=== PATIENT | female | born 1940 | race Caucasian/White ===

== ENCOUNTER → 2017-05-10 | Outpatient (CLI) | payer OTHER, BC ==
[~2017-05-10] MED LIST: AMB5 PO; AMLO-110 PO; CALC-354 PO; LDXCR60 TOP; RANI150T2 PO; SERT50TA PO; SYN50 PO
--- NOTE | 2017-05-10 16:07 | MAMMOGRAPHY REPORT ---
BILATERAL DIGITAL SCREENING MAMMOGRAM WITH CAD: 05/10/2017 CLINICAL HISTORY: Routine screening. Patient has no complaints. TECHNIQUE: Bilateral CC and MLO views were obtained. Current study was also evaluated with a Compute r Aided Detection (CAD) system. COMPARISON: Comparison is made to exams dated: 05/06/2016 mammogram, 05/01/2015 mammogram, 04/30/2014 ma mmogram, 04/27/2013 mammogram, 04/25/2012 mammogram, and 04/22/2011 mammogram - [facility] nter. BREAST COMPOSITION: The tissue of both breasts is heterogeneously dense, which may obscure small mas ses. FINDINGS: The parenchymal pattern is similar to prior mammograms. There are scattered benign round and rim calcifications bilaterally. No developing mass, architectural distortion or cluster of suspi cious microcalcifications is seen in either breast. IMPRESSION: ACR BI-RADS CATEGORY 2: BENIGN There is no mammographic evidence of malignancy. A 1 year screening mammogram is recommended. The pa tient will receive written notification of the results. Approximately 10% of breast cancers are not detected with mammography. A negative mammographic report should not delay biopsy if a clinically suggestive mass is present. Omayra Guerrero M.D. ay/:05/10/2017 14:51:55 Painter Barrel: Emi DRAPER(Pat)(Mariya), [facility] letter sent: Normal 1/2 BI-RADS Code: ACR BI-RADS Category 2: Benign
== END | disposition home or self-care (01) ==
LOC: C.MAMM 14:22
PROVIDERS: ATTEND Obstetrics & Gynecology
DX: Z12.31 Encounter for screening mammogram for malignant neoplasm of breast (principal)

== ENCOUNTER → 2018-02-18 | Outpatient (CLI) | payer OTHER, BC ==
[2018-02-18 10:27] LABS: BASO % 1.5 %; BASO ABS # 0.07 K/uL (0-0.2); EOS % 4.6 %; EOS ABS # 0.22 K/uL (0-0.5); HEMATOCRIT 38.5 % (37-47); IG# 0.01 K/uL (0.00-0.02); LYMPH % 40.9 %; LYMPH ABS # 1.97 K/uL (1.2-3.4); MEAN CELL VOLUME 87.3 fL (80-100); MEAN CORPUSCULAR HEMOGLOBIN 29.5 pg (25-34); MEAN CORPUSCULAR HGB CONC 33.8 g/dl (32-36); MEAN PLATELET VOLUME 10.3 fL (7.4-10.4); MONO % 11.2 %; MONO ABS # 0.54 K/uL (0.11-0.59); NEUT % 41.6 %; NEUT ABS # 2.01 K/uL (1.4-6.5); PLATELET COUNT 163 K/uL (130-400); RED CELL DISTRIBUTION WIDTH CV 14.2 % (11.5-14.5); RED CELL DISTRIBUTION WIDTH SD 45.2 fL (36.4-46.3); WHITE BLOOD COUNT 4.82 K/uL (4.8-10.8)
[2018-02-18 10:50] LABS: T3 FREE 2.63 pg/ml (2.30-4.20)
[2018-02-18 10:52] LABS: HEMOGLOBIN A1C 5.5 % (4.5-5.6)
[2018-02-18 11:02] LABS: ALBUMIN 3.6 gm/dl (3.4-5.0); ALKALINE PHOSPHATASE 67 U/L (45-117); ALT/SGPT 21 U/L (12-78); AST/SGOT 23 U/L (15-37); BLOOD UREA NITROGEN 18 mg/dl (7-18); CALCIUM 8.9 mg/dl (8.5-10.1); CARBON DIOXIDE 29 mmol/L (21-32); CHOLESTEROL 192 mg/dl (0-200); CREATININE 0.88 mg/dl (0.60-1.20); GLUCOSE 85 mg/dl (70-99); LDL CHOLESTEROL CALCULATED 89 mg/dl; POTASSIUM 3.9 mmol/L (3.5-5.1); SODIUM 141 mmol/L (136-145); TOTAL PROTEIN 6.8 gm/dl (6.4-8.2)
== END | disposition home or self-care (01) ==
LOC: C.LAB1850 09:10
PROVIDERS: ATTEND Nurse Practitioner Family
DX: I11.0 Hypertensive heart disease with heart failure (principal); I50.32 Chronic diastolic (congestive) heart failure; K21.9 Gastro-esophageal reflux disease without esophagitis; E03.9 Hypothyroidism, unspecified; I25.10 Atherosclerotic heart disease of native coronary artery without angina pectoris; M85.80 Other specified disorders of bone density and structure, unspecified site; R13.10 Dysphagia, unspecified; R53.83 Other fatigue; R73.01 Impaired fasting glucose; F32.9 Major depressive disorder, single episode, unspecified

== ENCOUNTER → 2018-04-27 | Outpatient (CLI) | payer OTHER, BC ==
[~2018-04-27] MED LIST changes: -AMB5 PO; -AMLO-110 PO; -CALC-354 PO; +CHOL100027 PO; +CPAP INH; -LDXCR60 TOP; +NASONEX NAE; +NRV/5 PO; -RANI150T2 PO; -SERT50TA PO; +TRMO2580 TOP; +ZLF/50 PO; +ZOLP5TAB6 PO
== END | disposition home or self-care (01) ==
LOC: C.RDSM 13:14
PROVIDERS: ATTEND Orthopaedic Surgery Sports Medicine
DX: M25.561 Pain in right knee (principal)

== ENCOUNTER → 2018-05-11 | Outpatient (CLI) | payer OTHER, BC ==
--- NOTE | 2018-05-12 15:12 | MAMMOGRAPHY REPORT ---
BILATERAL DIGITAL SCREENING MAMMOGRAM TOMOSYNTHESIS WITH CAD: 05/11/2018 CLINICAL HISTORY: Routine screening. Patient has no complaints. TECHNIQUE: The study was acquired using full field digital technology and interpreted from soft copy. Breast tomosynthesis in addition to standard 2D mammography was performed. Current study was also ev aluated with a Computer Aided Detection (CAD) system. COMPARISON: Comparison is made to exams dated: 05/10/2017 mammogram, 05/06/2016 mammogram, 05/01/2015 dylan mogram, 04/30/2014 mammogram, 04/25/2012 mammogram, and 04/22/2011 mammogram - [facility] ter. BREAST COMPOSITION: The tissue of both breasts is heterogeneously dense, which may obscure small mass es. FINDINGS: There are numerous scattered bilateral benign rounded rim calcifications in the breasts. No suspicious mass, architectural distortion or cluster of microcalcifications is seen. IMPRESSION: ACR BI-RADS CATEGORY 1: NEGATIVE There is no mammographic evidence of malignancy. A 1 year screening mammogram is recommended.( 019) The patient will receive written notification of the results. Some breast cancers are not detected with mammography. A negative mammographic report should not lonnie y biopsy if a clinically suggestive mass is present. Omayra Guerrero M.D. ay/:05/11/2018 14:38:51 Temporary Data Entry Clerk: RT Lynnette(Pat)(M), [facility] letter sent: Normal 1/2 BI-RADS Code: ACR BI-RADS Category 1: Negative
== END | disposition home or self-care (01) ==
LOC: C.MAMM 13:59
PROVIDERS: ATTEND Nurse Practitioner Family
DX: Z12.31 Encounter for screening mammogram for malignant neoplasm of breast (principal)

== ENCOUNTER 2022-10-17 05:58 | Inpatient (IN) ==
[2022-10-17] MEDS ORDERED: ONDANSETRON INJ 2 MG/ML 2 ML VIAL IV STA ×2 (07:09→08:49)
[2022-10-17] MEDS ORDERED: ACETAMINOPHEN 1,000 MG/100 ML VIAL IV STA (07:11)
[2022-10-17] MEDS: SODIUM CHLORIDE 0.9% 1000ML 1,000 ML IV SCH ×2 (07:34→21:45)
[2022-10-17] MEDS ORDERED: OPTIRAY 350 100ml IV ONE (08:01)
--- NOTE | 2022-10-17 08:32 | CT Scan Report ---
CT cervical spine wo con CLINICAL HISTORY: Trauma TECHNIQUE: Multidetector row helical CT of the cervical spine was performed without administration of intravenous contrast. Coronal and sagittal reformations were obtained. Automated dose lowering techn iques and/or adjustment according to patient size were utilized for this exam. Comparison: Comparison is made to CT cervical spine 09/20/2018 FINDINGS: No acute fractures or subluxations are identified. Degenerative changes are seen in the visualized sp ine. The alignment is normal. Biapical scarring is seen in the lungs. Subcentimeter thyroid nodules a re seen which do not require follow-up by ACR criteria. IMPRESSION: Degenerative changes without evidence of acute bony injury. ACT 112: Negative or not required by law. Electronically signed by: Branden Valencia M.D. 10/17/2022 8:30 AM
--- NOTE | 2022-10-17 08:34 | CT Scan Report ---
CT head/brain wo con CLINICAL HISTORY: Fall Technique: Contiguous axial CT images of the head were acquired from the base of the skull to the isis ana maria without intravenous contrast administration. Images were viewed [facility] . Automated dose lowering techniques and/or adjustment according to patient size were utilized for this exam. Comparison: None available at the time of this dictation. Findings: Areas of decreased attenuation are present in the periventricular and subcortical white matter bilate rally consistent with small vessel ischemic disease. Generalized cerebral atrophy with commensurate e nlargement of the ventricles, sulci, and cisterns is also present. There is no acute intracranial hem orrhage or evidence of acute territorial infarction. No shift of the midline structures, mass effect, or extra-axial abnormalities are shown. Atherosclerotic calcifications are present in the intracran ial segments of the internal carotid arteries. Imaged portions of the paranasal sinuses and mastoid air cells are clear. The orbits appear normal. There are no acute fractures of the calvaria. Scalp swelling is seen in the right frontal soft tissu es. Impression: No acute intracranial hemorrhage or skull fractures. Scalp swelling is seen in the right frontal soft tissues. ACT 112: Negative or not required by law. Electronically signed by: Branden Valencia M.D. 10/17/2022 8:32 AM
--- NOTE | 2022-10-17 08:38 | CT Scan Report ---
CT facial bones wo con CLINICAL HISTORY: fall TECHNIQUE: Multidetector row helical CT of the maxillofacial bones was performed without administrati on of intravenous contrast, and processed with bone and soft tissue algorithms. Coronal and sagittal reformations were obtained. Automated dose lowering techniques and/or adjustment according to patient size were utilized for this exam. Comparison: None available at the time of this dictation. FINDINGS: There is an acute fracture of the bilateral nasal bones. The mandible is intact. Degenerative changes are seen in the left temporal manubrial joint. Pterygoid plates are intact. Zygomatic arches are int act. The globes are normal and symmetric, without proptosis, obvious disruption or lens dislocation. Ther e is no orbital radiopaque foreign body. The orbital thornton are intact. The retrobulbar fat is without evidence of disruption. Extraocular muscles are normal and symmetric. Optic nerve sheath complexes are normal in course and caliber. Mild ethmoid sinus thickening is seen. Soft tissue swelling is seen in the frontal region. IMPRESSION: Bilateral acute nasal fracture. No additional fractures are seen. ACT 112: Negative or not required by law. Electronically signed by: Branden Valencia M.D. 10/17/2022 8:36 AM
--- NOTE | 2022-10-17 08:52 | CT Scan Report ---
CT thoracic spine wo con CLINICAL HISTORY: Trauma TECHNIQUE: Multidetector row helical CT of the thoracic spine was performed without administration of intravenous contrast. Coronal and sagittal reformations were obtained. Automated dose lowering techn iques and/or adjustment according to patient size were utilized for this exam. Comparison: Comparison is made to CT thoracic spine 01/15/2015 FINDINGS: Interval development of multiple compression deformities, most notably T12 but also involving T9 and L1 and L2. Vertebral body heights and disk spaces are well maintained. Vertebral body alignment is wi thin normal limits. Surrounding soft tissues are unremarkable apart from aortic calcifications. IMPRESSION: Degenerative changes are seen and there are chronic appearing compression deformities as above, howev er correlation with point tenderness is recommended to exclude acute fracture. ACT 112: Negative or not required by law. Electronically signed by: Branden Valencia M.D. 10/17/2022 8:50 AM
--- NOTE | 2022-10-17 09:13 | CT Scan Report ---
CT abd pelvis IV con only, CT lumbar spine wo con CLINICAL HISTORY: Trauma TECHNIQUE: Helical axial images of the abdomen and pelvis were obtained and displayed. Automated dose lowering techniques and/or adjustment according to patient size were utilized for this exam. Dedicat ed images of the lumbar spine were obtained. This exam was performed with intravenous contrast. COMPARISON: Comparison is made to CT abdomen pelvis 09/02/2011 FINDINGS: Lower chest: No acute abnormality. Liver: Unremarkable. No focal lesions are seen. Gallbladder and biliary tree: No calcified gallstones. Normal caliber wall. No intra- or extrahepatic biliary ductal dilation. Pancreas: Unremarkable, no focal lesions. Spleen: Unremarkable. Adrenals: Unremarkable. Kidneys and ureters: Subcentimeter hypodensities are too small to characterize. Nonobstructive stone is seen on the left. Bladder: Unremarkable. Reproductive organs: Patient is status post hysterectomy. Bowel: A moderate hiatal hernia is seen. Large stool burden is seen with redundant colon. Lymph nodes Retroperitoneal: Unremarkable. Pelvic: Unremarkable. Mesenteric: Unremarkable. Peritoneum: Normal. Vessels: Atherosclerotic calcifications are seen. Abdominal wall: Unremarkable. Bones: Compression deformities of T12-L2 are increased from prior exam. IMPRESSION: 1. Multilevel compression deformities are seen, not seen on prior exam. These are age-indeterminate but favored to be chronic, however correlation with point tenderness is recommended. 2. No acute abnormalities, in particular no evidence of intraperitoneal hemorrhage or visceral traum a. 3. Hiatal hernia. ACT 112: Negative or not required by law. Electronically signed by: Branden Valencia M.D. 10/17/2022 9:11 AM
--- NOTE | 2022-10-17 09:58 | History & Physical Report ---
Date of Service October 17, 2022 Assessment & Plan (1) Fall: Plan: -Admit to med/tele -Patient is currently afebrile, hypertensive at 197/71 (prior to receiving amlodipine), and stable on RA -Patient sustained a fall sometime overnight, it was unwitnessed and she was apparently not using her walker per the staff at [facility] -Trauma workup so far shows non-displaced fractures of the BL nasal bones and subacute lumbar compression fractures -CT of the head was negative for acute findings -Obtaining ECG STAT -Patient is complaining of dizziness, staff at [facility] confirmed that this has been an ongoing issue for years -Obtaining STAT CBC, CMP, Trop, Lactate, TSH, and CK -Also obtianing STAT Chest xray -S/P 1L NSS bolus in the ED, will hold additional IV fluids at this time -UA negative for infection and no other signs of infection at this time -Fall precautions ordered, monitor on tele, am orthostatic vitals ordered -PT/OT consults placed, patient is currently in the [facility], may need increased care -AM CBC and BMP -BL SCDs for DVT ppx (2) Closed fracture nasal bone: Plan: -Stable, no acute deformity -Tylenol for pain (3) Hypertension: Plan: -Hypertensive today with systolics in the 190's -Was previously on amlodipine which had been stopped for possible hypotension -Will be getting 5 mg PO amlodipine now and will continue daily for now -Monitor BP and adjust as needed (4) Compression fx, lumbar spine: Plan: -Stable -Noted to have these fractures in the past -Tylenol for pain (5) Obstructive sleep apnea: Plan: -Unsure if she is on HS CPAP but would hold regardless at this time with her nasal bone fractures (6) Hypothyroidism: Plan: -Was previously on Synthroid but unsure why it was stopped -Will FU with TSH ordered on admission (7) Gastro-esophageal reflux: Plan: -Will order daily famotidine (8) Chronic diastolic (congestive) heart failure: Plan: -Currently Euvolemic -Monitor volume status (9) Arteriosclerotic coronary artery disease: Plan: -Not on aspirin at this time Plan The patient was discussed with Dr. Mae at the time of the admission History of Present Illness Chief Complaint: Fall Primary Care Provider: Ling Ramos MD Bedoya is an 82 year old female with a PMH significant for dementia, chronic L3- L5 compression fractures, HTN, FOSTER, hypothyroidism, depression, CAD, GERD, and diastolic CHF who presented to the [facility] ED via EMS on 10/17/22 due to being found down at [facility]. Per the intake report, the patient sustained an unwitnessed fall and was found by staff this morning. On arrival to the ED she complained of a headache and her chronic lower back pain. In the ED the patient was found to be afebrile, Hypertensive at 199/84, and stable on RA. Labs were remarkable for Covid Negative CT of the head was read as "No acute intracranial hemorrhage or skull fractures. Scalp swelling is seen in the right frontal soft tissues". CT fo the face was read as "Bilateral acute nasal fracture. No additional fractures are seen.". CT of the lumbar spine was read as "1. Multilevel compression deformities are seen, not seen on prior exam. These are age-indeterminate but favored to be chronic, however correlation with point tenderness is recommended. 2. No acute abnormalities, in particular no evidence of intraperitoneal hemorrhage or visceral trauma.3. Hiatal hernia.". CT of the thoracic spine was read as "Degenerative changes are seen and there are chronic appearing compression deformities as above, however correlation with point tenderness is recommended to exclude acute fracture.". CT of the abdomen/pelvis with IV contrast was read as "1. Multilevel compression deformities are seen, not seen on prior exam. These are age-indeterminate but favored to be chronic, however correlation with point tenderness is recommended. 2. No acute abnormalities, in particular no evidence of intraperitoneal hemorrhage or visceral trauma. 3. Hiatal hernia". CT of the cervical spine was read as "Degenerative changes without evidence of acute bony injury.". Prior to admission the patient was given a total of 8 mg IV zofran, 40 mg IV methylprednisolone, and 1gm IV acetaminophen. She was also started on 125 mL/hr of NSS prior to admission and ordered 5 mg PO amlodipine for hypertension. At the time of the exam the patient was lying comfortably in bed in no acute distress. The patient was noted to have swelling/bruising on the right upper forehead and dried blood at the BL nares. History was difficult to obtain due to the patient's dementia and baseline mental status. When asked, she states that she is feeling fine and has no complaints. When asked specifically if she is having head, neck, or back pain she confirmed that she was having some pain at the site of bruising on her forehead and low back pain. She states to me that she is feeling dizzy while lying in bed. She denies chest pain, SOB, abdominal pain, nausea, vomiting, dysuria, hematuria, and leg/arm pain. I called and spoke to the staff at [facility] to obtain more information. They state that Elke has had a long history of dizziness and falls. She is normally supposed to ambulate with the help of a walker; over the past week they have noted more issues with her balance and ambulation even with her walker. He states that they found her down on her back this am in her room. They believe that she must have fallen overnight while trying to walk to the bathroom without her walker. Her last known well was yesterday after dinner. I confirmed her med rec with their staff, they confirmed that she had been taken off amlodipine and Synthroid "awhile ago". When asked why her amlodipine was stopped the nurse stated it was due to low blood pressures and falls. They confirmed to me that she is a Full Code. Bertram refer to Dr. Mae's attestation for any changes to the treatment plan Allergies Allergy/AdvReac Type Severity Reaction Status Date / Time Cipro Allergy Intermediate HIVES Verified 01/15/15 13:34 ciprofloxacin Allergy Intermediate HIVES Unverified 10/09/20 13:18 oxycodone Allergy Intermediate GI SYMPTOMS Verified 10/09/20 13:18 acetaminophen Allergy Unknown GI SYMPTOMS Unverified 10/09/20 13:18 Iodinated Contrast Media Allergy Unknown NAUSEA/WARM Unverified 10/09/20 13:18 FEELING PER MEDROL QUESTIONAIRE latex Allergy Unknown Rash Verified 10/09/20 13:18 morphine Allergy Unknown Rash Unverified 10/09/20 13:18 Sulfa (Sulfonamide Allergy Unknown RASH Unverified 10/09/20 13:18 Antibiotics) codeine AdvReac Mild Nausea Unverified 10/09/20 13:18 propoxyphene AdvReac Unknown SENSITIVITY Unverified 10/09/20 13:18 Home Medications Medication Instructions Recorded Confirmed Type cetirizine 10 mg tablet 10 mg PO DAILY PRN Allergy Symptoms 05/08/19 10/17/22 History amlodipine 5 mg tablet 5 mg PO DAILY #30 tabs 02/19/20 10/17/22 Rx zolpidem 5 mg tablet 5 mg PO HS PRN insomnia #30 tabs 06/20/20 10/17/22 Rx Synthroid 50 mcg tablet 50 mcg PO DAILY #30 tabs 12/16/20 10/17/22 Rx (levothyroxine) alendronate 70 mg tablet 70 mg PO WK 10/17/22 10/17/22 History sertraline 50 mg tablet 25 mg PO HS 10/17/22 10/17/22 History Past Med/Surg History Medical History Compression fracture of L1 lumbar vertebra Concussion Kidney stones Laryngeal spasm Surgical History H/O: hysterectomy (~1978) History of arthroplasty (~2011) L thumb History of cataract surgery History of colonoscopy (~2009) Hx of appendectomy S/P UPPP (uvulopalatopharyngoplasty) Family History Father Myocardial infarction Other History of appendectomy History of hysterectomy Denies family history of Ovarian cancer Prostate cancer Breast cancer Colorectal cancer Social History Smoking Status: Unknown if ever smoked Second Hand Exposure: No; Hx Alcohol Use: No Hx Substance Use: No Preferred Language: Rwandan Communication Ability: Effective Visual Impairment: No Limitations Hearing Ability: Normal 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 Physical Exam Physical Exam: Physical Exam: General: In no acute distress, stated age, chronically ill-appearing, non- toxic appearing HEENT: Patient noted to have bruising/swelling of the right forehead, no other trauma or pain with tenderness to the face/head, bruising noted on the bridge of the nose, no deformity of the nose is noted, dried blood is noted at the BL nares, no scleral icterus, pupils around round, symmetrical, and reactive to light, moist mucus membranes, trachea midline, no thyromegaly Chest/Pulm: No respiratory distress, symmetrical chest expansion, clear breath sounds throughout Cardiac: RRR, no murmurs noted Abdomen: Negative for ascites and bruising, normoactive bowel sounds, soft, non-tender to palpation throughout Musculoskeletal: Facial injuries as noted above, no tenderness or crepitus to palpation of the skull, cervical, thoracic, and lumbar spine, patient is without deformity, tenderness, or ROM limitation of the BL upper and lower extremities, no deformities or tenderness to palpation of the BL hips the the pelvis Extremities: Radial, dorsalis pedis, and posterior tibial pulses are intact and symmetrical, no edema noted in the BL LE's Skin: As described above Neuro: Alert and oriented to person only, no focal defects, CN II-XII tested and no tremors noted, patient is currently dizzy at the time of the exam Psych: No acute distress, calm and cooperative during the exam Results & Data Results & Data ([facility]) Vital Signs (Past 12 Hours) Vital Signs Temp Pulse Pulse Resp BP BP Pulse Ox 10/17/22 09:42 72 20 199/84 H 96 10/17/22 08:07 86 20 195/76 H 97 10/17/22 06:55 78 20 162/87 H 97 10/17/22 06:22 36.7 C 66 18 199/84 H 99 O2 Del Method 10/17/22 09:42 Room Air 10/17/22 08:07 Room Air 10/17/22 06:55 Room Air 10/17/22 06:22 Room Air Laboratory Results Abnormal lab results 10/17/22 10/17/22 10/17/22 Range/Units 07:21 09:32 10:33 Neut # (Auto) 6.75 H (1.4-6.5) K/uL Lymph # (Auto) 0.75 L (1.2-3.4) K/uL POC Anion Gap 13.0 L (16-25) mmol/L Glucose (70-99(Fasting)) mg/dl POC Glucose (other) 103 H (70-99) mg/dl Urine Ketones 1+ H (Negative) 10/17/22 Range/Units 10:33 Neut # (Auto) (1.4-6.5) K/uL Lymph # (Auto) (1.2-3.4) K/uL POC Anion Gap (16-25) mmol/L Glucose 112 H (70-99(Fasting)) mg/dl POC Glucose (other) (70-99) mg/dl Urine Ketones (Negative) Diagnostic Findings Face CT 10/17/22 06:12 CT facial bones wo con CLINICAL HISTORY: fall TECHNIQUE: Multidetector row helical CT of the maxillofacial bones was performed without administration of intravenous contrast, and processed with bone and soft tissue algorithms. Coronal and sagittal reformations were obtained. Automated dose lowering techniques and/or adjustment according to patient size were utilized for this exam. Comparison: None available at the time of this dictation. FINDINGS: There is an acute fracture of the bilateral nasal bones. The mandible is intact. Degenerative changes are seen in the left temporal manubrial joint. Pterygoid plates are intact. Zygomatic arches are intact. The globes are normal and symmetric, without proptosis, obvious disruption or lens dislocation. There is no orbital radiopaque foreign body. The orbital thornton are intact. The retrobulbar fat is without evidence of disruption. Ex traocular muscles are normal and symmetric. Optic nerve sheath complexes are normal in course and caliber. Mild ethmoid sinus thickening is seen. Soft tissue swelling is seen in the frontal region. IMPRESSION: Bilateral acute nasal fracture. No additional fractures are seen. ACT 112: Negative or not required by law. Electronically signed by: Branden Valencia M.D. 10/17/2022 8:[address] 10/17/22 06:13 CT head/brain wo con CLINICAL HISTORY: Fall Technique: Contiguous axial CT images of the head were acquired from the base of the skull to the vertex without intravenous contrast administration. Images were viewed in brain, subdural and bone windows. Automated dose lowering techniques and/or adjustment according to patient size were utilized for this exam. Comparison: None available at the time of this dictation. Findings: Areas of decreased attenuation are present in the periventricular and subcortical white matter bilaterally consistent with small vessel ischemic disease. Generalized cerebral atrophy with commensurate enlargement of the ventricles, sulci, and cisterns is also present. There is no acute intracranial hemorrhage or evidence of acute territorial infarction. No shift of the midline structures, mass effect, or extra-axial abnormalities are shown. Atherosclerotic calcifications are present in the intracranial segments of the internal carotid arteries. Imaged portions of the paranasal sinuses and mastoid air cells are clear. The orbits appear normal. There are no acute fractures of the calvaria. Scalp s welling is seen in the right frontal soft tissues. Impression: No acute intracranial hemorrhage or skull fractures. Scalp swelling is seen in the right frontal soft tissues. ACT 112: Negative or not required by law. Electronically signed by: Branden Valencia M.D. 10/17/2022 8:[address] 10/17/22 07:08 CT abd pelvis IV con only, CT lumbar spine wo con CLINICAL HISTORY: Trauma TECHNIQUE: Helical axial images of the abdomen and pelvis were obtained and displayed. Automated dose lowering techniques and/or adjustment according to patient size were utilized for this exam. Dedicated images of the lumbar spine were obtained. This exam was performed with intravenous contrast. COMPARISON: Comparison is made to CT abdomen pelvis 09/02/2011 FINDINGS: Lower chest: No acute abnormality. Liver: Unremarkable. No focal lesions are seen. Gallbladder and biliary tree: No calcified gallstones. Normal caliber wall. No intra- or extrahepatic biliary ductal dilation. Pancreas: Unremarkable, no focal lesions. Spleen: Unremarkable. Adrenals: Unremarkable. Kidneys and ureters: Subcentimeter hypodensities are too small to characterize. Nonobstructive stone is seen on the left. Bladder: Unremarkable. Reproductive organs: Patient is status post hysterectomy. Bowel: A moderate hiatal hernia is seen. Large stool burden is seen with redundant colon. Lymph nodes Retroperitoneal: Unremarkable. Pelvic: Unremarkable. Mesenteric: Unremarkable. Peritoneum: Normal. Vessels: Atherosclerotic calcifications are seen. Abdominal wall: Unremarkable. Bones: Compression deformities of T12-L2 are increased from prior exam. IMPRESSION: 1. Multilevel compression deformities are seen, not seen on prior exam. These are age-indeterminate but favored to be chronic, however correlation with point tenderness is recommended. 2. No acute abnormalities, in particular no evidence of intraperitoneal hemorrhage or visceral trauma. 3. Hiatal hernia. ACT 112: Negative or not required by law. Electronically signed by: Branden Valencia M.D. 10/17/2022 9:[address] 10/17/22 07:08 CT thoracic spine wo con CLINICAL HISTORY: Trauma TECHNIQUE: Multidetector row helical CT of the thoracic spine was performed without administration of intravenous contrast. Coronal and sagittal refo rmations were obtained. Automated dose lowering techniques and/or adjustment according to patient size were utilized for this exam. Comparison: Comparison is made to CT thoracic spine 01/15/2015 FINDINGS: Interval development of multiple compression deformities, most notably T12 but also involving T9 and L1 and L2. Vertebral body heights and disk spaces are well maintained. Vertebral body alignment is within normal limits. Surrounding soft tissues are unremarkable apart from aortic calcifications. IMPRESSION: Degenerative changes are seen and there are chronic appearing compression def ormities as above, however correlation with point tenderness is recommended to exclude acute fracture. ACT 112: Negative or not required by law. Electronically signed by: Branden Valencia M.D. 10/17/2022 8:50 AM Abdomen/Pelvis CT 10/17/22 07:09 CT abd pelvis IV con only, CT lumbar spine wo con CLINICAL HISTORY: Trauma TECHNIQUE: Helical axial images of the abdomen and pelvis were obtained and displayed. Automated dose lowering techniques and/or adjustment according to patient size were utilized for this exam. Dedicated images of the lumbar spine were obtained. This exam was performed with intravenous contrast. COMPARISON: Comparison is made to CT abdomen pelvis 09/02/2011 FINDINGS: Lower chest: No acute abnormality. Liver: Unremarkable. No focal lesions are seen. Gallbladder and biliary tree: No calcified gallstones. Normal caliber wall. No intra- or extrahepatic biliary ductal dilation. Pancreas: Unremarkable, no focal lesions. Spleen: Unremarkable. Adrenals: Unremarkable. Kidneys and ureters: Subcentimeter hypodensities are too small to characterize. Nonobstructive stone is seen on the left. Bladder: Unremarkable. Reproductive organs: Patient is status post hysterectomy. Bowel: A moderate hiatal hernia is seen. Large stool burden is seen with redundant colon. Lymph nodes Retroperitoneal: Unremarkable. Pelvic: Unremarkable. Mesenteric: Unremarkable. Peritoneum: Normal. Vessels: Atherosclerotic calcifications are seen. Abdominal wall: Unremarkable. Bones: Compression deformities of T12-L2 are increased from prior exam. IMPRESSION: 1. Multilevel compression deformities are seen, not seen on prior exam. These are age-indeterminate but favored to be chronic, however correlation with point tenderness is recommended. 2. No acute abnormalities, in particular no evidence of intraperitoneal hemorrhage or visceral trauma. 3. Hiatal hernia. ACT 112: Negative or not required by law. Electronically signed by: Branden Valencia M.D. 10/17/2022 9:[address] 10/17/22 07:09 CT cervical spine wo con CLINICAL HISTORY: Trauma TECHNIQUE: Multidetector row helical CT of the cervical spine was performed without administration of intravenous contrast. Coronal and sagittal reformations were obtained. Automated dose lowering techniques and/or adjustment according to patient size were utilized for this exam. Comparison: Comparison is made to CT cervical spine 09/20/2018 FINDINGS: No acute fractures or subluxations are identified. Degenerative changes are seen in the visualized spine. The alignment is normal. Biapical scarring is seen in the lungs. Subcentimeter thyroid nodules are seen which do not require follow-up by ACR criteria. IMPRESSION: Degenerative changes without evidence of acute bony injury. ACT 112: Negative or not required by law. Electronically signed by: Branden Valencia M.D. 10/17/2022 8:30 AM ECG Additional Comments: No ECG available at the time of the admission, will obtain one STAT Code Status & VTE Plan Code Status FUll code VTE Prophylaxis Plan VTE Prophylaxis will be ordered: Yes Supervising Physician Co-Signing Physician Notes I personally saw and examined the patient. I verified all liao points and agree with Buzz Tai PA-C with the following exceptions and/or additions: 82-year-old female admission after being found on the floor [facility] in assisted living. Unwitnessed. Main complaint from the patient at this present time is ongoing dizziness. Per staff at [facility] dizziness is chronic. However on turning the patient on the retana she became very dizzy and vomited. Does not improve on closing her eyes. Much worse on moving her head while lying down. O/E Alert, orientated to self only, HS1+2, no murmurs, Chest CTAB, Abdo SNT, no extremity weakness, no pronator drift, no sensory deficit, CN2->12 intact other than vertigo sensation whenever she moves her head A/P Vertigo - unclear cause of this as unable to get a good history. One dose of meclizine given to see if this helps her temporarily get through CT. Brain MRI ordered to assess for CVA. No nystagmus on exam or other focal neurology to suggest this however. Fall - presumably from vertigo although unwitnessed. Will need PT/OT HTN - possible hypertensive encephalopathy causing dizziness and will continue amlodipine 5mg PO daily and make sure she is not orthostatic with this PG Care Time/CCT Total # of Minutes Spent Total Time Spent with Patient: Total time spent is greater than 50% in coordination of care (as documented) at patient's floor/unit and/or counseling patient: Coding [place] [address] INT INP/OBS CARE 3/75MIN Patient Type Established Medical Decision Making High Complexity Diagnoses Fall W19.XXXA Encounter type: initial encounter Closed fracture nasal bone S02.2XXA Encounter type: initial encounter Hypertension I10 Compression fx, lumbar spine S32.000A Encounter type: initial encounter Lumbar vertebra fracture level: unspecified lumbar vertebra Obstructive sleep apnea G47.33 Hypothyroidism E03.9 Gastro-esophageal reflux K21.9 Chronic diastolic (congestive) heart failure I50.32 Arteriosclerotic coronary artery disease I25.10 (1) Closed fracture nasal bone Encounter type: initial encounter Qualified Code(s): S02.2XXA - Fracture of nasal bones, initial encounter for closed fracture (2) Compression fx, lumbar spine Encounter type: initial encounter Lumbar vertebra fracture level: unspecified lumbar vertebra Qualified Code(s): S32.000A - Wedge compression fracture of unspecified lumbar vertebra, initial encounter for closed fracture (3) Fall Encounter type: initial encounter Qualified Code(s): W19.XXXA - Unspecified fall, initial encounter
[2022-10-17 10:05] LABS: Appearance Urine Clear (Clear); Bilirubin Urine Negative (Negative); Blood Urine Negative (Negative); Color Urine Yellow; Glucose Urine UA Negative (Negative); Ketones Urine 1+ (Negative); Leukocyte Esterase Urine Negative (Negative); Nitrite Urine Negative (Negative); Protein Urine Negative (Negative); Specific Gravity Urine 1.029 (1.000-1.030); Urobilinogen Urine Negative (Negative); pH Urine 7.5 (4.5-7.5)
[2022-10-17 10:08] LABS: iSTAT Creatinine 0.8 mg/dl (0.6-1.3); iSTAT Hemoglobin 12.6 g/dl (12.0-16.0); iSTAT Ionized Calcium 1.17 mmol/l (1.12-1.32); iSTAT Potassium 3.8 mmol/L (3.3-5.0)
--- NOTE | 2022-10-17 10:14 | Emergency Department Note ---
Impression & Plan Compression fx, lumbar spine, Fall, Closed fracture nasal bone, Hypertension ED Provider Note CHIEF COMPLAINT: Fall HISTORY OF PRESENT ILLNESS: This 82-year-old female patient presents to the emergency department with complaints of a fall this morning. The patient apparently lives at [facility] and had an unwitnessed ground-level fall. She presents with a head injury and a bloody nose. Patient states she does not recall the events and does complain of some abdominal pain. She does suffer history of dementia and is apparently at baseline. She is not anticoagulated. History is limited for this reason. Most of the history is obtained per nursing staff and EMS. REVIEW OF SYSTEMS: Unreliable review of systems secondary to patient's dementia. ALLERGIES: see below MEDICATIONS: see below PMH: see below SOCIAL HISTORY: [facility] DDx: Fracture, dislocation, contusion, intra-abdominal, pneumothorax, intrathoracic, intracranial, neurologic, compartment syndrome, rhabdomyolysis, as well as other pathologies. PHYSICAL EXAM: Vital signs reviewed. General: Well-appearing 82-year-old female, somewhat anxious but in no distress. Collar in place. HEENT: No scleral icterus, PERRLA, neck supple. Forehead hematoma and small abrasion appreciated. Cardiovascular: Regular rate and rhythm, no extra sounds. Pulmonary: Clear to auscultation bilaterally, normal work of breathing. Abdomen: Soft, mild tenderness palpation over the right lower abdomen, nondistended, positive bowel sounds. No traumatic findings appreciated. Musculoskeletal: Atraumatic, no peripheral edema. Nontender to palpation over the pelvis, mild tenderness palpation over the mid thoracic back without step- off or deformity mild tenderness to the lower lumbar spine without step-off or deformity. Neurologic: Patient awake alert and slightly confused, full strength in all 4 extremities. Able to follow commands. Cranial nerves 2 through 12 grossly intact. Skin: Warm, dry, no rash EMERGENCY DEPARTMENT COURSE/MDM: External medical records were reviewed this patient was evaluated and appeared to be in some discomfort. IV access was obtained by nursing staff and the patient was hydrated with normal saline solution. She was medicated with IV acetaminophen and IV Zofran x2. She was sent for CT imaging due to her diffuse discomfort. Patient was given 40 mg of IV Solu-Medrol due to a listed allergy to contrast media. She is noted to have multiple compression deformities of T12-L2 which are favored to be chronic. She also has bilateral nasal fractures and no evidence of acute intracranial abnormality. The c-collar was removed. An ambulatory trial was attempted however the patient became dizzy on each of 2 attempts. Case was discussed with the hospitalist service as the patient will not be able to return to the nursing facility at this time. She is a high risk for recurrent falls due to her pain and dizziness. She will also require evaluation of the compression fractures. MONITORING: An order for cardiac monitoring was placed and the patient is noted to be in a normal sinus rhythm at 72 beats per minute. RADIOLOGY: CT imaging of the head to my interpretation reveals no evidence of acute intracranial abnormality. Otherwise defer to radiology CT imaging of the face reveals bilateral nasal fractures per radiology. C-spine, T-spine and L-spine to radiology's interpretation revealmultilevel compression deformities seen, not seen on prior exam, age-indeterminate but favored to be chronic. CT scan of the abdomen pelvis per radiology reveals no evidence of acute intra abdominal trauma. There are compression deformities of T12-L2 appreciated. Formal reads are noted below EKG: Sinus bradycardia 59 bpm. Left atrial enlargement. QTC is 437. No PVC, no PAC. Normal ST segments. When compared to previous dated September 20, 2018, septal infarct criteria no longer present. DISPOSITION: Admission Past Med/Surg History Medical History Compression fracture of L1 lumbar vertebra Concussion Kidney stones Laryngeal spasm Surgical History H/O: hysterectomy (~1978) History of arthroplasty (~2011) L thumb History of cataract surgery History of colonoscopy (~2009) Hx of appendectomy S/P UPPP (uvulopalatopharyngoplasty) Family History Father Myocardial infarction Other History of appendectomy History of hysterectomy Denies family history of Ovarian cancer Prostate cancer Breast cancer Colorectal cancer Social History Smoking Status: Unknown if ever smoked Second Hand Exposure: No; Hx Alcohol Use: No Hx Substance Use: No Preferred Language: Hong Konger Communication Ability: Effective Visual Impairment: No Limitations Hearing Ability: Normal Group [employer]st Required: No Beliefs That Will Affect Care: None marital status: Current Living Situation: Senior Living current occupational status: retired Feels Safe at Home: Yes Dental Care, Regularly: No Physical Activity Frequency: 3-4 Times per Week Seatbelt Use: always Sunscreen Use: Yes Allergies Allergies Allergy/AdvReac Type Severity Reaction Status Date / Time Cipro Allergy Intermediate HIVES Verified 01/15/15 13:34 ciprofloxacin Allergy Intermediate HIVES Unverified 10/09/20 13:18 oxycodone Allergy Intermediate GI SYMPTOMS Verified 10/09/20 13:18 acetaminophen Allergy Unknown GI SYMPTOMS Unverified 10/09/20 13:18 Iodinated Contrast Media Allergy Unknown NAUSEA/WARM Unverified 10/09/20 13:18 FEELING PER MEDROL QUESTIONAIRE latex Allergy Unknown Rash Verified 10/09/20 13:18 morphine Allergy Unknown Rash Unverified 10/09/20 13:18 Sulfa (Sulfonamide Allergy Unknown RASH Unverified 10/09/20 13:18 Antibiotics) codeine AdvReac Mild Nausea Unverified 10/09/20 13:18 propoxyphene AdvReac Unknown SENSITIVITY Unverified 10/09/20 13:18 Home Meds Home Medications Medication Instructions Recorded Confirmed cetirizine 10 mg tablet 10 mg PO DAILY PRN Allergy Symptoms 05/08/19 10/17/22 alendronate 70 mg tablet 70 mg PO WK 10/17/22 10/17/22 sertraline 50 mg tablet 25 mg PO HS 10/17/22 10/17/22 Previous Rx's Medication Instructions Recorded amlodipine 5 mg tablet 5 mg PO DAILY #30 tabs 02/19/20 zolpidem 5 mg tablet 5 mg PO HS PRN insomnia #30 tabs 06/20/20 Synthroid 50 mcg tablet 50 mcg PO DAILY #30 tabs 12/16/20 (levothyroxine) Results & Data (ED) Vital Signs Vital Signs - 24 hr 10/17/22 06:22 10/17/22 06:55 10/17/22 08:07 Temperature 36.7 C Temperature Source Oral Pulse Rate 66 Pulse Rate [Right Finger] 78 86 Respiratory Rate 18 20 20 Respiratory Effort / Characteristics Non-Labored Non-Labored Respiratory Depth Normal Normal Blood Pressure 199/84 H Blood Pressure [Right Arm] 162/87 H 195/76 H Blood Pressure Mean 122 Blood Pressure Mean [Right Arm] 112 115 Pulse Oximetry 99 97 97 Oxygen Delivery Method Room Air Room Air Room Air Sepsis Recent Fever Within 48 Hours No Sepsis New/Unexplained Change in Mental Status No Sepsis Action Taken by Nursing No Action Required 10/17/22 09:42 Temperature Temperature Source Pulse Rate Pulse Rate [Right Finger] 72 Respiratory Rate 20 Respiratory Effort / Characteristics Non-Labored Respiratory Depth Normal Blood Pressure Blood Pressure [Right Arm] 199/84 H Blood Pressure Mean Blood Pressure Mean [Right Arm] 122 Pulse Oximetry 96 Oxygen Delivery Method Room Air Sepsis Recent Fever Within 48 Hours Sepsis New/Unexplained Change in Mental Status Sepsis Action Taken by Senior [facility] Medications Current Medication List: was personally reviewed by me Laboratory Data Attestation: I reviewed the patient's lab results. 10/17/22 10:33 10/17/22 10:33 Lab Results 10/17/22 10/17/22 10/17/22 Range/Units 07:21 08:56 09:32 POC Hgb 12.6 (12.0-16.0) g/dl POC Hct 37 (37-47) % POC Sodium 142 (135-144) mmol/L POC Potassium 3.8 (3.3-5.0) mmol/L POC Chloride 105 (101-112) mmol/L POC Total CO2 29 (24-31) mmol/L POC Anion Gap 13.0 L (16-25) mmol/L POC BUN 14 (7-18) mg/dl POC Creatinine 0.8 (0.6-1.3) mg/dl POC Glucose (other) 103 H (70-99) mg/dl POC Ioniz Calcium Frederic 1.17 (1.12-1.32) mmol/l Urine Color Yellow Urine Appearance Clear (Clear) Urine pH 7.5 (4.5-7.5) Ur Specific [place] 1.029 (1.000-1.030) Urine Protein Negative (Negative) Urine Glucose (UA) Negative (Negative) Urine Ketones 1+ H (Negative) Urine Blood Negative (Negative) Urine Nitrite Negative (Negative) Urine Bilirubin Negative (Negative) Urine Urobilinogen Negative (Negative) Ur Leukocyte Esterase Negative (Negative) SARS-CoV-2, RNA, NAAT NEGATIVE (NEGATIVE) Administered Medications Alendronate Sodium (Alendronate Sodium 70 Mg Tab) 70 mg PO Sa@0600 LUCIA Stop: 11/16/22 12:03 Last Admin: 10/17/22 13:01 Dose: Not Given Documented By: [id number] Famotidine (Famotidine 20 Mg Tab) 20 mg PO DAILY LUCIA Stop: 11/16/22 12:03 Last Admin: 10/17/22 13:01 Dose: 20 mg Documented By: [id number] Sodium Chloride (Nss 1000ml) 1,000 mls @ 125 mls/hr IV .Q8H LUCIA Stop: 11/16/22 07:14 Last Admin: 10/17/22 07:34 Dose: 125 mls/hr Documented By: LEONELA Discontinued Medications Amlodipine Besylate (Amlodipine Besylate 5 Mg Tab) 5 mg PO NOW ONE Stop: 10/17/22 10:30 Last Admin: 10/17/22 11:16 Dose: 5 mg Documented By: LEONELA Acetaminophen (Ofirmev) 1,000 mg in 100 mls @ 400 mls/hr IV NOW STA Stop: 10/17/22 07:25 Last Infusion: 10/17/22 07:44 Dose: 0 mls/hr Documented By: Admin: 10/17/22 07:29 Dose: 400 mls/hr Documented By: LEONELA Ioversol (Optiray 350 100ml) 94 ml IV ONCE ONE Stop: 10/17/22 08:02 Last Admin: 10/17/22 08:01 Dose: 94 ml Documented By: JAZMINE Meclizine HCl (Meclizine 12.5 Mg Tab) 12.5 mg PO ONE STA Stop: 10/17/22 14:27 Last Admin: 10/17/22 15:04 Dose: 12.5 mg Documented By: [id number] Methylprednisolone (Methylprednisolone 40 Mg/Ml Vial) 40 mg IV NOW STA Stop: 10/17/22 07:10 Last Admin: 10/17/22 07:29 Dose: 40 mg Documented By: LEONELA Ondansetron HCl (Ondansetron Inj 2 Mg/Ml 2 Ml Vial) 4 mg IV NOW STA Stop: 10/17/22 07:10 Last Admin: 10/17/22 07:29 Dose: 4 mg Documented By: LEONELA Ondansetron HCl (Ondansetron Inj 2 Mg/Ml 2 Ml Vial) 4 mg IV NOW STA Stop: 10/17/22 08:50 Last Admin: 10/17/22 09:01 Dose: 4 mg Documented By: NRB Imaging Data Radiologist's Impression: Face CT 10/17/22 06:12 CT facial bones wo con CLINICAL HISTORY: fall TECHNIQUE: Multidetector row helical CT of the maxillofacial bones was performed without administration of intravenous contrast, and processed with bone and soft tissue algorithms. Coronal and sagittal reformations were obtained. Automated dose lowering techniques and/or adjustment according to patient size were utilized for this exam. Comparison: None available at the time of this dictation. FINDINGS: There is an acute fracture of the bilateral nasal bones. The mandible is intact. Degenerative changes are seen in the left temporal manubrial joint. Pterygoid plates are intact. Zygomatic arches are intact. The globes are normal and symmetric, without proptosis, obvious disruption or lens dislocation. There is no orbital radiopaque foreign body. The orbital thornton are intact. The retrobulbar fat is without evidence of disruption. Extraocular muscles are normal and symmetric. Optic nerve sheath complexes are normal in course and caliber. Mild ethmoid sinus thickening is seen. Soft tissue swelling is seen in the frontal region. IMPRESSION: Bilateral acute nasal fracture. No additional fractures are seen. ACT 112: Negative or not required by law. Electronically signed by: Branden Valencia M.D. 10/17/2022 8:[address] 10/17/22 06:13 CT head/brain wo con CLINICAL HISTORY: Fall Technique: Contiguous axial CT images of the head were acquired from the base of the skull to the vertex without intravenous contrast administration. Images were viewed in brain, subdural and bone windows. Automated dose lowering techniques and/or adjustment according to patient size were utilized for this exam. Comparison: None available at the time of this dictation. Findings: Areas of decreased attenuation are present in the periventricular and subcortical white matter bilaterally consistent with small vessel ischemic disease. Generalized cerebral atrophy with commensurate enlargement of the ventricles, sulci, and cisterns is also present. There is no acute intracranial hemorrhage or evidence of acute territorial infarction. No shift of the midline structures, mass effect, or extra-axial abnormalities are shown. Atherosclerotic calcifications are present in the intracranial segments of the internal carotid arteries. Imaged portions of the paranasal sinuses and mastoid air cells are clear. The orbits appear normal. There are no acute fractures of the calvaria. Scalp swelling is seen in the right frontal soft tissues. Impression: No acute intracranial hemorrhage or skull fractures. Scalp swelling is seen in the right frontal soft tissues. ACT 112: Negative or not required by law. Electronically signed by: Branden Valencia M.D. 10/17/2022 8:[address] 10/17/22 07:08 CT abd pelvis IV con only, CT lumbar spine wo con CLINICAL HISTORY: Trauma TECHNIQUE: Helical axial images of the abdomen and pelvis were obtained and displayed. Automated dose lowering techniques and/or adjustment according to patient size were utilized for this exam. Dedicated images of the lumbar spine were obtained. This exam was performed with intravenous contrast. COMPARISON: Comparison is made to CT abdomen pelvis 09/02/2011 FINDINGS: Lower chest: No acute abnormality. Liver: Unremarkable. No focal lesions are seen. Gallbladder and biliary tree: No calcified gallstones. Normal caliber wall. No intra- or extrahepatic biliary ductal dilation. Pancreas: Unremarkable, no focal lesions. Spleen: Unremarkable. Adrenals: Unremarkable. Kidneys and ureters: Subcentimeter hypodensities are too small to characterize. Nonobstructive stone is seen on the left. Bladder: Unremarkable. Reproductive organs: Patient is status post hysterectomy. Bowel: A moderate hiatal hernia is seen. Large stool burden is seen with redundant colon. Lymph nodes Retroperitoneal: Unremarkable. Pelvic: Unremarkable. Mesenteric: Unremarkable. Peritoneum: Normal. Vessels: Atherosclerotic calcifications are seen. Abdominal wall: Unremarkable. Bones: Compression deformities of T12-L2 are increased from prior exam. IMPRESSION: 1. Multilevel compression deformities are seen, not seen on prior exam. These are age-indeterminate but favored to be chronic, however correlation with point tenderness is recommended. 2. No acute abnormalities, in particular no evidence of intraperitoneal hemorrhage or visceral trauma. 3. Hiatal hernia. ACT 112: Negative or not required by law. Electronically signed by: Branden Valencia M.D. 10/17/2022 9:[address] 10/17/22 07:08 CT thoracic spine wo con CLINICAL HISTORY: Trauma TECHNIQUE: Multidetector row helical CT of the thoracic spine was performed without administration of intravenous contrast. Coronal and sagittal reformations were obtained. Automated dose lowering techniques and/or adjustment according to patient size were utilized for this exam. Comparison: Comparison is made to CT thoracic spine 01/15/2015 FINDINGS: Interval development of multiple compression deformities, most notably T12 but also involving T9 and L1 and L2. Vertebral body heights and disk spaces are well maintained. Vertebral body alignment is within normal limits. Surrounding soft tissues are unremarkable apart from aortic calcifications. IMPRESSION: Degenerative changes are seen and there are chronic appearing compression deformities as above, however correlation with point tenderness is recommended to exclude acute fracture. ACT 112: Negative or not required by law. Electronically signed by: Branden Valencia M.D. 10/17/2022 8:50 AM Abdomen/Pelvis CT 10/17/22 07:09 CT abd pelvis IV con only, CT lumbar spine wo con CLINICAL HISTORY: Trauma TECHNIQUE: Helical axial images of the abdomen and pelvis were obtained and displayed. Automated dose lowering techniques and/or adjustment according to patient size were utilized for this exam. Dedicated images of the lumbar spine were obtained. This exam was performed with intravenous contrast. COMPARISON: Comparison is made to CT abdomen pelvis 09/02/2011 FINDINGS: Lower chest: No acute abnormality. Liver: Unremarkable. No focal lesions are seen. Gallbladder and biliary tree: No calcified gallstones. Normal caliber wall. No intra- or extrahepatic biliary ductal dilation. Pancreas: Unremarkable, no focal lesions. Spleen: Unremarkable. Adrenals: Unremarkable. Kidneys and ureters: Subcentimeter hypodensities are too small to characterize. Nonobstructive stone is seen on the left. Bladder: Unremarkable. Reproductive organs: Patient is status post hysterectomy. Bowel: A moderate hiatal hernia is seen. Large stool burden is seen with redundant colon. Lymph nodes Retroperitoneal: Unremarkable. Pelvic: Unremarkable. Mesenteric: Unremarkable. Peritoneum: Normal. Vessels: Atherosclerotic calcifications are seen. Abdominal wall: Unremarkable. Bones: Compression deformities of T12-L2 are increased from prior exam. IMPRESSION: 1. Multilevel compression deformities are seen, not seen on prior exam. These are age-indeterminate but favored to be chronic, however correlation with point tenderness is recommended. 2. No acute abnormalities, in particular no evidence of intraperitoneal hemorrhage or visceral trauma. 3. Hiatal hernia. ACT 112: Negative or not required by law. Electronically signed by: Branden Valencia M.D. 10/17/2022 9:[address] 10/17/22 07:09 CT cervical spine wo con CLINICAL HISTORY: Trauma TECHNIQUE: Multidetector row helical CT of the cervical spine was performed without administration of intravenous contrast. Coronal and sagittal reformations were obtained. Automated dose lowering techniques and/or adjustment according to patient size were utilized for this exam. Comparison: Comparison is made to CT cervical spine 09/20/2018 FINDINGS: No acute fractures or subluxations are identified. Degenerative changes are seen in the visualized spine. The alignment is normal. Biapical scarring is seen in the lungs. Subcentimeter thyroid nodules are seen which do not require follow-up by ACR criteria. IMPRESSION: Degenerative changes without evidence of acute bony injury. ACT 112: Negative or not required by law. Electronically signed by: Branden Valencia M.D. 10/17/2022 8:30 AM Blood Pressure Blood Pressure Findings: Elevated blood pressure Blood Pressure Disposition: further management by hospitalist Discharge Plan Visit Data Chief Complaint: Fall Stated Complaint: Bloody Nose, Laceration to head ED Provider: [place] [facility] Discharge Problem: Compression fx, lumbar spine, Fall, Closed fracture nasal bone, Hypertension Patient Disposition: Admitted As Inpatient Discharge Instructions Interventions: ED Discharge Assessment Last Done: 10/17/22 11:23 : Compression fx, lumbar spine Qualifiers: Encounter type: initial encounter Lumbar vertebra fracture level: unspecified lumbar vertebra Qualified Code(s): S32.000A - Wedge compression fracture of unspecified lumbar vertebra, initial encounter for closed fracture Fall Qualifiers: Encounter type: initial encounter Qualified Code(s): W19.XXXA - Unspecified fall, initial encounter Closed fracture nasal bone Qualifiers: Encounter type: initial encounter Qualified Code(s): S02.2XXA - Fracture of nasal bones, initial encounter for closed fracture
[2022-10-17] MEDS ORDERED: amLODIPine BESYLATE 5 MG TAB PO ONE (10:29)
[2022-10-17 10:44] LABS: Basophils # (auto) 0.06 K/uL (0-0.2); Basophils % (auto) 0.8 %; Hematocrit (blood only) 38.6 % (34.1-44.9); Hemoglobin 12.9 g/dl (12.0-16.0); Immature Granulocytes # (auto) 0.02 K/uL (0.00-0.02); Immature Granulocytes % (auto) 0.3 %; Lymphocytes # (auto) 0.75 K/uL (1.2-3.4); Lymphocytes % (auto) 9.5 %; Mean Corpuscular Hemoglobin 29.7 pg (25.0-34.0); Mean Corpuscular Hgb Conc 33.4 g/dL (32.0-36.0); Mean Corpuscular Volume 88.9 fL (80.0-100.0); Mean Platelet Volume 10.4 fL (9.4-12.3); Monocytes # (auto) 0.35 K/uL (0.24-0.82); Monocytes % (auto) 4.4 %; Neutrophils # (auto) 6.75 K/uL (1.4-6.5); Platelet Count 208 K/uL (130-400); RDW Coefficient of Variation 13.7 % (11.5-14.5); RDW Standard Deviation 44.9 fL (36.4-46.3); Red Blood Count 4.34 M/uL (3.93-5.22); White Blood Count 7.93 K/ul (4.8-10.8)
[2022-10-17 11:14] LABS: Albumin Globulin Ratio 1.4 (0.9-2); Albumin Level 3.8 gm/dl (3.4-5.0); BUN Creatinine Ratio 17.6 (10-20); Bilirubin,Total 0.7 mg/dl (0.2-1.0); Calcium 8.8 mg/dl (8.5-10.1); Creatinine Clr Calc Pharmacy 50.7 ml/min; Est GFR (African American) 93.1 ml/min; Est GFR (Non-African American) 80.3 ml/min; Globulin 2.7 gm/dl (2.5-4.0); Total Protein 6.5 gm/dl (6.0-8.3)
[2022-10-17 11:17] LABS: Troponin I High Sensitivity 14.6 pg/ml (0-14)
--- NOTE | 2022-10-17 11:57 | XRay Report ---
XR chest 1V portable CLINICAL HISTORY: Fall, trauma workup TECHNIQUE: Single frontal radiograph of the chest was obtained. Comparison: Comparison is made to chest radiograph 10/20/[address] thoracic spine 10/04/2022 FINDINGS: No lines and tubes are seen. The cardiomediastinal silhouette is stable. Right perihilar airspace opa city is seen. Cephalization of the vasculature is noted. No evidence of pleural effusion or pneumotho rax. IMPRESSION: Cardiomegaly and mild pulmonary edema. Right perihilar airspace opacity may be related to pulmonary v ascular congestion. ACT 112: Negative or not required by law. Electronically signed by: Branden Valencia M.D. 10/17/2022 11:54 AM
[2022-10-17] MEDS ORDERED: ALENDRONATE SODIUM 70 MG TAB PO SCH (12:04)
[2022-10-17] MEDS: FAMOTIDINE 20 MG TAB PO SCH (13:01)
[2022-10-17] MEDS ORDERED: MECLIZINE 12.5 MG TAB PO STA (14:26)
--- NOTE | 2022-10-17 16:05 | Magnetic Resonance Report ---
MR brain wo con CLINICAL HISTORY: vertigo TECHNIQUE: Multiplanar and multisequence MR images of the brain were obtained without intravenous con trast. Comparison: None available at the time of this dictation. FINDINGS: No abnormal restricted diffusion is identified. Foci of T2 and FLAIR hyperintensity are noted in the paraventricular areas consistent with chronic small vessel ischemic disease. Ex vacuo ventriculomegal y and sulcal enlargement is noted compatible with diffuse encephalomalacia. No mass is seen. There is no mass effect or midline shift. There is no evidence of acute intraparenchymal hemorrhage. No extra axial fluid collections are seen. The corpus callosum, pituitary gland, and cerebellar tonsils appea r grossly unremarkable. Flow voids of the major intracranial arterial vessels are identified. The imaged portions of the para nasal sinuses, mastoid air cells, and orbits are unremarkable. IMPRESSION: No acute abnormality and in particular no evidence of acute infarct. ACT 112: Negative or not required by law. Electronically signed by: Branden Valencia M.D. 10/17/2022 4:03 PM
[2022-10-17] MEDS ORDERED: OLANZAPINE 2.5 MG TAB PO PRN (18:56)
[2022-10-17] MEDS: SERTRALINE HCL 50 MG TABLET PO SCH (21:58)
[2022-10-17] MEDS: LACTATED RINGER'S 1,000 ML IV SCH (23:34)
[2022-10-18] MEDS: LACTATED RINGER'S 1,000 ML IV SCH ×2 (06:19→17:46)
[2022-10-18] MEDS ORDERED: LEVOTHYROXINE SODIUM 50 MCG TABLET PO SCH (06:30)
[2022-10-18 07:01] LABS: Hematocrit (blood only) 34.1 % (34.1-44.9); Hemoglobin 11.5 g/dl (12.0-16.0); Mean Corpuscular Hemoglobin 29.4 pg (25.0-34.0); Mean Corpuscular Hgb Conc 33.7 g/dL (32.0-36.0); Mean Corpuscular Volume 87.2 fL (80.0-100.0); Mean Platelet Volume 10.4 fL (9.4-12.3); Platelet Count 207 K/uL (130-400); RDW Coefficient of Variation 13.9 % (11.5-14.5); RDW Standard Deviation 44.3 fL (36.4-46.3); Red Blood Count 3.91 M/uL (3.93-5.22)
[2022-10-18 07:36] LABS: BUN Creatinine Ratio 16.7 (10-20); Calcium 8.2 mg/dl (8.5-10.1); Creatinine Clr Calc Pharmacy 47.7 ml/min; Est GFR (African American) 89.1 ml/min; Est GFR (Non-African American) 76.9 ml/min; Potassium 3.8 mmol/L (3.5-5.1)
[2022-10-18] MEDS: FAMOTIDINE 20 MG TAB PO SCH (08:00)
[2022-10-18] MEDS: amLODIPine BESYLATE 5 MG TAB PO SCH (08:00)
[2022-10-18] MEDS ORDERED: ONDANSETRON INJ 2 MG/ML 2 ML VIAL IV PRN (09:59)
[2022-10-18] MEDS: MECLIZINE HCL 25 MG TAB PO PRN ×2 (11:43→19:32)
--- NOTE | 2022-10-18 16:01 | Hospitalist Progress Note ---
Date of Service October 18, 2022 Assessment & Plan (1) Fall: Plan: -Patient sustained a fall sometime overnight, it was unwitnessed and she was apparently not using her walker per the staff at [facility] -Trauma workup so far shows non-displaced fractures of the BL nasal bones and subacute/likely chronic lumbar compression fractures -CT of the head was negative for acute findings -EKG here is normal sinus rhythm without ischemic changes, telemetry monitoring shows normal sinus rhythm and normal rates -No murmur on exam, do not suspect aortic stenosis -Patient is complaining of dizziness, staff at [facility] confirmed that this has been an ongoing issue for years -Blood pressures were hypertensive on arrival and now improved -UA negative for infection and no other signs of infection at this time, chest x-ray negative -No evidence of anemia or renal failure or dehydration. TSH normal, LFTs normal, lactate negative. Minimal elevation in troponin for myocardial demand ischemia -Brain MRI performed and negative for stroke -Suspect related to BPPV given dizziness with turning head-treating with meclizine -PT/OT consults placed-pending but will likely need SNF for short-term stay prior to discharge back to personal-care -Continue liquids diet but she is not really eating much-give maintenance IV fluids (2) Closed fracture nasal bone: Plan: -Stable, no acute deformity -Tylenol for pain -Can follow-up with ENT as an outpatient (3) Hypertension: Plan: -Hypertensive on arrival with systolics in the 190's -Was previously on amlodipine which had been stopped for possible hypotension -Restart amlodipine 5 mg daily-now improved blood pressures (4) Compression fx, lumbar spine: Plan: -Stable -Noted to have these fractures in the past -Tylenol for pain (5) Obstructive sleep apnea: Plan: -Unsure if she is on HS CPAP but would hold regardless at this time with her nasal bone fractures (6) Hypothyroidism: Plan: -Was previously on Synthroid but has since been stopped TSH here is normal No need for levothyroxine at this time Monitor as an outpatient (7) Chronic diastolic (congestive) heart failure: Plan: -Currently Euvolemic -Monitor volume status -Improving blood pressure control with adding amlodipine Okay to continue IV fluids now Will not taking much p.o. (8) Arteriosclerotic coronary artery disease: Plan: Previous cardiology notes state the patient has mild coronary artery disease but has had negative stress echocardiogram in 2016 She is not on antiplatelet or statin Unlikely benefit for this at this point (9) Dementia: Plan: Patient with known cognitive impairment and is about to be transferred to the memory unit of [facility] within the next week Her son reports that she seems at her baseline when he talked to her on the phone here at the hospital She is having some anxiety at times-add on hydroxyzine as needed Continue sertraline for depression Plan DVT prophylaxis-will add Lovenox Disposition-awaiting PT/OT evaluations, may need SNF prior to return to personal-care at [facility] Discussed her care with her son on the phone Admission and Anticipated Discharge Date Admission Date: October 17, 2022 Subjective Patient very anxious, worried about her condition. She felt relieved when I told her she did not have a stroke and she simply has vertigo. She rambles on and on about unrelated topics. Denies headache. No further vomiting today but does not want to eat. Cannot really describe the dizziness to me. Apparently overnight she vomited when the nurses were rolling her in bed. Telemetry with normal sinus rhythm with rates in the 70s. Review of Systems Review of Systems: All systems reviewed & are unremarkable except as noted in HPI & below Physical Exam Constitutional: WD/WN, vitals as above Eyes: PERRL, conjunctivae normal, anicteric sclerae ENMT: external ear and nose normal, oropharynx normal Neck: trachea midline, no thyromegaly Respiratory: normal respiratory effort, lungs clear to auscultation Cardiovascular: RRR, no murmur, no edema Chest (Breasts): Chest: normal inspection of chest Gastrointestinal (Abdomen): normal bowel sounds, soft, nontender, no hepatosplenomegaly Musculoskeletal: Extremities: extremities normal to inspection; no cyanosis and no clubbing Skin: no rashes, warm and dry Right side of face with right periorbital ecchymosis and abrasion on bridge of nose Neurologic: PERRL, EOMI, accommodation nl, no face palsy, no dysarthria CN's II-XI intact bilaterally, moves all extremities and awake; no focal motor deficits Speech / Cognition: normal speech Motor/Sensory: no tremor, no pronator drift and no sensory deficit Psychiatric: Orientation: alert, oriented to person, oriented to place and cooperative Affect: + anxious affect Mood: + anxious mood Lymphatic: no lymphedema Results & Data Results & Data ([facility]) Vital Signs (Past 12 Hours) Vital Signs Temp Pulse Pulse Resp BP Pulse Ox O2 Del Method 10/18/22 15:29 37.0 C 66 20 164/64 H 97 Room Air 10/18/22 11:11 37.0 C 76 20 146/62 H 96 Room Air 10/18/22 07:46 71 10/18/22 07:40 37.2 C 80 20 155/64 H 96 Room Air Laboratory Results 10/18/22 10/18/22 10/18/22 Range/Units 09:03 06:38 06:38 WBC 9.30 (4.8-10.8) K/ul RBC 3.91 L (3.93-5.22) M/uL Hgb 11.5 L (12.0-16.0) g/dl Hct 34.1 (34.1-44.9) % MCV 87.2 (80.0-100.0) fL MCH 29.4 (25.0-34.0) pg MCHC 33.7 (32.0-36.0) g/dL RDW Std Deviation 44.3 (36.4-46.3) fL RDW Coeff of Jan 13.9 (11.5-14.5) % Plt Count 207 (130-400) K/uL MPV 10.4 (9.4-12.3) fL Sodium 141 (136-145) mmol/L Potassium 3.8 (3.5-5.1) mmol/L Chloride 109 H (98-107) mmol/L Carbon Dioxide 27 (21-32) mmol/L Anion Gap 5 (3-11) BUN 12 (6-23) mg/dl Creatinine 0.72 (0.6-1.2) mg/dl Est Cr Clr Drug Dosing 47.7 ml/min Est GFR ( Amer) 89.1 ml/min Est GFR (Non-Af Amer) 76.9 ml/min BUN/Creatinine Ratio 16.7 (10-20) Glucose 85 (70-99(Fasting)) mg/dl Calcium 8.2 L (8.5-10.1) mg/dl Troponin I High Sens 34.6 H D (0-14) pg/ml PG Care Time/CCT Total # of Minutes Spent Total Time Spent with Patient: Total time spent is greater than 50% in coordination of care (as documented) at patient's floor/unit and/or counseling patient: Coding Level of Care Code 41092 SUB INP/OBS CARE Diagnoses Fall W19.XXXA Encounter type: initial encounter Closed fracture nasal bone S02.2XXA Encounter type: initial encounter Hypertension I10 Compression fx, lumbar spine S32.000A Encounter type: initial encounter Lumbar vertebra fracture level: unspecified lumbar vertebra Obstructive sleep apnea G47.33 Hypothyroidism E03.9 Chronic diastolic (congestive) heart failure I50.32 Arteriosclerotic coronary artery disease I25.10 Dementia F03.90 (1) Closed fracture nasal bone Encounter type: initial encounter Qualified Code(s): S02.2XXA - Fracture of nasal bones, initial encounter for closed fracture (2) Compression fx, lumbar spine Encounter type: initial encounter Lumbar vertebra fracture level: unspecified lumbar vertebra Qualified Code(s): S32.000A - Wedge compression fracture of unspecified lumbar vertebra, initial encounter for closed fracture (3) Fall Encounter type: initial encounter Qualified Code(s): W19.XXXA - Unspecified fall, initial encounter
[2022-10-18] MEDS ORDERED: Nursing to Pharmacy Communication SCH (17:45)
[2022-10-18] MEDS: hydrOXYzine HCl 25 MG TAB PO PRN (17:57)
[2022-10-18] MEDS: SERTRALINE HCL 50 MG TABLET PO SCH (19:24)
[2022-10-18] MEDS: ACETAMINOPHEN 325 MG TAB PO PRN (19:37)
--- NOTE | 2022-10-18 21:45 | Electrocardiogram Report ---
Test Reason : Blood Pressure : / mmHG Vent. Rate : 066 BPM Atrial Rate : 066 BPM P-R Int : 164 ms QRS Dur : 084 ms QT Int : 450 ms P-R-T Axes : 047 -12 004 degrees QTc Int : 471 ms Poor data quality, interpretation may be adversely affected Normal sinus rhythm Normal ECG When compared with ECG of 20-OCT-2018 15:51, No significant change was found Confirmed by Jarret Haley [id number]) on 10/18/2022 9:45:32 PM Referred By: REFERRED SELF Confirmed By:Jarret Haley
[2022-10-19] MEDS: hydrOXYzine HCl 25 MG TAB PO PRN (00:59)
[2022-10-19] MEDS: ACETAMINOPHEN 325 MG TAB PO PRN (06:09)
[2022-10-19] MEDS: LACTATED RINGER'S 1,000 ML IV SCH (06:09)
[2022-10-19] MEDS: MECLIZINE HCL 25 MG TAB PO PRN ×2 (06:10→14:04)
[2022-10-19 06:45] LABS: Basophils # (auto) 0.07 K/uL (0-0.2); Basophils % (auto) 0.9 %; Eosinophils # (auto) 0.11 K/uL (0-0.50); Eosinophils % (auto) 1.5 %; Hematocrit (blood only) 37.5 % (34.1-44.9); Hemoglobin 12.5 g/dl (12.0-16.0); Immature Granulocytes # (auto) 0.02 K/uL (0.00-0.02); Immature Granulocytes % (auto) 0.3 %; Lymphocytes # (auto) 1.74 K/uL (1.2-3.4); Lymphocytes % (auto) 23.5 %; Mean Corpuscular Hemoglobin 29.3 pg (25.0-34.0); Mean Corpuscular Hgb Conc 33.3 g/dL (32.0-36.0); Mean Platelet Volume 10.5 fL (9.4-12.3); Monocytes # (auto) 0.92 K/uL (0.24-0.82); Monocytes % (auto) 12.4 %; Neutrophils # (auto) 4.54 K/uL (1.4-6.5); Neutrophils % (auto) 61.4 %; Platelet Count 219 K/uL (130-400); RDW Coefficient of Variation 13.7 % (11.5-14.5); RDW Standard Deviation 44.3 fL (36.4-46.3); Red Blood Count 4.26 M/uL (3.93-5.22)
[2022-10-19 07:11] LABS: BUN Creatinine Ratio 13.8 (10-20); Calcium 8.7 mg/dl (8.5-10.1); Creatinine Clr Calc Pharmacy 52.9 ml/min; Est GFR (African American) 94.5 ml/min; Est GFR (Non-African American) 81.5 ml/min; Magnesium 1.9 mg/dl (1.7-2.4); Potassium 3.8 mmol/L (3.5-5.1)
[2022-10-19] MEDS: amLODIPine BESYLATE 5 MG TAB PO SCH (08:52)
--- NOTE | 2022-10-19 13:17 | Hospitalist Progress Note ---
Date of Service October 19, 2022 Assessment & Plan (1) Fall: Plan: -Patient sustained a fall sometime overnight, it was unwitnessed and she was apparently not using her walker per the staff at [facility] -Trauma workup so far shows non-displaced fractures of the BL nasal bones and subacute/likely chronic lumbar compression fractures -CT of the head was negative for acute findings -EKG here is normal sinus rhythm without ischemic changes, telemetry monitoring shows normal sinus rhythm and normal rates -No murmur on exam, do not suspect aortic stenosis -Patient is complaining of dizziness, staff at [facility] confirmed that this has been an ongoing issue for years-seems vertiginous in nature -Blood pressures were hypertensive on arrival and now improved -UA negative for infection and no other signs of infection at this time, chest x-ray negative -No evidence of anemia or renal failure or dehydration. TSH normal, LFTs normal, lactate negative. Minimal elevation in troponin for myocardial demand ischemia -Brain MRI performed and negative for stroke -Suspect related to BPPV given dizziness with turning head-treating with meclizine and has had improvement -PT/OT consults placed-pending -adv diet to regular and dc IVFs (2) Closed fracture nasal bone: Plan: -Stable, no acute deformity -Tylenol for pain -Can follow-up with ENT as an outpatient (3) Hypertension: Plan: -Hypertensive on arrival with systolics in the 190's -Was previously on amlodipine which had been stopped for possible hypotension -Restarted amlodipine 5 mg daily-now with improved blood pressures (4) Compression fx, lumbar spine: Plan: -Stable -Noted to have these fractures in the past -Tylenol for pain (5) Obstructive sleep apnea: Plan: -Unsure if she is on HS CPAP but would hold regardless at this time with her nasal bone fractures (6) Hypothyroidism: Plan: -Was previously on Synthroid but has since been stopped TSH here is normal No need for levothyroxine at this time Monitor as an outpatient (7) Chronic diastolic (congestive) heart failure: Plan: -Currently Euvolemic -Monitor volume status -Improving blood pressure control with adding amlodipine (8) Arteriosclerotic coronary artery disease: Plan: Previous cardiology notes state the patient has mild coronary artery disease but has had negative stress echocardiogram in 2016 She is not on antiplatelet or statin Unlikely benefit for this at this point (9) Dementia: Plan: Patient with known cognitive impairment and is about to be transferred to the memory unit of [facility] within the next week Her son reports that she seems at her baseline when he talked to her on the phone here at the hospital She is having some anxiety at times-added on hydroxyzine as needed -received po Zyprexa on AM of 10/19 and had significant improvement with less anxiety, more oriented--> will continue low dose Zyprexa 2.5mg po bid on discharge Continue sertraline for depression Plan DVT prophylaxis- Lovenox SQ Disposition-awaiting PT/OT evaluations, may need SNF prior to return to personal-care at [facility]. Can return to [facility] at [facility] if can walk 20-25 feet as per CM. Dc 1:1 sitter as is doing better. Discussed her care with her son on the phone Admission and Anticipated Discharge Date Admission Date: October 17, 2022 Subjective Pt remained anxious and tearful at times yesterday evening and this AM. Received the prn Zyprexa po this AM and I saw her around lunchtime. Her mentation was significantly improved from yesterday. She was smiling, not anxious, said her dizziness was better and she was eating "a lot of jello." She is agreeable to trying regular food. She denies pain.Seems much more oriented. 1:1 sitter at bedside but advised nurse this can be discontinued. Review of Systems Review of Systems: All systems reviewed & are unremarkable except as noted in HPI & below Physical Exam Constitutional: WD/WN, vitals as above Eyes: + anicteric sclerae ENMT: Nose: + external nose abnormality (abrasion) Neck: trachea midline, no thyromegaly Respiratory: normal respiratory effort, lungs clear to auscultation Cardiovascular: RRR, no murmur, no edema Chest (Breasts): Chest: normal inspection of chest Gastrointestinal (Abdomen): normal bowel sounds, soft, nontender, no hepatosplenomegaly Musculoskeletal: Extremities: extremities normal to inspection; no cyanosis and no clubbing Skin: no rashes, warm and dry with right facial ecchymosis Neurologic: PERRL, EOMI, accommodation nl, no face palsy, no dysarthria CN's II-XI intact bilaterally, moves all extremities and awake; no focal motor deficits Speech / Cognition: normal speech Motor/Sensory: no tremor, no pronator drift and no sensory deficit Psychiatric: Orientation: alert, oriented to person, oriented to place and cooperative Affect: euthymic affect Lymphatic: no lymphedema Results & Data Results & Data ([facility]) Vital Signs (Past 12 Hours) Vital Signs Temp Pulse Resp BP Pulse Ox O2 Del Method 10/19/22 07:16 36.7 C 76 20 152/71 H 97 Room Air Laboratory Results 10/19/22 10/19/22 10/18/22 Range/Units 06:21 06:21 18:07 WBC 7.40 (4.8-10.8) K/ul RBC 4.26 (3.93-5.22) M/uL Hgb 12.5 (12.0-16.0) g/dl Hct 37.5 (34.1-44.9) % MCV 88.0 (80.0-100.0) fL MCH 29.3 (25.0-34.0) pg MCHC 33.3 (32.0-36.0) g/dL RDW Std Deviation 44.3 (36.4-46.3) fL RDW Coeff of Jan 13.7 (11.5-14.5) % Plt Count 219 (130-400) K/uL MPV 10.5 (9.4-12.3) fL Immature Gran % (Auto) 0.3 % Neut % (Auto) 61.4 % Lymph % (Auto) 23.5 % [place] % (Auto) 12.4 % Eos % (Auto) 1.5 % Baso % (Auto) 0.9 % Neut # (Auto) 4.54 (1.4-6.5) K/uL Lymph # (Auto) 1.74 (1.2-3.4) K/uL [place] # (Auto) 0.92 H (0.24-0.82) K/uL Eos # (Auto) 0.11 (0-0.50) K/uL Baso # (Auto) 0.07 (0-0.2) K/uL Immature Gran # (Auto) 0.02 (0.00-0.02) K/uL Sodium 142 (136-145) mmol/L Potassium 3.8 (3.5-5.1) mmol/L Chloride 106 (98-107) mmol/L Carbon Dioxide 31 (21-32) mmol/L Anion Gap 5 (3-11) BUN 9 (6-23) mg/dl Creatinine 0.65 (0.6-1.2) mg/dl Est Cr Clr Drug Dosing 52.9 ml/min Est GFR ( Amer) 94.5 ml/min Est GFR (Non-Af Amer) 81.5 ml/min BUN/Creatinine Ratio 13.8 (10-20) Glucose 90 (70-99(Fasting)) mg/dl Calcium 8.7 (8.5-10.1) mg/dl Magnesium 1.9 (1.7-2.4) mg/dl Troponin I High Sens 24.1 H D (0-14) pg/ml PG Care Time/CCT Total # of Minutes Spent Total Time Spent with Patient: Total time spent is greater than 50% in coordination of care (as documented) at patient's floor/unit and/or counseling patient: Coding Level of Care Code 00939 SUB INP/OBS CARE 235MIN Diagnoses Fall W19.XXXA Encounter type: initial encounter Closed fracture nasal bone S02.2XXA Encounter type: initial encounter Hypertension I10 Compression fx, lumbar spine S32.000A Encounter type: initial encounter Lumbar vertebra fracture level: unspecified lumbar vertebra Obstructive sleep apnea G47.33 Hypothyroidism E03.9 Chronic diastolic (congestive) heart failure I50.32 Arteriosclerotic coronary artery disease I25.10 Dementia F03.90 (1) Fall Encounter type: initial encounter Qualified Code(s): W19.XXXA - Unspecified fall, initial encounter (2) Closed fracture nasal bone Encounter type: initial encounter Qualified Code(s): S02.2XXA - Fracture of nasal bones, initial encounter for closed fracture (3) Compression fx, lumbar spine Encounter type: initial encounter Lumbar vertebra fracture level: unspecified lumbar vertebra Qualified Code(s): S32.000A - Wedge compression fracture of unspecified lumbar vertebra, initial encounter for closed fracture
[2022-10-19] MEDS: ENOXAPARIN INJ 40 MG/0.4 ML SYR SQ SCH (14:04)
--- NOTE | 2022-10-19 14:41 | Communication Note ---
Date of Service: October 19, 2022 Patient has a [facility] PCP at [facility]. I gave sign out to KESHAV Senior from [facility] Hospitalist Service who accepted this patient for starting on 10/20/22 at 0700. PT recommending SNF and will need a 3 midnight stay.
[2022-10-19] MEDS: SERTRALINE HCL 50 MG TABLET PO SCH (22:09)
[2022-10-19] MEDS: OLANZAPINE 2.5 MG TAB PO SCH (22:10)
[2022-10-20] MEDS: amLODIPine BESYLATE 5 MG TAB PO SCH (08:20)
[2022-10-20] MEDS: OLANZAPINE 2.5 MG TAB PO SCH ×2 (08:20→21:56)
[2022-10-20] MEDS: hydrOXYzine HCl 25 MG TAB PO PRN (14:32)
[2022-10-20] MEDS: ENOXAPARIN INJ 40 MG/0.4 ML SYR SQ SCH (14:32)
[2022-10-20] MEDS: ACETAMINOPHEN 325 MG TAB PO PRN ×2 (14:32→22:01)
--- NOTE | 2022-10-20 18:31 | Hospitalist Progress Note ---
Date of Service October 20, 2022 Assessment & Plan (1) Fall: Plan: (1) Fall: -Patient sustained a fall sometime overnight, it was unwitnessed and she was apparently not using her walker per the staff at [facility] -Trauma workup so far shows non-displaced fractures of the BL nasal bones and subacute/likely chronic lumbar compression fractures -CT of the head was negative for acute findings -EKG here is normal sinus rhythm without ischemic changes, telemetry monitoring shows normal sinus rhythm and normal rates -No murmur on exam, do not suspect aortic stenosis -Patient is complaining of dizziness, staff at [facility] confirmed that this has been an ongoing issue for years-seems vertiginous in nature -Blood pressures were hypertensive on arrival and now improved -UA negative for infection and no other signs of infection at this time, chest x-ray negative -No evidence of anemia or renal failure or dehydration. TSH normal, LFTs normal, lactate negative. Minimal elevation in troponin for myocardial demand ischemia -Brain MRI performed and negative for stroke -Suspect related to BPPV given dizziness with turning head-treating with meclizine and has had improvement -PT/OT on board recommended SNF (2) Closed fracture nasal bone: -Stable, no acute deformity -Tylenol for pain -Can follow-up with ENT as an outpatient (3) Hypertension: -Hypertensive on arrival with systolics in the 190's -Was previously on amlodipine which had been stopped for possible hypotension -Restarted amlodipine 5 mg daily-now with improved blood pressures (4) Compression fx, lumbar spine: -Stable -Noted to have these fractures in the past -Tylenol for pain (5) Obstructive sleep apnea: -Unsure if she is on HS CPAP but would hold regardless at this time with her nasal bone fractures (6) Hypothyroidism: -Was previously on Synthroid but has since been stopped TSH here is normal No need for levothyroxine at this time Monitor as an outpatient (7) Chronic diastolic (congestive) heart failure: -Currently Euvolemic -Monitor volume status -Improving blood pressure control with adding amlodipine (8) Arteriosclerotic coronary artery disease: Previous cardiology notes state the patient has mild coronary artery disease but has had negative stress echocardiogram in 2016 She is not on antiplatelet or statin Unlikely benefit for this at this point (9) Dementia: Waiting for placement Patient with known cognitive impairment and is about to be transferred to the memory unit of [facility] within the next week Her son reports that she seems at her baseline when he talked to her on the phone here at the hospital She is having some anxiety at times-added on hydroxyzine as needed -received po Zyprexa on AM of 10/19 and had significant improvement with less anxiety, more oriented--> will continue low dose Zyprexa 2.5mg po bid on discharge Continue sertraline for depression Plan DVT prophylaxis- Lovenox SQ Disposition Waiting for placement [facility] Admission and Anticipated Discharge Date Admission Date: October 19, 2022 Subjective Patient was seen and evaluated for follow-up Lying in bed no acute distress watching TV She has been calm and off one-to-one sitter She is waiting for bed to discharge to [facility] Denies any chest pain, palpitation, dizziness, shortness of breath. Review of Systems Review of Systems: All systems reviewed & are unremarkable except as noted in Subjective Physical Exam Physical Exam: General- No acute distress Head- atraumatic, facial ecchymoses Eyes- PERRL, EOMI, ENT- oropharynx clear, + nose abrasion Neck- supple, no JVD Lungs- clear to auscultation Heart- regular rhythm; no murmur Abdomen- normal bowel sounds, soft, nontender Extremities- no calf tenderness Neuro- alert, oriented x 3; PERRL, EOMI; no facial palsy; no dysarthria Skin- warm & dry Results & Data Results & Data ([facility]) Vital Signs (Past 12 Hours) Vital Signs Temp Pulse Resp BP Pulse Ox O2 Del Method 10/20/22 14:49 36.6 C 101 H 16 176/71 H 93 Room Air 10/20/22 09:00 Room Air (1) Fall Encounter type: initial encounter Qualified Code(s): W19.XXXA - Unspecified fall, initial encounter
[2022-10-20] MEDS: SERTRALINE HCL 50 MG TABLET PO SCH (21:55)
--- NOTE | 2022-10-21 10:26 | Hospitalist Progress Note ---
Date of Service October 21, 2022 Assessment & Plan (1) Fall: Plan: (1) Fall: Sustained an unwitness fall sometime overnight prior to presentation She was apparently not using her walker per the staff at [facility] Chart review noted dizziness and staff at [facility] confirmed that this has been an ongoing issue for years (seems vertiginous in nature) Blood pressures were markedly elevated on admission Trauma workup so far shows non-displaced fractures of the BL nasal bones and subacute/likely chronic lumbar compression fractures CT of the head was negative for acute findings Brain MRI performed and negative for stroke EKG here is normal sinus rhythm without ischemic changes UA negative for infection and no other signs of infection at this time Chest x-ray negative Minimal elevation in troponin for myocardial demand ischemia Possibly due to dizziness, possible PPV Continue prn meclizine PT/OT eval noted Awaiting placement (2) Closed fracture nasal bone: Stable, no acute deformity Tylenol for pain Can follow-up with ENT as an outpatient (3) Hypertension: Hypertensive on arrival with systolics in the 190's Was previously on amlodipine which had been stopped for possible hypotension Continue amlodipine 5 mg daily on discharge as well (4) Compression fx, lumbar spine: Stable Noted to have these fractures in the past Tylenol for pain (5) Obstructive sleep apnea: Unclear if she is on HS CPAP but would hold regardless at this time with her nasal bone fractures (6) Hypothyroidism: Was previously on Synthroid but has since been stopped TSH here is normal No need for levothyroxine at this time Monitor as an outpatient (7) Chronic diastolic (congestive) heart failure: Currently Euvolemic Monitor volume status and BP control as above (8) Arteriosclerotic coronary artery disease: Previous cardiology notes state the patient has mild coronary artery disease but has had negative stress echocardiogram in 2016 She is not on antiplatelet or statin Unlikely benefit for this at this point (9) Dementia: Patient with known cognitive impairment and is about to be transferred to the memory unit of [facility] within the next week May continue low dose zyprexa she has been getting inpatient Continue sertraline for depression Plan DVT prophylaxis- Lovenox SQ Disposition Awaiting placement Admission and Anticipated Discharge Date Admission Date: October 19, 2022 Subjective Patient seen and examined Patient is alert and oriented to person only Per RN, no new concerns Review of Systems Review of Systems: Unobtainable due to cognitive status Physical Exam Constitutional: no acute distress (Elderly woman) Eyes: PERRL, conjunctivae normal, anicteric sclerae ENMT: external ear and nose normal, oropharynx normal Respiratory: normal respiratory effort, lungs clear to auscultation Cardiovascular: Rate/Rhythm: regular rate and regular rhythm S1 S2 Gastrointestinal (Abdomen): normal bowel sounds, soft, nontender, no hep atosplenomegaly Musculoskeletal: No pedal edema Neurologic: Alert and oriented to person only Follows simple commands Results & Data Results & Data ([facility]) Vital Signs (Past 12 Hours) Vital Signs Temp Pulse Resp BP BP Pulse Ox O2 Del Method 10/21/22 08:11 36.6 C 76 18 169/67 H 94 Room Air 10/20/22 23:12 36.6 C 101 H 18 185/89 H 93 Room Air (1) Fall Encounter type: initial encounter Qualified Code(s): W19.XXXA - Unspecified fall, initial encounter
[2022-10-21] MEDS: OLANZAPINE 2.5 MG TAB PO SCH ×2 (13:02→20:07)
[2022-10-21] MEDS: ENOXAPARIN INJ 40 MG/0.4 ML SYR SQ SCH (13:02)
[2022-10-21] MEDS: amLODIPine BESYLATE 5 MG TAB PO SCH (13:02)
[2022-10-21] MEDS: ACETAMINOPHEN 325 MG TAB PO PRN ×2 (13:48→20:06)
[2022-10-21] MEDS: SERTRALINE HCL 50 MG TABLET PO SCH (20:06)
[2022-10-22] MEDS: OLANZAPINE 2.5 MG TAB PO SCH (08:24)
[2022-10-22] MEDS: amLODIPine BESYLATE 5 MG TAB PO SCH (08:24)
--- NOTE | 2022-10-22 09:21 | Discharge Summary ---
Discharge Summary Date of Service October 22, 2022 Admission HPI Per Admitting Provider Elke is an 82 year old female with a PMH significant for dementia, chronic L3- L5 compression fractures, HTN, FOSTER, hypothyroidism, depression, CAD, GERD, and diastolic CHF who presented to the [facility] ED via EMS on 10/17/22 due to being found down at [facility]. Per the intake report, the patient sustained an unwitnessed fall and was found by staff this morning. On arrival to the ED she complained of a headache and her chronic lower back pain. In the ED the patient was found to be afebrile, Hypertensive at 199/84, and stable on RA. Labs were remarkable for Covid Negative CT of the head was read as "No acute intracranial hemorrhage or skull fractures. Scalp swelling is seen in the right frontal soft tissues". CT fo the face was read as "Bilateral acute nasal fracture. No additional fractures are seen.". CT of the lumbar spine was read as "1. Multilevel compression deformities are seen, not seen on prior exam. These are age-indeterminate but favored to be chronic, however correlation with point tenderness is recommended. 2. No acute abnormalities, in particular no evidence of intraperitoneal hemorrhage or visceral trauma.3. Hiatal hernia.". CT of the thoracic spine was read as "Degenerative changes are seen and there are chronic appearing compression deformities as above, however correlation with point tenderness is recommended to exclude acute fracture.". CT of the abdomen/pelvis with IV contrast was read as "1. Multilevel compression deformities are seen, not seen on prior exam. These are age-indeterminate but favored to be chronic, however correlation with point tenderness is recommended. 2. No acute abnormalities, in particular no evidence of intraperitoneal hemorrhage or visceral trauma. 3. Hiatal hernia". CT of the cervical spine was read as "Degenerative changes without evidence of acute bony injury.". Prior to admission the patient was given a total of 8 mg IV zofran, 40 mg IV methylprednisolone, and 1gm IV acetaminophen. She was also started on 125 mL/hr of NSS prior to admission and ordered 5 mg PO amlodipine for hypertension. At the time of the exam the patient was lying comfortably in bed in no acute distress. The patient was noted to have swelling/bruising on the right upper forehead and dried blood at the BL nares. History was difficult to obtain due to the patient's dementia and baseline mental status. When asked, she states that she is feeling fine and has no complaints. When asked specifically if she is having head, neck, or back pain she confirmed that she was having some pain at the site of bruising on her forehead and low back pain. She states to me that she is feeling dizzy while lying in bed. She denies chest pain, SOB, abdominal pain, nausea, vomiting, dysuria, hematuria, and leg/arm pain. I called and spoke to the staff at [facility] to obtain more information. They state that Elke has had a long history of dizziness and falls. She is normally supposed to ambulate with the help of a walker; over the past week they have noted more issues with her balance and ambulation even with her walker. He states that they found her down on her back this am in her room. They believe that she must have fallen overnight while trying to walk to the bathroom without her walker. Her last known well was yesterday after dinner. I confirmed her med rec with their staff, they confirmed that she had been taken off amlodipine and Synthroid "awhile ago". When asked why her amlodipine was stopped the nurse stated it was due to low blood pressures and falls. They confirmed to me that she is a Full Code. Bertram refer to Dr. Mae's attestation for any changes to the treatment plan Principal Dx & Hospital Course #1 = Principal Diagnosis Updated Medication List Medication Instructions Recorded Confirmed Type alendronate 70 mg tablet 70 mg PO WK #30 tabs 10/22/22 Rx amlodipine 5 mg tablet (Norvasc) 5 mg PO DAILY 30 days #30 tabs 10/22/22 Rx sertraline 50 mg tablet 25 mg PO HS #30 tabs 10/22/22 Rx Hospital Stay Data Consultations 10/17/22 10:10 ED Decision to Admit Stat Diagnostic Imagining Performed 10/17/22 06:12 CT facial bones wo con Stat 10/17/22 06:13 CT head/brain wo con Stat 10/17/22 07:08 CT lumbar spine wo con Stat CT thoracic spine wo con Stat 10/17/22 07:09 CT abd pelvis IV con only Stat CT cervical spine wo con Stat 10/17/22 14:26 MRI Brain [MR brain wo con] Urgent Pending Results Patient Have Any Pending Studies at Discharge: No Discharge Instructions Given to Patient (Per Discharging Provider) Mrs Connell You were brought to the hospital after a fall. Evaluation showed nasal fracture. You also had poorly controlled hypertension and was started on blood pressure medication. You are being discharged to [facility] for rehab. Please ensure follow up with your Primary Doctor. It was a pleasure taking care of you.
[2022-10-22] MEDS ORDERED: SENNA 8.6 MG TAB PO SCH (10:45)
[2022-10-22] MEDS ORDERED: bisacodyL 10 MG SUPP PR STA (11:26)
[2022-10-22] MEDS: POLYETHYLENE (MIRALAX) 17 GM PACK PO SCH (11:49)
[2022-10-22] MEDS: ENOXAPARIN INJ 40 MG/0.4 ML SYR SQ SCH (13:02)
--- NOTE | 2022-10-22 13:37 | Hospitalist Progress Note ---
Date of Service October 22, 2022 Assessment & Plan (1) Fall: Plan: Sustained an unwitness fall sometime overnight prior to presentation She was apparently not using her walker per the staff at [facility] Chart review noted dizziness and staff at [facility] confirmed that this has been an ongoing issue for years (seems vertiginous in nature) Blood pressures were markedly elevated on admission Trauma workup showed non-displaced fractures of the BL nasal bones and subacute/likely chronic lumbar compression fractures CT of the head was negative for acute findings Brain MRI performed and negative for stroke EKG here is normal sinus rhythm without ischemic changes UA negative for infection and no other signs of infection at this time Chest x-ray negative Minimal elevation in troponin for myocardial demand ischemia Possibly due to dizziness, possible PPV Continue prn meclizine PT/OT eval noted Constipation Started bowel regimen (2) Closed fracture nasal bone: Stable, no acute deformity Tylenol for pain Can follow-up with ENT as an outpatient (3) Hypertension: Hypertensive on arrival with systolics in the 190's Was previously on amlodipine which had been stopped for possible hypotension Continue amlodipine 5 mg daily on discharge as well (4) Compression fx, lumbar spine: Stable Noted to have these fractures in the past Tylenol for pain (5) Obstructive sleep apnea: Unclear if she is on HS CPAP but would hold regardless at this time with her nasal bone fractures (6) Hypothyroidism: Was previously on Synthroid but has since been stopped TSH here is normal No need for levothyroxine at this time Monitor as an outpatient (7) Chronic diastolic (congestive) heart failure: Currently Euvolemic Monitor volume status and BP control as above (8) Arteriosclerotic coronary artery disease: Previous cardiology notes state the patient has mild coronary artery disease but has had negative stress echocardiogram in 2016 She is not on antiplatelet or statin Unlikely benefit for this at this point (9) Dementia: Patient with known cognitive impairment and is about to be transferred to the memory unit of [facility] within the next week May continue low dose zyprexa she has been getting inpatient Continue sertraline for depression Plan DVT prophylaxis- Lovenox SQ [facility] Admission and Anticipated Discharge Date Admission Date: October 19, 2022 Subjective Patient seen and examined Patient is alert and oriented to person only Per RN, had one straight cath yesterday but has been urinating overnight RN reported patient had not had BM for a few days Review of Systems Review of Systems: Unobtainable due to cognitive status Physical Exam Constitutional: + well hydrated; no acute distress Eyes: PERRL, conjunctivae normal, anicteric sclerae ENMT: external ear and nose normal, oropharynx normal Respiratory: normal respiratory effort, lungs clear to auscultation Cardiovascular: Rate/Rhythm: regular rate and regular rhythm S1 S2 Gastrointestinal (Abdomen): normal bowel sounds, soft, nontender, no hepatosplenomegaly Musculoskeletal: No pedal edema Neurologic: Alert and oriented to person only Follows simple commands Results & Data Results & Data ([facility]) Vital Signs (Past 12 Hours) Vital Signs Temp Pulse Resp BP BP Pulse Ox O2 Del Method 10/22/22 10:37 36.7 C 90 18 136/69 185/89 H 94 10/22/22 07:50 Room Air 10/22/22 07:42 36.7 C 90 18 136/69 94 Room Air 10/22/22 02:50 36.8 C 92 H 16 173/77 H 95 Room Air (1) Fall Encounter type: initial encounter Qualified Code(s): W19.XXXA - Unspecified fall, initial encounter
[2022-10-22] MEDS: ACETAMINOPHEN 325 MG TAB PO PRN (20:26)
[2022-10-22] MEDS: hydrOXYzine HCl 25 MG TAB PO PRN (20:26)
[2022-10-22] MEDS: SERTRALINE HCL 50 MG TABLET PO SCH (20:27)
[2022-10-22] MEDS: SENNA 8.6 MG TAB PO SCH (20:27)
--- NOTE | 2022-10-22 20:41 | XRay Report ---
XR KUB/Abdomen 1 view CLINICAL HISTORY: Constipation. Assess bowel TECHNIQUE: 1 view of the abdomen was obtained. Comparison: Comparison is made to CT abdomen pelvis 10/17/2022 FINDINGS: Lung bases are unremarkable. Degenerative changes are seen in the visualized skeleton. The bowel gas pattern is nonobstructive. A moderate amount of stool is noted within the large bowel. IMPRESSION: Nonobstructive bowel gas pattern. Moderate stool burden without evidence of impaction. ACT 112: Negative or not required by law. Electronically signed by: Branden Valencia M.D. 10/22/2022 8:40 PM
[2022-10-23] MEDS: amLODIPine BESYLATE 5 MG TAB PO SCH (09:56)
[2022-10-23] MEDS: SENNA 8.6 MG TAB PO SCH ×2 (09:56→20:04)
[2022-10-23] MEDS: POLYETHYLENE (MIRALAX) 17 GM PACK PO SCH (09:56)
[2022-10-23] MEDS: ACETAMINOPHEN 325 MG TAB PO PRN ×2 (10:08→18:16)
--- NOTE | 2022-10-23 12:22 | XRay Report ---
XR hand RT 2V CLINICAL HISTORY: Right wrist pain. Recent fall TECHNIQUE: 2 views of the right hand were obtained. Comparison: Comparison is made to right finger radiograph 11/03/2012 FINDINGS: There is no evidence of an acute fracture. Degenerative changes are seen in the joints most prominent in the DIP joints. There is fusion of the first digit DIP joint. Osteopenia is seen. No soft tissue abnormality is seen. IMPRESSION: No evidence of acute bony injury. Degenerative changes in the distal interphalangeal joints compatibl e with osteoarthritis. ACT 112: Negative or not required by law. Electronically signed by: Branden Valencia M.D. 10/23/2022 12:20 PM
--- NOTE | 2022-10-23 14:15 | Hospitalist Progress Note ---
Date of Service October 23, 2022 Assessment & Plan (1) Fall: Plan: Sustained an unwitness fall sometime overnight prior to presentation She was apparently not using her walker per the staff at [facility] Chart review noted dizziness and staff at [facility] confirmed that this has been an ongoing issue for years (seems vertiginous in nature) Blood pressures were markedly elevated on admission Trauma workup showed non-displaced fractures of the BL nasal bones and subacute/likely chronic lumbar compression fractures CT of the head was negative for acute findings Brain MRI performed and negative for stroke EKG here is normal sinus rhythm without ischemic changes UA negative for infection and no other signs of infection at this time Chest x-ray negative Minimal elevation in troponin for myocardial demand ischemia Possibly due to dizziness, possible PPV Continue prn meclizine PT/OT eval noted Right wrist pain XR Rt hand did not show acute fracture but degenerative changes/osteoarthritis Tylenol prn Continue bowel regimen (2) Closed fracture nasal bone: Stable, no acute deformity Tylenol for pain Can follow-up with ENT as an outpatient (3) Hypertension: Hypertensive on arrival with systolics in the 190's Was previously on amlodipine which had been stopped for possible hypotension Continue amlodipine 5 mg daily on discharge as well (4) Compression fx, lumbar spine: Stable Noted to have these fractures in the past Tylenol for pain (5) Obstructive sleep apnea: Unclear if she is on HS CPAP but would hold regardless at this time with her nasal bone fractures (6) Hypothyroidism: Was previously on Synthroid but has since been stopped TSH here is normal No need for levothyroxine at this time Monitor as an outpatient (7) Chronic diastolic (congestive) heart failure: Currently Euvolemic Monitor volume status and BP control as above (8) Arteriosclerotic coronary artery disease: Previous cardiology notes state the patient has mild coronary artery disease but has had negative stress echocardiogram in 2016 She is not on antiplatelet or statin Unlikely benefit for this at this point (9) Dementia: Patient with known cognitive impairment and is about to be transferred to the memory unit of [facility] within the next week Zyprexa held for drowsiness Continue sertraline for depression Plan DVT prophylaxis- Lovenox SQ Patient is ready for discharge back to [facility] working on dispo. Admission and Anticipated Discharge Date Admission Date: October 19, 2022 Subjective Patient seen and examined Patient is alert and oriented to person only Per RN, had a small BM yesterday evening Has urinary incontinence but has been passing urine today without straight cath Complaints of right wrist pain today Denied other complaints Physical Exam Constitutional: + well hydrated; no acute distress Elderly woman Eyes: PERRL, conjunctivae normal, anicteric sclerae ENMT: external ear and nose normal, oropharynx normal Respiratory: normal respiratory effort, lungs clear to auscultation Cardiovascular: Rate/Rhythm: regular rate and regular rhythm S1 S2 Gastrointestinal (Abdomen): normal bowel sounds, soft, nontender, no hepatosplenomegaly Musculoskeletal: Tenderness over right wrist No pedal edema Neurologic: PERRL, EOMI, accommodation nl, no face palsy, no dysarthria Psychiatric: Orientation: alert, oriented to person and cooperative; + not oriented to place and + not oriented to time Results & Data Results & Data ([facility]) Vital Signs (Past 12 Hours) Vital Signs Temp Pulse Resp BP BP Pulse Ox O2 Del Method 10/23/22 11:42 36.9 C 94 H 18 124/72 97 Room Air 10/23/22 07:55 Room Air 10/23/22 07:46 37.0 C 88 18 138/67 94 Room Air Diagnostic Findings XR hand RT 2V CLINICAL HISTORY: Right wrist pain. Recent fall TECHNIQUE: 2 views of the right hand were obtained. Comparison: Comparison is made to right finger radiograph 11/03/2012 FINDINGS: There is no evidence of an acute fracture. Degenerative changes are seen in the joints most prominent in the DIP joints. There is fusion of the first digit DIP joint. Osteopenia is seen. No soft tissue abnormality is seen. IMPRESSION: No evidence of acute bony injury. Degenerative changes in the distal interphalangeal joints compatible with osteoarthritis. (1) Fall Encounter type: initial encounter Qualified Code(s): W19.XXXA - Unspecified fall, initial encounter
[2022-10-23] MEDS: ENOXAPARIN INJ 40 MG/0.4 ML SYR SQ SCH (14:56)
[2022-10-23] MEDS: SERTRALINE HCL 50 MG TABLET PO SCH (20:04)
[2022-10-23] MEDS: hydrOXYzine HCl 25 MG TAB PO PRN (20:04)
[2022-10-24] MEDS: ACETAMINOPHEN 325 MG TAB PO PRN ×3 (00:13→12:32)
[2022-10-24] MEDS: SENNA 8.6 MG TAB PO SCH ×2 (09:01→20:59)
[2022-10-24] MEDS: amLODIPine BESYLATE 5 MG TAB PO SCH (09:01)
[2022-10-24] MEDS: POLYETHYLENE (MIRALAX) 17 GM PACK PO SCH (09:01)
[2022-10-24] MEDS: ENOXAPARIN INJ 40 MG/0.4 ML SYR SQ SCH (13:55)
--- NOTE | 2022-10-24 14:59 | Hospitalist Progress Note ---
Date of Service October 24, 2022 Assessment & Plan (1) Fall: Plan: Sustained an unwitness fall sometime overnight prior to presentation She was apparently not using her walker per the staff at [facility] Chart review noted dizziness and staff at [facility] confirmed that this has been an ongoing issue for years (seems vertiginous in nature) Blood pressures were markedly elevated on admission Trauma workup showed non-displaced fractures of the BL nasal bones and subacute/likely chronic lumbar compression fractures CT of the head was negative for acute findings Brain MRI performed and negative for stroke EKG here is normal sinus rhythm without ischemic changes UA negative for infection and no other signs of infection at this time Chest x-ray negative Minimal elevation in troponin for myocardial demand ischemia Possibly due to dizziness, possible PPV Continue prn meclizine PT/OT eval noted Right wrist pain XR Rt hand did not show acute fracture but degenerative changes/osteoarthritis Tylenol prn Continue bowel regimen (2) Closed fracture nasal bone: Stable, no acute deformity Tylenol for pain Can follow-up with ENT as an outpatient (3) Hypertension: Hypertensive on arrival with systolics in the 190's Was previously on amlodipine which had been stopped for possible hypotension Continue amlodipine 5 mg daily on discharge as well (4) Compression fx, lumbar spine: Stable Noted to have these fractures in the past Tylenol for pain (5) Obstructive sleep apnea: Unclear if she is on HS CPAP but would hold regardless at this time with her nasal bone fractures (6) Hypothyroidism: Was previously on Synthroid but has since been stopped TSH here is normal No need for levothyroxine at this time Monitor as an outpatient (7) Chronic diastolic (congestive) heart failure: Currently Euvolemic Monitor volume status and BP control as above (8) Arteriosclerotic coronary artery disease: Previous cardiology notes state the patient has mild coronary artery disease but has had negative stress echocardiogram in 2016 She is not on antiplatelet or statin Unlikely benefit for this at this point (9) Dementia: Patient with known cognitive impairment and is about to be transferred to the memory unit of [facility] within the next week Zyprexa held for drowsiness Continue sertraline for depression Plan DVT prophylaxis- Lovenox SQ Patient is ready for discharge back to [facility] Notified by CM that [facility] cannot take patient today as they had low staff Admission and Anticipated Discharge Date Admission Date: October 19, 2022 Subjective Patient seen and examined Patient is alert and oriented to person only Reports right wrist pain is improved today Physical Exam Constitutional: + well hydrated; no acute distress Thin elderly woman Eyes: PERRL, conjunctivae normal, anicteric sclerae ENMT: external ear and nose normal, oropharynx normal Respiratory: normal respiratory effort, lungs clear to auscultation Cardiovascular: Rate/Rhythm: regular rate and regular rhythm S1 S2 Gastrointestinal (Abdomen): normal bowel sounds, soft, nontender, no hepatosplenomegaly Musculoskeletal: No pedal edema Neurologic: PERRL, EOMI, accommodation nl, no face palsy, no dysarthria Psychiatric: Orientation: alert, oriented to person and cooperative; + not oriented to place and + not oriented to time Results & Data Results & Data ([facility]) Vital Signs (Past 12 Hours) Vital Signs Temp Pulse Pulse Resp BP Pulse Ox O2 Del Method 10/24/22 14:35 36.7 C 84 16 139/66 94 Room Air 10/24/22 11:46 36.7 C 90 12 130/71 96 Room Air 10/24/22 08:00 Room Air 10/24/22 07:34 37.0 C 92 H 14 145/69 H 96 Room Air (1) Fall Encounter type: initial encounter Qualified Code(s): W19.XXXA - Unspecified fall, initial encounter
[2022-10-24] MEDS: SERTRALINE HCL 50 MG TABLET PO SCH (20:58)
[2022-10-25] MEDS: ACETAMINOPHEN 325 MG TAB PO PRN (09:11)
[2022-10-25] MEDS: SENNA 8.6 MG TAB PO SCH (09:12)
[2022-10-25] MEDS: amLODIPine BESYLATE 5 MG TAB PO SCH (09:12)
[2022-10-25] MEDS: POLYETHYLENE (MIRALAX) 17 GM PACK PO SCH (09:15)
--- NOTE | 2022-10-25 14:43 | Discharge Summary ---
Discharge Summary Date of Service October 25, 2022 Notes For Next Care Provider Continue management of chronic medical problems Medication Changes From Visit Amlodipine for hypertension Admission HPI Per Admitting Provider 82 year old female with a PMH significant for dementia, chronic L3-L5 compression fractures, HTN, FOSTER, hypothyroidism, depression, CAD, GERD, and diastolic CHF who presented to the [facility] ED via EMS on 10/17/22 due to being found down at [facility]. Per the intake report, the patient sustained an unwitnessed fall and was found by staff this morning. On arrival to the ED she complained of a headache and her chronic lower back pain. In the ED the patient was found to be afebrile, Hypertensive at 199/84, and stable on RA. Labs were remarkable for Covid Negative CT of the head was read as "No acute intracranial hemorrhage or skull fractures. Scalp swelling is seen in the right frontal soft tissues". CT fo the face was read as "Bilateral acute nasal fracture. No additional fractures are seen.". CT of the lumbar spine was read as "1. Multilevel compression deformit ies are seen, not seen on prior exam. These are age-indeterminate but favored to be chronic, however correlation with point tenderness is recommended. 2. No acute abnormalities, in particular no evidence of intraperitoneal hemorrhage or visceral trauma.3. Hiatal hernia.". CT of the thoracic spine was read as "Degenerative changes are seen and there are chronic appearing compression deformities as above, however correlation with point tenderness is recommended to exclude acute fracture.". CT of the abdomen/pelvis with IV contrast was read as "1. Multilevel compression deformities are seen, not seen on prior exam. These are age-indeterminate but favored to be chronic, however correlation with point tenderness is recommended. 2. No acute abnormalities, in particular no evidence of intraperitoneal hemorrhage or visceral trauma. 3. Hiatal hernia". CT of the cervical spine was read as "Degenerative changes without evidence of acute bony injury.". Prior to admission the patient was given a total of 8 mg IV zofran, 40 mg IV methylprednisolone, and 1gm IV acetaminophen. She was also started on 125 mL/hr of NSS prior to admission and ordered 5 mg PO amlodipine for hypertension. At the time of the exam the patient was lying comfortably in bed in no acute distress. The patient was noted to have swelling/bruising on the right upper forehead and dried blood at the BL nares. History was difficult to obtain due to the patient's dementia and baseline mental status. When asked, she states that she is feeling fine and has no complaints. When asked specifically if she is having head, neck, or back pain she confirmed that she was having some pain at the site of bruising on her forehead and low back pain. She states to me that she is feeling dizzy while lying in bed. She denies chest pain, SOB, abdominal pain, nausea, vomiting, dysuria, hematuria, and leg/arm pain. I called and spoke to the staff at [place] to obtain more information. They state that Elke has had a long history of dizziness and falls. She is normally supposed to ambulate with the help of a walker; over the past week they have noted more issues with her balance and ambulation even with her walker. He states that they found her down on her back this am in her room. They believe that she must have fallen overnight while trying to walk to the bathroom without her walker. Her last kn own well was yesterday after dinner. I confirmed her med rec with their staff, they confirmed that she had been taken off amlodipine and Synthroid "awhile ago". When asked why her amlodipine was stopped the nurse stated it was due to low blood pressures and falls. They confirmed to me that she is a Full Code Admission Exam Per Admitting Provider General:In no acute distress, stated age, chronically ill-appearing, non-toxic appearing HEENT:Patient noted to have bruising/swelling of the right forehead, no other trauma or pain with tenderness to the face/head, bruising noted on the bridge of the nose, no deformity of the nose is noted, dried blood is noted at the BL nares, no scleral icterus, pupils around round, symmetrical, and reactive to light, moist mucus membranes, trachea midline, no thyromegaly Chest/Pulm:No respiratory distress, symmetrical chest expansion, clear breath sounds throughout Cardiac:RRR, no murmurs noted Abdomen:Negative for ascites and bruising, normoactive bowel sounds, soft, non-tender to palpation throughout Musculoskeletal:Facial injuries as noted above, no tenderness or crepitus to palpation of the skull, cervical, thoracic, and lumbar spine, patient is without deformity, tenderness, or ROM limitation of the upper and lower extremities, no deformities or tenderness to palpation of the BL hips the the pelvis Extremities:Radial, dorsalis pedis, and posterior tibial pulses are intact and symmetrical, no edema noted in the BL LE's Skin:As described above Neuro:Alert and oriented to person only, no focal defects, CN II-XII tested and no tremors noted, patient is currently dizzy at the time of the exam Psych:No acute distress, calm and cooperative during the exam Principal Dx & Hospital Course #1 = Principal Diagnosis (1) Fall: Sustained an unwitness fall sometime overnight prior to presentation She was apparently not using her walker per the staff at [facility] Chart review noted dizziness and staff at [facility] confirmed that this has been an ongoing issue for years (seems vertiginous in nature) Blood pressures were markedly elevated on admission Trauma workup showed non-displaced fractures of the BL nasal bones and subacute/likely chronic lumbar compression fractures CT of the head was negative for acute findings except for right frontal scalp swelling Brain MRI performed and negative for stroke EKG here is normal sinus rhythm without ischemic changes UA negative for infection and no other signs of infection at this time Chest x-ray negative Minimal elevation in troponin for myocardial demand ischemia Right wrist pain XR Rt hand did not show acute fracture but degenerative changes/osteoarthritis Tylenol prn Continue bowel regimen for constipation (2) Closed fracture nasal bone: Stable, no acute deformity Tylenol for pain Can follow-up with ENT as an outpatient (3) Hypertension: Hypertensive on arrival with systolics in the 190's Was previously on amlodipine which had been stopped for possible hypotension Was resumed during this admission Continue amlodipine 5 mg daily on discharge as well Blood pressure is better controlled (4) Compression fx, lumbar spine: Stable Noted to have these fractures in the past Tylenol for pain (5) Obstructive sleep apnea: Unclear if she is on HS CPAP but would hold regardless at this time with her nasal bone fractures (6) Hypothyroidism: Was previously on Synthroid but has since been stopped TSH here is normal No need for levothyroxine at this time Monitor as an outpatient (7) Chronic diastolic (congestive) heart failure: Currently Euvolemic Monitor volume status and BP control as above (8) Arteriosclerotic coronary artery disease: Previous cardiology notes state the patient has mild coronary artery disease but has had negative stress echocardiogram in 2016 She is not on antiplatelet or statin Unlikely benefit for this at this point (9) Dementia: Patient with known cognitive impairment and is about to be transferred to the memory unit of [facility] within the next week Continue sertraline for depression Discharge Exam Constitutional + well hydrated; no acute distress Eyes PERRL, conjunctivae normal, anicteric sclerae ENMT external ear and nose normal, oropharynx normal Respiratory normal respiratory effort, lungs clear to auscultation Cardiovascular Rate/Rhythm: regular rate and regular rhythm S1 S2 Gastrointestinal (Abdomen) normal bowel sounds, soft, nontender, no hepatosplenomegaly Musculoskeletal No pedal edema Neurologic PERRL, EOMI, accommodation nl, no face palsy, no dysarthria Psychiatric Orientation: alert, oriented to person and cooperative; + not oriented to place and + not oriented to time Updated Medication List Medication Instructions Recorded Confirmed Type alendronate 70 mg tablet 70 mg PO WK #30 tabs 10/22/22 Rx amlodipine 5 mg tablet (Norvasc) 5 mg PO DAILY 30 days #30 tabs 10/22/22 Rx sertraline 50 mg tablet 25 mg PO HS #30 tabs 10/22/22 Rx polyethylene glycol 3350 17 gram 17 g PO DAILY PRN constipation #14 10/23/22 Rx oral powder packet (Miralax) ea sennosides 8.6 mg tablet (Senokot) 17.2 mg PO BID #60 tabs 10/23/22 Rx Hospital Stay Data Consultations 10/17/22 10:10 ED Decision to Admit Stat Diagnostic Imagining Performed 10/17/22 06:12 CT facial bones wo con Stat 10/17/22 06:13 CT head/brain wo con Stat 10/17/22 07:08 CT lumbar spine wo con Stat CT thoracic spine wo con Stat 10/17/22 07:09 CT abd pelvis IV con only Stat CT cervical spine wo con Stat 10/17/22 14:26 MRI Brain [MR brain wo con] Urgent Pending Results Patient Have Any Pending Studies at Discharge: No Discharge Instructions Given to Patient (Per Discharging Provider) Mrs Connell You were brought to the hospital after a fall. Evaluation showed nasal fracture. You also had poorly controlled hypertension and was started on blood pressure medication. You are being discharged to [facility] for rehab. Please ensure follow up with your Primary Doctor. It was a pleasure taking care of you. Total Time Total Time Spent Total Time Spent (In Minutes): 45 Total Time Includes: Examination of the Patient, Discharge Planning and Medication Reconciliation
== END 2022-10-25 12:23 | DRG 155 ==
LOC: 2N 05:58 → ED 05:58 → SUATTDRO 10:19 → 2N 11:23 → SUATTDRO 10-19 14:12 → 3W 10-22 23:11

== ENCOUNTER 2023-02-03 17:05 | Inpatient (IN) ==
[2023-02-03 17:55] LABS: Basophils # (auto) 0.09 K/uL (0-0.2); Basophils % (auto) 0.5 %; Eosinophils # (auto) 0.07 K/uL (0-0.50); Eosinophils % (auto) 0.4 %; Hematocrit (blood only) 30.4 % (37.0-47.0); Hemoglobin 9.6 g/dl (12.0-16.0); Immature Granulocytes # (auto) 0.22 K/uL (0.01-0.20); Immature Granulocytes % (auto) 1.3 %; Lymphocytes # (auto) 2.15 K/uL (1.2-3.4); Lymphocytes % (auto) 12.5 %; Mean Corpuscular Hemoglobin 27.7 pg (25.0-34.0); Mean Corpuscular Hgb Conc 31.6 g/dL (32.0-36.0); Mean Corpuscular Volume 87.9 fL (80.0-100.0); Mean Platelet Volume 10.1 fL (9.4-12.4); Monocytes # (auto) 1.98 K/uL (0.11-0.59); Monocytes % (auto) 11.5 %; Neutrophils # (auto) 12.73 K/uL (1.40-6.50); Neutrophils % (auto) 73.8 %; Platelet Count 367 K/uL (130-400); RDW Coefficient of Variation 15.6 % (11.5-14.5); RDW Standard Deviation 50.2 fL (36.4-46.3); Red Blood Count 3.46 M/uL (4.20-5.40); White Blood Count 17.24 K/ul (4.8-10.8)
--- NOTE | 2023-02-03 18:11 | XRay Report ---
XR chest 1V portable CLINICAL HISTORY: Sepsis COMPARISON STUDY: Chest radiograph 11/15/2022. FINDINGS: Lung volumes are mildly diminished. There are mild bibasilar opacities. No definite consoli dation to suggest pneumonia. Cardiomediastinal silhouette is stable. There is no evidence for pulmona ry edema. IMPRESSION: Mild bibasilar opacities. Atelectasis is favored although an infectious process could ap pear similar. ACT 112: Negative or not required by law. Electronically signed by: Isai Gu M.D. 02/03/2023 6:09 PM
[2023-02-03 18:13] LABS: Albumin Level 3.1 gm/dl (3.4-5.0); BUN Creatinine Ratio 27.4 (10-20); Bilirubin Direct 0.2 mg/dl (0-0.2); Bilirubin,Total 0.7 mg/dl (0.2-1.0); Calcium 9.6 mg/dl (8.6-10.3); Creatinine Clr Calc Pharmacy 35.7 ml/min; Est GFR (Non-African American) 63.8 ml/min; Magnesium 2.2 mg/dl (1.7-2.4); Phosphorus 2.4 mg/dl (2.5-4.9); Potassium 3.9 mmol/L (3.5-5.1); Total Protein 6.7 gm/dl (6.0-8.3)
[2023-02-03] MEDS ORDERED: SODIUM CHLORIDE 0.9% 1000ML 1,000 ML IV ONE (18:14)
[2023-02-03] MEDS ORDERED: FAMOTIDINE 20MG IV PUSH 20 MG/5 ML SYR IV STA (18:14)
[2023-02-03] MEDS ORDERED: SODIUM CHLORIDE 0.9% 500 ML IV ONE (18:14)
[2023-02-03] MEDS ORDERED: VANCOMYCIN HCL 1,250 MG in SODIUM CHLORIDE 0.9% 500 ML IV ONE (18:14)
[2023-02-03] MEDS ORDERED: VANCOMYCIN CONSULT ACTIVE PRN (18:14)
[2023-02-03] MEDS ORDERED: CEFEPIME 2,000 MG/20 ML VIAL IV STA (18:14)
[2023-02-03 18:18] LABS: Troponin I High Sensitivity 10.2 pg/ml (0-14)
--- NOTE | 2023-02-03 19:03 | CT Scan Report ---
CT OF THE ABDOMEN AND PELVIS WITHOUT CONTRAST CLINICAL HISTORY: Urinary tract infection. Sepsis. COMPARISON STUDY: CT of the abdomen and pelvis October 17, 2022. TECHNIQUE: Axial images of the abdomen and pelvis were obtained without IV contrast. Images were revi ewed in the axial, sagittal, and coronal planes. Automated exposure control was utilized for the ike dy. A dose lowering technique was utilized adhering to the principles of ALARA. FINDINGS: A small right pleural effusion is noted. There is segmental right lower lobe airspace opaci ty. Evaluation of the abdomen and pelvis is suboptimal on this unenhanced exam. No pneumatosis, free air or portal venous gas is present. Liver, spleen, adrenal glands, kidneys and pancreas are unremark able. There is no hydronephrosis. There is no biliary or pancreatic ductal dilatation dictation. A la rge amount stool within the rectum is present. There is minimal adjacent stranding. There is no defin ite bowel wall thickening. No fluid collection is present. There is no lymphadenopathy. Multiple old lumbar spine compression deformities are unchanged. No acute lumbar spine fractures are present. IMPRESSION: 1. No urinary calculi or hydronephrosis. 2. Small right pleural effusion. Adjacent airspace opacity likely reflects atelectasis. Pneumonia cou ld appear similar. A pulmonary infarct is also within the differential. A PE protocol chest CT could be obtained for further evaluation. 3. Large amount of stool within the rectum. Moderate amount of stool within the colon. Minimal strand ing adjacent to the rectum is nonspecific and a mild stercoral colitis would be difficult to exclude. No extraluminal gas. ACT 112: Negative or not required by law. Electronically signed by: Isai Gu M.D. 02/03/2023 7:02 PM
[2023-02-03 19:25] LABS: Adenovirus PCR Not Detected (NotDetected); Bordetella parapertussis PCR Not Detected (NotDetected); Bordetella pertussis PCR Not Detected (NotDetected); Chlamydia pneumoniae PCR Not Detected (NotDetected); Coronavirus 229E PCR Not Detected (NotDetected); Coronavirus CoV-2 (COVID19)PCR Not Detected (NotDetected); Coronavirus HKU1 PCR Not Detected (NotDetected); Coronavirus NL63 PCR Not Detected (NotDetected); Coronavirus OC43PCR Not Detected (NotDetected); Human Metapneumovirus PCR Not Detected (NotDetected); Influenza A PCR Not Detected (NotDetected); Influenza B PCR Not Detected (NotDetected); Mycoplasma pneumoniae PCR Not Detected (NotDetected); Parainfluenza Virus 1 PCR Not Detected (NotDetected); Parainfluenza Virus 2 PCR Not Detected (NotDetected); Parainfluenza Virus 3 PCR Not Detected (NotDetected); Parainfluenza Virus 4 PCR Not Detected (NotDetected); Respiratory Syncytial VirusPCR Not Detected (NotDetected)
--- NOTE | 2023-02-03 19:57 | History & Physical Report ---
Date of Service February 03, 2023 Assessment & Plan (1) Pneumonia: Plan: Possible aspiration pneumonia Patient is 82-year-old female with PMH HTN, MGUS, dementia, anxiety, thoracic and lumbar compression fracture, chronic cholecystitis presented to ER from [facility] for increased weakness, UTI, pneumonia. Started on amoxicillin 01/26/2023 for Fever, pneumonia, suspected UTI. Had reported negative respiratory panel outpatient. On 01/29/2023 amoxicillin was stopped and was changed to cefdinir. Today was referred to ER for reported increased weakness and lethargy and fever 100.2F. In ER afebrile, R: 25, BP 144/61, 91% on room air. WBC 17, lactate WNL, procalcitonin: 0.47 CXR:Mild bibasilar opacities. Atelectasis is favored although an infectious process could appear similar. CT Abd/Pelvis:Small right pleural effusion. Adjacent airspace opacity likely reflects atelectasis. Pneumonia could appear similar. A pulmonary infarct is also within the differential. A PE protocol chest CT could be obtained for further evaluation. Blood cultures pending In ER given cefepime, vancomycin Respiratory panel +entero/rhinovirus Reported episode of choking this morning Aspiration precautions Speech evaluation Zosyn NSS MRSA swab Supplemental oxygen as needed D-dimer pending. If elevated obtain CTA chest CBC, BMP in a.m. (2) UTI (urinary tract infection): Plan: Outpatient chart review: 01/27/2023 urine culture: E. coli, Aerococcus urinae. Treated with amoxicillin on 01/26/2023. Amoxicillin was stopped and cefdinir was started on 01/29/2023 Today UA unremarkable Blood cultures pending CT Abd/Pelvis: No urinary calculi or hydronephrosis. Large amount of stool within the rectum. Moderate amount of stool within the colon. Minimal stranding adjacent to the rectum is nonspecific and a mild stercoral colitis would be difficult to exclude. No extraluminal gas. In ER given cefepime Zosyn as above (3) Dementia: Plan: History of dementia, anxiety Monitor for delirium Continue buspirone, Risperdal, sertraline (4) Hypertension: Plan: Continue amlodipine (5) MGUS (monoclonal gammopathy of unknown significance): Plan: Hgb: 9.6. Baseline Hgb in the 9's Monitor H&H (6) Chronic cholecystitis: Plan: History of chronic cholecystitis seen on outpatient imaging Has upcoming appointment with general surgery 03/02/2023, Dr. Andrade DVT Prophylaxis Heparin SQ Full Code as per nursing facility chart Follows with Dr Castro at [facility] for routine care Pt was seen and care coordinated with Dr Kaufman. See addendum I spent a total of 85 minutes reviewing notes, outpatient records, labs, medication, coordinating, documenting and providing care for this patient excluding time spent in the performance of separately billed services. History of Present Illness Chief Complaint: UTI Primary Care Provider: [facility] Patient is 82-year-old female with PMH HTN, MGUS, dementia, anxiety, thoracic and lumbar compression fracture, chronic cholecystitis presented to ER from [facility] for increased weakness, UTI, pneumonia. Patient unable to give history. Reports pain all over. Upon chart review from [facility] this is a chronic complaint. History obtained from staff and chart review. Started on amoxicillin 01/26/2023 for Fever, pneumonia, suspected UTI. Outpatient chart review: 01/27/2023 urine culture: E. coli, Aerococcus urinae. It is reported chest x-ray showed right lower lobe bronchopneumonia and that respiratory panel was negative. On 01/29/2023 amoxicillin was stopped and was changed to cefdinir. Today was referred to ER for reported increased weakness and lethargy. It is reported that patient had choking episode on bites of eggs this morning. Temp of 100.2F reported today. No reported diarrhea, hypoxia. Allergies Allergy/AdvReac Type Severity Reaction Status Date / Time ciprofloxacin Allergy Intermediate HIVES Verified 02/03/23 19:41 latex Allergy Intermediate Rash Verified 02/03/23 19:41 morphine Allergy Intermediate Rash Verified 02/03/23 19:41 Sulfa (Sulfonamide Allergy Intermediate RASH Verified 02/03/23 19:41 Antibiotics) acetaminophen AdvReac Intermediate GI SYMPTOMS Verified 02/03/23 19:41 Iodinated Contrast Media AdvReac Intermediate NAUSEA/WARM Verified 02/03/23 19 :41 FEELING PER MEDROL QUESTIONAIRE oxycodone AdvReac Intermediate GI SYMPTOMS Verified 02/03/23 19:41 codeine AdvReac Mild Nausea Verified 02/03/23 19:41 propoxyphene AdvReac Unknown SENSITIVITY Verified 02/03/23 19:41 Home Medications Medication Instructions Recorded Confirmed Type alendronate 70 mg tablet 70 mg PO WK #30 tabs 10/22/22 02/03/23 Rx polyethylene glycol 3350 17 gram 17 g PO DAILY PRN constipation #14 10/23/22 02/03/23 Rx oral powder packet (Miralax) ea acetaminophen 325 mg tablet 650 mg PO Q4H PRN PAIN/FEVER 11/15/22 02/03/23 History (Tylenol) famotidine 20 mg tablet 20 mg PO HS 11/15/22 02/03/23 History ondansetron HCl 4 mg tablet 4 mg PO Q6H PRN NAUSEA/VOMITING 11/15/22 02/03/23 History sennosides 8.6 mg tablet (Senokot) 17.2 mg PO BID 11/15/22 02/03/23 History sertraline 25 mg tablet 75 mg PO HS 11/15/22 02/03/23 History acetaminophen 650 mg rectal 650 mg IA Q4H PRN Fever Or Pain 02/03/23 02/03/23 History suppository amlodipine 5 mg tablet 5 mg PO QAM 02/03/23 02/03/23 History buspirone 5 mg tablet 5 mg PO BID 02/03/23 02/03/23 History cefdinir 300 mg capsule 300 mg PO BID 02/03/23 02/03/23 History omeprazole 20 mg capsule,delayed 20 mg PO QAM 02/03/23 02/03/23 History release risperidone 0.25 mg tablet 0.5 mg PO HS 02/03/23 02/03/23 History Past Med/Surg History Medical History Chronic cholecystitis Compression fracture of L1 lumbar vertebra Concussion Dementia Hypertension Kidney stones Laryngeal spasm MGUS (monoclonal gammopathy of unknown significance) Surgical History H/O: hysterectomy (~1978) History of arthroplasty (~2011) L thumb History of cataract surgery History of colonoscopy (~2009) Hx of appendectomy S/P UPPP (uvulopalatopharyngoplasty) Family History Father Myocardial infarction Other History of appendectomy History of hysterectomy Denies family history of Ovarian cancer Prostate cancer Breast cancer Colorectal cancer Social History Smoking Status: Unknown if ever smoked Second Hand Exposure: No; Do You Dip or Chew Tobacco: No; Hx Alcohol Use: No Hx Substance Use: No Preferred Language: Tunisian Communication Ability: Effective Visual Impairment: No Limitations Hearing Ability: Normal Personnel Quality Assurance Auditor Required: No Beliefs That Will Affect Care: None marital status: Current Living Situation: Snf current occupational status: retired Feels Safe at Home: Yes Dental Care, Regularly: No Physical Activity Frequency: 3-4 Times per Week Seatbelt Use: always Sunscreen Use: Yes Assistive Devices: Walker Review of Systems Review of Systems: Unobtainable due to cognitive status Physical Exam Physical Exam: General: +mildly anxious, otherwise in no apparent distress, thin elderly female Head: normocephalic, atraumatic Eyes: conjunctiva non-injected, anicteric ENT: normal inspection external ears, nose, mucous membranes mildly dry Neck: supple, trachea midline Lungs: poor inspiratory effort but appear clear, no respiratory distress CV: RRR, no murmur, no pretibial edema Abd: normal BS, soft, non-tender Ext: no cyanosis, no calf tenderness Neuro: Alert, oriented to person only -able to say name is "Elke", answers some yes or no to questions, lethargic, anxious affect Skin: warm, dry Results & Data Results & Data Vital Signs (Past 12 Hours) Vital Signs Temp Pulse Resp BP Pulse Ox O2 Del Method 02/03/23 19:15 82 17 131/58 L 89 L 02/03/23 19:00 88 21 127/56 L 92 02/03/23 18:45 77 17 134/59 L 94 02/03/23 18:30 78 17 121/57 L 94 02/03/23 18:15 78 23 125/60 93 02/03/23 18:12 80 21 130/60 94 02/03/23 18:00 83 19 91 Room Air 02/03/23 17:45 82 25 H 02/03/23 17:45 128/58 L 02/03/23 17:30 83 19 02/03/23 17:30 129/76 02/03/23 17:20 82 24 92 02/03/23 17:40 92 Room Air 02/03/23 17:33 82 02/03/23 17:04 37.4 C 82 30 H 144/61 H 91 Room Air Laboratory Results Short CBC 02/03/23 Range/Units 17:23 WBC 17.24 H (4.8-10.8) K/ul Hgb 9.6 L (12.0-16.0) g/dl Hct 30.4 L (37.0-47.0) % Plt Count 367 (130-400) K/uL BMP 02/03/23 17:23 Sodium 144 Potassium 3.9 Chloride 105 Carbon Dioxide 32 BUN 23 Creatinine 0.84 Glucose 149 H Calcium 9.6 Liver Function 02/03/23 Range/Units 17:23 Total Bilirubin 0.7 (0.2-1.0) mg/dl Direct Bilirubin 0.2 (0-0.2) mg/dl AST 49 H (13-39) U/L ALT 48 (7-52) U/L Alkaline Phosphatase 227 H (34-104) U/L Albumin 3.1 L (3.4-5.0) gm/dl Urine 02/03/23 Range/Units 19:33 Urine Color Dark Yellow Urine Appearance Clear (Clear) Urine pH 6.0 (4.5-7.5) Ur Specific [place] 1.020 (1.000-1.030) Urine Protein 1+ H (Negative) Urine Glucose (UA) Negative (Negative) Diagnostic Findings Chest X-Ray 02/03/23 17:36 XR chest 1V portable CLINICAL HISTORY: Sepsis COMPARISON STUDY: Chest radiograph 11/15/2022. FINDINGS: Lung volumes are mildly diminished. There are mild bibasilar opacities. No definite consolidation to suggest pneumonia. Cardiomediastinal silhouette is stable. There is no evidence for pulmonary edema. IMPRESSION: Mild bibasilar opacities. Atelectasis is favored although an infectious process could appear similar. ACT 112: Negative or not required by law. Electronically signed by: Isai Gu M.D. 02/03/2023 6:09 PM Abdomen/Pelvis CT 02/03/23 18:03 CT OF THE ABDOMEN AND PELVIS WITHOUT CONTRAST CLINICAL HISTORY: Urinary tract infection. Sepsis. COMPARISON STUDY: CT of the abdomen and pelvis October 17, 2022. TECHNIQUE: Axial images of the abdomen and pelvis were obtained without IV contrast. Images were reviewed in the axial, sagittal, and coronal planes. Automated exposure control was utilized for the study. A dose lowering technique was utilized adhering to the principles of ALARA. FINDINGS: A small right pleural effusion is noted. There is segmental right lower lobe airspace opacity. Evaluation of the abdomen and pelvis is suboptimal on this unenhanced exam. No pneumatosis, free air or portal venous gas is present. Liver, spleen, adrenal glands, kidneys and pancreas are unremarkable. There is no hydronephrosis. There is no biliary or pancreatic ductal dilatation dictation. A large amount stool within the rectum is present. There is minimal adjacent stranding. There is no definite bowel wall thickening. No fluid collection is present. There is no lymphadenopathy. Multiple old lumbar spine compression deformities are unchanged. No acute lumbar spine fractures are present. IMPRESSION: 1. No urinary calculi or hydronephrosis. 2. Small right pleural effusion. Adjacent airspace opacity likely reflects atelectasis. Pneumonia could appear similar. A pulmonary infarct is also within the differential. A PE protocol chest CT could be obtained for further evaluation. 3. Large amount of stool within the rectum. Moderate amount of stool within the colon. Minimal stranding adjacent to the rectum is nonspecific and a mild stercoral colitis would be difficult to exclude. No extraluminal gas. ACT 112: Negative or not required by law. Electronically signed by: Isai Gu M.D. 02/03/2023 7:02 PM Supervising Physician Co-Signing Physician Notes Attending addendum: The patient was seen and examined in the emergency room. She was brought in from [facility] with increased weakness She was very anxious in the emergency room and complains of pain without any identification of the site She was not in any acute distress and was noted to have UA positive for infection with a white count of 17,000 and chest x-ray evidence of pneumonia and/or infarction She was started with intravenous ceftriaxone and Doxy likely and was admitted to medical floor for continuation of care On examination Minimal distress at rest with moderate to severe anxiety Pleasantly confused Hemodynamically stable mildly at 1 the patient noted to have a saturation of 89% Chestdecreased breath sounds bibasilarly with crackles HeartS1-S2, regular with 2/6 ESM over precordium Abdomenbenign Extremitiestrace to 1+ edema bilaterally CNSalert and awake, pleasantly confused, generally weak Her admission labs, imaging studies reviewed Has pneumonia/pulmonary infarct will evaluate for possibility of pulmonary embolism UTI with recent treatment with ampicillin as an outpatient Dementia likely has acute delirium Agree with assessment and plan as outlined above by PAT Sweeney DR
[2023-02-03 20:02] LABS: Appearance Urine Clear (Clear); Bacteria Urine Automated Negative (Negative); Bilirubin Urine Negative (Negative); Blood Urine Negative (Negative); Color Urine Dark Yellow; Glucose Urine UA Negative (Negative); Ketones Urine Negative (Negative); Leukocyte Esterase Urine Negative (Negative); Nitrite Urine Negative (Negative); Protein Urine 1+ (Negative); RBC Urine Automated 0-4 /hpf (0-4); Urobilinogen Urine Negative (Negative)
--- NOTE | 2023-02-03 20:52 | Emergency Department Note ---
Impression & Plan Pneumonia, Dementia, Acute UTI, SIRS (systemic inflammatory response syndrome) ED Provider Note NAME: LYNN SALTER AGE: 82 SEX: F ARRIVES VIA: Ambulance INFORMANT: Patient ED PROVIDER(S): Austin White MD CHIEF COMPLAINT: PNA, UTI, malaise, referred. PLAN: Disposition: Admit MEDICAL DECISION MAKING: The patient is a pleasant 82-year-old woman with a past medical history of dementia who presents to the emergency department from her usp facility at [facility] for worsening malaise and fevers in the setting of being treated with cefdinir for the past 5 days for UTI and pneumonia. Patient is a poor historian. Per EMS report the patient is normally nonambulatory. On arrival to emergency department the patient is no acute distress, afebrile with respiratory rate in the 30s and vital signs otherwise stable. She appears clinically dry. O2 saturation is 90% and greater on room air. He has diminished breath sounds at the bases and lungs are otherwise clear. She has mild lower abdominal fullness without tenderness or rebound. EKG without overt acute ischemia. CXR with bibasilar opacities suspicious for pneumonia. WBC 17.2K with neutrophil predominance and mild left shift. H/H 9.6/30.4 decreased from recent though approximate and nonspecific. Platelets within normal limits. Chemistry without metabolic acidosis. Lactic acid 1.2, within normal limits. Electrolytes without significant abnormality. LFTs without significant abnormality. High-sensitivity troponin 10.2, within normal limits. Procalcitonin 0.47 high normal. UA without evidence of infection though in the setting of having been treated with cefdinir. Respiratory viral panel/[employer] is pending. CT of the abdomen pelvis was performed and demonstrates small right pleural effusion with adjacent airspace opacity which is suspicious for pneumonia given the patient's clinical presentation. Note is made that a pulmonary infarct may appear similar. Additional note is made of a large stool ball within the rectum. Patient was treated with 30 cc/kg normal saline and empiric antibiotics with cefepime and vancomycin. Case was discussed with Dr. Robin, [facility] hospitalist who will evaluate the patient for admission. Further management per admitting team. Triage Nursing notes reviewed and agree them. Prior/outside medical records reviewed Vital Signs: reviewed Differential diagnosis: Viral syndrome, otitis, pharyngitis, pneumonia, influenza, meningitis, urinary tract infection, sepsis, bacteremia, as well as other pathologies. ER treatment provided: See below. Diagnostics interpreted by me: ECG: Normal sinus rhythm with sinus arrhythmia, 87 bpm, no ectopy, anterior T wave inversion, no overt ST elevation or depression, QTc 471, QRS 82 Cardiac Monitoring: An order for continuous cardiac monitoring was placed and demonstrated normal sinus rhythm, 87 bpm, no ectopy. Laboratory studies: See below Imaging studies: See below Consultation(s): [facility]. HPI: The patient is a pleasant 82-year-old woman with a past medical history of dementia who presents to the emergency department from her usp facility at [facility] for worsening malaise and fevers in the setting of being treated with cefdinir for the past 5 days for UTI and pneumonia. Patient is a poor historian. Per EMS report the patient is normally nonambulatory. ROS: See above HPI for pertinent positives & negatives. A total of 10 systems reviewed and were otherwise negative. VITALS:See Below PHYSICAL EXAMINATION: GENERAL: Awake, alert, fatigued-appearing, in no distress HENT: Normocephalic, atraumatic. Oropharynx with dry mucous membranes and otherwise unremarkable. EYES: Normal conjunctiva. Sclera non-icteric. NECK: Supple. No nuchal rigidity. FROM. No JVD. RESPIRATORY: Diminished breath sounds at the bases and otherwise clear. CARDIAC: Regular rate, normal rhythm. Extremities warm and well perfused. Pulses equal. ABDOMEN: Soft, non-distended. Mild lower abdominal fullness without tenderness or rebound. No rebound or guarding. RECTAL: Deferred. MUSCULOSKELETAL: Chest examination reveals no tenderness. The back is symmetrical on inspection without obvious abnormality. There is no CVA tenderness to palpation. No joint edema. LOWER EXTREMITIES: Calves are equal size bilaterally and non-tender. No edema. No discoloration. NEURO: Pleasant confused. Generalized weakness at baseline. SKIN: No rash or jaundice noted. Austin White MD Past Med/Surg History Medical History Chronic cholecystitis Compression fracture of L1 lumbar vertebra Concussion Dementia Hypertension Kidney stones Laryngeal spasm MGUS (monoclonal gammopathy of unknown significance) Surgical History H/O: hysterectomy (~1978) History of arthroplasty (~2011) L thumb History of cataract surgery History of colonoscopy (~2009) Hx of appendectomy S/P UPPP (uvulopalatopharyngoplasty) Family History Father Myocardial infarction Other History of appendectomy History of hysterectomy Denies family history of Ovarian cancer Prostate cancer Breast cancer Colorectal cancer Social History Smoking Status: Unknown if ever smoked Second Hand Exposure: No; Do You Dip or Chew Tobacco: No; Hx Alcohol Use: No Hx Substance Use: No Preferred Language: [place] Communication Ability: Effective Visual Impairment: No Limitations Hearing Ability: Normal Weight Tester Required: No Beliefs That Will Affect Care: None marital status: Current Living Situation: Shelter current occupational status: retired Feels Safe at Home: Yes Dental Care, Regularly: No Physical Activity Frequency: 3-4 Times per Week Seatbelt Use: always Sunscreen Use: Yes Assistive Devices: Walker Allergies Allergies Allergy/AdvReac Type Severity Reaction Status Date / Time ciprofloxacin Allergy Intermediate HIVES Verified 02/03/23 19:41 latex Allergy Intermediate Rash Verified 02/03/23 19:41 morphine Allergy Intermediate Rash Verified 02/03/23 19:41 Sulfa (Sulfonamide Allergy Intermediate RASH Verified 02/03/23 19:41 Antibiotics) acetaminophen AdvReac Intermediate GI SYMPTOMS Verified 02/03/23 19:41 Iodinated Contrast Media AdvReac Intermediate NAUSEA/WARM Verified 02/03/23 19:41 FEELING PER MEDROL QUESTIONAIRE oxycodone AdvReac Intermediate GI SYMPTOMS Verified 02/03/23 19:41 codeine AdvReac Mild Nausea Verified 02/03/23 19:41 propoxyphene AdvReac Unknown SENSITIVITY Verified 02/03/23 19:41 Home Meds Home Medications Medication Instructions Recorded Confirmed acetaminophen 325 mg tablet 650 mg PO Q4H PRN PAIN/FEVER 11/15/22 02/03/23 (Tylenol) famotidine 20 mg tablet 20 mg PO HS 11/15/22 02/03/23 ondansetron HCl 4 mg tablet 4 mg PO Q6H PRN NAUSEA/VOMITING 11/15/22 02/03/23 sennosides 8.6 mg tablet (Senokot) 17.2 mg PO BID 11/15/22 02/03/23 sertraline 25 mg tablet 75 mg PO HS 11/15/22 02/03/23 acetaminophen 650 mg rectal 650 mg NE Q4H PRN Fever Or Pain 02/03/23 02/03/23 suppository amlodipine 5 mg tablet 5 mg PO QAM 02/03/23 02/03/23 buspirone 5 mg tablet 5 mg PO BID 02/03/23 02/03/23 cefdinir 300 mg capsule 300 mg PO BID 02/03/23 02/03/23 omeprazole 20 mg capsule,delayed 20 mg PO QAM 02/03/23 02/03/23 release risperidone 0.25 mg tablet 0.5 mg PO HS 02/03/23 02/03/23 Previous Rx's Medication Instructions Recorded alendronate 70 mg tablet 70 mg PO WK #30 tabs 10/22/22 polyethylene glycol 3350 17 gram 17 g PO DAILY PRN constipation #14 10/23/22 oral powder packet (Miralax) ea Results & Data (ED) Vital Signs Vital Signs - 24 hr 02/03/23 17:04 02/03/23 17:33 02/03/23 17:40 Temperature 37.4 C Temperature Source Oral Pulse Rate 82 82 Pulse Rate from SpO2 Sensor Respiratory Rate 30 H Respiratory Effort / Characteristics Non-Labored Spontaneous Respiratory Depth Normal Respiratory Pattern Regular Blood Pressure 144/61 H Blood Pressure Mean 88 Pulse Oximetry 91 92 Oxygen Delivery Method Room Air Room Air Sepsis Recent Fever Within 48 Hours No Sepsis New/Unexplained Change in Mental Status No Sepsis Action Taken by Nursing No Action Required 02/03/23 17:20 02/03/23 17:30 02/03/23 17:30 Temperature Temperature Source Pulse Rate 82 83 Pulse Rate from SpO2 Sensor 83 87 Respiratory Rate 24 19 Respiratory Effort / Characteristics Respiratory Depth Respiratory Pattern Blood Pressure 129/76 Blood Pressure Mean 93 Pulse Oximetry 92 Oxygen Delivery Method Sepsis Recent Fever Within 48 Hours Sepsis New/Unexplained Change in Mental Status Sepsis Action Taken by Nursing 02/03/23 17:45 02/03/23 17:45 02/03/23 18:00 Temperature Temperature Source Pulse Rate 82 83 Pulse Rate from SpO2 Sensor 84 Respiratory Rate 25 H 19 Respiratory Effort / Characteristics Respiratory Depth Respiratory Pattern Blood Pressure 128/58 L Blood Pressure Mean 81 Pulse Oximetry 91 Oxygen Delivery Method Room Air Sepsis Recent Fever Within 48 Hours Sepsis New/Unexplained Change in Mental Status Sepsis Action Taken by Nursing 02/03/23 18:12 02/03/23 18:15 02/03/23 18:30 Temperature Temperature Source Pulse Rate 80 78 78 Pulse Rate from SpO2 Sensor 80 78 78 Respiratory Rate 21 23 17 Respiratory Effort / Characteristics Respiratory Depth Respiratory Pattern Blood Pressure 130/60 125/60 121/57 L Blood Pressure Mean 83 81 78 Pulse Oximetry 94 93 94 Oxygen Delivery Method Sepsis Recent Fever Within 48 Hours Sepsis New/Unexplained Change in Mental Status Sepsis Action Taken by Nursing 02/03/23 18:45 02/03/23 19:00 02/03/23 19:15 Temperature Temperature Source Pulse Rate 77 88 82 Pulse Rate from SpO2 Sensor 76 77 78 Respiratory Rate 17 21 17 Respiratory Effort / Characteristics Respiratory Depth Respiratory Pattern Blood Pressure 134/59 L 127/56 L 131/58 L Blood Pressure Mean 84 79 82 Pulse Oximetry 94 92 89 L Oxygen Delivery Method Sepsis Recent Fever Within 48 Hours Sepsis New/Unexplained Change in Mental Status Sepsis Action Taken by Nursing Laboratory Data Attestation: I reviewed the patient's lab results. 02/03/23 17:23 02/03/23 17:23 Lab Results 02/03/23 02/03/23 02/03/23 Range/Units 17:23 17:23 17:23 WBC 17.24 H (4.8-10.8) K/ul RBC 3.46 L (4.20-5.40) M/uL Hgb 9.6 L (12.0-16.0) g/dl Hct 30.4 L (37.0-47.0) % MCV 87.9 (80.0-100.0) fL MCH 27.7 (25.0-34.0) pg MCHC 31.6 L (32.0-36.0) g/dL RDW Std Deviation 50.2 H (36.4-46.3) fL RDW Coeff of Jan 15.6 H (11.5-14.5) % Plt Count 367 (130-400) K/uL MPV 10.1 (9.4-12.4) fL Immature Gran % (Auto) 1.3 % Neut % (Auto) 73.8 % Lymph % (Auto) 12.5 % [place] % (Auto) 11.5 % Eos % (Auto) 0.4 % Baso % (Auto) 0.5 % Neut # (Auto) 12.73 H (1.40-6.50) K/uL Lymph # (Auto) 2.15 (1.2-3.4) K/uL [place] # (Auto) 1.98 H (0.11-0.59) K/uL Eos # (Auto) 0.07 (0-0.50) K/uL Baso # (Auto) 0.09 (0-0.2) K/uL Immature Gran # (Auto) 0.22 H (0.01-0.20) K/uL Sodium 144 (136-145) mmol/L Potassium 3.9 (3.5-5.1) mmol/L Chloride 105 (98-107) mmol/L Carbon Dioxide 32 (21-32) mmol/L Anion Gap 7 (3-11) BUN 23 (6-23) mg/dl Creatinine 0.84 (0.6-1.2) mg/dl Est Cr Clr Drug Dosing 35.7 ml/min Est GFR ( Amer) 74.0 ml/min Est GFR (Non-Af Amer) 63.8 ml/min BUN/Creatinine Ratio 27.4 H (10-20) Glucose 149 H (70-99(Fasting)) mg/dl Lactate 1.2 (0.4-2.0) mmol/L Calcium 9.6 (8.6-10.3) mg/dl Phosphorus 2.4 L (2.5-4.9) mg/dl Magnesium 2.2 (1.7-2.4) mg/dl Total Bilirubin 0.7 (0.2-1.0) mg/dl Direct Bilirubin 0.2 (0-0.2) mg/dl AST 49 H (13-39) U/L ALT 48 (7-52) U/L Alkaline Phosphatase 227 H (34-104) U/L Troponin I High Sens 10.2 (0-14) pg/ml Total Protein 6.7 (6.0-8.3) gm/dl Albumin 3.1 L (3.4-5.0) gm/dl Procalcitonin (0-0.5) ng/ml Urine Color Urine Appearance (Clear) Urine pH (4.5-7.5) Ur Specific [place] (1.000-1.030) Urine Protein (Negative) Urine Glucose (UA) (Negative) Urine Ketones (Negative) Urine Blood (Negative) Urine Nitrite (Negative) Urine Bilirubin (Negative) Urine Urobilinogen (Negative) Ur Leukocyte Esterase (Negative) Urine WBC (Auto) (0-5) /hpf Urine RBC (Auto) (0-4) /hpf U Hyaline Cast (Auto) (0-5) /lpf U Epithel Cells (Auto) (0-5) /lpf Urine Bacteria (Auto) (Negative) 02/03/23 02/03/23 02/03/23 Range/Units 17:23 17:36 19:33 WBC (4.8-10.8) K/ul RBC (4.20-5.40) M/uL Hgb (12.0-16.0) g/dl Hct (37.0-47.0) % MCV (80.0-100.0) fL MCH (25.0-34.0) pg MCHC (32.0-36.0) g/dL RDW Std Deviation (36.4-46.3) fL RDW Coeff of Jan (11.5-14.5) % Plt Count (130-400) K/uL MPV (9.4-12.4) fL Immature Gran % (Auto) % Neut % (Auto) % Lymph % (Auto) % [place] % (Auto) % Eos % (Auto) % Baso % (Auto) % Neut # (Auto) (1.40-6.50) K/uL Lymph # (Auto) (1.2-3.4) K/uL [place] # (Auto) (0.11-0.59) K/uL Eos # (Auto) (0-0.50) K/uL Baso # (Auto) (0-0.2) K/uL Immature Gran # (Auto) (0.01-0.20) K/uL Sodium (136-145) mmol/L Potassium (3.5-5.1) mmol/L Chloride (98-107) mmol/L Carbon Dioxide (21-32) mmol/L Anion Gap (3-11) BUN (6-23) mg/dl Creatinine (0.6-1.2) mg/dl Est Cr Clr Drug Dosing ml/min Est GFR ( Amer) ml/min Est GFR (Non-Af Amer) ml/min BUN/Creatinine Ratio (10-20) Glucose (70-99(Fasting)) mg/dl Lactate (0.4-2.0) mmol/L Calcium (8.6-10.3) mg/dl Phosphorus Cancelled (2.5-4.9) mg/dl Magnesium (1.7-2.4) mg/dl Total Bilirubin (0.2-1.0) mg/dl Direct Bilirubin (0-0.2) mg/dl AST (13-39) U/L ALT (7-52) U/L Alkaline Phosphatase (34-104) U/L Troponin I High Sens (0-14) pg/ml Total Protein (6.0-8.3) gm/dl Albumin (3.4-5.0) gm/dl Procalcitonin 0.47 (0-0.5) ng/ml Urine Color Dark Yellow Urine Appearance Clear (Clear) Urine pH 6.0 (4.5-7.5) Ur Specific [place] 1.020 (1.000-1.030) Urine Protein 1+ H (Negative) Urine Glucose (UA) Negative (Negative) Urine Ketones Negative (Negative) Urine Blood Negative (Negative) Urine Nitrite Negative (Negative) Urine Bilirubin Negative (Negative) Urine Urobilinogen Negative (Negative) Ur Leukocyte Esterase Negative (Negative) Urine WBC (Auto) 1-5 (0-5) /hpf Urine RBC (Auto) 0-4 (0-4) /hpf U Hyaline Cast (Auto) 1-5 (0-5) /lpf U Epithel Cells (Auto) 10-20 H (0-5) /lpf Urine Bacteria (Auto) Negative (Negative) Administered Medications Discontinued Medications Cefepime HCl (Maxipime) 2,000 mg in 20 mls @ 5 mls/min IV NOW STA Stop: 02/03/23 18:17 Last Admin: 02/03/23 19:04 Dose: 5 mls/min Documented By: ADINA Vancomycin HCl 1,250 mg/ (Sodium Chloride) 525 mls @ 200 mls/hr IV NOW ONE Stop: 02/03/23 20:51 Last Admin: 02/03/23 19:05 Dose: 200 mls/hr Documented By: ADINA Sodium Chloride (Nss) 500 mls @ 999 mls/hr IV .Q31M ONE Stop: 02/03/23 18:44 Last Admin: 02/03/23 20:36 Dose: 999 mls/hr Documented By: ADINA Sodium Chloride (Nss 1000ml) 1,000 mls @ 999 mls/hr IV .Q1H1M ONE Stop: 02/03/23 19:14 Last Admin: 02/03/23 19:05 Dose: 999 mls/hr Documented By: ADINA Imaging Data Radiologist's Impression: Chest X-Ray 02/03/23 17:36 XR chest 1V portable CLINICAL HISTORY: Sepsis COMPARISON STUDY: Chest radiograph 11/15/2022. FINDINGS: Lung volumes are mildly diminished. There are mild bibasilar opacities. No definite consolidation to suggest pneumonia. Cardiomediastinal silhouette is stable. There is no evidence for pulmonary edema. IMPRESSION: Mild bibasilar opacities. Atelectasis is favored although an infectious process could appear similar. ACT 112: Negative or not required by law. Electronically signed by: Isai Gu M.D. 02/03/2023 6:09 PM Abdomen/Pelvis CT 02/03/23 18:03 CT OF THE ABDOMEN AND PELVIS WITHOUT CONTRAST CLINICAL HISTORY: Urinary tract infection. Sepsis. COMPARISON STUDY: CT of the abdomen and pelvis October 17, 2022. TECHNIQUE: Axial images of the abdomen and pelvis were obtained without IV contrast. Images were reviewed in the axial, sagittal, and coronal planes. Automated exposure control was utilized for the study. A dose lowering technique was utilized adhering to the principles of ALARA. FINDINGS: A small right pleural effusion is noted. There is segmental right lower lobe airspace opacity. Evaluation of the abdomen and pelvis is suboptimal on this unenhanced exam. No pneumatosis, free air or portal venous gas is present. Liver, spleen, adrenal glands, kidneys and pancreas are unremarkable. There is no hydronephrosis. There is no biliary or pancreatic ductal dilatation dictation. A large amount stool within the rectum is present. There is minimal adjacent stranding. There is no definite bowel wall thickening. No fluid collection is present. There is no lymphadenopathy. Multiple old lumbar spine compression deformities are unchanged. No acute lumbar spine fractures are present. IMPRESSION: 1. No urinary calculi or hydronephrosis. 2. Small right pleural effusion. Adjacent airspace opacity likely reflects atelectasis. Pneumonia could appear similar. A pulmonary infarct is also within the differential. A PE protocol chest CT could be obtained for further evaluation. 3. Large amount of stool within the rectum. Moderate amount of stool within the colon. Minimal stranding adjacent to the rectum is nonspecific and a mild stercoral colitis would be difficult to exclude. No extraluminal gas. ACT 112: Negative or not required by law. Electronically signed by: Isai Gu M.D. 02/03/2023 7:02 PM Discharge Plan Visit Data Chief Complaint: Illness ED Provider: Austin White Discharge Problem: Pneumonia, Dementia, Acute UTI, SIRS (systemic inflammatory response syndrome) Forms Stand Alone Forms: My [employer] Prescriptions Prescriptions: No Action alendronate 70 mg Tablet 70 mg PO WK Qty: 30 0RF Rx Instructions: TAKE THIS MED EVERY WEDNESDAY MORNING polyethylene glycol 3350 [Miralax] 17 gram Powder In Packet 17 g PO DAILY PRN (Reason: constipation) Qty: 14 0RF acetaminophen [Tylenol] 325 mg Tablet 650 mg PO Q4H PRN (Reason: PAIN/FEVER) ondansetron HCl [Zofran] 4 mg Tablet 4 mg PO Q6H PRN (Reason: NAUSEA/VOMITING) famotidine 20 mg Tablet 20 mg PO HS sertraline 25 mg Tablet 75 mg PO HS Rx Instructions: THREE TABLET DOSE sennosides [Senokot] 8.6 mg tablet 17.2 mg PO BID acetaminophen 650 mg Suppository 650 mg NE Q4H PRN (Reason: Fever Or Pain) Rx Instructions: IF UNABLE TO TAKE ORAL MEDICATION amlodipine 5 mg tablet 5 mg PO QAM buspirone 5 mg tablet 5 mg PO BID cefdinir 300 mg capsule 300 mg PO BID Rx Instructions: BEGIN 01/29/23 X 7 DAYS omeprazole 20 mg capsule,delayed release(DR/EC) 20 mg PO QAM risperidone [Risperdal] 0.25 mg Tablet 0.5 mg PO HS Referrals Referrals: Ani [facility] [place] [Primary Care Provider] -
[2023-02-03 20:56] LABS: D Dimer 3480 ug/L FEU (0-500)
[2023-02-03] MEDS ORDERED: diphenhydrAMINE 50 MG/ML VIAL IV ONE (21:00)
[2023-02-03] MEDS ORDERED: OPTIRAY 320 500ml IV ONE (21:47)
[2023-02-03 21:53] LABS: Rhinovirus/Enterovirus PCR DETECTED (NotDetected)
[2023-02-03] MEDS ORDERED: FAMOTIDINE 20MG/5ML IV PUSH IV ONE (21:59)
--- NOTE | 2023-02-03 22:43 | CT Scan Report ---
Exam(s): CTA CHEST IV Amt: 114ml optiray 320 EXAM: CT Angiography Chest With Intravenous Contrast CLINICAL HISTORY: Reason for exam: PE. TECHNIQUE: Axial computed tomographic angiography images of the chest with intravenous contrast. CTDI is 27.47 mGy and DLP is 229.67 mGy-cm. Automated exposure control was utilized for the study. A dose lowering technique was utilized adhering to the principles of ALARA. MIP reconstructed images were created and reviewed. COMPARISON: No relevant prior studies available. FINDINGS: Pulmonary arteries: Acute pulmonary embolism seen in the descending branch of the right pulmonary artery as well as in the lobar-segmental branches to the right lower and right middle lobe. Segmental and subsegmental pulmonary embolism seen in the left lower lobe. Aorta: No acute findings. No thoracic aortic aneurysm. Lungs: Subsegmental atelectasis seen in the right lung base. No mass. Pleural space: Small right pleural effusion. No pneumothorax. Heart: Unremarkable. No significant pericardial effusion. No evidence of right heart strain. Bones/joints: No acute fracture. No dislocation. Soft tissues: Heterogeneity in the right lobe of the thyroid gland suggestive of multinodular goiter.. Lymph nodes: Unremarkable. No enlarged lymph nodes. IMPRESSION: 1. Bilateral acute pulmonary embolism 2. Small right pleural effusion Communications: Call Doctor Pulmonary Embolism Electronically signed by: Jabari Martinez MD 02/03/23 22:42 PM
--- NOTE | 2023-02-03 22:58 | Communication Note ---
Date of Service: February 03, 20[address] Made aware of abnormal CT chest results. 1. Bilateral acute pulmonary embolism 2. Small right pleural effusion AP Acute PE Rule out LE DVT as source. IV heparin LE venous Dopplers.
[2023-02-03] MEDS ORDERED: Heparin IV Adult Wt-Based Standard *NO* Bolus Protocol IV STA (22:59)
[2023-02-03] MEDS ORDERED: OLANZAPINE 2.5 MG TAB PO STA (23:06)
[2023-02-03] MEDS ORDERED: OLANZapine 10 MG/2.1 ML SDV IM PRN (23:06)
[2023-02-03 23:38] LABS: Partial Thromboplastin Ratio 0.9; Partial Thromboplastin Time 25.7 Seconds (21.0-31.0)
[2023-02-04] MEDS: HEPARIN SODIUM/DEXTROSE 25,000 UNITS/500 ML BAG IV SCH (00:01)
--- NOTE | 2023-02-04 00:33 | Ultrasound Report ---
Exam(s): US VENOUS BILATERAL LOWER EXTREMITIES EXAM: US Duplex Bilateral Lower Extremities Veins CLINICAL HISTORY: Reason for exam: pe workup. TECHNIQUE: Real-time duplex ultrasound scan of the bilateral lower extremity veins integrating B-mode two-dimensional vascular structure, Doppler spectral analysis, color flow Doppler imaging and compression. COMPARISON: No relevant prior studies available. FINDINGS: Right deep veins: There is acute appearing occlusive DVT in the right posterior tibial vein in the calf. Right superficial veins: Unremarkable. No thrombus in the visualized right great saphenous vein. Left deep veins: Unremarkable. No DVT in the left common femoral, femoral, proximal deep femoral or popliteal veins. The veins demonstrate normal color flow, are normally compressible, with normal phasic flow and/or augmentation response. Left superficial veins: Unremarkable. No thrombus in the visualized left great saphenous vein. Soft tissues: No acute findings. No popliteal cyst. IMPRESSION: There is acute appearing occlusive DVT in the right posterior tibial vein in the calf. The remaining bilateral lower extremity veins are patent and compressible. Communications: Call Doctor DVT acute, progressing Electronically signed by: Fran Fragoso MD 02/04/23 00:32 AM
[2023-02-04] MEDS ORDERED: ONDANSETRON INJ 2 MG/ML 2 ML VIAL IV PRN (01:06)
[2023-02-04] MEDS ORDERED: SODIUM CHLORIDE 0.9% 1000ML 1,000 ML IV SCH (01:06)
[2023-02-04] MEDS ORDERED: bisacodyL 10 MG SUPP PR STA (01:06)
[2023-02-04] MEDS ORDERED: PIPERACILLIN/TAZOBACTAM 4.5 GM in DEXTROSE 5% 100 ML IV ONE (01:30)
[2023-02-04] MEDS: SENNA 8.6 MG TAB PO SCH ×3 (01:37→21:58)
[2023-02-04] MEDS: SERTRALINE HCL 50 MG TABLET PO SCH ×2 (01:37→21:58)
[2023-02-04] MEDS: busPIRone 5 MG TAB PO SCH ×3 (01:38→21:57)
[2023-02-04] MEDS: risperiDONE 0.5 MG TABLET PO SCH ×2 (01:38→21:58)
[2023-02-04] MEDS: PIPERACILLIN/TAZOBACTAM 4.5 GM in DEXTROSE 5% 100 ML IV SCH ×3 (05:42→21:57)
[2023-02-04 06:10] LABS: Basophils # (auto) 0.06 K/uL (0-0.2); Basophils % (auto) 0.5 %; Eosinophils % (auto) 0.8 %; Hematocrit (blood only) 26.4 % (37.0-47.0); Hemoglobin 8.3 g/dl (12.0-16.0); Immature Granulocytes # (auto) 0.17 K/uL (0.01-0.20); Immature Granulocytes % (auto) 1.3 %; Lymphocytes # (auto) 1.82 K/uL (1.2-3.4); Lymphocytes % (auto) 14.1 %; Mean Corpuscular Hemoglobin 27.7 pg (25.0-34.0); Mean Corpuscular Hgb Conc 31.4 g/dL (32.0-36.0); Monocytes % (auto) 10.9 %; Neutrophils # (auto) 9.34 K/uL (1.40-6.50); Neutrophils % (auto) 72.4 %; Platelet Count 312 K/uL (130-400); RDW Coefficient of Variation 15.7 % (11.5-14.5); RDW Standard Deviation 50.2 fL (36.4-46.3); White Blood Count 12.89 K/ul (4.8-10.8)
[2023-02-04 06:21] LABS: Albumin Level 2.7 gm/dl (3.4-5.0); BUN Creatinine Ratio 22.6 (10-20); Bilirubin,Total 0.6 mg/dl (0.2-1.0); Calcium 8.2 mg/dl (8.6-10.3); Creatinine Clr Calc Pharmacy 46.2 ml/min; Est GFR (Non-African American) 82.8 ml/min; Globulin 2.8 gm/dl (2.5-4.0); Potassium 3.6 mmol/L (3.5-5.1); Total Protein 5.5 gm/dl (6.0-8.3)
[2023-02-04 06:30] LABS: Partial Thromboplastin Ratio 1.3; Partial Thromboplastin Time 37.7 Seconds (21.0-31.0)
[2023-02-04] MEDS: amLODIPine BESYLATE 5 MG TAB PO SCH (07:54)
[2023-02-04] MEDS: DOCUSATE SODIUM 100 MG CAP PO SCH ×2 (07:54→21:57)
[2023-02-04] MEDS: PANTOprazole 40 MG TAB PO SCH (07:55)
[2023-02-04] MEDS: POLYETHYLENE (MIRALAX) 17 GM PACK PO SCH (07:56)
[2023-02-04 13:37] LABS: Partial Thromboplastin Ratio 1.5
[2023-02-04] MEDS: ACETAMINOPHEN 325 MG TAB PO PRN ×2 (15:45→21:53)
--- NOTE | 2023-02-04 16:01 | Fluoroscopy Report ---
MODIFIED BARIUM SWALLOW CLINICAL HISTORY: r/o aspiration COMPARISON STUDY: Modified barium swallow May 22, 2013. FLUOROSCOPY TIME: 2.1 minutes. Ka, r: 35.58 mGy. TECHNIQUE: A modified barium swallow was performed in conjunction with Speech Pathology. The patient ingested varying consistencies of barium containing material. Video fluoroscopy was performed. FINDINGS: Trace tracheal aspiration was initially noted with thin liquids. No aspiration was identifi ed with swallows of mildly thick liquids, pudding or crackers with paste. Mild residuals were noted w ithin the vallecula and piriform sinuses. IMPRESSION: 1. Trace tracheal aspiration initially noted within liquids. No aspiration with remainder of the cons istencies. 2. Mild residuals within the vallecula and piriform sinuses. 3. Full recommendations by Speech pathology to follow. ACT 112: Negative or not required by law. Electronically signed by: Isai Gu M.D. 02/04/2023 3:59 PM
--- NOTE | 2023-02-04 16:20 | Hospitalist Progress Note ---
Date of Service February 04, 2023 Assessment & Plan (1) Pneumonia: Plan: Patient is an 82 yr female with H/O HTN, MGUS, dementia, anxiety, thoracic and lumbar compression fracture, chronic cholecystitis presented to ER from [facility] for increased weakness, UTI, pneumonia. Started on amoxicillin 01/26/2023 for Fever, pneumonia, suspected UTI. Had reported negative respiratory panel outpatient. On 01/29/2023 amoxicillin was stopped and was changed to cefdinir. Today was referred to ER for reported increased weakness and lethargy and fever 100.2F. Acute bilateral pulmonary embolism Acute right lower extremity DVT --CTA:Bilateral acute pulmonary embolism. Small right pleural effusion --Venous Doppler:There is acute appearing occlusive DVT in the right posterior tibial vein in the calf. The remaining bilateral lower extremity veins are patent and compressible. --Continue IV Heparin --Plan to transition to PO anticoagulation as able Possible aspiration pneumonia Dysphagia -Procalcitonin: 0.47 -CXR:Mild bibasilar opacities. Atelectasis is favored although an infectious process could appear similar. --CT as above --Video Swallow:Trace tracheal aspiration initially noted within liquids. No aspiration with remainder of the consistencies. Mild residuals within the vallecula and piriform sinuses. --Aspiration precautions --Blood cultures pending On Zosyn Speech therapy evaluation Continue pured diet with thin liquids as recommended by speech therapy Entero/Rhino virus infection BioFire positive for entero/rhino virus Conservative management Supplemental oxygen as needed (2) UTI (urinary tract infection): Plan: Outpatient chart review: 01/27/2023 urine culture: E. coli, Aerococcus urinae. Treated with amoxicillin on 01/26/2023. Amoxicillin was stopped and cefdinir was started on 01/29/2023 UA unremarkable on admission --CT Abd/Pelvis: No urinary calculi or hydronephrosis. Large amount of stool within the rectum. Moderate amount of stool within the colon. Minimal stranding adjacent to the rectum is nonspecific and a mild stercoral colitis would be difficult to exclude. No extraluminal gas. --Continue Zosyn as above Transaminitis LFT elevation likely due to infection Monitor LFTs (3) Dementia: Plan: H/O Dementia, Anxiety Monitor for delirium Continue buspirone, Risperdal, sertraline (4) Hypertension: Plan: Continue amlodipine (5) MGUS (monoclonal gammopathy of unknown significance): Plan: Baseline Hgb in the 9's Monitor H&H (6) Chronic cholecystitis: Plan: H/O Chronic cholecystitis seen on outpatient imaging Has upcoming appointment with general surgery 03/02/2023, Dr. Andrade DVT Px IV heparin Code Status Full Code Admission and Anticipated Discharge Date Admission Date: February 03, 2023 Subjective Patient is seen and examined at bedside Drowsy during my encounter Poor historian secondary to dementia No distress on exam Saturating well on room air On IV heparin Review of Systems Review of Systems: Other Physical Exam Physical Exam: Physical Exam: Vitals signs as noted above General Appearance: Thin, frail, elderly, chronically appearing, no apparent distress Head: normocephalic, Atraumatic Eyes: normal inspection, EOMI Neck: supple, Trachea midline Respiratory/Chest: Normal breath sounds, CTA, No accessory muscle use Cardiovascular: S1, S2, No murmur Abdomen/GI:Soft, Non tender, Bowel sounds present Extremities/Musculoskeletal:normal inspection, no edema Neurologic/Psych: Oriented to person, grossly no focal neurological deficits, drowsy Skin: normal color, warm Results & Data Results & Data Vital Signs (Past 12 Hours) Vital Signs Temp Pulse Pulse Resp BP BP Pulse Ox 02/04/23 14:26 71 02/04/23 14:46 36.2 C L 77 18 133/62 94 02/04/23 10:46 36.7 C 68 20 129/49 L 93 02/04/23 10:15 O2 Del Method 02/04/23 14:26 02/04/23 14:46 Room Air 02/04/23 10:46 Room Air 02/04/23 10:15 Room Air Laboratory Results Short CBC 02/03/23 02/04/23 Range/Units 17:23 05:41 WBC 17.24 H 12.89 H (4.8-10.8) K/ul Hgb 9.6 L 8.3 L (12.0-16.0) g/dl Hct 30.4 L 26.4 L (37.0-47.0) % Plt Count 367 312 (130-400) K/uL BMP 02/03/23 02/04/23 17:23 05:41 Sodium 144 142 Potassium 3.9 3.6 Chloride 105 109 H Carbon Dioxide 32 27 BUN 23 14 Creatinine 0.84 0.62 Glucose 149 H 118 H Calcium 9.6 8.2 L Liver Function 02/03/23 02/04/23 Range/Units 17:23 05:41 Total Bilirubin 0.7 0.6 (0.2-1.0) mg/dl Direct Bilirubin 0.2 (0-0.2) mg/dl AST 49 H 70 H (13-39) U/L ALT 48 72 H (7-52) U/L Alkaline Phosphatase 227 H 219 H (34-104) U/L Albumin 3.1 L 2.7 L (3.4-5.0) gm/dl Urine 02/03/23 Range/Units 19:33 Urine Color Dark Yellow Urine Appearance Clear (Clear) Urine pH 6.0 (4.5-7.5) Ur Specific [place] 1.020 (1.000-1.030) Urine Protein 1+ H (Negative) Urine Glucose (UA) Negative (Negative)
[2023-02-04] MEDS: FAMOTIDINE 20 MG TAB PO SCH (21:57)
[2023-02-05] MEDS: HEPARIN SODIUM/DEXTROSE 25,000 UNITS/500 ML BAG IV SCH ×2 (01:35→21:35)
[2023-02-05] MEDS: PIPERACILLIN/TAZOBACTAM 4.5 GM in DEXTROSE 5% 100 ML IV SCH ×3 (05:04→21:13)
[2023-02-05 08:05] LABS: Basophils # (auto) 0.07 K/uL (0-0.2); Basophils % (auto) 0.8 %; Eosinophils % (auto) 1.1 %; Hematocrit (blood only) 25.7 % (37.0-47.0); Hemoglobin 8.3 g/dl (12.0-16.0); Immature Granulocytes # (auto) 0.13 K/uL (0.01-0.20); Immature Granulocytes % (auto) 1.4 %; Lymphocytes # (auto) 1.37 K/uL (1.2-3.4); Lymphocytes % (auto) 14.7 %; Mean Corpuscular Hemoglobin 27.8 pg (25.0-34.0); Mean Corpuscular Hgb Conc 32.3 g/dL (32.0-36.0); Monocytes # (auto) 0.71 K/uL (0.11-0.59); Monocytes % (auto) 7.6 %; Neutrophils # (auto) 6.94 K/uL (1.40-6.50); Neutrophils % (auto) 74.4 %; Platelet Count 327 K/uL (130-400); RDW Coefficient of Variation 15.4 % (11.5-14.5); RDW Standard Deviation 48.5 fL (36.4-46.3); Red Blood Count 2.99 M/uL (4.20-5.40); White Blood Count 9.32 K/ul (4.8-10.8)
[2023-02-05 08:32] LABS: Albumin Level 2.8 gm/dl (3.4-5.0); BUN Creatinine Ratio 14.9 (10-20); Bilirubin,Total 0.6 mg/dl (0.2-1.0); Calcium 8.5 mg/dl (8.6-10.3); Creatinine Clr Calc Pharmacy 42.7 ml/min; Est GFR (African American) 93.6 ml/min; Est GFR (Non-African American) 80.7 ml/min; Globulin 2.8 gm/dl (2.5-4.0); Magnesium 1.9 mg/dl (1.7-2.4); Phosphorus 2.3 mg/dl (2.5-4.9); Potassium 3.1 mmol/L (3.5-5.1); Total Protein 5.6 gm/dl (6.0-8.3)
[2023-02-05] MEDS: amLODIPine BESYLATE 5 MG TAB PO SCH (08:44)
[2023-02-05] MEDS: DOCUSATE SODIUM 100 MG CAP PO SCH ×2 (08:45→20:02)
[2023-02-05] MEDS: SENNA 8.6 MG TAB PO SCH ×2 (08:45→20:01)
[2023-02-05] MEDS: PANTOprazole 40 MG TAB PO SCH (08:45)
[2023-02-05] MEDS: busPIRone 5 MG TAB PO SCH ×2 (08:45→20:01)
[2023-02-05 08:46] LABS: Partial Thromboplastin Ratio 1.5
[2023-02-05] MEDS: POLYETHYLENE (MIRALAX) 17 GM PACK PO SCH (08:46)
[2023-02-05 09:04] LABS: Partial Thromboplastin Time 43.3 Seconds (21.0-31.0)
[2023-02-05] MEDS ORDERED: POTASSIUM CHLORIDE 20 MEQ/15 ML UDC PO ONE (09:29)
[2023-02-05] MEDS ORDERED: POTASSIUM PHOS 3 MMOL/1 ML INFUSION IV ONE (09:29)
[2023-02-05] MEDS ORDERED: POTASSIUM PHOSPHATE 21 MMOL in SODIUM CHLORIDE 0.9% 500 ML IV ONE (10:00)
[2023-02-05] MEDS: ACETAMINOPHEN 325 MG TAB PO PRN (20:01)
[2023-02-05] MEDS: FAMOTIDINE 20 MG TAB PO SCH (20:01)
[2023-02-05] MEDS: SERTRALINE HCL 50 MG TABLET PO SCH (20:01)
[2023-02-05] MEDS: risperiDONE 0.5 MG TABLET PO SCH (20:01)
--- NOTE | 2023-02-05 20:08 | Hospitalist Progress Note ---
Date of Service February 05, 2023 Assessment & Plan (1) Pneumonia: Plan: Patient is an 82 yr female with H/O HTN, MGUS, dementia, anxiety, thoracic and lumbar compression fracture, chronic cholecystitis presented to ER from [facility] for increased weakness, UTI, pneumonia. Started on amoxicillin 01/26/2023 for Fever, pneumonia, suspected UTI. Had reported negative respiratory panel outpatient. On 01/29/2023 amoxicillin was stopped and was changed to cefdinir. Today was referred to ER for reported increased weakness and lethargy and fever 100.2F. Acute bilateral pulmonary embolism Acute right lower extremity DVT --CTA:Bilateral acute pulmonary embolism. Small right pleural effusion --Venous Doppler:There is acute appearing occlusive DVT in the right posterior tibial vein in the calf. The remaining bilateral lower extremity veins are patent and compressible. --Continue IV Heparin --Plan to transition to PO anticoagulation tomorrow if no bleeding issues Possible aspiration pneumonia Dysphagia -Procalcitonin: 0.47 -CXR:Mild bibasilar opacities. Atelectasis is favored although an infectious process could appear similar. --CT as above --Video Swallow:Trace tracheal aspiration initially noted within liquids. No aspiration with remainder of the consistencies. Mild residuals within the vallecula and piriform sinuses. --Aspiration precautions --Blood cultures pending On Zosyn Speech therapy evaluation Continue pured diet with thin liquids as recommended by speech therapy Continue current management Entero/Rhino virus infection BioFire positive for entero/rhino virus Conservative management Supplemental oxygen as needed (2) UTI (urinary tract infection): Plan: Outpatient chart review: 01/27/2023 urine culture: E. coli, Aerococcus urinae. Treated with amoxicillin on 01/26/2023. Amoxicillin was stopped and cefdinir was started on 01/29/2023 UA unremarkable on admission --CT Abd/Pelvis: No urinary calculi or hydronephrosis. Large amount of stool within the rectum. Moderate amount of stool within the colon. Minimal stranding adjacent to the rectum is nonspecific and a mild stercoral colitis would be difficult to exclude. No extraluminal gas. --Continue Zosyn as above Transaminitis LFT elevation likely due to infection Monitor LFTs Hypophosphatemia Hypokalemia Replace electrolytes as needed (3) Dementia: Plan: H/O Dementia, Anxiety Monitor for delirium Continue buspirone, Risperdal, sertraline (4) Hypertension: Plan: Continue amlodipine (5) MGUS (monoclonal gammopathy of unknown significance): Plan: Baseline Hgb in the 9's Monitor H&H (6) Chronic cholecystitis: Plan: H/O Chronic cholecystitis seen on outpatient imaging Has upcoming appointment with general surgery 03/02/2023, Dr. Andrade DVT Px IV heparin Code Status Full Code Admission and Anticipated Discharge Date Admission Date: February 03, 2023 Subjective Patient is seen and examined at bedside Alert, awake, pleasantly confused this morning States having minimal headache Poor oral intake Also reports minimal cough No other complaints Poor historian secondary to dementia Review of Systems Review of Systems: Unobtainable due to cognitive status Physical Exam Physical Exam: Physical Exam: Vitals signs as noted above General Appearance: Thin, frail, elderly, chronically appearing, no apparent distress Head: normocephalic, Atraumatic Eyes: normal inspection, EOMI Neck: supple, Trachea midline Respiratory/Chest: Normal breath sounds, CTA, No accessory muscle use Cardiovascular: S1, S2, No murmur Abdomen/GI:Soft, Non tender, Bowel sounds present Extremities/Musculoskeletal:normal inspection, no edema Neurologic/Psych: Oriented to person, grossly no focal neurological deficits, drowsy Skin: normal color, warm Results & Data Results & Data Vital Signs (Past 12 Hours) Vital Signs Temp Pulse Pulse Resp BP Pulse Ox O2 Del Method 02/05/23 16:16 36.7 C 71 16 136/52 L 95 Room Air 02/05/23 16:00 85 02/05/23 11:33 36.8 C 72 16 144/68 H 95 Room Air 02/05/23 11:01 Room Air Laboratory Results Short CBC 02/05/23 Range/Units 07:37 WBC 9.32 (4.8-10.8) K/ul Hgb 8.3 L (12.0-16.0) g/dl Hct 25.7 L (37.0-47.0) % Plt Count 327 (130-400) K/uL BMP 02/05/23 07:37 Sodium 140 Potassium 3.1 L Chloride 106 Carbon Dioxide 27 BUN 10 Creatinine 0.67 Glucose 94 Calcium 8.5 L Liver Function 02/05/23 Range/Units 07:37 Total Bilirubin 0.6 (0.2-1.0) mg/dl AST 40 H (13-39) U/L ALT 61 H (7-52) U/L Alkaline Phosphatase 208 H (34-104) U/L Albumin 2.8 L (3.4-5.0) gm/dl
[2023-02-06] MEDS: PIPERACILLIN/TAZOBACTAM 4.5 GM in DEXTROSE 5% 100 ML IV SCH (05:54)
[2023-02-06] MEDS: HEPARIN SODIUM/DEXTROSE 25,000 UNITS/500 ML BAG IV SCH (06:49)
[2023-02-06 07:24] LABS: Basophils # (auto) 0.07 K/uL (0-0.2); Basophils % (auto) 0.9 %; Eosinophils # (auto) 0.18 K/uL (0-0.50); Eosinophils % (auto) 2.3 %; Hematocrit (blood only) 25.9 % (37.0-47.0); Hemoglobin 8.2 g/dl (12.0-16.0); Immature Granulocytes # (auto) 0.13 K/uL (0.01-0.20); Immature Granulocytes % (auto) 1.7 %; Lymphocytes # (auto) 1.72 K/uL (1.2-3.4); Mean Corpuscular Hemoglobin 27.9 pg (25.0-34.0); Mean Corpuscular Hgb Conc 31.7 g/dL (32.0-36.0); Mean Corpuscular Volume 88.1 fL (80.0-100.0); Mean Platelet Volume 9.7 fL (9.4-12.4); Monocytes # (auto) 0.74 K/uL (0.11-0.59); Monocytes % (auto) 9.5 %; Neutrophils # (auto) 4.97 K/uL (1.40-6.50); Neutrophils % (auto) 63.6 %; Platelet Count 337 K/uL (130-400); RDW Coefficient of Variation 15.5 % (11.5-14.5); RDW Standard Deviation 50.3 fL (36.4-46.3); Red Blood Count 2.94 M/uL (4.20-5.40); White Blood Count 7.81 K/ul (4.8-10.8)
[2023-02-06 07:41] LABS: Albumin Level 2.6 gm/dl (3.4-5.0); BUN Creatinine Ratio 13.6 (10-20); Bilirubin,Total 0.4 mg/dl (0.2-1.0); Calcium 8.5 mg/dl (8.6-10.3); Creatinine Clr Calc Pharmacy 44.2 ml/min; Est GFR (Non-African American) 81.1 ml/min; Globulin 2.6 gm/dl (2.5-4.0); Phosphorus 2.9 mg/dl (2.5-4.9); Potassium 3.6 mmol/L (3.5-5.1); Total Protein 5.2 gm/dl (6.0-8.3)
[2023-02-06 08:11] LABS: Partial Thromboplastin Ratio 1.8
[2023-02-06 08:12] LABS: Partial Thromboplastin Time 51.5 Seconds (21.0-31.0)
[2023-02-06] MEDS: DOCUSATE SODIUM 100 MG CAP PO SCH ×2 (08:24→21:25)
[2023-02-06] MEDS: SENNA 8.6 MG TAB PO SCH ×2 (08:25→21:23)
[2023-02-06] MEDS: amLODIPine BESYLATE 5 MG TAB PO SCH (08:25)
[2023-02-06] MEDS: busPIRone 5 MG TAB PO SCH ×2 (08:25→21:24)
[2023-02-06] MEDS: PANTOprazole 40 MG TAB PO SCH (08:27)
[2023-02-06] MEDS: POLYETHYLENE (MIRALAX) 17 GM PACK PO SCH (08:28)
[2023-02-06] MEDS: APIXABAN 5 MG TABLET PO SCH ×2 (09:27→21:25)
[2023-02-06] MEDS: ACETAMINOPHEN 325 MG TAB PO PRN ×2 (09:27→21:21)
--- NOTE | 2023-02-06 16:52 | Hospitalist Progress Note ---
Date of Service February 06, 2023 Assessment & Plan (1) Pneumonia: Plan: Patient is an 82 yr female with H/O HTN, MGUS, dementia, anxiety, thoracic and lumbar compression fracture, chronic cholecystitis presented to ER from [facility] for increased weakness, UTI, pneumonia. Started on amoxicillin 01/26/2023 for Fever, pneumonia, suspected UTI. Had reported negative respiratory panel outpatient. On 01/29/2023 amoxicillin was stopped and was changed to cefdinir. Today was referred to ER for reported increased weakness and lethargy and fever 100.2F. Acute bilateral pulmonary embolism Acute right lower extremity DVT --CTA:Bilateral acute pulmonary embolism. Small right pleural effusion --Venous Doppler:There is acute appearing occlusive DVT in the right posterior tibial vein in the calf. The remaining bilateral lower extremity veins are patent and compressible. --Continue IV Heparin>> transition to Eliquis Possible aspiration pneumonia Dysphagia -Procalcitonin: 0.47 -CXR:Mild bibasilar opacities. Atelectasis is favored although an infectious process could appear similar. --CT as above --Video Swallow:Trace tracheal aspiration initially noted within liquids. No aspiration with remainder of the consistencies. Mild residuals within the vallecula and piriform sinuses. --Aspiration precautions --Blood cultures: No growth to date On Zosyn>> transition to Augmentin Speech therapy evaluation Continue pured diet with thin liquids as recommended by speech therapy Entero/Rhino virus infection BioFire positive for entero/rhino virus Conservative management Supplemental oxygen as needed (2) UTI (urinary tract infection): Plan: Outpatient chart review: 01/27/2023 urine culture: E. coli, Aerococcus urinae. Treated with amoxicillin on 01/26/2023. Amoxicillin was stopped and cefdinir was started on 01/29/2023 UA unremarkable on admission --CT Abd/Pelvis: No urinary calculi or hydronephrosis. Large amount of stool within the rectum. Moderate amount of stool within the colon. Minimal stranding adjacent to the rectum is nonspecific and a mild stercoral colitis would be difficult to exclude. No extraluminal gas. --Received Abx as above Transaminitis LFT elevation likely due to infection Monitor LFTs Hypophosphatemia Hypokalemia Replace electrolytes as needed (3) Dementia: Plan: H/O Dementia, Anxiety Monitor for delirium Continue buspirone, Risperdal, sertraline (4) Hypertension: Plan: Continue amlodipine (5) MGUS (monoclonal gammopathy of unknown significance): Plan: Baseline Hgb in the 9's Monitor H&H (6) Chronic cholecystitis: Plan: H/O Chronic cholecystitis seen on outpatient imaging Has upcoming appointment with general surgery 03/02/2023, Dr. Andrade DVT Px Eliquis Code Status Full Code Admission and Anticipated Discharge Date Admission Date: February 03, 2023 Subjective Patient is seen and examined at bedside Seems to be doing well Offers no complaints today Discussed with patient's son over the phone Less cough today Denies any chest pain, dyspnea, dizziness, nausea, abdominal pain Poor appetite at baseline No obvious bleeding issues Review of Systems Review of Systems: Other Physical Exam Physical Exam: Physical Exam: Vitals signs as noted above General Appearance: Thin, frail, elderly, chronically appearing, no apparent distress Head: normocephalic, Atraumatic Eyes: normal inspection, EOMI Neck: supple, Trachea midline Respiratory/Chest: Normal breath sounds, CTA, No accessory muscle use Cardiovascular: S1, S2, No murmur Abdomen/GI:Soft, Non tender, Bowel sounds present Extremities/Musculoskeletal:normal inspection, no edema Neurologic/Psych: Oriented to person, grossly no focal neurological deficits, drowsy Skin: normal color, warm Results & Data Results & Data Vital Signs (Past 12 Hours) Vital Signs Temp Pulse Pulse Resp BP Pulse Ox O2 Del Method 02/06/23 14:50 36.7 C 81 20 148/66 H 95 Room Air 02/06/23 11:12 36.8 C 70 20 125/64 96 Room Air 02/06/23 07:49 68 02/06/23 07:49 36.5 C 69 20 135/65 97 Room Air 02/06/23 07:33 Room Air 02/06/23 05:48 36.9 C 66 16 145/69 H 97 Room Air Laboratory Results Short CBC 02/06/23 Range/Units 07:02 WBC 7.81 (4.8-10.8) K/ul Hgb 8.2 L (12.0-16.0) g/dl Hct 25.9 L (37.0-47.0) % Plt Count 337 (130-400) K/uL BMP 02/06/23 07:02 Sodium 142 Potassium 3.6 Chloride 108 H Carbon Dioxide 29 BUN 9 Creatinine 0.66 Glucose 85 Calcium 8.5 L Liver Function 02/06/23 Range/Units 07:02 Total Bilirubin 0.4 (0.2-1.0) mg/dl AST 23 (13-39) U/L ALT 44 (7-52) U/L Alkaline Phosphatase 183 H (34-104) U/L Albumin 2.6 L (3.4-5.0) gm/dl
[2023-02-06] MEDS: AMOXICILLIN/CLAVULANATE 500 MG TAB PO SCH (17:45)
[2023-02-06] MEDS: SERTRALINE HCL 50 MG TABLET PO SCH (21:23)
[2023-02-06] MEDS: FAMOTIDINE 20 MG TAB PO SCH (21:24)
[2023-02-06] MEDS: risperiDONE 0.5 MG TABLET PO SCH (21:25)
[2023-02-07 07:36] LABS: Hematocrit (blood only) 29.4 % (37.0-47.0); Hemoglobin 9.4 g/dl (12.0-16.0)
[2023-02-07 07:54] LABS: BUN Creatinine Ratio 14.8 (10-20); Calcium 8.8 mg/dl (8.6-10.3); Creatinine Clr Calc Pharmacy 45.2 ml/min; Est GFR (African American) 96.5 ml/min; Est GFR (Non-African American) 83.2 ml/min; Phosphorus 3.2 mg/dl (2.5-4.9); Potassium 3.7 mmol/L (3.5-5.1)
[2023-02-07] MEDS: amLODIPine BESYLATE 5 MG TAB PO SCH (08:29)
[2023-02-07] MEDS: APIXABAN 5 MG TABLET PO SCH (08:29)
[2023-02-07] MEDS: AMOXICILLIN/CLAVULANATE 500 MG TAB PO SCH (08:29)
[2023-02-07] MEDS: busPIRone 5 MG TAB PO SCH (08:29)
[2023-02-07] MEDS: POLYETHYLENE (MIRALAX) 17 GM PACK PO SCH (08:30)
[2023-02-07] MEDS: SENNA 8.6 MG TAB PO SCH (08:30)
[2023-02-07] MEDS: PANTOprazole 40 MG TAB PO SCH (08:30)
[2023-02-07] MEDS: DOCUSATE SODIUM 100 MG CAP PO SCH (08:30)
--- NOTE | 2023-02-07 11:41 | Hospitalist Progress Note ---
Date of Service February 07, 2023 Assessment & Plan (1) Pneumonia: Plan: Patient is an 82 yr female with H/O HTN, MGUS, dementia, anxiety, thoracic and lumbar compression fracture, chronic cholecystitis presented to ER from [facility] for increased weakness, UTI, pneumonia. Started on amoxicillin 01/26/2023 for Fever, pneumonia, suspected UTI. Had reported negative respiratory panel outpatient. On 01/29/2023 amoxicillin was stopped and was changed to cefdinir. Today was referred to ER for reported increased weakness and lethargy and fever 100.2F. Acute bilateral pulmonary embolism Acute right lower extremity DVT --CTA:Bilateral acute pulmonary embolism. Small right pleural effusion --Venous Doppler:There is acute appearing occlusive DVT in the right posterior tibial vein in the calf. The remaining bilateral lower extremity veins are patent and compressible. --Continue IV Heparin>> transition to Eliquis Use to continue Eliquis 10 mg twice a day for 1 week and then transition to 5 mg twice a day Possible aspiration pneumonia Dysphagia -Procalcitonin: 0.47 -CXR:Mild bibasilar opacities. Atelectasis is favored although an infectious process could appear similar. --CT as above --Video Swallow:Trace tracheal aspiration initially noted within liquids. No aspiration with remainder of the consistencies. Mild residuals within the vallecula and piriform sinuses. --Aspiration precautions --Blood cultures: No growth to date On Zosyn>> transition to Augmentin Speech therapy evaluation Continue pured diet with thin liquids as recommended by speech therapy Entero/Rhino virus infection BioFire positive for entero/rhino virus Conservative management Supplemental oxygen as needed (2) UTI (urinary tract infection): Plan: Outpatient chart review: 01/27/2023 urine culture: E. coli, Aerococcus urinae. Treated with amoxicillin on 01/26/2023. Amoxicillin was stopped and cefdinir was started on 01/29/2023 UA unremarkable on admission --CT Abd/Pelvis: No urinary calculi or hydronephrosis. Large amount of stool within the rectum. Moderate amount of stool within the colon. Minimal stranding adjacent to the rectum is nonspecific and a mild stercoral colitis would be difficult to exclude. No extraluminal gas. --Received Abx as above Transaminitis LFT elevation likely due to infection Monitor LFTs Hypophosphatemia Hypokalemia Replace electrolytes as needed (3) Dementia: Plan: H/O Dementia, Anxiety Monitor for delirium Continue buspirone, Risperdal, sertraline (4) Hypertension: Plan: Continue amlodipine (5) MGUS (monoclonal gammopathy of unknown significance): Plan: Baseline Hgb in the 9's Monitor H&H (6) Chronic cholecystitis: Plan: H/O Chronic cholecystitis seen on outpatient imaging Has upcoming appointment with general surgery 03/02/2023, Dr. Andrade DVT Px Eliquis Code Status Full Code Disposition SNF today Admission and Anticipated Discharge Date Admission Date: February 03, 2023 Subjective Patient is seen and examined at bedside Doing well this morning Fed herself per RN Reports minimal discomfort on on her buttock Cough much improved Denies any chest pain, dyspnea, dizziness, nausea, abdominal pain Plan to discharge to SNF today Review of Systems Review of Systems: All systems reviewed & are unremarkable except as noted in Subjective and Other Physical Exam Physical Exam: Physical Exam: Vitals signs as noted above General Appearance: Thin, frail, elderly, chronically appearing, no apparent distress Head: normocephalic, Atraumatic Eyes: normal inspection, EOMI Neck: supple, Trachea midline Respiratory/Chest: Normal breath sounds, CTA, No accessory muscle use Cardiovascular: S1, S2, No murmur Abdomen/GI:Soft, Non tender, Bowel sounds present Extremities/Musculoskeletal:normal inspection, no edema Neurologic/Psych: Oriented to person, grossly no focal neurological deficits, drowsy Skin: normal color, warm Results & Data Results & Data Vital Signs (Past 12 Hours) Vital Signs Temp Pulse Pulse Resp BP BP Pulse Ox 02/07/23 11:31 36.6 C 66 20 120/60 96 02/07/23 07:15 58 L 02/07/23 08:05 36.3 C L 60 20 137/64 97 02/07/23 07:57 02/07/23 04:23 36.3 C L 60 18 155/77 H 97 O2 Del Method 02/07/23 11:31 Room Air 02/07/23 07:15 02/07/23 08:05 Room Air 02/07/23 07:57 Room Air 02/07/23 04:23 Room Air Laboratory Results Short CBC 02/07/23 Range/Units 06:46 Hgb 9.4 L (12.0-16.0) g/dl Hct 29.4 L (37.0-47.0) % BMP 02/07/23 06:46 Sodium 143 Potassium 3.7 Chloride 107 Carbon Dioxide 30 BUN 9 Creatinine 0.61 Glucose 78 Calcium 8.8
--- NOTE | 2023-02-07 12:02 | Discharge Summary ---
Date of Service February 07, 2023 Admission HPI Per Admitting Provider Patient is 82-year-old female with PMH HTN, MGUS, dementia, anxiety, thoracic and lumbar compression fracture, chronic cholecystitis presented to ER from [facility] for increased weakness, UTI, pneumonia. Patient unable to give history. Reports pain all over. Upon chart review from [facility] this is a chronic complaint. History obtained from staff and chart review. Started on amoxicillin 01/26/2023 for Fever, pneumonia, suspected UTI. Outpatient chart review: 01/27/2023 urine culture: E. coli, Aerococcus urinae. It is reported chest x-ray showed right lower lobe bronchopneumonia and that re spiratory panel was negative. On 01/29/2023 amoxicillin was stopped and was changed to cefdinir. Today was referred to ER for reported increased weakness and lethargy. It is reported that patient had choking episode on bites of eggs this morning. Temp of 100.2F reported today. No reported diarrhea, hypoxia. Admission Exam Per Admitting Provider General: +mildly anxious, otherwise in no apparent distress, thin elderly female Head: normocephalic, atraumatic Eyes: conjunctiva non-injected, anicteric ENT: normal inspection external ears, nose, mucous membranes mildly dry Neck: supple, trachea midline Lungs: poor inspiratory effort but appear clear, no respiratory distress CV: RRR, no murmur, no pretibial edema Abd: normal BS, soft, non-tender Ext: no cyanosis, no calf tenderness Neuro: Alert, oriented to person only -able to say name is "Elke", answers some yes or no to questions, lethargic, anxious affect Skin: warm, dry Principal Diagnosis Acute bilateral pulmonary embolism Acute right lower extremity DVT Possible aspiration pneumonia Dysphagia Entero/Rhino virus infection Hypophosphatemia Hypokalemia Discharge Data Allergies Allergy/AdvReac Type Severity Reaction Status Date / Time ciprofloxacin Allergy Intermediate HIVES Verified 02/03/23 19:41 latex Allergy Intermediate Rash Verified 02/03/23 19:41 morphine Allergy Intermediate Rash Verified 02/03/23 19:41 Sulfa (Sulfonamide Allergy Intermediate RASH Verified 02/03/23 19:41 Antibiotics) acetaminophen AdvReac Intermediate GI SYMPTOMS Verified 02/03/23 19:41 Iodinated Contrast Media AdvReac Intermediate NAUSEA/WARM Verified 02/03/23 19:41 FEELING PER MEDROL QUESTIONAIRE oxycodone AdvReac Intermediate GI SYMPTOMS Verified 02/03/23 19:41 codeine AdvReac Mild Nausea Verified 02/03/23 19:41 propoxyphene AdvReac Unknown SENSITIVITY Verified 02/03/23 19:41 Consultations 02/03/23 19:26 ED Decision to Admit Stat Procedures Performed Laboratory Results WBC 7.81 K/ul (4.8-10.8) 02/06/23 07:02 RBC 2.94 M/uL (4.20-5.40) L 02/06/23 07:02 Hgb 9.4 g/dl (12.0-16.0) L 02/07/23 06:46 Hct 29.4 % (37.0-47.0) L 02/07/23 06:46 MCV 88.1 fL (80.0-100.0) 02/06/23 07:02 MCH 27.9 pg (25.0-34.0) 02/06/23 07:02 MCHC 31.7 g/dL (32.0-36.0) L 02/06/23 07:02 RDW Std Deviation 50.3 fL (36.4-46.3) H 02/06/23 07:02 RDW Coeff of Jan 15.5 % (11.5-14.5) H 02/06/23 07:02 Plt Count 337 K/uL (130-400) 02/06/23 07:02 MPV 9.7 fL (9.4-12.4) 02/06/23 07:02 Immature Gran % (Auto) 1.7 % 02/06/23 07:02 Neut % (Auto) 63.6 % 02/06/23 07:02 Lymph % (Auto) 22.0 % 02/06/23 07:02 [place] % (Auto) 9.5 % 02/06/23 07:02 Eos % (Auto) 2.3 % 02/06/23 07:02 Baso % (Auto) 0.9 % 02/06/23 07:02 Neut # (Auto) 4.97 K/uL (1.40-6.50) 02/06/23 07:02 Lymph # (Auto) 1.72 K/uL (1.2-3.4) 02/06/23 07:02 [place] # (Auto) 0.74 K/uL (0.11-0.59) H 02/06/23 07:02 Eos # (Auto) 0.18 K/uL (0-0.50) 02/06/23 07:02 Baso # (Auto) 0.07 K/uL (0-0.2) 02/06/23 07:02 Immature Gran # (Auto) 0.13 K/uL (0.01-0.20) 02/06/23 07:02 APTT 51.5 Seconds (21.0-31.0) H* 02/06/23 07:02 PTT Ratio 1.8 02/06/23 07:02 D-Dimer 3480 ug/L FEU (0-500) H* 02/03/23 17:23 Sodium 143 mmol/L (136-145) 02/07/23 06:46 Potassium 3.7 mmol/L (3.5-5.1) 02/07/23 06:46 Chloride 107 mmol/L (98-107) 02/07/23 06:46 Carbon Dioxide 30 mmol/L (21-32) 02/07/23 06:46 Anion Gap 6 (3-11) 02/07/23 06:46 BUN 9 mg/dl (6-23) 02/07/23 06:46 Creatinine 0.61 mg/dl (0.6-1.2) 02/07/23 06:46 Est Cr Clr Drug Dosing 45.2 ml/min 02/07/23 06:46 Est GFR ( Amer) 96.5 ml/min 02/07/23 06:46 Est GFR (Non-Af Amer) 83.2 ml/min 02/07/23 06:46 BUN/Creatinine Ratio 14.8 (10-20) 02/07/23 06:46 Glucose 78 mg/dl (70-99(Fasting)) 02/07/23 06:46 Lactate 1.2 mmol/L (0.4-2.0) 02/03/23 17:23 Calcium 8.8 mg/dl (8.6-10.3) 02/07/23 06:46 Phosphorus 3.2 mg/dl (2.5-4.9) 02/07/23 06:46 Magnesium 1.9 mg/dl (1.7-2.4) 02/05/23 07:37 Total Bilirubin 0.4 mg/dl (0.2-1.0) 02/06/23 07:02 Direct Bilirubin 0.2 mg/dl (0-0.2) 02/03/23 17:23 AST 23 U/L (13-39) 02/06/23 07:02 ALT 44 U/L (7-52) 02/06/23 07:02 Alkaline Phosphatase 183 U/L (34-104) H 02/06/23 07:02 Troponin I High Sens 10.2 pg/ml (0-14) 02/03/23 17:23 Total Protein 5.2 gm/dl (6.0-8.3) L 02/06/23 07:02 Albumin 2.6 gm/dl (3.4-5.0) L 02/06/23 07:02 Globulin 2.6 gm/dl (2.5-4.0) 02/06/23 07:02 Albumin/Globulin Ratio 1.0 (0.9-2) 02/06/23 07:02 Procalcitonin 0.47 ng/ml (0-0.5) 02/03/23 17:23 Urine Color Dark Yellow 02/03/23 19:33 Urine Appearance Clear (Clear) 02/03/23 19:33 Urine pH 6.0 (4.5-7.5) 02/03/23 19:33 Ur Specific [place] 1.020 (1.000-1.030) 02/03/23 19:33 Urine Protein 1+ (Negative) H 02/03/23 19:33 Urine Glucose (UA) Negative (Negative) 02/03/23 19:33 Urine Ketones Negative (Negative) 02/03/23 19:33 Urine Blood Negative (Negative) 02/03/23 19:33 Urine Nitrite Negative (Negative) 02/03/23 19:33 Urine Bilirubin Negative (Negative) 02/03/23 19:33 Urine Urobilinogen Negative (Negative) 02/03/23 19:33 Ur Leukocyte Esterase Negative (Negative) 02/03/23 19:33 Urine WBC (Auto) 1-5 /hpf (0-5) 02/03/23 19:33 Urine RBC (Auto) 0-4 /hpf (0-4) 02/03/23 19:33 U Hyaline Cast (Auto) 1-5 /lpf (0-5) 02/03/23 19:33 U Epithel Cells (Auto) 10-20 /lpf (0-5) H 02/03/23 19:33 Urine Bacteria (Auto) Negative (Negative) 02/03/23 19:33 Nasal Screen MRSA (PCR) Negative (Negative) 02/04/23 01:12 Adenovirus (PCR) Not Detected (NotDetected) 02/03/23 17:24 B. pertussis DNA (PCR) Not Detected (NotDetected) 02/03/23 17:24 B.parapertussis DNA PCR Not Detected (NotDetected) 02/03/23 17:24 C. pneumoniae DNA (PCR) Not Detected (NotDetected) 02/03/23 17:24 Coronavirus OC43 (PCR) Not Detected (NotDetected) 02/03/23 17:24 Coronavirus HKU1 (PCR) Not Detected (NotDetected) 02/03/23 17:24 Coronavirus 229E (PCR) Not Detected (NotDetected) 02/03/23 17:24 SARS-CoV-2 (PCR) Not Detected (NotDetected) 02/03/23 17:24 Coronavirus NL63 (PCR) Not Detected (NotDetected) 02/03/23 17:24 Human Metapneumovir PCR Not Detected (NotDetected) 02/03/23 17:24 Influenza Type A (PCR) Not Detected (NotDetected) 02/03/23 17:24 Influenza Type B (PCR) Not Detected (NotDetected) 02/03/23 17:24 M. pneumoniae (PCR) Not Detected (NotDetected) 02/03/23 17:24 Parainfluenza 1 (PCR) Not Detected (NotDetected) 02/03/23 17:24 Parainfluenza 2 (PCR) Not Detected (NotDetected) 02/03/23 17:24 Parainfluenza 3 (PCR) Not Detected (NotDetected) 02/03/23 17:24 Parainfluenza 4 (PCR) Not Detected (NotDetected) 02/03/23 17:24 RSV (PCR) Not Detected (NotDetected) 02/03/23 17:24 Entero/Rhino (PCR) DETECTED (NotDetected) A* 02/03/23 17:24 Impressions Chest X-Ray 02/03/23 17:36 XR chest 1V portable CLINICAL HISTORY: Sepsis COMPARISON STUDY: Chest radiograph 11/15/2022. FINDINGS: Lung volumes are mildly diminished. There are mild bibasilar opacities. No definite consolidation to suggest pneumonia. Cardiomediastinal silhouette is stable. There is no evidence for pulmonary edema. IMPRESSION: Mild bibasilar opacities. Atelectasis is favored although an infectious process could appear similar. ACT 112: Negative or not required by law. Electronically signed by: Isai Gu M.D. 02/03/2023 6:09 PM Abdomen/Pelvis CT 02/03/23 18:03 CT OF THE ABDOMEN AND PELVIS WITHOUT CONTRAST CLINICAL HISTORY: Urinary tract infection. Sepsis. COMPARISON STUDY: CT of the abdomen and pelvis October 17, 2022. TECHNIQUE: Axial images of the abdomen and pelvis were obtained without IV contrast. Images were reviewed in the axial, sagittal, and coronal planes. Automated exposure control was utilized for the study. A dose lowering techniq ue was utilized adhering to the principles of ALARA. FINDINGS: A small right pleural effusion is noted. There is segmental right lower lobe airspace opacity. Evaluation of the abdomen and pelvis is suboptimal on this unenhanced exam. No pneumatosis, free air or portal venous gas is present. Liver, spleen, adrenal glands, kidneys and pancreas are unremarkable. There is no hydronephrosis. There is no biliary or pancreatic ductal dilatation dictation. A large amount stool within the rectum is present. There is minimal adjacent stranding. There is no definite bowel wall thickening. No fluid co llection is present. There is no lymphadenopathy. Multiple old lumbar spine compression deformities are unchanged. No acute lumbar spine fractures are present. IMPRESSION: 1. No urinary calculi or hydronephrosis. 2. Small right pleural effusion. Adjacent airspace opacity likely reflects atelectasis. Pneumonia could appear similar. A pulmonary infarct is also within the differential. A PE protocol chest CT could be obtained for further evaluation. 3. Large amount of stool within the rectum. Moderate amount of stool within the colon. Minimal stranding adjacent to the rectum is nonspecific and a mild stercoral colitis would be difficult to exclude. No extraluminal gas. ACT 112: Negative or not required by law. Electronically signed by: Isai Gu M.D. 02/03/2023 7:02 PM Chest CTA 02/03/23 20:56 CR Exam(s): CTA CHEST IV Amt: 114ml optiray 320 EXAM: CT Angiography Chest With Intravenous Contrast CLINICAL HISTORY: Reason for exam: PE. TECHNIQUE: Axial computed tomographic angiography images of the chest with intravenous contrast. CTDI is 27.47 mGy and DLP is 229.67 mGy-cm. Automated exposure control was utilized for the study. A dose lowering technique was utilized adhering to the principles of ALARA. MIP reconstructed images were created and reviewed. COMPARISON: No relevant prior studies available. FINDINGS: Pulmonary arteries: Acute pulmonary embolism seen in the descending branch of the right pulmonary artery as well as in the lobar-segmental branches to the right lower and right middle lobe. Segmental and subsegmental pulmonary embolism seen in the left lower lobe. Aorta: No acute findings. No thoracic aortic aneurysm. Lungs: Subsegmental atelectasis seen in the right lung base. No mass. Pleural space: Small right pleural effusion. No pneumothorax. Heart: Unremarkable. No significant pericardial effusion. No evidence of right heart strain. Bones/joints: No acute fracture. No dislocation. Soft tissues: Heterogeneity in the right lobe of the thyroid gland suggestive of multinodular goiter.. Lymph nodes: Unremarkable. No enlarged lymph nodes. IMPRESSION: 1. Bilateral acute pulmonary embolism 2. Small right pleural effusion Communications: Call Doctor Pulmonary Embolism Electronically signed by: Jabari Martinez MD 02/03/23 22:42 PM Venous Doppler Study 02/03/23 22:56 CR Exam(s): US VENOUS BILATERAL LOWER EXTREMITIES EXAM: US Duplex Bilateral Lower Extremities Veins CLINICAL HISTORY: Reason for exam: pe workup. TECHNIQUE: Real-time duplex ultrasound scan of the bilateral lower extremity veins integrating B-mode two-dimensional vascular structure, Doppler spectral analysis, color flow Doppler imaging and compression. COMPARISON: No relevant prior studies available. FINDINGS: Right deep veins: There is acute appearing occlusive DVT in the right posterior tibial vein in the calf. Right superficial veins: Unremarkable. No thrombus in the visualized right great saphenous vein. Left deep veins: Unremarkable. No DVT in the left common femoral, femoral, proximal deep femoral or popliteal veins. The veins demonstrate normal color flow, are normally compressible, with normal phasic flow and/or augmentation response. Left superficial veins: Unremarkable. No thrombus in the visualized left great saphenous vein. Soft tissues: No acute findings. No popliteal cyst. IMPRESSION: There is acute appearing occlusive DVT in the right posterior tibial vein in the calf. The remaining bilateral lower extremity veins are patent and compressible. Communications: Call Doctor DVT acute, progressing Electronically signed by: Fran Fragoso MD 02/04/23 00:32 AM Videofluoroscopic Swallow 02/04/23 13:00 MODIFIED BARIUM SWALLOW CLINICAL HISTORY: r/o aspiration COMPARISON STUDY: Modified barium swallow May 22, 2013. FLUOROSCOPY TIME: 2.1 minutes. Ka, r: 35.58 mGy. TECHNIQUE: A modified barium swallow was performed in conjunction with Speech Pathology. The patient ingested varying consistencies of barium containing material. Video fluoroscopy was performed. FINDINGS: Trace tracheal aspiration was initially noted with thin liquids. No aspiration was identified with swallows of mildly thick liquids, pudding or crackers with paste. Mild residuals were noted within the vallecula and piriform sinuses. IMPRESSION: 1. Trace tracheal aspiration initially noted within liquids. No aspiration with remainder of the consistencies. 2. Mild residuals within the vallecula and piriform sinuses. 3. Full recommendations by Speech pathology to follow. ACT 112: Negative or not required by law. Electronically signed by: Isai Gu M.D. 02/04/2023 3:59 PM Ordered Studies 02/03/23 18:03 CT abd pelvis wo con Stat 02/03/23 20:56 CT for pulmonary embolism PE [CT angio chest PE protocol] Stat 02/03/23 22:56 US venous doppler LE BI Routine 02/04/23 13:00 FL video swallow Routine Hospital Course (1) Pneumonia: Patient is an 82 yr female with H/O HTN, MGUS, dementia, anxiety, thoracic and lumbar compression fracture, chronic cholecystitis presented to ER from [facility] for increased weakness, UTI, pneumonia. Started on amoxicillin 01/26/2023 for Fever, pneumonia, suspected UTI. Had reported negative respiratory panel outpatient. On 01/29/2023 amoxicillin was stopped and was changed to cefdinir. Today was referred to ER for reported increased weakness and lethargy and fever 100.2F. Acute bilateral pulmonary embolism Acute right lower extremity DVT --CTA:Bilateral acute pulmonary embolism. Small right pleural effusion --Venous Doppler:There is acute appearing occlusive DVT in the right posterior t ibial vein in the calf. The remaining bilateral lower extremity veins are patent and compressible. --Continue IV Heparin>> transition to Eliquis Use to continue Eliquis 10 mg twice a day for 1 week and then transition to 5 mg twice a day Possible aspiration pneumonia Dysphagia -Procalcitonin: 0.47 -CXR:Mild bibasilar opacities. Atelectasis is favored although an infectious process could appear similar. --CT as above --Video Swallow:Trace tracheal aspiration initially noted within liquids. No aspiration with remainder of the consistencies. Mild residuals within the vallecula and piriform sinuses. --Aspiration precautions --Blood cultures: No growth to date On Zosyn>> transition to Augmentin Speech therapy evaluation Continue pured diet with thin liquids as recommended by speech therapy Entero/Rhino virus infection BioFire positive for entero/rhino virus Conservative management Supplemental oxygen as needed (2) UTI (urinary tract infection): Outpatient chart review: 01/27/2023 urine culture: E. coli, Aerococcus urinae. Treated with amoxicillin on 01/26/2023. Amoxicillin was stopped and cefdinir was started on 01/29/2023 UA unremarkable on admission --CT Abd/Pelvis: No urinary calculi or hydronephrosis. Large amount of stool within the rectum. Moderate amount of stool within the colon. Minimal stranding adjacent to the rectum is nonspecific and a mild stercoral colitis would be difficult to exclude. No extraluminal gas. --Received Abx as above Transaminitis LFT elevation likely due to infection Monitor LFTs Hypophosphatemia Hypokalemia Replace electrolytes as needed (3) Dementia: H/O Dementia, Anxiety Monitor for delirium Continue buspirone, Risperdal, sertraline (4) Hypertension: Continue amlodipine (5) MGUS (monoclonal gammopathy of unknown significance): Baseline Hgb in the 9's Monitor H&H (6) Chronic cholecystitis: H/O Chronic cholecystitis seen on outpatient imaging Has upcoming appointment with general surgery 03/02/2023, Dr. Andrade DVT Px Eliquis Code Status Full Code Disposition SNF today Total Time Total Time Spent Total Time Spent (In Minutes): 54 minutes Discharge Plan Discharge Items Patient Disposition: Transfer Assisted Fac Reason For Visit: PNA Discharge Diagnosis: Acute bilateral pulmonary embolism Acute right lower extremity DVT Possible aspiration pneumonia Dysphagia Entero/Rhino virus infection Hypophosphatemia Hypokalemia Activity: Per Instructions section Exercise/Sports: Gradually increase as tolerated Non-emergency contact: Primary Care Provider Call non-emergency contact if: you have any medication questions, your symptoms worsen, your pain is concerning for you and you have a fever Follow-up/Referrals: Ani Swift at [place] [Primary Care Provider] - Diet: Heart Healthy Diet Texture: Pureed (blended smooth) Diet Comment: Aspiration precautions at all times Addtl Attending Provider Instructions: Follow-up with your primary care physician in 1 week upon discharge -- Take Eliquis 10 mg twice a day until 02/12/2023. Then start taking Eliquis 5 mg twice a day from 02/13/23. Duration of anticoagulation to be determined by your primary care physician -- Complete the antibiotic course Augmentin for 3 more days as prescribed Speech therapy recommendations Pured diet IDDSI 4 with thin liquids Make sure patient is alert and awake at all intake Mouth care as recommended by speech therapy Aspiration and reflux precautions as advised Alternate solids and liquids Crushed medications Supervised meals Fully alert and upright Give meds and neck area Oral hygiene Single bites/small sips/slow rate Head of bed 30 degrees at all times Upright with meals + 30 minutes --- Continue wound care for skin tear on your buttock Seek immediate medical attention if your symptoms reoccur or worsen Please take all medications as instructed on discharge list below. Please call if you have any questions or problems. You can reach a [facility] hospitalist on duty at [facility] 24 hours a day by calling [phone] Pending Studies at Discharge: Yes Studies:: Blood Cultures Stand-Alone Forms: My [facility] Skilled Items Patient informed of condition?: Yes DNR: No Discharge Level of Care: Skilled Communicable Disease: Yes Discharge Prognosis: Stable Lines: None Urinary Catheter: No Medications and DC Order Prescriptions: New amoxicillin-pot clavulanate 500-125 mg Tablet 1 tab PO BIDM Qty: 7 0RF apixaban 5 mg (74 tabs) tablets,dose pack 5 mg PO UD Qty: 74 1RF Rx Instructions: Take Apixaban 10 mg twice a day until 02/12/2023. Then take 5 mg twice a day starting 02/13/2023 Continued alendronate 70 mg Tablet 70 mg PO WK Qty: 30 0RF Rx Instructions: TAKE THIS MED EVERY WEDNESDAY MORNING polyethylene glycol 3350 [Miralax] 17 gram Powder In Packet 17 g PO DAILY PRN (Reason: constipation) Qty: 14 0RF acetaminophen [Tylenol] 325 mg Tablet 650 mg PO Q4H PRN (Reason: PAIN/FEVER) ondansetron HCl [Zofran] 4 mg Tablet 4 mg PO Q6H PRN (Reason: NAUSEA/VOMITING) famotidine 20 mg Tablet 20 mg PO HS sertraline 25 mg Tablet 75 mg PO HS Rx Instructions: THREE TABLET DOSE sennosides [Senokot] 8.6 mg tablet 17.2 mg PO BID acetaminophen 650 mg Suppository 650 mg IA Q4H PRN (Reason: Fever Or Pain) Rx Instructions: IF UNABLE TO TAKE ORAL MEDICATION amlodipine 5 mg tablet 5 mg PO QAM buspirone 5 mg tablet 5 mg PO BID omeprazole 20 mg capsule,delayed release(DR/EC) 20 mg PO QAM risperidone [Risperdal] 0.25 mg Tablet 0.5 mg PO HS Discontinued cefdinir 300 mg capsule 300 mg PO BID Rx Instructions: BEGIN 01/29/23 X 7 DAYS Discharge Orders: Discharge Order (Routine); Ordered 02/07/23 Ordered By: Jose Orozco Admission Data Admit Date/Time: 02/03/23 20:09 Attending Provider: Jose Orozco Admit Provider: Abimael Kaufman Primary Care Provider: Ani Swift [facility] Other Providers: Freeman Robin
== END 2023-02-07 13:02 | DRG 177 ==
LOC: ED 17:05 → 2W 20:09 → SUATTDRO 20:09 → 2W 02-04 01:15

== ENCOUNTER 2023-02-27 19:31 | Inpatient (IN) ==
[2023-02-27 20:13] LABS: Appearance Urine Turbid (Clear); Bacteria Urine Automated 4+ (Negative); Bilirubin Urine Negative (Negative); Blood Urine 2+ (Negative); Color Urine Dark Yellow; Epithelial Cell Urine Auto >30 /lpf (0-5); Glucose Urine UA Negative (Negative); Ketones Urine Trace (Negative); Leukocyte Esterase Urine 3+ (Negative); Nitrite Urine Positive (Negative); Protein Urine 2+ (Negative); RBC Urine Automated 0-4 /hpf (0-4); Specific Gravity Urine 1.021 (1.000-1.030); Urobilinogen Urine Negative (Negative); WBC Urine Automated >30 /hpf (0-5); pH Urine 6.5 (4.5-7.5)
[2023-02-27 20:35] LABS: Cast Urine Automated 0 /lpf (0-5)
[2023-02-27 21:26] LABS: Hematocrit (blood only) 30.2 % (37.0-47.0); Hemoglobin 9.8 g/dl (12.0-16.0); Mean Corpuscular Hemoglobin 28.2 pg (25.0-34.0); Mean Corpuscular Hgb Conc 32.5 g/dL (32.0-36.0); Mean Corpuscular Volume 86.8 fL (80.0-100.0); Mean Platelet Volume 10.5 fL (9.4-12.4); Platelet Count 315 K/uL (130-400); RDW Coefficient of Variation 15.9 % (11.5-14.5); RDW Standard Deviation 50.4 fL (36.4-46.3); Red Blood Count 3.48 M/uL (4.20-5.40); White Blood Count 25.32 K/ul (4.8-10.8)
[2023-02-27 21:56] LABS: Basophils # (auto) 0.08 K/uL (0-0.2); Basophils % (auto) 0.3 %; Eosinophils # (auto) 0.01 K/uL (0-0.50); Hypochromasia Present; Immature Granulocytes # (auto) 0.21 K/uL (0.01-0.20); Immature Granulocytes % (auto) 0.8 %; Lymphocytes # (auto) 1.75 K/uL (1.2-3.4); Lymphocytes % (auto) 6.9 %; Monocytes # (auto) 2.08 K/uL (0.11-0.59); Monocytes % (auto) 8.2 %; Neutrophils # (auto) 21.19 K/uL (1.40-6.50); Neutrophils % (auto) 83.8 %
[2023-02-27 22:32] LABS: Albumin Level 3.1 gm/dl (3.4-5.0); Anion Gap 8 (3-11); Bilirubin,Total 0.4 mg/dl (0.2-1.0); Calcium 8.8 mg/dl (8.6-10.3); Carbon Dioxide 28 mmol/L (21-32); Chloride 102 mmol/L (98-107); Sodium 138 mmol/L (136-145)
[2023-02-27 22:38] LABS: Alanine Aminotransferase 29 U/L (7-52); Alkaline Phosphatase 166 U/L (34-104); Aspartate Aminotransferase 28 U/L (13-39); BUN Creatinine Ratio 20.7 (10-20); Blood Urea Nitrogen 17 mg/dl (6-23); Est GFR (African American) 76.2 ml/min; Est GFR (Non-African American) 65.7 ml/min; Globulin 3.1 gm/dl (2.5-4.0); Glucose 125 mg/dl (70-99(Fasting)); Total Protein 6.2 gm/dl (6.0-8.3)
[2023-02-27] MEDS ORDERED: cefTRIAXone SODIUM 1,000 MG in DEXTROSE 5% AD-VAN 50 ML IV STA (22:43)
--- NOTE | 2023-02-27 22:59 | Emergency Department Note ---
History of Present Illness General Chief complaint: Urinary Symptoms Stated complaint: Abd pain, possible unresponsive period Time Seen by Provider: 02/27/23 20:15 Source: RN notes reviewed History of Present Illness Provider complaint: Altered mental status abdominal pain 82-year-old female from [facility] presents emergency department for altered mental status and abdominal pain. Per EMS the patient was reportedly having more confusion and having abdominal pain at [facility]. Home Medications Medication Instructions Recorded Confirmed Type alendronate 70 mg tablet 70 mg PO WK #30 tabs 10/22/22 02/27/23 Rx polyethylene glycol 3350 17 gram 17 g PO DAILY PRN constipation #14 10/23/22 02/27/23 Rx oral powder packet (Miralax) ea acetaminophen 325 mg tablet 650 mg PO Q4H PRN PAIN/FEVER 11/15/22 02/27/23 History (Tylenol) famotidine 20 mg tablet 20 mg PO HS 11/15/22 02/27/23 History ondansetron HCl 4 mg tablet 4 mg PO Q6H PRN NAUSEA/VOMITING 11/15/22 02/27/23 History sennosides 8.6 mg tablet (Senokot) 17.2 mg PO BID 11/15/22 02/27/23 History sertraline 25 mg tablet 75 mg PO HS 11/15/22 02/27/23 History amlodipine 5 mg tablet 5 mg PO QAM 02/03/23 02/27/23 History omeprazole 20 mg capsule,delayed 20 mg PO QAM 02/03/23 02/27/23 History release apixaban 5 mg (74 tabs) tablets in 5 mg PO BID 02/27/23 02/27/23 History a dose pack risperidone 0.5 mg tablet 0.5 mg PO BID 02/27/23 02/27/23 History Allergies Allergy/AdvReac Type Severity Reaction Status Date / Time ciprofloxacin Allergy Intermediate HIVES Verified 02/27/23 22:08 latex Allergy Intermediate Rash Verified 02/27/23 22:08 morphine Allergy Intermediate Rash Verified 02/27/23 22:08 Sulfa (Sulfonamide Allergy Intermediate RASH Verified 02/27/23 22:08 Antibiotics) acetaminophen AdvReac Intermediate GI SYMPTOMS Verified 02/27/23 22:08 Iodinated Contrast Media AdvReac Intermediate NAUSEA/WARM Verified 02/27/23 22:08 FEELING PER MEDROL QUESTIONAIRE oxycodone AdvReac Intermediate GI SYMPTOMS Verified 02/27/23 22:08 codeine AdvReac Mild Nausea Verified 02/27/23 22:08 propoxyphene AdvReac Unknown SENSITIVITY Verified 02/27/23 22:08 Past Med/Surg History Medical History Chronic cholecystitis Compression fracture of L1 lumbar vertebra Concussion Dementia Hypertension Kidney stones Laryngeal spasm MGUS (monoclonal gammopathy of unknown significance) Surgical History H/O: hysterectomy (~1978) History of arthroplasty (~2011) L thumb History of cataract surgery History of colonoscopy (~2009) Hx of appendectomy S/P UPPP (uvulopalatopharyngoplasty) Family History Father Myocardial infarction Other History of appendectomy History of hysterectomy Denies family history of Ovarian cancer Prostate cancer Breast cancer Colorectal cancer Social History Smoking Status: Unknown if ever smoked Second Hand Exposure: No; Do You Dip or Chew Tobacco: No; Hx Alcohol Use: No Hx Substance Use: No Preferred Language: Kittitian Communication Ability: Effective Visual Impairment: No Limitations Hearing Ability: Normal Restorative Care Technician Required: No Beliefs That Will Affect Care: None marital status: Current Living Situation: Assisted current occupational status: retired Feels Safe at Home: Yes Dental Care, Regularly: No Physical Activity Frequency: 3-4 Times per Week Seatbelt Use: always Sunscreen Use: Yes Assistive Devices: Walker and Wheelchair Physical Exam Vital Signs Vital Signs - 24 hr 02/27/23 19:57 02/27/23 19:57 02/27/23 20:04 Temperature 37.5 C 37.5 C Temperature Source Axillary Axillary Pulse Rate 95 H 93 H Pulse Rate [Finger] 89 Respiratory Rate 20 20 Respiratory Effort / Characteristics Non-Labored Spontaneous Non-Labored Spontaneous Respiratory Depth Normal Normal Blood Pressure 134/110 H Blood Pressure [Right Arm] 103/48 L Blood Pressure Mean 118 Blood Pressure Mean [Right Arm] 66 Pulse Oximetry 93 93 Oxygen Delivery Method Room Air Room Air Sepsis Recent Fever Within 48 Hours No Sepsis New/Unexplained Change in Mental Status N/A Sepsis Action Taken by Nursing No Action Required 02/27/23 22:35 Temperature Temperature Source Pulse Rate Pulse Rate [Finger] 81 Respiratory Rate 20 Respiratory Effort / Characteristics Non-Labored Spontaneous Respiratory Depth Normal Blood Pressure Blood Pressure [Right Arm] 113/54 L Blood Pressure Mean Blood Pressure Mean [Right Arm] 73 Pulse Oximetry 93 Oxygen Delivery Method Room Air Sepsis Recent Fever Within 48 Hours Sepsis New/Unexplained Change in Mental Status Sepsis Action Taken by Nursing Physical Exam HENT: Exam performed. - Head: Normocephalic and atraumatic. EYES: Conjunctivae and EOM are normal. Right eye exhibits no discharge. Left eye exhibits no discharge. No scleral icterus. NECK: Normal range of motion. Neck supple. No JVD present. CV: Normal rate, regular rhythm, normal heart sounds and intact distal pulses. There is no peripheral edema. Palpable radial pulses bue. PULM/CHEST: Effort normal and breath sounds normal. No respiratory distress. No stridor. no wheezes. no rales. ABD: The abdomen is soft. There is tenderness to palpation of the abdomen. NEURO: Motor and sensation grossly intact. Course Course 2015: The patient was evaluated in room C6. A complete history and physical exam was performed 2343: Vital signs stable. Labs show leukocytosis of 25.3 lactic acid within normal limits. Urinalysis does appear to be infected. Patient will be treated with Rocephin. Imaging shows moderate ventriculomegaly which can be seen in normal pressure hydrocephalus. CT abdomen pelvis shows kidney stone. Patient will be admitted to [facility] team Dr. Gerardo notified. Administered Medications Discontinued Medications Ceftriaxone Sodium 1,000 mg/ (Dextrose) 50 mls @ 100 mls/hr IV NOW STA Stop: 02/27/23 23:12 Last Admin: 02/27/23 23:04 Dose: 100 mls/hr Documented By: FRANSICO Medical Decision Making Laboratory Data Attestation: I reviewed the patient's lab results. 02/27/23 19:41 02/27/23 19:41 Lab Results 02/27/23 02/27/23 02/27/23 Range/Units 19:41 19:41 19:41 WBC 25.32 H (4.8-10.8) K/ul RBC 3.48 L (4.20-5.40) M/uL Hgb 9.8 L (12.0-16.0) g/dl Hct 30.2 L (37.0-47.0) % MCV 86.8 (80.0-100.0) fL MCH 28.2 (25.0-34.0) pg MCHC 32.5 (32.0-36.0) g/dL RDW Std Deviation 50.4 H (36.4-46.3) fL RDW Coeff of Jan 15.9 H (11.5-14.5) % Plt Count 315 (130-400) K/uL MPV 10.5 (9.4-12.4) fL Immature Gran % (Auto) 0.8 % Neut % (Auto) 83.8 % Lymph % (Auto) 6.9 % [place] % (Auto) 8.2 % Eos % (Auto) 0.0 % Baso % (Auto) 0.3 % Neut # (Auto) 21.19 H (1.40-6.50) K/uL Lymph # (Auto) 1.75 (1.2-3.4) K/uL [place] # (Auto) 2.08 H (0.11-0.59) K/uL Eos # (Auto) 0.01 (0-0.50) K/uL Baso # (Auto) 0.08 (0-0.2) K/uL Immature Gran # (Auto) 0.21 H (0.01-0.20) K/uL Hypochromasia Present Sodium 138 (136-145) mmol/L Potassium 4.0 (3.5-5.1) mmol/L Chloride 102 (98-107) mmol/L Carbon Dioxide 28 (21-32) mmol/L Anion Gap 8 (3-11) BUN 17 (6-23) mg/dl Creatinine 0.82 (0.6-1.2) mg/dl Est Cr Clr Drug Dosing Not Reportable Est GFR ( Amer) 76.2 ml/min Est GFR (Non-Af Amer) 65.7 ml/min BUN/Creatinine Ratio 20.7 H (10-20) Glucose 125 H (70-99(Fasting)) mg/dl Lactate (0.4-2.0) mmol/L Calcium 8.8 (8.6-10.3) mg/dl Total Bilirubin 0.4 (0.2-1.0) mg/dl AST 28 (13-39) U/L ALT 29 (7-52) U/L Alkaline Phosphatase 166 H (34-104) U/L Lactate Dehydrogenase 125 (86-244) U/L Total Protein 6.2 (6.0-8.3) gm/dl Albumin 3.1 L (3.4-5.0) gm/dl Globulin 3.1 (2.5-4.0) gm/dl Albumin/Globulin Ratio 1.0 (0.9-2) Urine Color Urine Appearance (Clear) Urine pH (4.5-7.5) Ur Specific [place] (1.000-1.030) Urine Protein (Negative) Urine Glucose (UA) (Negative) Urine Ketones (Negative) Urine Blood (Negative) Urine Nitrite (Negative) Urine Bilirubin (Negative) Urine Urobilinogen (Negative) Ur Leukocyte Esterase (Negative) Urine WBC (Auto) (0-5) /hpf Urine RBC (Auto) (0-4) /hpf U Hyaline Cast (Auto) (0-5) /lpf U Epithel Cells (Auto) (0-5) /lpf Urine Bacteria (Auto) (Negative) Ur Renal Epithelial Cell Urine Yeast 02/27/23 02/27/23 Range/Units 21:05 Unknown WBC (4.8-10.8) K/ul RBC (4.20-5.40) M/uL Hgb (12.0-16.0) g/dl Hct (37.0-47.0) % MCV (80.0-100.0) fL MCH (25.0-34.0) pg MCHC (32.0-36.0) g/dL RDW Std Deviation (36.4-46.3) fL RDW Coeff of Jan (11.5-14.5) % Plt Count (130-400) K/uL MPV (9.4-12.4) fL Immature Gran % (Auto) % Neut % (Auto) % Lymph % (Auto) % [place] % (Auto) % Eos % (Auto) % Baso % (Auto) % Neut # (Auto) (1.40-6.50) K/uL Lymph # (Auto) (1.2-3.4) K/uL [place] # (Auto) (0.11-0.59) K/uL Eos # (Auto) (0-0.50) K/uL Baso # (Auto) (0-0.2) K/uL Immature Gran # (Auto) (0.01-0.20) K/uL Hypochromasia Sodium (136-145) mmol/L Potassium (3.5-5.1) mmol/L Chloride (98-107) mmol/L Carbon Dioxide (21-32) mmol/L Anion Gap (3-11) BUN (6-23) mg/dl Creatinine (0.6-1.2) mg/dl Est Cr Clr Drug Dosing Est GFR ( Amer) ml/min Est GFR (Non-Af Amer) ml/min BUN/Creatinine Ratio (10-20) Glucose (70-99(Fasting)) mg/dl Lactate 0.9 (0.4-2.0) mmol/L Calcium (8.6-10.3) mg/dl Total Bilirubin (0.2-1.0) mg/dl AST (13-39) U/L ALT (7-52) U/L Alkaline Phosphatase (34-104) U/L Lactate Dehydrogenase (86-244) U/L Total Protein (6.0-8.3) gm/dl Albumin (3.4-5.0) gm/dl Globulin (2.5-4.0) gm/dl Albumin/Globulin Ratio (0.9-2) Urine Color Dark Yellow Urine Appearance Turbid A (Clear) Urine pH 6.5 (4.5-7.5) Ur Specific [place] 1.021 (1.000-1.030) Urine Protein 2+ H (Negative) Urine Glucose (UA) Negative (Negative) Urine Ketones Trace H (Negative) Urine Blood 2+ H (Negative) Urine Nitrite Positive A (Negative) Urine Bilirubin Negative (Negative) Urine Urobilinogen Negative (Negative) Ur Leukocyte Esterase 3+ H (Negative) Urine WBC (Auto) >30 H (0-5) /hpf Urine RBC (Auto) 0-4 (0-4) /hpf U Hyaline Cast (Auto) 0 (0-5) /lpf U Epithel Cells (Auto) >30 H (0-5) /lpf Urine Bacteria (Auto) 4+ H (Negative) Ur Renal Epithelial Cell Not Reportable Urine Yeast Not Reportable Imaging Data Radiologist's Impression: Abdomen/Pelvis CT 02/27/23 20:53 Exam(s): CT ABDOMEN + PELVIS Without Contrast EXAM: CT Abdomen and Pelvis Without Intravenous Contrast CLINICAL HISTORY: Reason for exam: abd pain. TECHNIQUE: Axial computed tomography images of the abdomen and pelvis without intravenous contrast. Automated exposure control was utilized for the study. A dose lowering technique was utilized adhering to the principles of ALARA. COMPARISON: 02/05/2023 FINDINGS: Lung bases: Right base atelectasis. ABDOMEN: Liver: Unremarkable. Gallbladder and bile ducts: Unremarkable. No calcified stones. No ductal dilation. Pancreas: Unremarkable. No ductal dilation. Spleen: Unremarkable. No splenomegaly. Adrenals: Unremarkable. No mass. Kidneys and ureters: 0.2 cm nonobstructing mid left renal calculus. Stomach and bowel: Large stool volume consistent with constipation. No mucosal thickening. PELVIS: Appendix: No findings to suggest acute appendicitis. Bladder: Unremarkable. No stones. Reproductive: Status post hysterectomy. ABDOMEN and PELVIS: Intraperitoneal space: Unremarkable. No free air. No significant fluid collection. Bones/joints: No acute fracture. No dislocation. Soft tissues: Unremarkable. Vasculature: Unremarkable. No abdominal aortic aneurysm. Lymph nodes: Unremarkable. No enlarged lymph nodes. IMPRESSION: Large stool volume consistent with constipation. 0.2 cm nonobstructing mid left renal calculus. Electronically signed by: Alfonso Olsen M.D. 02/27/23 23:[address] 02/27/23 20:53 Exam(s): CT HEAD Without Contrast EXAM: CT Head Without Intravenous Contrast CLINICAL HISTORY: Reason for exam: ams. TECHNIQUE: Axial computed tomography images of the head/brain without intravenous contrast. Automated exposure control was utilized for the study. A dose lowering technique was utilized adhering to the principles of ALARA. COMPARISON: 10/17/2022 FINDINGS: Brain: Severe periventricular white matter changes, likely related to microangiopathy. No hemorrhage. Ventricles: Moderate ventriculomegaly out of proportion to the sulcal atrophy which can be seen with normal pressure hydrocephalus. Bones/joints: Unremarkable. No acute fracture. Soft tissues: Unremarkable. Sinuses: Unremarkable as visualized. No acute sinusitis. Mastoid air cells: Unremarkable as visualized. No mastoid effusion. IMPRESSION: Moderate ventriculomegaly out of proportion to the sulcal atrophy which can be seen with normal pressure hydrocephalus. Electronically signed by: Alfonso Olsen M.D. 02/27/23 23:07 PM MDM Narrative 2015: The patient was evaluated in room C6. A complete history and physical exam was performed 2343: Vital signs stable. Labs show leukocytosis of 25.3 lactic acid within normal limits. Urinalysis does appear to be infected. Patient will be treated with Rocephin. Imaging shows moderate ventriculomegaly which can be seen in normal pressure hydrocephalus. CT abdomen pelvis shows kidney stone. Patient will be admitted to the [facility] team Dr. Gerardo notified. Impression & Plan Acute UTI, Dementia Discharge Plan Visit Data Chief Complaint: Urinary Symptoms Stated Complaint: Abd pain, possible unresponsive period ED Provider: Dereje Arroyo Discharge Problem: Acute UTI, Dementia Patient Disposition: Admitted As Inpatient Forms Stand Alone Forms: [facility] Prescriptions Prescriptions: No Action alendronate 70 mg Tablet 70 mg PO WK Qty: 30 0RF Rx Instructions: TAKE THIS MED EVERY WEDNESDAY MORNING polyethylene glycol 3350 [Miralax] 17 gram Powder In Packet 17 g PO DAILY PRN (Reason: constipation) Qty: 14 0RF acetaminophen [Tylenol] 325 mg Tablet 650 mg PO Q4H PRN (Reason: PAIN/FEVER) ondansetron HCl 4 mg Tablet 4 mg PO Q6H PRN (Reason: NAUSEA/VOMITING) famotidine 20 mg Tablet 20 mg PO HS sertraline 25 mg Tablet 75 mg PO HS Rx Instructions: THREE TABLET DOSE sennosides [Senokot] 8.6 mg tablet 17.2 mg PO BID amlodipine 5 mg tablet 5 mg PO QAM omeprazole 20 mg capsule,delayed release(DR/EC) 20 mg PO QAM risperidone 0.5 mg tablet 0.5 mg PO BID apixaban 5 mg (74 tabs) tablets,dose pack 5 mg PO BID Referrals Referrals: Ani [facility] [place] [Primary Care Provider] -
--- NOTE | 2023-02-27 23:08 | CT Scan Report ---
Exam(s): CT HEAD Without Contrast EXAM: CT Head Without Intravenous Contrast CLINICAL HISTORY: Reason for exam: ams. TECHNIQUE: Axial computed tomography images of the head/brain without intravenous contrast. Automated exposure control was utilized for the study. A dose lowering technique was utilized adhering to the principles of ALARA. COMPARISON: 10/17/2022 FINDINGS: Brain: Severe periventricular white matter changes, likely related to microangiopathy. No hemorrhage. Ventricles: Moderate ventriculomegaly out of proportion to the sulcal atrophy which can be seen with normal pressure hydrocephalus. Bones/joints: Unremarkable. No acute fracture. Soft tissues: Unremarkable. Sinuses: Unremarkable as visualized. No acute sinusitis. Mastoid air cells: Unremarkable as visualized. No mastoid effusion. IMPRESSION: Moderate ventriculomegaly out of proportion to the sulcal atrophy which can be seen with normal pressure hydrocephalus. Electronically signed by: Alfonso Olsen M.D. 02/27/23 23:07 PM
--- NOTE | 2023-02-27 23:17 | CT Scan Report ---
Exam(s): CT ABDOMEN + PELVIS Without Contrast EXAM: CT Abdomen and Pelvis Without Intravenous Contrast CLINICAL HISTORY: Reason for exam: abd pain. TECHNIQUE: Axial computed tomography images of the abdomen and pelvis without intravenous contrast. Automated exposure control was utilized for the study. A dose lowering technique was utilized adhering to the principles of ALARA. COMPARISON: 02/05/2023 FINDINGS: Lung bases: Right base atelectasis. ABDOMEN: Liver: Unremarkable. Gallbladder and bile ducts: Unremarkable. No calcified stones. No ductal dilation. Pancreas: Unremarkable. No ductal dilation. Spleen: Unremarkable. No splenomegaly. Adrenals: Unremarkable. No mass. Kidneys and ureters: 0.2 cm nonobstructing mid left renal calculus. Stomach and bowel: Large stool volume consistent with constipation. No mucosal thickening. PELVIS: Appendix: No findings to suggest acute appendicitis. Bladder: Unremarkable. No stones. Reproductive: Status post hysterectomy. ABDOMEN and PELVIS: Intraperitoneal space: Unremarkable. No free air. No significant fluid collection. Bones/joints: No acute fracture. No dislocation. Soft tissues: Unremarkable. Vasculature: Unremarkable. No abdominal aortic aneurysm. Lymph nodes: Unremarkable. No enlarged lymph nodes. IMPRESSION: Large stool volume consistent with constipation. 0.2 cm nonobstructing mid left renal calculus. Electronically signed by: Alfonso Olsen M.D. 02/27/23 23:16 PM
[2023-02-27] MEDS ORDERED: SODIUM CHLORIDE 0.9% 1000ML 1,000 ML IV ONE (23:27)
[2023-02-27] MEDS ORDERED: CEFEPIME 2,000 MG/20 ML VIAL IV STA (23:27)
--- NOTE | 2023-02-27 23:46 | History & Physical Report ---
Date of Service February 27, 2023 Assessment & Plan (1) Encephalopathy: Plan: History dementia Secondary to complicated UTI Possible sepsis chronic diastolic heart failure, patient on the dry side hx valvular heart disease (mild TR/PA/MR/AR 2015) as per records Hx CAD hypertension, slightly elevated recent PE DVT on Eliquis hypothyroidism, recent outpatient TSH from 2 weeks ago was slightly elevated at 8 chronic anemia/hx MGUS, hemoglobin at baseline Hyperglycemia possible prediabetes, hemoglobin A1c of 5.7 from 2019 Medical telemetry CS, Cefepime Update hemoglobin A1c DVT prophylaxis. Eliquis Full code as per son/POA, Mr. Chris Bonilla. He requests updates from providers through his mobile number [phone]. Text document was generated using [employer] voice recognition software. It may contain grammatical or spelling errors. Kindly contact undersigned for clarification of any documentation item in question. ADDENDUM : Patient unable to swallow oral meds due to lethargy upon arrival at the floor. IV heparin (over weight-based Lovenox) recommended by Pharmacy while patient unable to take oral Eliquis for recent PE DVT given patient weight of less than 50 kg. History of Present Illness Chief Complaint: Lethargy and abdominal pain as per records Primary Care Provider: Jeniffer Law [facility] History obtained from patient, family, and records. Limited history from patient secondary to dementia. Medical history significant for chronic diastolic heart failure, valvular heart disease (mild TR/PA/MR/AR 2015) as per records, Hx CAD, hypertension, recent PE DVT on Eliquis, hypothyroidism, chronic anemia (baseline hemoglobin of 9), MGUS as per records, anxiety/mood disorder, dementia. Recent confinement 2 weeks ago for acute PE DVT, enterorhinovirus infection, and possible aspiration pneumonia. Patient discharged on Eliquis course. Video swallow showed trace tracheal aspiration initially noted with liquids. [employer] recommended pured diet with thin liquids on discharge. Patient noted to be increasingly lethargic and confused at halfway today. Patient also complaining of abdominal pain. Patient brought to the ER for evaluation. Ceftriaxone administered at the ER for UTI. Medical History as above Surgical History : section, hand/finger surgery, appendectomy, DALE, cataract surgery, uvulopalatopharyngoplasty Family History : Heart disease Personal/Social history : Non-smoker, no EtOH intake, halfway resident Allergies Allergy/AdvReac Type Severity Reaction Status Date / Time ciprofloxacin Allergy Intermediate HIVES Verified 02/27/23 22:08 latex Allergy Intermediate Rash Verified 02/27/23 22:08 morphine Allergy Intermediate Rash Verified 02/27/23 22:08 Sulfa (Sulfonamide Allergy Intermediate RASH Verified 02/27/23 22:08 Antibiotics) acetaminophen AdvReac Intermediate GI SYMPTOMS Verified 02/27/23 22:08 Iodinated Contrast Media AdvReac Intermediate NAUSEA/WARM Verified 02/27/23 22:08 FEELING PER MEDROL QUESTIONAIRE oxycodone AdvReac Intermediate GI SYMPTOMS Verified 02/27/23 22:08 codeine AdvReac Mild Nausea Verified 02/27/23 22:08 propoxyphene AdvReac Unknown SENSITIVITY Verified 02/27/23 22:08 Home Medications Medication Instructions Recorded Confirmed Type alendronate 70 mg tablet 70 mg PO WK #30 tabs 10/22/22 02/27/23 Rx polyethylene glycol 3350 17 gram 17 g PO DAILY PRN constipation #14 10/23/22 02/27/23 Rx oral powder packet (Miralax) ea acetaminophen 325 mg tablet 650 mg PO Q4H PRN PAIN/FEVER 11/15/22 02/27/23 History (Tylenol) famotidine 20 mg tablet 20 mg PO HS 11/15/22 02/27/23 History ondansetron HCl 4 mg tablet 4 mg PO Q6H PRN NAUSEA/VOMITING 11/15/22 02/27/23 History sennosides 8.6 mg tablet (Senokot) 17.2 mg PO BID 11/15/22 02/27/23 History sertraline 25 mg tablet 75 mg PO HS 11/15/22 02/27/23 History amlodipine 5 mg tablet 5 mg PO QAM 02/03/23 02/27/23 History omeprazole 20 mg capsule,delayed 20 mg PO QAM 02/03/23 02/27/23 History release apixaban 5 mg (74 tabs) tablets in 5 mg PO BID 02/27/23 02/27/23 History a dose pack risperidone 0.5 mg tablet 0.5 mg PO BID 02/27/23 02/27/23 History Past Med/Surg History Medical History Chronic cholecystitis Compression fracture of L1 lumbar vertebra Concussion Dementia Hypertension Kidney stones Laryngeal spasm MGUS (monoclonal gammopathy of unknown significance) Surgical History H/O: hysterectomy (~1978) History of arthroplasty (~2011) L thumb History of cataract surgery History of colonoscopy (~2009) Hx of appendectomy S/P UPPP (uvulopalatopharyngoplasty) Family History Father Myocardial infarction Other History of appendectomy History of hysterectomy Denies family history of Ovarian cancer Prostate cancer Breast cancer Colorectal cancer Social History Smoking Status: Unknown if ever smoked Second Hand Exposure: No; Do You Dip or Chew Tobacco: No; Preferred Language: Bengali Communication Ability: Effective Visual Impairment: No Limitations Hearing Ability: Normal Passenger Representative Required: No Beliefs That Will Affect Care: None marital status: Current Living Situation: Long-Term current occupational status: retired Other Information That Helps Us Care for You: No Feels Safe at Home: Yes Dental Care, Regularly: No Physical Activity Frequency: 3-4 Times per Week Seatbelt Use: always Sunscreen Use: Yes Assistive Devices: None Review of Systems Review of Systems: Could not be reliably obtained secondary to dementia Physical Exam Physical Exam: GENERAL: Comfortable, demented, underweight, no respiratory distress SKIN: Pallor, warm HEENT: Pale palpebral conjunctivae, no ptosis, dry buccal mucosa NECK : Supple, no tenderness CHEST : CTA, no tenderness HEART : RRR, no obvious murmurs ABDOMEN: Some distention, minimal hypogastric tenderness EXTREMITIES : No LE swelling/tenderness, no other conspicuous deformities noted NEUROLOGIC : Demented, no facial asymmetry, no other gross focality Results & Data Results & Data Vital Signs (Past 12 Hours) Vital Signs Temp Pulse Pulse Resp BP BP Pulse Ox 02/27/23 22:35 81 20 113/54 L 93 02/27/23 20:04 93 H 02/27/23 19:57 37.5 C 89 20 103/48 L 93 02/27/23 19:57 37.5 C 95 H 20 134/110 H 93 O2 Del Method 02/27/23 22:35 Room Air 02/27/23 20:04 02/27/23 19:57 Room Air 02/27/23 19:57 Room Air Laboratory Results Laboratory Results WBC 25.32 K/ul (4.8-10.8) H 02/27/23 19:41 RBC 3.48 M/uL (4.20-5.40) L 02/27/23 19:41 Hgb 9.8 g/dl (12.0-16.0) L 02/27/23 19:41 Hct 30.2 % (37.0-47.0) L 02/27/23 19:41 MCV 86.8 fL (80.0-100.0) 02/27/23 19:41 MCH 28.2 pg (25.0-34.0) 02/27/23 19:41 MCHC 32.5 g/dL (32.0-36.0) 02/27/23 19:41 RDW Std Deviation 50.4 fL (36.4-46.3) H 02/27/23 19:41 RDW Coeff of Jan 15.9 % (11.5-14.5) H 02/27/23 19:41 Plt Count 315 K/uL (130-400) 02/27/23 19:41 MPV 10.5 fL (9.4-12.4) 02/27/23 19:41 Immature Gran % (Auto) 0.8 % 02/27/23 19:41 Neut % (Auto) 83.8 % 02/27/23 19:41 Lymph % (Auto) 6.9 % 02/27/23 19:41 Brewster % (Auto) 8.2 % 02/27/23 19:41 Eos % (Auto) 0.0 % 02/27/23 19:41 Baso % (Auto) 0.3 % 02/27/23 19:41 Neut # (Auto) 21.19 K/uL (1.40-6.50) H 02/27/23 19:41 Lymph # (Auto) 1.75 K/uL (1.2-3.4) 02/27/23 19:41 Brewster # (Auto) 2.08 K/uL (0.11-0.59) H 02/27/23 19:41 Eos # (Auto) 0.01 K/uL (0-0.50) 02/27/23 19:41 Baso # (Auto) 0.08 K/uL (0-0.2) 02/27/23 19:41 Immature Gran # (Auto) 0.21 K/uL (0.01-0.20) H 02/27/23 19:41 Hypochromasia Present 02/27/23 19:41 Sodium 138 mmol/L (136-145) 02/27/23 19:41 Potassium 4.0 mmol/L (3.5-5.1) 02/27/23 19:41 Chloride 102 mmol/L (98-107) 02/27/23 19:41 Carbon Dioxide 28 mmol/L (21-32) 02/27/23 19:41 Anion Gap 8 (3-11) 02/27/23 19:41 BUN 17 mg/dl (6-23) 02/27/23 19:41 Creatinine 0.82 mg/dl (0.6-1.2) 02/27/23 19:41 Est Cr Clr Drug Dosing Not Reportable 02/27/23 19:41 Est GFR ( Amer) 76.2 ml/min 02/27/23 19:41 Est GFR (Non-Af Amer) 65.7 ml/min 02/27/23 19:41 BUN/Creatinine Ratio 20.7 (10-20) H 02/27/23 19:41 Glucose 125 mg/dl (70-99(Fasting)) H 02/27/23 19:41 Lactate 0.9 mmol/L (0.4-2.0) 02/27/23 21:05 Calcium 8.8 mg/dl (8.6-10.3) 02/27/23 19:41 Total Bilirubin 0.4 mg/dl (0.2-1.0) 02/27/23 19:41 AST 28 U/L (13-39) 02/27/23 19:41 ALT 29 U/L (7-52) 02/27/23 19:41 Alkaline Phosphatase 166 U/L (34-104) H 02/27/23 19:41 Lactate Dehydrogenase 125 U/L (86-244) 02/27/23 19:41 Total Protein 6.2 gm/dl (6.0-8.3) 02/27/23 19:41 Albumin 3.1 gm/dl (3.4-5.0) L 02/27/23 19:41 Globulin 3.1 gm/dl (2.5-4.0) 02/27/23 19:41 Albumin/Globulin Ratio 1.0 (0.9-2) 02/27/23 19:41 Urine Color Dark Yellow 02/27/23 Unknown Urine Appearance Turbid (Clear) A 02/27/23 Unknown Urine pH 6.5 (4.5-7.5) 02/27/23 Unknown Ur Specific Dexter 1.021 (1.000-1.030) 02/27/23 Unknown Urine Protein 2+ (Negative) H 02/27/23 Unknown Urine Glucose (UA) Negative (Negative) 02/27/23 Unknown Urine Ketones Trace (Negative) H 02/27/23 Unknown Urine Blood 2+ (Negative) H 02/27/23 Unknown Urine Nitrite Positive (Negative) A 02/27/23 Unknown Urine Bilirubin Negative (Negative) 02/27/23 Unknown Urine Urobilinogen Negative (Negative) 02/27/23 Unknown Ur Leukocyte Esterase 3+ (Negative) H 02/27/23 Unknown Urine WBC (Auto) >30 /hpf (0-5) H 02/27/23 Unknown Urine RBC (Auto) 0-4 /hpf (0-4) 02/27/23 Unknown U Hyaline Cast (Auto) 0 /lpf (0-5) 02/27/23 Unknown U Epithel Cells (Auto) >30 /lpf (0-5) H 02/27/23 Unknown Urine Bacteria (Auto) 4+ (Negative) H 02/27/23 Unknown Ur Renal Epithelial Cell Not Reportable 02/27/23 Unknown Urine Yeast Not Reportable 02/27/23 Unknown Impressions Abdomen/Pelvis CT 02/27/23 20:53 Exam(s): CT ABDOMEN + PELVIS Without Contrast EXAM: CT Abdomen and Pelvis Without Intravenous Contrast CLINICAL HISTORY: Reason for exam: abd pain. TECHNIQUE: Axial computed tomography images of the abdomen and pelvis without intravenous contrast. Automated exposure control was utilized for the study. A dose lowering technique was utilized adhering to the principles of ALARA. COMPARISON: 02/05/2023 FINDINGS: Lung bases: Right base atelectasis. ABDOMEN: Liver: Unremarkable. Gallbladder and bile ducts: Unremarkable. No calcified stones. No ductal dilation. Pancreas: Unremarkable. No ductal dilation. Spleen: Unremarkable. No splenomegaly. Adrenals: Unremarkable. No mass. Kidneys and ureters: 0.2 cm nonobstructing mid left renal calculus. Stomach and bowel: Large stool volume consistent with constipation. No mucosal thickening. PELVIS: Appendix: No findings to suggest acute appendicitis. Bladder: Unremarkable. No stones. Reproductive: Status post hysterectomy. ABDOMEN and PELVIS: Intraperitoneal space: Unremarkable. No free air. No significant fluid collection. Bones/joints: No acute fracture. No dislocation. Soft tissues: Unremarkable. Vasculature: Unremarkable. No abdominal aortic aneurysm. Lymph nodes: Unremarkable. No enlarged lymph nodes. IMPRESSION: Large stool volume consistent with constipation. 0.2 cm nonobstructing mid left renal calculus. Electronically signed by: Alfonso Olsen M.D. 02/27/23 23:[address] 02/27/23 20:53 Exam(s): CT HEAD Without Contrast EXAM: CT Head Without Intravenous Contrast CLINICAL HISTORY: Reason for exam: ams. TECHNIQUE: Axial computed tomography images of the head/brain without intravenous contrast. Automated exposure control was utilized for the study. A dose lowering technique was utilized adhering to the principles of ALARA. COMPARISON: 10/17/2022 FINDINGS: Brain: Severe periventricular white matter changes, likely related to microangiopathy. No hemorrhage. Ventricles: Moderate ventriculomegaly out of proportion to the sulcal atrophy which can be seen with normal pressure hydrocephalus. Bones/joints: Unremarkable. No acute fracture. Soft tissues: Unremarkable. Sinuses: Unremarkable as visualized. No acute sinusitis. Mastoid air cells: Unremarkable as visualized. No mastoid effusion. IMPRESSION: Moderate ventriculomegaly out of proportion to the sulcal atrophy which can be seen with normal pressure hydrocephalus. Electronically signed by: Alfonso Olsen M.D. 02/27/23 23:07 PM Diagnostic Findings EKG as per my interpretation :Rate 95, NSR, normal axis, incomplete RBBB, T wave abnormalities inferior leads
[2023-02-27] MEDS ORDERED: bisacodyL 10 MG SUPP PR STA (23:47)
[2023-02-28] MEDS ORDERED: OLANZapine 10 MG/2.1 ML SDV IM PRN (01:55)
[2023-02-28] MEDS ORDERED: OLANZapine 10 MG/2.1 ML SDV IM STA (01:55)
[2023-02-28] MEDS ORDERED: ACETAMINOPHEN 325 MG TAB PO PRN (03:03)
[2023-02-28] MEDS ORDERED: POLYETHYLENE (MIRALAX) 17 GM PACK PO PRN (03:03)
[2023-02-28] MEDS ORDERED: PROMETHAZINE HCL 6.25 MG in SODIUM CHLORIDE 0.9% 50 ML IV PRN (03:03)
[2023-02-28] MEDS ORDERED: hydrALAZINE HCL 20 MG/ML VIAL IV ONE (03:29)
[2023-02-28] MEDS ORDERED: Heparin IV Adult Wt-Based Standard *NO* Bolus Protocol IV SCH (03:33)
[2023-02-28] MEDS ORDERED: HEPARIN SODIUM/DEXTROSE 25,000 UNITS/500 ML BAG IV SCH (04:00)
[2023-02-28 04:27] LABS: Hematocrit (blood only) 29.6 % (37.0-47.0); Hemoglobin 9.5 g/dl (12.0-16.0); Mean Corpuscular Hgb Conc 32.1 g/dL (32.0-36.0); Mean Corpuscular Volume 87.3 fL (80.0-100.0); Mean Platelet Volume 9.9 fL (9.4-12.4); Platelet Count 283 K/uL (130-400); RDW Coefficient of Variation 15.9 % (11.5-14.5); Red Blood Count 3.39 M/uL (4.20-5.40)
[2023-02-28 04:42] LABS: Calcium 8.5 mg/dl (8.6-10.3); Creatinine Clr Calc Pharmacy 43.6 ml/min; Est GFR (African American) 93.1 ml/min; Est GFR (Non-African American) 80.3 ml/min; Potassium 3.8 mmol/L (3.5-5.1)
[2023-02-28 05:02] LABS: Partial Thromboplastin Ratio 1.1; Partial Thromboplastin Time 31.4 Seconds (21.0-31.0)
[2023-02-28 05:57] LABS: Basophils # (auto) 0.08 K/uL (0-0.2); Basophils % (auto) 0.3 %; Eosinophils # (auto) 0.05 K/uL (0-0.50); Eosinophils % (auto) 0.2 %; Immature Granulocytes # (auto) 0.18 K/uL (0.01-0.20); Immature Granulocytes % (auto) 0.7 %; Lymphocytes # (auto) 1.69 K/uL (1.2-3.4); Lymphocytes % (auto) 6.9 %; Monocytes # (auto) 1.95 K/uL (0.11-0.59); Monocytes % (auto) 7.9 %; Neutrophils # (auto) 20.65 K/uL (1.40-6.50)
--- NOTE | 2023-02-28 09:34 | Hospitalist Progress Note ---
Date of Service February 28, 2023 Assessment & Plan (1) Acute metabolic encephalopathy: Plan: -In setting of sepsis superimposed on underlying dementia -At risk for aspiration, delirium. Protocols ordered -CT head shows enlarged ventricles described as out of proportion to atrophy which can be seen with normal pressure hydrocephalus. Will ask for Neurology evaluation (2) Acute UTI: Plan: -Urine culture is positive for gram negative rasta. No prior urine culture noted here -agree with cefepime (3) Sepsis: Plan: -present on admission with leukocytosis, tachycardia -lactate 0.9. -No evidence of shock -start NSS at 100 cc/hr -likely source of infection is urine. Viral respiratory panel is negative. Blood cultures are pending. CXR negative. Patient described to have buttock tear present on admission. Will ask for WOCN evaluation Plan Chronic conditions: Recent PE -Eliquis on hold, currently on heparin drip due to mental status and concern for difficulty taking medications. She is tolerating clears and oral medications, will d/c heparin drip and resume home Eliquis. Dementia -monitor for delirium -continue Risperidone 0.5mg BID, Sertraline 75mg QHS. MGUS -OP follow up Hypothryoidism -listed in chart, not on levothyroxine -check TFTs with AM labs Vitamin D deficiency Osteopenia -weekly alendronate--held FOSTER -unclear if she uses CPAP, with her dementia, likely will be unable to tolerate. Monitor for now GERD -on famotidine 20mg QHS and omeprazole 20mg daily Chronic diastolic CHF CAD -not on aspirin, or statin unclear why--will need further investigation HTN -amlodipine 5mg daily DVT ppx -Eliquis Admission and Anticipated Discharge Date Admission Date: February 27, 2023 Subjective Confused at times More awake today, tolerating her clear liquid diet During exam, began crying because of pain on her bottom. Per nursing, she has a small wound on her buttock which was present on admission Review of Systems Review of Systems: as above Physical Exam Physical Exam: Appears stated age, no acute distress, tearful because of buttock pain Respiratory: breathing comfortably on room air, no wheezing/rhonchi/rales Cardiovascular: regular rate and rhythm, no murmurs/rubs Gastrointestinal (Abdomen): Hyperactive BS, soft, non tender Musculoskeletal: No edema Skin: Known buttock tear, present on admission reportedly Neurologic: awake, demented, moving extremities Psychiatric: tearful Results & Data Results & Data Vital Signs (Past 12 Hours) Vital Signs Temp Pulse Pulse Pulse Resp BP Pulse Ox 02/28/23 07:50 37.1 C 82 18 106/40 L 93 02/28/23 07:03 81 02/28/23 03:29 82 02/28/23 03:44 36.6 C 92 H 20 163/62 H 95 02/28/23 03:18 36.6 C 92 H 20 163/62 H 95 02/28/23 02:00 108 H 22 161/70 H 94 02/28/23 00:00 71 15 119/61 96 02/28/23 00:00 76 02/27/23 22:35 81 20 113/54 L 93 O2 Del Method 02/28/23 07:50 Room Air 02/28/23 07:03 02/28/23 03:29 02/28/23 03:44 Room Air 02/28/23 03:18 Room Air 02/28/23 02:00 Room Air 02/28/23 00:00 Room Air 02/28/23 00:00 02/27/23 22:35 Room Air
[2023-02-28] MEDS: risperiDONE 0.5 MG TABLET PO SCH ×2 (10:04→20:57)
[2023-02-28] MEDS: amLODIPine BESYLATE 5 MG TAB PO SCH (10:04)
[2023-02-28] MEDS: PANTOprazole 40 MG TAB PO SCH (10:04)
[2023-02-28] MEDS: DOCUSATE SODIUM/SENNA 50/8.6MG TAB PO SCH ×2 (10:04→20:57)
[2023-02-28] MEDS: SODIUM CHLORIDE 0.9% 1000ML 1,000 ML IV SCH ×2 (10:09→20:25)
--- NOTE | 2023-02-28 11:13 | Electrocardiogram Report ---
Test Reason : Blood Pressure : / mmHG Vent. Rate : 093 BPM Atrial Rate : 093 BPM P-R Int : 140 ms QRS Dur : 092 ms QT Int : 366 ms P-R-T Axes : 048 001 030 degrees QTc Int : 455 ms Poor data quality, interpretation may be adversely affected Normal sinus rhythm Possible Left atrial enlargement RSR' or QR pattern in V1 suggests right ventricular conduction delay When compared with ECG of 15-NOV-2022 17:29, No significant change was found Confirmed by Matias Hensley ([id number]) on 02/28/2023 11:12:53 AM Referred By: Ani pride [facility] Confirmed By:Matias Hensley
[2023-02-28] MEDS: CEFEPIME 2,000 MG in SYRINGE 0 ML IV SCH (12:05)
--- NOTE | 2023-02-28 12:09 | XRay Report ---
XR chest 1V portable CLINICAL HISTORY: evaluate for pneumonia TECHNIQUE: Single frontal radiograph of the chest was obtained. Comparison: Comparison is made to chest radiograph 02/03/2023 FINDINGS: No lines and tubes are seen. Calcified aortic knob is seen. The lungs are clear. No evidence of pleur al effusion or pneumothorax. IMPRESSION: No acute chest disease. ACT 112: Negative or not required by law. Electronically signed by: Branden Valencia M.D. 02/28/2023 12:08 PM
[2023-02-28 12:19] LABS: Partial Thromboplastin Ratio 1.5
[2023-02-28 12:22] LABS: Partial Thromboplastin Time 42.2 Seconds (21.0-31.0)
[2023-02-28] MEDS: ACETAMINOPHEN 325 MG TAB PO PRN (17:40)
--- NOTE | 2023-02-28 18:11 | Neurology Consultation ---
Date of Consultation February 28, 2023 Assessment & Plan (1) Encephalopathy: Patient presents with encephalopathy superimposed on dementia. I disagree with radiology regarding the size of her ventricles in proportion to atrophy. This appears to be more consistent with hydrocephalus ex vacuo. Regardless, NPH evaluations are only appropriate as an outpatient when the patient is at her baseline. While I don't recommend referral to cognitive neurology, if requested by family would start with a referral. Please contact us with any further questions. Telehealth Consultation Telehealth Information Telehealth Information: I performed this visit using a real-time telehealth connection between my location and the patients location ([facility]). After connecting through interactive tele-video, patient was identified by name and date of and/or wristband check.Patient (or authorized healthcare jewelry sales representative) was informed that this was a telemedicine visit and it was being conducted confidentially over secure lines. My office door was closed and no one else was present in the room with me.Patient (or authorized healthcare jewelry sales representative) provided consent to proceed with the visit, expressed an understanding of privacy and security of the telemedicine visit, and gave permission to have a hospital jewelry sales representative in the room in order to assist with the visit and to conduct portions of the visit, as needed. I informed the patient (or authorized healthcare jewelry sales representative) that I reviewed their record and presented the opportunity for them to ask any questions regarding the visit today. The patient agreed to participate. History of Present Illness Reason for Consultation: Possible NPH Requesting Physician: Dr. Myers Attending Physician: Faviola Myers MD History of Present Illness Elke Connell is an 82 yo F presenting with confusion in the setting of a UTI. CT head performed on admission revealed ventricles concerning for NPH. At baseline she lives at a custodial and uses a walker for ambulation. Per nursing her ambulation is not back to her baseline. No headache or vision changes. Allergies Allergy/AdvReac Type Severity Reaction Status Date / Time ciprofloxacin Allergy Intermediate HIVES Verified 02/27/23 22:08 latex Allergy Intermediate Rash Verified 02/27/23 22:08 morphine Allergy Intermediate Rash Verified 02/27/23 22:08 Sulfa (Sulfonamide Allergy Intermediate RASH Verified 02/27/23 22:08 Antibiotics) acetaminophen AdvReac Intermediate GI SYMPTOMS Verified 02/27/23 22:08 Iodinated Contrast Media AdvReac Intermediate NAUSEA/WARM Verified 02/27/23 22:08 FEELING PER MEDROL QUESTIONAIRE oxycodone AdvReac Intermediate GI SYMPTOMS Verified 02/27/23 22:08 codeine AdvReac Mild Nausea Verified 02/27/23 22:08 propoxyphene AdvReac Unknown SENSITIVITY Verified 02/27/23 22:08 Home Medications Medication Instructions Recorded Confirmed Type alendronate 70 mg tablet 70 mg PO WK #30 tabs 10/22/22 02/27/23 Rx polyethylene glycol 3350 17 gram 17 g PO DAILY PRN constipation #14 10/23/22 02/27/23 Rx oral powder packet (Miralax) ea acetaminophen 325 mg tablet 650 mg PO Q4H PRN PAIN/FEVER 11/15/22 02/27/23 History (Tylenol) famotidine 20 mg tablet 20 mg PO HS 11/15/22 02/27/23 History ondansetron HCl 4 mg tablet 4 mg PO Q6H PRN NAUSEA/VOMITING 11/15/22 02/27/23 History sennosides 8.6 mg tablet (Senokot) 17.2 mg PO BID 11/15/22 02/27/23 History sertraline 25 mg tablet 75 mg PO HS 11/15/22 02/27/23 History amlodipine 5 mg tablet 5 mg PO QAM 02/03/23 02/27/23 History omeprazole 20 mg capsule,delayed 20 mg PO QAM 02/03/23 02/27/23 History release apixaban 5 mg (74 tabs) tablets in 5 mg PO BID 02/27/23 02/27/23 History a dose pack risperidone 0.5 mg tablet 0.5 mg PO BID 02/27/23 02/27/23 History Patient History Medical History Chronic cholecystitis Compression fracture of L1 lumbar vertebra Concussion Dementia Hypertension Kidney stones Laryngeal spasm MGUS (monoclonal gammopathy of unknown significance) Surgical History H/O: hysterectomy (~1978) History of arthroplasty (~2011) L thumb History of cataract surgery History of colonoscopy (~2009) Hx of appendectomy S/P UPPP (uvulopalatopharyngoplasty) Family History Father Myocardial infarction Other History of appendectomy History of hysterectomy Denies family history of Ovarian cancer Prostate cancer Breast cancer Colorectal cancer Social History Smoking Status: Unknown if ever smoked Second Hand Exposure: No; Do You Dip or Chew Tobacco: No; Preferred Language: Albanian Communication Ability: Impaired Visual Impairment: No Limitations Hearing Ability: Normal Crating And Moving Estimator Required: No Beliefs That Will Affect Care: None marital status: Current Living Situation: Detention current occupational status: retired Other Information That Helps Us Care for You: No Feels Safe at Home: Yes Dental Care, Regularly: No Physical Activity Frequency: 3-4 Times per Week Seatbelt Use: always Sunscreen Use: Yes Assistive Devices: Walker and Wheelchair Review of Systems Unable to obtain Physical Exam Neurological Examination: Mental Status: Awake and alert. Oriented to person and place. Fluent. Comprehension intact, able to follow simple commands. Cranial Nerves: II: Reads NIHSS cards, III/IV/: Versions intact without nystagmus, no gaze preference. VII: Facial expression symmetric VIII: Hearing intact to voice Motor: Strength was symmetric and antigravity throughout. Pronator drift was absent. There were no abnormal movements. Reflexes: Unable to assess over telemedicine Results & Data Vital Signs (Past 12 Hours) Vital Signs Temp Pulse Pulse Resp BP BP Pulse Ox 02/28/23 16:34 82 02/28/23 16:29 02/28/23 15:10 37.0 C 74 20 110/59 L 94 02/28/23 11:08 36.3 C L 74 17 110/46 L 96 02/28/23 07:50 37.1 C 82 18 106/40 L 93 02/28/23 07:03 81 O2 Del Method 02/28/23 16:34 02/28/23 16:29 Room Air 02/28/23 15:10 Room Air 02/28/23 11:08 Room Air 02/28/23 07:50 Room Air 02/28/23 07:03 Laboratory Results Abnormal lab results 02/27/23 02/27/23 02/27/23 Range/Units 19:41 19:41 Unknown WBC 25.32 H (4.8-10.8) K/ul RBC 3.48 L (4.20-5.40) M/uL Hgb 9.8 L (12.0-16.0) g/dl Hct 30.2 L (37.0-47.0) % RDW Std Deviation 50.4 H (36.4-46.3) fL RDW Coeff of Jan 15.9 H (11.5-14.5) % Neut # (Auto) 21.19 H (1.40-6.50) K/uL [place] # (Auto) 2.08 H (0.11-0.59) K/uL Immature Gran # (Auto) 0.21 H (0.01-0.20) K/uL APTT (21.0-31.0) Seconds BUN/Creatinine Ratio 20.7 H (10-20) Glucose 125 H (70-99(Fasting)) mg/dl Calcium (8.6-10.3) mg/dl Alkaline Phosphatase 166 H (34-104) U/L Albumin 3.1 L (3.4-5.0) gm/dl Urine Appearance Turbid A (Clear) Urine Protein 2+ H (Negative) Urine Ketones Trace H (Negative) Urine Blood 2+ H (Negative) Urine Nitrite Positive A (Negative) Ur Leukocyte Esterase 3+ H (Negative) Urine WBC (Auto) >30 H (0-5) /hpf U Epithel Cells (Auto) >30 H (0-5) /lpf Urine Bacteria (Auto) 4+ H (Negative) 02/28/23 02/28/23 02/28/23 Range/Units 04:08 04:08 04:08 WBC 24.60 H (4.8-10.8) K/ul RBC 3.39 L (4.20-5.40) M/uL Hgb 9.5 L (12.0-16.0) g/dl Hct 29.6 L (37.0-47.0) % RDW Std Deviation 51.0 H (36.4-46.3) fL RDW Coeff of Jan 15.9 H (11.5-14.5) % Neut # (Auto) 20.65 H (1.40-6.50) K/uL [place] # (Auto) 1.95 H (0.11-0.59) K/uL Immature Gran # (Auto) (0.01-0.20) K/uL APTT 31.4 H (21.0-31.0) Seconds BUN/Creatinine Ratio 25.0 H (10-20) Glucose 115 H (70-99(Fasting)) mg/dl Calcium 8.5 L (8.6-10.3) mg/dl Alkaline Phosphatase (34-104) U/L Albumin (3.4-5.0) gm/dl Urine Appearance (Clear) Urine Protein (Negative) Urine Ketones (Negative) Urine Blood (Negative) Urine Nitrite (Negative) Ur Leukocyte Esterase (Negative) Urine WBC (Auto) (0-5) /hpf U Epithel Cells (Auto) (0-5) /lpf Urine Bacteria (Auto) (Negative) 02/28/23 Range/Units 11:15 WBC (4.8-10.8) K/ul RBC (4.20-5.40) M/uL Hgb (12.0-16.0) g/dl Hct (37.0-47.0) % RDW Std Deviation (36.4-46.3) fL RDW Coeff of Jan (11.5-14.5) % Neut # (Auto) (1.40-6.50) K/uL [place] # (Auto) (0.11-0.59) K/uL Immature Gran # (Auto) (0.01-0.20) K/uL APTT 42.2 H* (21.0-31.0) Seconds BUN/Creatinine Ratio (10-20) Glucose (70-99(Fasting)) mg/dl Calcium (8.6-10.3) mg/dl Alkaline Phosphatase (34-104) U/L Albumin (3.4-5.0) gm/dl Urine Appearance (Clear) Urine Protein (Negative) Urine Ketones (Negative) Urine Blood (Negative) Urine Nitrite (Negative) Ur Leukocyte Esterase (Negative) Urine WBC (Auto) (0-5) /hpf U Epithel Cells (Auto) (0-5) /lpf Urine Bacteria (Auto) (Negative) Diagnostic Findings CT head - Read as NPH, ventricles out of proportion to atrophy
[2023-02-28] MEDS: SERTRALINE HCL 50 MG TABLET PO SCH (20:57)
[2023-02-28] MEDS: FAMOTIDINE 20 MG TAB PO SCH (20:57)
[2023-02-28] MEDS: APIXABAN 5 MG TABLET PO SCH (20:57)
[2023-03-01] MEDS: CEFEPIME 2,000 MG in SYRINGE 0 ML IV SCH ×2 (00:06→13:18)
[2023-03-01] MEDS: ACETAMINOPHEN 325 MG TAB PO PRN ×3 (03:22→17:22)
[2023-03-01] MEDS: SODIUM CHLORIDE 0.9% 1000ML 1,000 ML IV SCH (06:14)
[2023-03-01 06:52] LABS: Basophils # (auto) 0.07 K/uL (0-0.2); Basophils % (auto) 0.6 %; Eosinophils # (auto) 0.16 K/uL (0-0.50); Eosinophils % (auto) 1.3 %; Hematocrit (blood only) 27.6 % (37.0-47.0); Immature Granulocytes # (auto) 0.08 K/uL (0.01-0.20); Immature Granulocytes % (auto) 0.7 %; Lymphocytes # (auto) 1.55 K/uL (1.2-3.4); Lymphocytes % (auto) 12.9 %; Mean Corpuscular Hemoglobin 28.4 pg (25.0-34.0); Mean Corpuscular Hgb Conc 32.6 g/dL (32.0-36.0); Mean Corpuscular Volume 87.1 fL (80.0-100.0); Monocytes # (auto) 0.81 K/uL (0.11-0.59); Monocytes % (auto) 6.8 %; Neutrophils % (auto) 77.7 %; Platelet Count 256 K/uL (130-400); RDW Coefficient of Variation 15.9 % (11.5-14.5); RDW Standard Deviation 50.6 fL (36.4-46.3); Red Blood Count 3.17 M/uL (4.20-5.40); White Blood Count 11.97 K/ul (4.8-10.8)
[2023-03-01 07:05] LABS: BUN Creatinine Ratio 21.1 (10-20); Calcium 8.4 mg/dl (8.6-10.3); Creatinine Clr Calc Pharmacy 49.8 ml/min; Est GFR (African American) 98.7 ml/min; Est GFR (Non-African American) 85.1 ml/min; Potassium 3.3 mmol/L (3.5-5.1)
[2023-03-01 07:16] LABS: Partial Thromboplastin Ratio 1.1; Partial Thromboplastin Time 31.3 Seconds (21.0-31.0)
[2023-03-01 07:57] LABS: Estimated Average Glucose 105 mg/dl; Hemoglobin A1C 5.3 % (4.5-5.6)
[2023-03-01] MEDS ORDERED: POTASSIUM CHLORIDE 20 MEQ/15 ML UDC PO ONE (08:04)
[2023-03-01] MEDS: amLODIPine BESYLATE 5 MG TAB PO SCH (08:48)
[2023-03-01] MEDS: DOCUSATE SODIUM/SENNA 50/8.6MG TAB PO SCH ×2 (08:48→20:15)
[2023-03-01] MEDS: PANTOprazole 40 MG TAB PO SCH (08:48)
[2023-03-01] MEDS: risperiDONE 0.5 MG TABLET PO SCH ×2 (08:48→20:16)
[2023-03-01] MEDS: POLYETHYLENE (MIRALAX) 17 GM PACK PO SCH (08:49)
[2023-03-01] MEDS: APIXABAN 5 MG TABLET PO SCH ×2 (09:35→20:15)
--- NOTE | 2023-03-01 17:49 | Hospitalist Progress Note ---
Date of Service March 01, 2023 Assessment & Plan (1) Acute metabolic encephalopathy: Plan: -In setting of sepsis superimposed on underlying dementia UTI could be contributing -CT head shows enlarged ventricles described as out of proportion to atrophy -- Delirium precautions Appreciate neurology input Hydrocephalus ex vacuo per Neurology If Patient/family prefers, can do NPH work-up as outpatient (2) Acute UTI: Plan: -Urine culture growing E. coli Continue cefepime Transition to p.o. antibiotics as able (3) Sepsis: Plan: -present on admission with leukocytosis, tachycardia -lactate 0.9. -No evidence of shock Received IV fluids Blood cultures negative to date Viral respiratory panel is negative. CXR negative Buttock Skin tear No signs of infection at the site Wound care consulted Plan Chronic conditions: Recent PE Continue Eliquis Dementia monitor for delirium continue Risperidone 0.5mg BID, Sertraline 75mg QHS. MGUS -OP follow up Hypothyroidism -listed in chart, not on levothyroxine Normal TSH Vitamin D deficiency Osteopenia -Continue weekly alendronate FOSTER -unclear if she uses CPAP Monitor GERD Continue PPI Chronic diastolic CHF CAD HTN Continue amlodipine 5mg daily DVT Px -Eliquis CODE STATUS Full code Admission and Anticipated Discharge Date Admission Date: February 27, 2023 Subjective Patient is seen and examined at bedside States having better pain this morning Sitting in chair during my encounter Denies any chest pain, dyspnea, dizziness, nausea, abdominal pain No other complaints Review of Systems Review of Systems: All systems reviewed & are unremarkable except as noted in Subjective Physical Exam Physical Exam: Physical Exam: Vitals signs as noted above General Appearance: Thin, frail, elderly, no apparent distress Head: normocephalic, Atraumatic Eyes: normal inspection, EOMI Neck: supple, Trachea midline Respiratory/Chest: Decreased breath sounds, scattered crackles, No accessory muscle use Cardiovascular: S1, S2, No murmur Abdomen/GI:Soft, Non tender, Bowel sounds present Extremities/Musculoskeletal:normal inspection, no edema Neurologic/Psych:AA, grossly no focal neurological deficits, +Dementia Skin: normal color, warm, Sacral Small wound/Tear Results & Data Results & Data Vital Signs (Past 12 Hours) Vital Signs Temp Pulse Pulse Resp BP BP Pulse Ox 03/01/23 16:47 59 L 03/01/23 15:21 36.5 C 60 16 116/58 L 97 03/01/23 11:37 36.5 C 69 16 116/66 98 03/01/23 07:30 03/01/23 08:31 36.6 C 78 16 133/71 94 03/01/23 07:00 67 O2 Del Method 03/01/23 16:47 03/01/23 15:21 Room Air 03/01/23 11:37 Room Air 03/01/23 07:30 Room Air 03/01/23 08:31 Room Air 03/01/23 07:00 Laboratory Results Short CBC 03/01/23 Range/Units 06:13 WBC 11.97 H (4.8-10.8) K/ul Hgb 9.0 L (12.0-16.0) g/dl Hct 27.6 L (37.0-47.0) % Plt Count 256 (130-400) K/uL BMP 03/01/23 06:13 Sodium 143 Potassium 3.3 L Chloride 111 H Carbon Dioxide 25 BUN 12 Creatinine 0.57 L Glucose 82 Calcium 8.4 L
[2023-03-01] MEDS: FAMOTIDINE 20 MG TAB PO SCH (20:15)
[2023-03-01] MEDS: SERTRALINE HCL 50 MG TABLET PO SCH (20:16)
[2023-03-01] MEDS ORDERED: MELATONIN 3 MG TAB PO PRN (20:37)
[2023-03-02] MEDS: CEFEPIME 2,000 MG in SYRINGE 0 ML IV SCH (00:07)
[2023-03-02] MEDS: ACETAMINOPHEN 325 MG TAB PO PRN (08:23)
[2023-03-02] MEDS: APIXABAN 5 MG TABLET PO SCH (08:23)
[2023-03-02] MEDS: risperiDONE 0.5 MG TABLET PO SCH (08:24)
[2023-03-02] MEDS: POLYETHYLENE (MIRALAX) 17 GM PACK PO SCH (08:24)
[2023-03-02] MEDS: DOCUSATE SODIUM/SENNA 50/8.6MG TAB PO SCH (08:24)
[2023-03-02] MEDS: PANTOprazole 40 MG TAB PO SCH (08:24)
[2023-03-02] MEDS: amLODIPine BESYLATE 5 MG TAB PO SCH (08:24)
--- NOTE | 2023-03-02 10:09 | Hospitalist Progress Note ---
Date of Service March 02, 2023 Assessment & Plan (1) Acute metabolic encephalopathy: Plan: -In setting of sepsis superimposed on underlying dementia UTI could be contributing -CT head shows enlarged ventricles described as out of proportion to atrophy -- Delirium precautions Appreciate neurology input Hydrocephalus ex vacuo per Neurology If Patient/family prefers, can do NPH work-up as outpatient Mental status seemed to be back to baseline Plan to discharge to SNF today (2) Acute UTI: Plan: -Urine culture growing E. coli Continue cefepime Transition to p.o. antibiotics as able (3) Sepsis: Plan: -present on admission with leukocytosis, tachycardia -lactate 0.9. -No evidence of shock Received IV fluids Blood cultures negative to date Viral respiratory panel is negative. CXR negative Buttock Skin tear No signs of infection at the site Wound care consulted Continue local wound care Plan Chronic conditions: Recent PE Continue Eliquis Dementia monitor for delirium continue Risperidone 0.5mg BID, Sertraline 75mg QHS. MGUS -OP follow up Hypothyroidism -listed in chart, not on levothyroxine Normal TSH Vitamin D deficiency Osteopenia -Continue weekly alendronate FOSTER -unclear if she uses CPAP Monitor GERD Continue PPI Chronic diastolic CHF CAD HTN Continue amlodipine 5mg daily DVT Px -Eliquis CODE STATUS Full code Disposition SNF Admission and Anticipated Discharge Date Admission Date: February 27, 2023 Subjective Patient is seen and examined at bedside Sitting in chair during my encounter Mild discomfort from Buttock wound Updated patient's son over the phone Denies any chest pain, dyspnea, dizziness, nausea, abdominal pain Afebrile Plan to discharge back to SNF today Review of Systems Review of Systems: All systems reviewed & are unremarkable except as noted in Subjective Physical Exam Physical Exam: Physical Exam: Vitals signs as noted above General Appearance: Thin, frail, elderly, no apparent distress Head: normocephalic, Atraumatic Eyes: normal inspection, EOMI Neck: supple, Trachea midline Respiratory/Chest: Decreased breath sounds, scattered crackles, No accessory muscle use Cardiovascular: S1, S2, No murmur Abdomen/GI:Soft, Non tender, Bowel sounds present Extremities/Musculoskeletal:normal inspection, no edema Neurologic/Psych:AA, grossly no focal neurological deficits, +Dementia Skin: normal color, warm, Sacral Small wound/Tear Results & Data Results & Data Vital Signs (Past 12 Hours) Vital Signs Temp Pulse Pulse Resp BP Pulse Ox O2 Del Method 03/02/23 08:00 Room Air 03/02/23 07:47 36.4 C L 77 18 138/64 97 Room Air 03/02/23 07:00 78 03/02/23 03:00 36.3 C L 62 18 161/65 H 98 Room Air 03/01/23 22:56 67
--- NOTE | 2023-03-02 10:23 | Discharge Summary ---
Date of Service March 02, 2023 Admission HPI Per Admitting Provider History obtained from patient, family, and records. Limited history from patient secondary to dementia. Medical history significant for chronic diastolic heart failure, valvular heart disease (mild TR/MI/MR/AR 2015) as per records, Hx CAD, hypertension, recent PE DVT on Eliquis, hypothyroidism, chronic anemia (baseline hemoglobin of 9), MGUS as per records, anxiety/mood disorder, dementia. Recent confinement 2 weeks ago for acute PE DVT, enterorhinovirus infection, and possible aspiration pneumonia. Patient discharged on Eliquis course. Video swallow showed trace tracheal aspiration initially noted with liquids. [employer] recommended pured diet with thin liquids on discharge. Patient noted to be increasingly lethargic and confused at snf today. Patient also complaining of abdominal pain. Patient brought to the ER for evaluation. Ceftriaxone administered at the ER for UTI. Medical History as above Surgical History : section, hand/finger surgery, appendectomy, DALE, cataract surgery, uvulopalatopharyngoplasty Family History : Heart disease Personal/Social history : Non-smoker, no EtOH intake, snf resident Admission Exam Per Admitting Provider GENERAL: Comfortable, demented, underweight, no respiratory distress SKIN: Pallor, warm HEENT: Pale palpebral conjunctivae, no ptosis, dry buccal mucosa NECK : Supple, no tenderness CHEST : CTA, no tenderness HEART : RRR, no obvious murmurs ABDOMEN: Some distention, minimal hypogastric tenderness EXTREMITIES : No LE swelling/tenderness, no other conspicuous deformities noted NEUROLOGIC : Demented, no facial asymmetry, no other gross focality Principal Diagnosis Acute metabolic encephalopathy Urinary tract infection Sacral wound Discharge Data Allergies Allergy/AdvReac Type Severity Reaction Status Date / Time ciprofloxacin Allergy Intermediate HIVES Verified 02/27/23 22:08 latex Allergy Intermediate Rash Verified 02/27/23 22:08 morphine Allergy Intermediate Rash Verified 02/27/23 22:08 Sulfa (Sulfonamide Allergy Intermediate RASH Verified 02/27/23 22:08 Antibiotics) acetaminophen AdvReac Intermediate GI SYMPTOMS Verified 02/27/23 22:08 Iodinated Contrast Media AdvReac Intermediate NAUSEA/WARM Verified 02/27/23 22:08 FEELING PER MEDROL QUESTIONAIRE oxycodone AdvReac Intermediate GI SYMPTOMS Verified 02/27/23 22:08 codeine AdvReac Mild Nausea Verified 02/27/23 22:08 propoxyphene AdvReac Unknown SENSITIVITY Verified 02/27/23 22:08 Consultations 02/27/23 23:33 ED Decision to Admit Stat 02/28/23 17:33 Consult Neurology Routine Procedures Performed Laboratory Results WBC 11.97 K/ul (4.8-10.8) H 03/01/23 06:13 RBC 3.17 M/uL (4.20-5.40) L 03/01/23 06:13 Hgb 9.0 g/dl (12.0-16.0) L 03/01/23 06:13 Hct 27.6 % (37.0-47.0) L 03/01/23 06:13 MCV 87.1 fL (80.0-100.0) 03/01/23 06:13 MCH 28.4 pg (25.0-34.0) 03/01/23 06:13 MCHC 32.6 g/dL (32.0-36.0) 03/01/23 06:13 RDW Std Deviation 50.6 fL (36.4-46.3) H 03/01/23 06:13 RDW Coeff of Jan 15.9 % (11.5-14.5) H 03/01/23 06:13 Plt Count 256 K/uL (130-400) 03/01/23 06:13 MPV 10.0 fL (9.4-12.4) 03/01/23 06:13 Immature Gran % (Auto) 0.7 % 03/01/23 06:13 Neut % (Auto) 77.7 % 03/01/23 06:13 Lymph % (Auto) 12.9 % 03/01/23 06:13 [place] % (Auto) 6.8 % 03/01/23 06:13 Eos % (Auto) 1.3 % 03/01/23 06:13 Baso % (Auto) 0.6 % 03/01/23 06:13 Neut # (Auto) 9.30 K/uL (1.40-6.50) H 03/01/23 06:13 Lymph # (Auto) 1.55 K/uL (1.2-3.4) 03/01/23 06:13 [place] # (Auto) 0.81 K/uL (0.11-0.59) H 03/01/23 06:13 Eos # (Auto) 0.16 K/uL (0-0.50) 03/01/23 06:13 Baso # (Auto) 0.07 K/uL (0-0.2) 03/01/23 06:13 Immature Gran # (Auto) 0.08 K/uL (0.01-0.20) 03/01/23 06:13 Hypochromasia Present 02/27/23 19:41 APTT 31.3 Seconds (21.0-31.0) H 03/01/23 06:13 PTT Ratio 1.1 03/01/23 06:13 Sodium 143 mmol/L (136-145) 03/01/23 06:13 Potassium 3.3 mmol/L (3.5-5.1) L 03/01/23 06:13 Chloride 111 mmol/L (98-107) H 03/01/23 06:13 Carbon Dioxide 25 mmol/L (21-32) 03/01/23 06:13 Anion Gap 7 (3-11) 03/01/23 06:13 BUN 12 mg/dl (6-23) 03/01/23 06:13 Creatinine 0.57 mg/dl (0.6-1.2) L 03/01/23 06:13 Est Cr Clr Drug Dosing 49.8 ml/min 03/01/23 06:13 Est GFR ( Amer) 98.7 ml/min 03/01/23 06:13 Est GFR (Non-Af Amer) 85.1 ml/min 03/01/23 06:13 BUN/Creatinine Ratio 21.1 (10-20) H 03/01/23 06:13 Glucose 82 mg/dl (70-99(Fasting)) 03/01/23 06:13 Estimat Average Glucose 105 mg/dl 02/27/23 19:41 Hemoglobin A1c 5.3 % (4.5-5.6) 02/27/23 19:41 Lactate 0.9 mmol/L (0.4-2.0) 02/27/23 21:05 Calcium 8.4 mg/dl (8.6-10.3) L 03/01/23 06:13 Magnesium 2.0 mg/dl (1.7-2.4) 02/27/23 19:41 Total Bilirubin 0.4 mg/dl (0.2-1.0) 02/27/23 19:41 AST 28 U/L (13-39) 02/27/23 19:41 ALT 29 U/L (7-52) 02/27/23 19:41 Alkaline Phosphatase 166 U/L (34-104) H 02/27/23 19:41 Lactate Dehydrogenase 125 U/L (86-244) 02/27/23 19:41 Total Protein 6.2 gm/dl (6.0-8.3) 02/27/23 19:41 Albumin 3.1 gm/dl (3.4-5.0) L 02/27/23 19:41 Globulin 3.1 gm/dl (2.5-4.0) 02/27/23 19:41 Albumin/Globulin Ratio 1.0 (0.9-2) 02/27/23 19:41 Vitamin B12 403 pg/ml (180-914) 02/28/23 11:15 Folate 16.26 ng/ml (>5.38) 02/28/23 11:15 TSH 3.274 uIu/ml (0.300-4.500) 02/28/23 11:15 Urine Color Dark Yellow 02/27/23 Unknown Urine Appearance Turbid (Clear) A 02/27/23 Unknown Urine pH 6.5 (4.5-7.5) 02/27/23 Unknown Ur Specific [place] 1.021 (1.000-1.030) 02/27/23 Unknown Urine Protein 2+ (Negative) H 02/27/23 Unknown Urine Glucose (UA) Negative (Negative) 02/27/23 Unknown Urine Ketones Trace (Negative) H 02/27/23 Unknown Urine Blood 2+ (Negative) H 02/27/23 Unknown Urine Nitrite Positive (Negative) A 02/27/23 Unknown Urine Bilirubin Negative (Negative) 02/27/23 Unknown Urine Urobilinogen Negative (Negative) 02/27/23 Unknown Ur Leukocyte Esterase 3+ (Negative) H 02/27/23 Unknown Urine WBC (Auto) >30 /hpf (0-5) H 02/27/23 Unknown Urine RBC (Auto) 0-4 /hpf (0-4) 02/27/23 Unknown U Hyaline Cast (Auto) 0 /lpf (0-5) 02/27/23 Unknown U Epithel Cells (Auto) >30 /lpf (0-5) H 02/27/23 Unknown Urine Bacteria (Auto) 4+ (Negative) H 02/27/23 Unknown Ur Renal Epithelial Cell Not Reportable 02/27/23 Unknown Urine Yeast Not Reportable 02/27/23 Unknown Nasal Screen MRSA (PCR) Negative (Negative) 02/28/23 04:00 SARS-CoV-2, RNA, NAAT NEGATIVE (NEGATIVE) 02/28/23 00:17 Impressions Abdomen/Pelvis CT 02/27/23 20:53 Exam(s): CT ABDOMEN + PELVIS Without Contrast EXAM: CT Abdomen and Pelvis Without Intravenous Contrast CLINICAL HISTORY: Reason for exam: abd pain. TECHNIQUE: Axial computed tomography images of the abdomen and pelvis without intravenous contrast. Automated exposure control was utilized for the study. A dose lowering technique was utilized adhering to the principles of ALARA. COMPARISON: 02/05/2023 FINDINGS: Lung bases: Right base atelectasis. ABDOMEN: Liver: Unremarkable. Gallbladder and bile ducts: Unremarkable. No calcified stones. No ductal dilation. Pancreas: Unremarkable. No ductal dilation. Spleen: Unremarkable. No splenomegaly. Adrenals: Unremarkable. No mass. Kidneys and ureters: 0.2 cm nonobstructing mid left renal calculus. Stomach and bowel: Large stool volume consistent with constipation. No mucosal thickening. PELVIS: Appendix: No findings to suggest acute appendicitis. Bladder: Unremarkable. No stones. Reproductive: Status post hysterectomy. ABDOMEN and PELVIS: Intraperitoneal space: Unremarkable. No free air. No significant fluid collection. Bones/joints: No acute fracture. No dislocation. Soft tissues: Unremarkable. Vasculature: Unremarkable. No abdominal aortic aneurysm. Lymph nodes: Unremarkable. No enlarged lymph nodes. IMPRESSION: Large stool volume consistent with constipation. 0.2 cm nonobstructing mid left renal calculus. Electronically signed by: Alfonso Olsen M.D. 02/27/23 23:[address] 02/27/23 20:53 Exam(s): CT HEAD Without Contrast EXAM: CT Head Without Intravenous Contrast CLINICAL HISTORY: Reason for exam: ams. TECHNIQUE: Axial computed tomography images of the head/brain without intravenous contrast. Automated exposure control was utilized for the study. A dose lowering technique was utilized adhering to the principles of ALARA. COMPARISON: 10/17/2022 FINDINGS: Brain: Severe periventricular white matter changes, likely related to microangiopathy. No hemorrhage. Ventricles: Moderate ventriculomegaly out of proportion to the sulcal atrophy which can be seen with normal pressure hydrocephalus. Bones/joints: Unremarkable. No acute fracture. Soft tissues: Unremarkable. Sinuses: Unremarkable as visualized. No acute sinusitis. Mastoid air cells: Unremarkable as visualized. No mastoid effusion. IMPRESSION: Moderate ventriculomegaly out of proportion to the sulcal atrophy which can be seen with normal pressure hydrocephalus. Electronically signed by: Alfonso Olsen M.D. 02/27/23 23:07 PM Chest X-Ray 02/28/23 09:31 XR chest 1V portable CLINICAL HISTORY: evaluate for pneumonia TECHNIQUE: Single frontal radiograph of the chest was obtained. Comparison: Comparison is made to chest radiograph 02/03/2023 FINDINGS: No lines and tubes are seen. Calcified aortic knob is seen. The lungs are clear. No evidence of pleural effusion or pneumothorax. IMPRESSION: No acute chest disease. ACT 112: Negative or not required by law. Electronically signed by: Branden Valencia M.D. 02/28/2023 12:08 PM Ordered Studies 02/27/23 20:53 CT abd pelvis wo con Stat CT head/brain wo con Stat Hospital Course (1) Acute metabolic encephalopathy: -In setting of sepsis superimposed on underlying dementia UTI could be contributing -CT head shows enlarged ventricles described as out of proportion to atrophy -- Delirium precautions Appreciate neurology input Hydrocephalus ex vacuo per Neurology If Patient/family prefers, can do NPH work-up as outpatient Mental status seemed to be back to baseline Plan to discharge to SNF today (2) Acute UTI: -Urine culture growing E. coli Continue cefepime Transition to p.o. antibiotics as able (3) Sepsis: -present on admission with leukocytosis, tachycardia -lactate 0.9. -No evidence of shock Received IV fluids Blood cultures negative to date Viral respiratory panel is negative. CXR negative Buttock Skin tear No signs of infection at the site Wound care consulted Continue local wound care Plan Chronic conditions: Recent PE Continue Eliquis Dementia monitor for delirium continue Risperidone 0.5mg BID, Sertraline 75mg QHS. MGUS -OP follow up Hypothyroidism -listed in chart, not on levothyroxine Normal TSH Vitamin D deficiency Osteopenia -Continue weekly alendronate FOSTER -unclear if she uses CPAP Monitor GERD Continue PPI Chronic diastolic CHF CAD HTN Continue amlodipine 5mg daily DVT Px -Eliquis CODE STATUS Full code Disposition SNF Total Time Total Time Spent Total Time Spent (In Minutes): 55 minutes Discharge Plan Discharge Items Patient Disposition: Transfer Half-Way Fac Reason For Visit: DELIRIUM, COMP UTI Discharge Diagnosis: Acute metabolic encephalopathy Urinary tract infection Sacral wound Activity: Per Instructions section Exercise/Sports: Gradually increase as tolerated Non-emergency contact: Primary Care Provider Call non-emergency contact if: you have any medication questions, your symptoms worsen, your pain is concerning for you, you have a fever, your wound has increased redness, your wound has increased drainage and your wound pain has increased Follow-up/Referrals: Ani Swift [place] [Primary Care Provider] - Diet: Regular Diet Texture: Pureed (blended smooth) Addtl Attending Provider Instructions: Follow-up with your primary care physician in 1 week Consider following with wound clinic if your sacral wound is not improving in 1 week --- Complete antibiotic course cefdinir as prescribed for urinary tract infection --- Your blood cultures are pending at the time of discharge. Follow-up with your physician for results. --- Continue sacral [facility] at [facility] Seek immediate medical attention if your symptoms reoccur or worsen Please take all medications as instructed on discharge list below. Please call if you have any questions or problems. You can reach a [facility] hospitalist on duty at [facility] 24 hours a day by calling [phone] Pending Studies at Discharge: Yes Studies:: Blood Culture Stand-Alone Forms: My [facility] Skilled Items Patient informed of condition?: Yes DNR: No Discharge Level of Care: Skilled Communicable Disease: No Discharge Prognosis: Stable Lines: None Urinary Catheter: No Medications and DC Order Prescriptions: New cefdinir 300 mg capsule 300 mg PO BID 5 Days Qty: 10 0RF Continued alendronate 70 mg Tablet 70 mg PO WK Qty: 30 0RF Rx Instructions: TAKE THIS MED EVERY WEDNESDAY MORNING polyethylene glycol 3350 [Miralax] 17 gram Powder In Packet 17 g PO DAILY PRN (Reason: constipation) Qty: 14 0RF acetaminophen [Tylenol] 325 mg Tablet 650 mg PO Q4H PRN (Reason: PAIN/FEVER) ondansetron HCl 4 mg Tablet 4 mg PO Q6H PRN (Reason: NAUSEA/VOMITING) famotidine 20 mg Tablet 20 mg PO HS sertraline 25 mg Tablet 75 mg PO HS Rx Instructions: THREE TABLET DOSE sennosides [Senokot] 8.6 mg tablet 17.2 mg PO BID amlodipine 5 mg tablet 5 mg PO QAM omeprazole 20 mg capsule,delayed release(DR/EC) 20 mg PO QAM risperidone 0.5 mg tablet 0.5 mg PO BID apixaban 5 mg (74 tabs) tablets,dose pack 5 mg PO BID Discharge Orders: Discharge Order (Routine); Ordered 03/02/23 Ordered By: Jose Orozco Admission Data Admit Date/Time: 02/27/23 23:50 Attending Provider: Jose Orozco Admit Provider: Freeman Robin Primary Care Provider: Ani Swift [place] Other Providers: Freeman Robin
== END 2023-03-02 11:33 | DRG 871 ==
LOC: ED 19:31 → SUATTDRO 23:50 → 2N 23:50

== ENCOUNTER 2023-03-12 22:20 | Inpatient (IN) ==
[2023-03-12] MEDS ORDERED: PIPERACILLIN/TAZOBACTAM 4.5 GM/120 ML BAG IV ONE (23:01)
[2023-03-12] MEDS ORDERED: SODIUM CHLORIDE 0.9% 1000ML 2,000 ML IV ONE (23:01)
[2023-03-12] MEDS ORDERED: ACETAMINOPHEN 1,000 MG/100 ML VIAL IV STA (23:03)
[2023-03-12 23:04] LABS: Basophils # (auto) 0.08 K/uL (0-0.2); Basophils % (auto) 0.5 %; Eosinophils # (auto) 0.03 K/uL (0-0.50); Eosinophils % (auto) 0.2 %; Hematocrit (blood only) 30.5 % (37.0-47.0); Hemoglobin 9.9 g/dl (12.0-16.0); Immature Granulocytes # (auto) 0.07 K/uL (0.01-0.20); Immature Granulocytes % (auto) 0.4 %; Lymphocytes # (auto) 2.76 K/uL (1.2-3.4); Lymphocytes % (auto) 16.5 %; Mean Corpuscular Hemoglobin 27.7 pg (25.0-34.0); Mean Corpuscular Hgb Conc 32.5 g/dL (32.0-36.0); Mean Corpuscular Volume 85.4 fL (80.0-100.0); Mean Platelet Volume 10.6 fL (9.4-12.4); Monocytes # (auto) 1.72 K/uL (0.11-0.59); Monocytes % (auto) 10.3 %; Neutrophils # (auto) 12.09 K/uL (1.40-6.50); Neutrophils % (auto) 72.1 %; Platelet Count 273 K/uL (130-400); RDW Coefficient of Variation 16.5 % (11.5-14.5); RDW Standard Deviation 51.5 fL (36.4-46.3); Red Blood Count 3.57 M/uL (4.20-5.40); White Blood Count 16.75 K/ul (4.8-10.8)
--- NOTE | 2023-03-12 23:09 | Emergency Department Note ---
History of Present Illness General Chief complaint: Respiratory Distress Stated complaint: RESP DISTRESS Time Seen by Provider: 03/12/23 22:46 History of Present Illness 82-year-old female presents from the [facility] with a history of dementia and reportedly was evaluated yesterday outpatient with the [facility] physician business services assistant and was found to be septic. Patient was started on cefdinir and antifungal medication. Patient presents reportedly from the facility in what was reported respiratory distress. Low pulse oximetry. Patient is a poor historian she has a history of dementia she does not provide any history. Per the records the patient had a full septic work-up yesterday white blood cell co unt of 11.7 and was continued on cefdinir. The notes also stated that she is a DO NOT RESUSCITATE Home Medications Medication Instructions Recorded Confirmed Type alendronate 70 mg tablet 70 mg PO WK #30 tabs 10/22/22 02/27/23 Rx polyethylene glycol 3350 17 gram 17 g PO DAILY PRN constipation #14 10/23/22 02/27/23 Rx oral powder packet (Miralax) ea acetaminophen 325 mg tablet 650 mg PO Q4H PRN PAIN/FEVER 11/15/22 02/27/23 History (Tylenol) famotidine 20 mg tablet 20 mg PO HS 11/15/22 02/27/23 History ondansetron HCl 4 mg tablet 4 mg PO Q6H PRN NAUSEA/VOMITING 11/15/22 02/27/23 History sennosides 8.6 mg tablet (Senokot) 17.2 mg PO BID 11/15/22 02/27/23 History sertraline 25 mg tablet 75 mg PO HS 11/15/22 02/27/23 History amlodipine 5 mg tablet 5 mg PO QAM 02/03/23 02/27/23 History omeprazole 20 mg capsule,delayed 20 mg PO QAM 02/03/23 02/27/23 History release apixaban 5 mg (74 tabs) tablets in 5 mg PO BID 02/27/23 02/27/23 History a dose pack risperidone 0.5 mg tablet 0.5 mg PO BID 02/27/23 02/27/23 History potassium chloride 20 mEq 20 meq PO DAILY #3 tabs 03/02/23 Rx tablet,extended release Allergies Allergy/AdvReac Type Severity Reaction Status Date / Time ciprofloxacin Allergy Intermediate HIVES Verified 02/27/23 22:08 latex Allergy Intermediate Rash Verified 02/27/23 22:08 morphine Allergy Intermediate Rash Verified 02/27/23 22:08 Sulfa (Sulfonamide Allergy Intermediate RASH Verified 02/27/23 22:08 Antibiotics) acetaminophen AdvReac Intermediate GI SYMPTOMS Verified 02/27/23 22:08 Iodinated Contrast Media AdvReac Intermediate NAUSEA/WARM Verified 02/27/23 22:08 FEELING PER MEDROL QUESTIONAIRE oxycodone AdvReac Intermediate GI SYMPTOMS Verified 02/27/23 22:08 codeine AdvReac Mild Nausea Verified 02/27/23 22:08 propoxyphene AdvReac Unknown SENSITIVITY Verified 02/27/23 22:08 Past Med/Surg History Medical History Chronic cholecystitis Compression fracture of L1 lumbar vertebra Concussion Dementia Hypertension Kidney stones Laryngeal spasm MGUS (monoclonal gammopathy of unknown significance) Surgical History H/O: hysterectomy (~1978) History of arthroplasty (~2011) L thumb History of cataract surgery History of colonoscopy (~2009) Hx of appendectomy S/P UPPP (uvulopalatopharyngoplasty) Family History Father Myocardial infarction Other History of appendectomy History of hysterectomy Denies family history of Ovarian cancer Prostate cancer Breast cancer Colorectal cancer Social History Smoking Status: Unknown if ever smoked Second Hand Exposure: No; Do You Dip or Chew Tobacco: No; Preferred Language: Mozambican Communication Ability: Impaired Visual Impairment: No Limitations Hearing Ability: Normal Urology Physician Assistant Required: No Beliefs That Will Affect Care: None marital status: Current Living Situation: Prison current occupational status: retired Feels Safe at Home: Yes Dental Care, Regularly: No Physical Activity Frequency: 3-4 Times per Week Seatbelt Use: always Sunscreen Use: Yes Assistive Devices: Walker and Wheelchair Review of Systems Unobtainable due to cognitive status Physical Exam Vital Signs Vital Signs - 24 hr 03/12/23 22:31 03/12/23 22:31 03/12/23 22:32 Temperature 38.2 C H Temperature Source Axillary Pulse Rate 128 H 129 H Pulse Rate [Right Finger] Respiratory Rate 25 H Respiratory Effort / Characteristics Non-Labored Spontaneous Non-Labored Spontaneous Respiratory Depth Normal Normal Respiratory Pattern Regular Regular Blood Pressure 104/85 Blood Pressure [Right Arm] Blood Pressure Mean 91 Blood Pressure Mean [Right Arm] Pulse Oximetry 92 Oxygen Delivery Method Room Air Oxygen Flow Rate Sepsis Recent Fever Within 48 Hours Yes Sepsis New/Unexplained Change in Mental Status N/A Sepsis Action Taken by Nursing No Action Required 03/12/23 23:21 03/12/23 23:21 03/12/23 23:30 Temperature Temperature Source Pulse Rate Pulse Rate [Right Finger] 115 H 102 H Respiratory Rate 23 22 Respiratory Effort / Characteristics Non-Labored Spontaneous Respiratory Depth Normal Respiratory Pattern Blood Pressure Blood Pressure [Right Arm] 124/73 131/63 Blood Pressure Mean Blood Pressure Mean [Right Arm] 90 85 Pulse Oximetry 97 97 95 Oxygen Delivery Method Nasal Cannula Nasal Cannula Nasal Cannula Oxygen Flow Rate 2 2 2 Sepsis Recent Fever Within 48 Hours Sepsis New/Unexplained Change in Mental Status Sepsis Action Taken by Nursing 03/13/23 00:11 Temperature Temperature Source Pulse Rate Pulse Rate [Right Finger] 106 H Respiratory Rate 16 Respiratory Effort / Characteristics Respiratory Depth Respiratory Pattern Blood Pressure Blood Pressure [Right Arm] 127/67 Blood Pressure Mean Blood Pressure Mean [Right Arm] 87 Pulse Oximetry 96 Oxygen Delivery Method Nasal Cannula Oxygen Flow Rate 2 Sepsis Recent Fever Within 48 Hours Sepsis New/Unexplained Change in Mental Status Sepsis Action Taken by Nursing GENERAL: Patient is awake alert; cachectic, sick appearing EYES: The conjunctivae are clear. The pupils are round and reactive. EARS, NOSE, MOUTH AND THROAT: The nose is without any evidence of any deformity. Mucous membranes are moist. Tongue is midline. NECK: The neck is nontender and supple. RESPIRATORY: Normal respiratory effort is noted there is no evidence of wheezing rhonchi or rales CARDIOVASCULAR: Tachycardic rate and rhythm noted there no murmurs rubs or gallops normal S1 normal S2. GASTROINTESTINAL: The abdomen is soft. Abdomen is nontender. BACK: Full range of motion MUSCULOSKELETAL/EXTREMITIES: There is no evidence of gross deformity full range of motion is noted in the hips and shoulders. SKIN: There is no obvious evidence of any rash. There are no petechiae, pallor or cyanosis noted. Bilateral lower extremity edema NEUROLOGIC: Patient is awake alert and confused Course Reevaluation(s) Reevaluation #1: Patient was started on septic protocol, was given empiric Tylenol, Zosyn, IV fluids greater than 1500 mL Time: 23:05 Consultations Consultation #1: The case was discussed with the [facility] for admission. Dr. Teague accepts the patient for admission Time: 23:54 Administered Medications Sodium Chloride (Nss 1000ml) 2,000 mls @ 999 mls/hr IV .Q2H1M ONE Stop: 03/13/23 01:01 Last Admin: 03/12/23 23:11 Dose: 999 mls/hr Documented By: ASJanina Discontinued Medications Piperacillin Sod/Tazobactam Sod (Zosyn) 4.5 gm in 120 mls @ 240 mls/hr IV NOW ONE Stop: 03/12/23 23:30 Last Infusion: 03/12/23 23:42 Dose: 0 mls/hr Documented By: Admin: 03/12/23 23:12 Dose: 240 mls/hr Documented By: TRUDY Acetaminophen (Ofirmev) 1,000 mg in 100 mls @ 400 mls/hr IV NOW STA Stop: 03/12/23 23:17 Last Infusion: 03/12/23 23:27 Dose: 0 mls/hr Documented By: Admin: 03/12/23 23:11 Dose: 400 mls/hr Documented By: TRUDY Critical Care Time Critical Care Time: Yes Total Critical Care Time: 35 I have personally spent greater than 35 minutes of critical care time in the direct management of this patient. This includes bedside care, interpretation of diagnostic studies, and testing, discussion with consultants, patient, and family members, and other required patient management activities. These minutes are in excess of all separately billable procedures. Medical Decision Making Medical Records Attestation: I reviewed the patient's medical records. Home Medications Current Medication List: was personally reviewed by Laboratory Data Attestation: I reviewed the patient's lab results. Patient has a leukocytosis as interpreted by me 03/12/23 22:27 03/12/23 22:27 Lab Results 03/12/23 03/12/23 03/12/23 Range/Units 22:27 22:27 22:27 WBC 16.75 H (4.8-10.8) K/ul RBC 3.57 L (4.20-5.40) M/uL Hgb 9.9 L (12.0-16.0) g/dl Hct 30.5 L (37.0-47.0) % MCV 85.4 (80.0-100.0) fL MCH 27.7 (25.0-34.0) pg MCHC 32.5 (32.0-36.0) g/dL RDW Std Deviation 51.5 H (36.4-46.3) fL RDW Coeff of Jan 16.5 H (11.5-14.5) % Plt Count 273 (130-400) K/uL MPV 10.6 (9.4-12.4) fL Immature Gran % (Auto) 0.4 % Neut % (Auto) 72.1 % Lymph % (Auto) 16.5 % [place] % (Auto) 10.3 % Eos % (Auto) 0.2 % Baso % (Auto) 0.5 % Neut # (Auto) 12.09 H (1.40-6.50) K/uL Lymph # (Auto) 2.76 (1.2-3.4) K/uL [place] # (Auto) 1.72 H (0.11-0.59) K/uL Eos # (Auto) 0.03 (0-0.50) K/uL Baso # (Auto) 0.08 (0-0.2) K/uL Immature Gran # (Auto) 0.07 (0.01-0.20) K/uL Sodium 137 (136-145) mmol/L Potassium 4.3 (3.5-5.1) mmol/L Chloride 103 (98-107) mmol/L Carbon Dioxide 26 (21-32) mmol/L Anion Gap 8 (3-11) BUN 14 (6-23) mg/dl Creatinine 0.58 L (0.6-1.2) mg/dl Est Cr Clr Drug Dosing 51.9 ml/min Est GFR ( Amer) 98.1 ml/min Est GFR (Non-Af Amer) 84.6 ml/min BUN/Creatinine Ratio 24.1 H (10-20) Glucose 143 H (70-99(Fasting)) mg/dl Lactate (0.4-2.0) mmol/L Calcium 8.8 (8.6-10.3) mg/dl Magnesium 1.8 (1.7-2.4) mg/dl Total Bilirubin 0.5 (0.2-1.0) mg/dl Direct Bilirubin 0.1 (0-0.2) mg/dl AST 17 (13-39) U/L ALT 15 (7-52) U/L Alkaline Phosphatase 93 (34-104) U/L Troponin I High Sens 7.2 (0-14) pg/ml Total Protein 6.3 (6.0-8.3) gm/dl Albumin 3.3 L (3.4-5.0) gm/dl Procalcitonin 0.81 H (0-0.5) ng/ml SARS-CoV-2, RNA, NAAT (NEGATIVE) 03/12/23 03/12/23 Range/Units 22:57 22:57 WBC (4.8-10.8) K/ul RBC (4.20-5.40) M/uL Hgb (12.0-16.0) g/dl Hct (37.0-47.0) % MCV (80.0-100.0) fL MCH (25.0-34.0) pg MCHC (32.0-36.0) g/dL RDW Std Deviation (36.4-46.3) fL RDW Coeff of Jan (11.5-14.5) % Plt Count (130-400) K/uL MPV (9.4-12.4) fL Immature Gran % (Auto) % Neut % (Auto) % Lymph % (Auto) % [place] % (Auto) % Eos % (Auto) % Baso % (Auto) % Neut # (Auto) (1.40-6.50) K/uL Lymph # (Auto) (1.2-3.4) K/uL [place] # (Auto) (0.11-0.59) K/uL Eos # (Auto) (0-0.50) K/uL Baso # (Auto) (0-0.2) K/uL Immature Gran # (Auto) (0.01-0.20) K/uL Sodium (136-145) mmol/L Potassium (3.5-5.1) mmol/L Chloride (98-107) mmol/L Carbon Dioxide (21-32) mmol/L Anion Gap (3-11) BUN (6-23) mg/dl Creatinine (0.6-1.2) mg/dl Est Cr Clr Drug Dosing ml/min Est GFR ( Amer) ml/min Est GFR (Non-Af Amer) ml/min BUN/Creatinine Ratio (10-20) Glucose (70-99(Fasting)) mg/dl Lactate 0.9 (0.4-2.0) mmol/L Calcium (8.6-10.3) mg/dl Magnesium (1.7-2.4) mg/dl Total Bilirubin (0.2-1.0) mg/dl Direct Bilirubin (0-0.2) mg/dl AST (13-39) U/L ALT (7-52) U/L Alkaline Phosphatase (34-104) U/L Troponin I High Sens (0-14) pg/ml Total Protein (6.0-8.3) gm/dl Albumin (3.4-5.0) gm/dl Procalcitonin (0-0.5) ng/ml SARS-CoV-2, RNA, NAAT NEGATIVE (NEGATIVE) Imaging Data Attestation: I personally reviewed and interpreted this imaging study as follows: My Impression: Chest x-ray interpreted by me right lower lobe infiltrate ECG Data Attestation: I personally reviewed and interpreted this ECG as follows: Additional Comments: EKG interpreted by me, sinus tachycardia rate of [address] segment elevation or depression; poor baseline, left axis deviation is present Telemetry was ordered by me interpreted as sinus tachycardia rate of 132 MDM Narrative Medical decision making differential diagnosis includes sepsis, Sirs, urinary tract infection, pneumonia, COVID, electrolyte abnormality, metabolic derangement Plan is to initiate sepsis protocols, started on IV fluids, IV Tylenol IV Zosyn External medical records were reviewed by me from [facility] and the [facility] physician business services assistant work-up yesterday dated 03/11/2023 Patient will be admitted for sepsis Patient received greater than 30 mL/kg of IV fluids, IV antibiotic IV antipyretic Impression & Plan Sepsis Discharge Plan Visit Data Chief Complaint: Respiratory Distress Stated Complaint: RESP DISTRESS ED Provider: Romulo Guerrero Discharge Problem: Sepsis Patient Disposition: Admitted As Inpatient Forms Stand Alone Forms: My [facility] Prescriptions Prescriptions: No Action alendronate 70 mg Tablet 70 mg PO WK Qty: 30 0RF Rx Instructions: TAKE THIS MED EVERY WEDNESDAY MORNING polyethylene glycol 3350 [Miralax] 17 gram Powder In Packet 17 g PO DAILY PRN (Reason: constipation) Qty: 14 0RF acetaminophen [Tylenol] 325 mg Tablet 650 mg PO Q4H PRN (Reason: PAIN/FEVER) ondansetron HCl 4 mg Tablet 4 mg PO Q6H PRN (Reason: NAUSEA/VOMITING) famotidine 20 mg Tablet 20 mg PO HS sertraline 25 mg Tablet 75 mg PO HS Rx Instructions: THREE TABLET DOSE sennosides [Senokot] 8.6 mg tablet 17.2 mg PO BID amlodipine 5 mg tablet 5 mg PO QAM omeprazole 20 mg capsule,delayed release(DR/EC) 20 mg PO QAM risperidone 0.5 mg tablet 0.5 mg PO BID apixaban 5 mg (74 tabs) tablets,dose pack 5 mg PO BID potassium chloride 20 mEq tablet extended release 20 meq PO DAILY Qty: 3 0RF Referrals Referrals: Ani Swift [place] [Primary Care Provider] -
[2023-03-12 23:22] LABS: Albumin Level 3.3 gm/dl (3.4-5.0); BUN Creatinine Ratio 24.1 (10-20); Bilirubin Direct 0.1 mg/dl (0-0.2); Bilirubin,Total 0.5 mg/dl (0.2-1.0); Calcium 8.8 mg/dl (8.6-10.3); Creatinine Clr Calc Pharmacy 51.9 ml/min; Est GFR (African American) 98.1 ml/min; Est GFR (Non-African American) 84.6 ml/min; Magnesium 1.8 mg/dl (1.7-2.4); Potassium 4.3 mmol/L (3.5-5.1); Total Protein 6.3 gm/dl (6.0-8.3)
[2023-03-12 23:28] LABS: Troponin I High Sensitivity 7.2 pg/ml (0-14)
[2023-03-13 00:26] LABS: Appearance Urine Clear (Clear); Bacteria Urine Automated 1+ (Negative); Bilirubin Urine Negative (Negative); Blood Urine 2+ (Negative); Cast Urine Automated 0 /lpf (0-5); Color Urine Yellow; Epithelial Cell Urine Auto 20-30 /lpf (0-5); Glucose Urine UA Negative (Negative); Ketones Urine Negative (Negative); Leukocyte Esterase Urine Trace (Negative); Nitrite Urine Negative (Negative); Protein Urine Trace (Negative); Specific Gravity Urine 1.012 (1.000-1.030); Urobilinogen Urine Negative (Negative)
--- NOTE | 2023-03-13 02:35 | History and Physical Report ---
DATE OF ADMISSION: 03/13/2023. CHIEF COMPLAINT: Respiratory distress, possible early sepsis. HISTORY OF PRESENT ILLNESS: An 82-year-old female with past medical history significant for hypertension, slow transit constipation, history of chronic cholecystitis, nephrolithiasis, compression fracture of L1 vertebra, osteoporosis, senile dementia, monoclonal gammopathy of unknown significance, history of chronic diastolic CHF, valvular heart disease, mild TR, [place], [place], [place] echo 2015, history of CAD, recent PE/DVT in February of 2023, on Eliquis, hypothyroidism, chronic anemia, baseline hemoglobin of 9, anxiety, mood disorder, presents with shortness of breath, fever, tachycardia. The patient lives at [facility]. It looks like she also was recently seen by home visit on 03/10/2023, looks like treated with Rocephin and transitioned to cefdinir as she was having fevers, tachycardia, significant leukocytosis, and procalcitonin elevation, but lactate was normal. Tonight,as per [facility] staff s like after giving her pills, the patient suddenly became short of breath and spiked temperature, tachycardic, and oxygen saturations were going down, requiring oxygen, that is the reason she was sent in here, for possible aspiration pneumonitis. The patient when she came in was tachycardic and improved with the fluids. She had a temperature spike of 38.2. As per nursing staff in [facility], the patient is oriented to person only, nonambulatory. She can transition to wheelchair with 1 person or sometimes 2 persons. Last few months she is declining. She is not able to swallow. She is currently on pureed diet and when they suctioned today they found some thick whitish phlegm with some blood streaks and also some food material. The patient currently is mumbling, not able to answer any questions. Could not get any history from the patient. As per nursing,no recent nausea, vomiting or diarrhea. As per the [facility], she is a DNR. ALLERGIES: CIPROFLOXACIN, LATEX, MORPHINE, SULFA ANTIBIOTICS, ACETAMINOPHEN, IODINATED CONTRAST MEDIA, OXYCODONE, CODEINE, PROPOXYPHENE. PAST MEDICAL HISTORY: As mentioned above. PAST SURGICAL HISTORY: , hand surgery, appendectomy, total abdominal hysterectomy, cataract surgery, uvulopalatopharyngoplasty. FAMILY HISTORY: Significant for heart disease. SOCIAL HISTORY: Nonsmoker. No alcohol use. Currently living in a penitentiary. REVIEW OF SYSTEMS: Unobtainable at this time as the patient has severe dementia. PHYSICAL EXAMINATION: GENERAL: The patient is currently mumbling, not able to answer questions. Does not seem to be in acute distress. VITAL SIGNS: Temperature T-max 38.2, pulse 106, respiratory rate 16, blood pressure 127/67, oxygen 96% on 2 liters. HEENT: Pupils equal, round, and reactive to light. No facial droop seen. NECK: No neck masses, no JVD seen. CARDIOVASCULAR: S1 and S2 heard. Tachycardia. No murmurs. RESPIRATORY SYSTEM: Normal AP diameter. No accessory muscle use. No wheezing, no crackles. ABDOMEN: Soft, bowel sounds present, nontender, no distention. CENTRAL NERVOUS SYSTEM: The patient is somewhat lethargic. Moves extremities on touch stimuli. EXTREMITIES: No edema, no erythema seen. LABORATORY DATA: WBC 16.7, hemoglobin 9.9, hematocrit 30.5, platelets 273. Sodium 137, potassium 4.3, chloride 103, bicarb 26, BUN 14, creatinine 0.5, serum glucose 143. Lactate 0.9, calcium 8.8, magnesium 1.8, total bilirubin 0.5, direct bilirubin 0.1, AST 17, ALT 15, alkaline phosphatase 93. Troponin I high sensitivity 7.2. Procalcitonin 0.8. Urinalysis: Trace leukocyte esterase, +1 bacteria. SARS-CoV-2 rapid test negative. IMAGING DATA: Chest x-ray, questionable right lower lobe infiltrate. EKG with undetermined rhythm at a rate of 152. ASSESSMENT AND PLAN: This is an 82-year-old female who presents with possible aspiration and aspiration pneumonitis and possible early sepsis. 1. Respiratory distress with aspiration: The patient, as per nursing staff, she is declining last few months and she is currently on pureed diet. It looks like she aspirated medication and food today. Will empirically treat with Zosyn and doxycycline, IV fluids. Keep her n.p.o. Speech evaluation in the a.m. Monitor in the [address]. 2. Possible urinary tract infection: On Zosyn. Will follow the cultures. 3. Possible early sepsis, tachycardia, temperature spike, elevated white count: Getting fluids and antibiotics as above, will monitor. 4. Severe dementia: Oriented to person only and nonambulatory status. Requires one or two persons to assist for transfers. Will keep her on bed rest. Will monitor for delirium. The patient is Risperdal which is on hold as patient will be npo. Will place on IV Zyprexa p.r.n. 5. History of recent pulmonary embolism and deep venous thrombosis: On Eliquis. Holding p.o. medications. Placed on low-dose IV heparin. 6. Hypertension: Currently, on sepsis. Will hold amlodipine. Monitor the blood pressure. 7. Gastroesophageal reflux disease: Will place on IV Pepcid. 8. Monoclonal gammopathy of unknown significance: Outpatient followup. 9. Hypothyroidism. Currently not on levothyroxine, last admission had normal TSH. 10. Vitamin D deficiency: On weekly alendronate. 11. History of obstructive sleep apnea. Will monitor. Oxygen supplementation. 12. Hx Chronic diastolic congestive heart failure, coronary artery disease, Will monitor. 13. Deep venous thrombosis prophylaxis: Placed on low-dose IV heparin. DISPOSITION: Closely monitor in the [facility]. Expect to discharge back to [facility] when stable. CODE STATUS: DNR/DNI as per discussion with [facility] staff. Job ID: [id number] [facility]SIDE HOSPITALEvette
[2023-03-13] MEDS ORDERED: NITROGLYCERIN SL 0.4 MG/TAB TAB SL PRN (03:31)
[2023-03-13] MEDS ORDERED: ONDANSETRON INJ 2 MG/ML 2 ML VIAL IV PRN (03:31)
[2023-03-13] MEDS ORDERED: OLANZapine 10 MG/2.1 ML SDV IM PRN (03:31)
[2023-03-13] MEDS: SODIUM CHLORIDE 0.9% 1000ML 1,000 ML IV SCH ×2 (03:42→14:09)
[2023-03-13] MEDS ORDERED: Heparin IV Adult Wt-Based Low-Dose *NO* Bolus Protocol IV SCH (03:45)
[2023-03-13 04:07] LABS: INR 1.1 (0.9-1.1); Partial Thromboplastin Ratio 1.2; Partial Thromboplastin Time 32.9 Seconds (21.0-31.0); Prothrombin Time 11.7 Seconds (9.0-12.0)
[2023-03-13] MEDS: DOXYCYCLINE HYCLATE 100 MG in DEXTROSE 5% 100 ML IV SCH ×2 (04:13→17:08)
[2023-03-13] MEDS: HEPARIN SODIUM/DEXTROSE 25,000 UNITS/500 ML BAG IV SCH (04:23)
--- NOTE | 2023-03-13 06:23 | CT Scan Report ---
Exam(s): CT CHEST Without Contrast EXAM: CT Chest Without Intravenous Contrast CLINICAL HISTORY: Reason for exam: aspiration pneumonia?. TECHNIQUE: Axial computed tomography images of the chest without intravenous contrast. Automated exposure control was utilized for the study. A dose lowering technique was utilized adhering to the principles of ALARA. COMPARISON: No relevant prior studies available. FINDINGS: Lungs: Bilateral basilar lower lobe patchy densities are seen. Pleural space: Small right pleural effusion. No pneumothorax. Heart: Mild cardiomegaly. Moderate coronary vascular calcifications are seen. No significant pericardial effusion. Bones/joints: There is T12 vertebral body chronic compression fracture deformity seen with 60% loss of vertebral body height Lymph nodes: Unremarkable. No enlarged lymph nodes. IMPRESSION: 1. Bilateral lower lobe patchy densities which could be from aspiration changes 2. Small right pleural effusion Electronically signed by: Jabari Martinez MD 03/13/23 06:22 AM
[2023-03-13] MEDS: PIPERACILLIN/TAZOBACTAM 4.5 GM in DEXTROSE 5% 100 ML IV SCH ×3 (06:24→20:48)
--- NOTE | 2023-03-13 07:37 | XRay Report ---
XR chest 1V portable CLINICAL HISTORY: Sepsis. COMPARISON STUDY: Chest CT February 03, 2023. Chest radiograph February 28, 2023. FINDINGS: Lung volumes are diminished. There is no pneumothorax or pleural effusion. There are mild b ibasilar opacities. No evidence for pulmonary edema. Cardiomediastinal silhouette is stable. IMPRESSION: Low lung volumes. Mild bibasilar opacities which favor atelectasis. ACT 112: Negative or not required by law. Electronically signed by: Isai Gu M.D. 03/13/2023 7:35 AM
[2023-03-13] MEDS: FAMOTIDINE 20 MG in SYRINGE 3 ML IV SCH ×2 (09:35→20:48)
[2023-03-13 11:00] LABS: Partial Thromboplastin Ratio 1.3; Partial Thromboplastin Time 35.4 Seconds (21.0-31.0)
[2023-03-13] MEDS ORDERED: HEPARIN SOD (PORCINE) 1000 UNIT/ML IV ONE (11:30)
--- NOTE | 2023-03-13 15:56 | Hospitalist Progress Note ---
Date of Service March 13, 2023 Assessment & Plan (1) Pneumonia: Plan: Presented with respiratory distress and likely has bilateral aspiration pneumonia as per CT scan Speech evaluation shows significant risk of aspiration Has been on intravenous Zosyn and doxycycline-to cover atypicals Blood cultures have been taken Clinically better and is stable Risk of aspiration Discussed with the son-no decision of permissive aspiration He was traveling so was advised to give him a call in a day or 2 and decide further on that issue For now the patient is kept n.p.o. with chips and sips (2) Sepsis: Plan: Presented with possible early sepsis Lactate level was not elevated but procalcitonin was mildly elevated at 0.81 (3) UTI (urinary tract infection): Plan: UA was suggestive of infection Has been on Zosyn Awaiting culture and sensitivity (4) Dementia: Plan: Has severe dementia (5) Hypertension: Plan: Blood pressure remains stable and will continue current medications (6) MGUS (monoclonal gammopathy of unknown significance): (7) Hypothyroidism: Plan: Continue supplement History of recent pulmonary embolism and deep venous thrombosis Has been on Eliquis History of FOSTER Not on any CPAP Continue oxygen Chronic diastolic congestive heart failure with history of CAD Seems to be stable DVT prophylaxis On Eliquis CODE STATUS DNR/DNI Admission and Anticipated Discharge Date Admission Date: March 13, 2023 Subjective 03/13/2023 The patient was seen and examined in telemetry unit 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 Denies any distress She failed speech therapy-and has significant aspiration risk Review of Systems Review of Systems: Unobtainable due to cognitive status Physical Exam Physical Exam: Lying in bed comfortably Constitutional: + ill appearing and average body habitus Eyes: PERRL, conjunctivae normal, anicteric sclerae ENMT: external ear and nose normal, oropharynx normal Neck: trachea midline, no thyromegaly Respiratory: no respiratory distress Auscultation: + diminished lung sounds and + crackles (Bibasilar crackles) Cardiovascular: Rate/Rhythm: regular rate and regular rhythm; not tachycardic Heart Sounds: normal S1, normal S2 and + murmur Extremities: no edema Gastrointestinal (Abdomen): Inspection/Auscultation: normal bowel sounds; abdomen not distended Percussion/Palpation: + abdomen tender and abdomen soft Musculoskeletal: No acute arthritis involving any of the joint Neurologic: Alert and awake. Pleasantly confused. Moves all extremities Results & Data Results & Data Vital Signs (Past 12 Hours) Vital Signs Temp Pulse Resp BP Pulse Ox O2 Del Method O2 Flow Rate 03/13/23 12:20 73 19 122/61 98 Nasal Cannula 2 03/13/23 07:56 36.4 C L 75 19 142/69 H 100 Room Air 03/13/23 03:45 Nasal Cannula 2 Laboratory Results Short CBC 03/12/23 Range/Units 22:27 WBC 16.75 H (4.8-10.8) K/ul Hgb 9.9 L (12.0-16.0) g/dl Hct 30.5 L (37.0-47.0) % Plt Count 273 (130-400) K/uL BMP 03/12/23 22:27 Sodium 137 Potassium 4.3 Chloride 103 Carbon Dioxide 26 BUN 14 Creatinine 0.58 L Glucose 143 H Calcium 8.8 Liver Function 03/12/23 Range/Units 22:27 Total Bilirubin 0.5 (0.2-1.0) mg/dl Direct Bilirubin 0.1 (0-0.2) mg/dl AST 17 (13-39) U/L ALT 15 (7-52) U/L Alkaline Phosphatase 93 (34-104) U/L Albumin 3.3 L (3.4-5.0) gm/dl Urine 03/13/23 Range/Units 00:09 Urine Color Yellow Urine Appearance Clear (Clear) Urine pH 7.0 (4.5-7.5) Ur Specific [place] 1.012 (1.000-1.030) Urine Protein Trace H (Negative) Urine Glucose (UA) Negative (Negative) Medications Administered Current Inpatient Medications Sodium Chloride (Nss 1000ml) 1,000 mls @ 80 mls/hr IV .[id number] LUCIA Stop: 04/12/23 03:44 Last Admin: 03/13/23 14:09 Dose: 80 mls/hr Piperacillin Sod/Tazobactam (Sod 4.5 gm/ Dextrose) 120 mls @ 30 mls/hr IV Q8H [facility]; Protocol Stop: 03/20/23 05:59 Last Admin: 03/13/23 12:58 Dose: 30 mls/hr Doxycycline Hyclate 100 mg/ (Dextrose) 110 mls @ 50 mls/hr IV Q12H LUCIA Stop: 03/20/23 03:59 Last Infusion: 03/13/23 06:25 Dose: Infused Famotidine 20 mg/ Syringe 5 mls @ 2.5 mls/min IV BID LUCIA Stop: 04/12/23 08:59 Last Admin: 03/13/23 09:35 Dose: 2.5 mls/min Heparin Sodium/Dextrose (Heparin Sodium/Dextrose) 25,000 units in 500 mls @ 13 mls/hr IV .Q24H LUCIA; Protocol Stop: 04/12/23 03:59 Last Titration: 03/13/23 12:55 Dose: 650 units/hr, 13 mls/hr Nitroglycerin (Nitroglycerin Sl 0.4 Mg/Tab Tab) 0.4 mg SL Q5M PRN PRN Reason: Chest Pain Stop: 04/12/23 03:30 Olanzapine (Olanzapine 10 Mg/2.1 Ml Sdv) 2.5 mg IM Q4H PRN PRN Reason: Agitation Stop: 04/12/23 03:30 Ondansetron HCl (Ondansetron Inj 2 Mg/Ml 2 Ml Vial) 4 mg IV Q6H PRN PRN Reason: Nausea Stop: 04/12/23 03:30 (4) Dementia Dementia behavioral or psychological symptom: unspecified whether behavioral, psychotic, or mood disturbance or anxiety Dementia severity: unspecified severity Dementia type: unspecified type Qualified Code(s): F03.90 - Unspecified dementia, unspecified severity, without behavioral disturbance, psychotic disturbance, mood disturbance, and anxiety
[2023-03-13 20:20] LABS: Partial Thromboplastin Ratio 1.7
[2023-03-13 21:07] LABS: Partial Thromboplastin Time 46.6 Seconds (21.0-31.0)
[2023-03-14] MEDS: SODIUM CHLORIDE 0.9% 1000ML 1,000 ML IV SCH ×2 (03:58→16:15)
[2023-03-14] MEDS: DOXYCYCLINE HYCLATE 100 MG in DEXTROSE 5% 100 ML IV SCH ×2 (04:00→16:09)
[2023-03-14] MEDS ORDERED: HYDROmorphone INJ 0.5 MG/0.5 ML SYR IV STA (04:37)
[2023-03-14 05:18] LABS: Basophils # (auto) 0.11 K/uL (0-0.2); Eosinophils # (auto) 0.03 K/uL (0-0.50); Eosinophils % (auto) 0.3 %; Hematocrit (blood only) 27.9 % (37.0-47.0); Hemoglobin 9.2 g/dl (12.0-16.0); Immature Granulocytes # (auto) 0.05 K/uL (0.01-0.20); Immature Granulocytes % (auto) 0.5 %; Lymphocytes # (auto) 1.69 K/uL (1.2-3.4); Lymphocytes % (auto) 15.6 %; Mean Corpuscular Hemoglobin 27.7 pg (25.0-34.0); Mean Platelet Volume 10.8 fL (9.4-12.4); Monocytes # (auto) 1.17 K/uL (0.11-0.59); Monocytes % (auto) 10.8 %; Neutrophils # (auto) 7.81 K/uL (1.40-6.50); Neutrophils % (auto) 71.8 %; Platelet Count 254 K/uL (130-400); RDW Coefficient of Variation 16.2 % (11.5-14.5); RDW Standard Deviation 50.1 fL (36.4-46.3); Red Blood Count 3.32 M/uL (4.20-5.40); White Blood Count 10.86 K/ul (4.8-10.8)
[2023-03-14 05:42] LABS: Calcium 8.8 mg/dl (8.6-10.3); Creatinine Clr Calc Pharmacy 55.7 ml/min; Est GFR (African American) 100.4 ml/min; Est GFR (Non-African American) 86.7 ml/min; Magnesium 1.6 mg/dl (1.7-2.4); Potassium 3.4 mmol/L (3.5-5.1)
[2023-03-14] MEDS: PIPERACILLIN/TAZOBACTAM 4.5 GM in DEXTROSE 5% 100 ML IV SCH ×3 (06:11→21:32)
[2023-03-14 06:14] LABS: Partial Thromboplastin Ratio 1.5
[2023-03-14 06:18] LABS: Partial Thromboplastin Time 41.4 Seconds (21.0-31.0)
--- NOTE | 2023-03-14 07:33 | Electrocardiogram Report ---
Test Reason : Blood Pressure : / mmHG Vent. Rate : 152 BPM Atrial Rate : 144 BPM P-R Int : 162 ms QRS Dur : 042 ms QT Int : 222 ms P-R-T Axes : 033 -17 027 degrees QTc Int : 352 ms Poor data quality, interpretation may be adversely affected Likely sinnus tachycardia with PACs, although atrial flutter should be considered Low voltage QRS Possible Lateral infarct , age undetermined Inferior infarct , age undetermined Abnormal ECG Confirmed by Rinku Andrade ([id number]) on 03/14/2023 7:32:39 AM Referred By: REFERRED SELF Confirmed By:Logan Andrade
[2023-03-14] MEDS ORDERED: MAGNESIUM SULFATE / D5W 1 GM/100 ML BAG IV ONE (08:25)
[2023-03-14] MEDS ORDERED: bisacodyL 10 MG SUPP PR PRN (08:29)
[2023-03-14] MEDS: FAMOTIDINE 20 MG in SYRINGE 3 ML IV SCH ×2 (08:46→20:27)
[2023-03-14] MEDS: POTASSIUM CHLORIDE / WTR 10 MEQ/100 ML PLCT IV SCH ×2 (09:58→10:53)
--- NOTE | 2023-03-14 15:09 | XRay Report ---
XR KUB/Abdomen 1 view CLINICAL HISTORY: doctors good TECHNIQUE: 1 view of the abdomen was obtained. Comparison: Comparison is made to abdomen radiograph 10/22/2022 FINDINGS: Lung bases are unremarkable. Degenerative changes are seen in the visualized skeleton. The bowel gas pattern is nonobstructive. A moderate amount of stool is noted within the large bowel. IMPRESSION: Nonobstructive bowel gas pattern. ACT 112: Negative or not required by law. Electronically signed by: Branden Valencia M.D. 03/14/2023 3:08 PM
--- NOTE | 2023-03-14 15:36 | Hospitalist Progress Note ---
Date of Service March 14, 2023 Assessment & Plan (1) Pneumonia: Plan: Presented with respiratory distress and likely has bilateral aspiration pneumonia as per CT scan Aspiration pneumonia Dysphagia --CT Chest:Bilateral lower lobe patchy densities which could be from aspiration changes.Small right pleural effusion -- Blood culture pending today Continue Zosyn, doxycycline Failed swallow eval Speech therapy consulted Likely poor candidate for PEG tube given advanced dementia N.p.o. for now Palliative care consulted to address goals of care May need to allow permissive aspiration if patient's family agrees Continue gentle IV fluids (2) Sepsis: Plan: Presented with possible early sepsis Lactate level was not elevated but procalcitonin was mildly elevated at 0.81 Secondary to aspiration pneumonia, UTI (3) UTI (urinary tract infection): Plan: Urine culture pending: Preliminary growing probable Enterococcus, probable Pseudomonas Continue Zosyn for now (4) Dementia: Plan: severe dementia (5) Hypertension: Plan: Stable Monitor Resume amlodipine if able (6) MGUS (monoclonal gammopathy of unknown significance): (7) Hypothyroidism: Plan: Currently not on any levothyroxine H/O PE and DVT Hold Eliquis while NPO Continue IV Heparin for now History of FOSTER Not on any CPAP Continue supplemental oxygen as needed Chronic diastolic congestive heart failure with history of CAD Seems to be stable DVT Px: IV Heparin CODE STATUS DNR/DNI Admission and Anticipated Discharge Date Admission Date: March 13, 2023 Subjective Patient is seen and examined at bedside Lethargic during my encounter, unable to provide much history Updated patient's son over the phone No distress on exam Afebrile today Leukocytosis improving Urine culture growing probable Enterococcus Review of Systems Review of Systems: Unobtainable due to cognitive status Physical Exam Physical Exam: Physical Exam: Vitals signs as noted above General Appearance:Chronic ill appearing, Thin, frail, elderly, no distress Head: normocephalic, Atraumatic Eyes: normal inspection, EOMI Neck: supple, Trachea midline Respiratory/Chest: Normal breath sounds, CTA, No accessory muscle use Cardiovascular: S1, S2, No murmur, +Tachycardia Abdomen/GI:Soft, Non tender, Bowel sounds present Extremities/Musculoskeletal:normal inspection, no edema Neurologic/Psych: grossly no focal neurological deficits, +Dementia Skin: normal color, warm Results & Data Results & Data Vital Signs (Past 12 Hours) Vital Signs Temp Pulse Pulse Resp BP Pulse Ox O2 Del Method 03/14/23 15:25 76 03/14/23 11:49 37.5 C 102 H 19 149/67 H 90 Room Air 03/14/23 08:09 94 H 19 131/67 91 Room Air 03/14/23 07:27 100 H 03/14/23 03:57 37.2 C 93 H 153/73 H 95 Room Air Laboratory Results Short CBC 03/14/23 Range/Units 04:33 WBC 10.86 H (4.8-10.8) K/ul Hgb 9.2 L (12.0-16.0) g/dl Hct 27.9 L (37.0-47.0) % Plt Count 254 (130-400) K/uL BMP 03/14/23 04:33 Sodium 140 Potassium 3.4 L D Chloride 106 Carbon Dioxide 25 BUN 7 Creatinine 0.54 L Glucose 89 Calcium 8.8 (4) Dementia Dementia behavioral or psychological symptom: unspecified whether behavioral, psychotic, or mood disturbance or anxiety Dementia severity: unspecified severity Dementia type: unspecified type Qualified Code(s): F03.90 - Unspecified dementia, unspecified severity, without behavioral disturbance, psychotic disturbance, mood disturbance, and anxiety
[2023-03-14] MEDS ORDERED: ACETAMINOPHEN 1000 MG/100 ML IV IV ONE (18:00)
[2023-03-14] MEDS: ACETAMINOPHEN 1,000 MG/100 ML VIAL IV PRN (18:02)
[2023-03-14] MEDS: HEPARIN SODIUM/DEXTROSE 25,000 UNITS/500 ML BAG IV SCH (20:27)
[2023-03-15] MEDS: DOXYCYCLINE HYCLATE 100 MG in DEXTROSE 5% 100 ML IV SCH ×2 (04:47→17:10)
[2023-03-15] MEDS: SODIUM CHLORIDE 0.9% 1000ML 1,000 ML IV SCH ×2 (05:35→18:17)
[2023-03-15] MEDS: PIPERACILLIN/TAZOBACTAM 4.5 GM in DEXTROSE 5% 100 ML IV SCH ×2 (05:57→15:19)
[2023-03-15 06:10] LABS: Hematocrit (blood only) 25.9 % (37.0-47.0); Hemoglobin 8.4 g/dl (12.0-16.0); Mean Corpuscular Hemoglobin 27.4 pg (25.0-34.0); Mean Corpuscular Hgb Conc 32.4 g/dL (32.0-36.0); Mean Corpuscular Volume 84.4 fL (80.0-100.0); Mean Platelet Volume 10.2 fL (9.4-12.4); Platelet Count 255 K/uL (130-400); RDW Coefficient of Variation 16.6 % (11.5-14.5); RDW Standard Deviation 51.7 fL (36.4-46.3); Red Blood Count 3.07 M/uL (4.20-5.40); White Blood Count 6.51 K/ul (4.8-10.8)
[2023-03-15 06:30] LABS: BUN Creatinine Ratio 10.3 (10-20); Calcium 8.4 mg/dl (8.6-10.3); Creatinine Clr Calc Pharmacy 51.9 ml/min; Est GFR (African American) 98.1 ml/min; Est GFR (Non-African American) 84.6 ml/min; Magnesium 1.8 mg/dl (1.7-2.4); Potassium 3.2 mmol/L (3.5-5.1)
[2023-03-15 06:50] LABS: Partial Thromboplastin Ratio 1.7
[2023-03-15] MEDS: HEPARIN SODIUM/DEXTROSE 25,000 UNITS/500 ML BAG IV SCH (08:02)
[2023-03-15] MEDS: FAMOTIDINE 20 MG in SYRINGE 3 ML IV SCH ×2 (08:20→19:42)
--- NOTE | 2023-03-15 08:59 | Palliative Care Consultation ---
Date of Consultation March 15, 2023 Assessment & Plan (1) Palliative care by specialist: Met with pt, provided a brief overview of Palliative Medicine, a subspecialty that provides specialized medical care for people living with a serious illness by offering a focus on quality of life. Palliative Medicine is often conflated with hospice: I advised patient/family that Palliative and hospice can be partners but we are not the same. It is important to understand the difference so that we may be informed, and not afraid. Palliative Medicine works to improve QOL through reduction of symptom burden/more control over their illness, for both the patient and family. Palliative medicine clinicians are board certified, specially-trained and another member of the patient's medical care team. We often provide an extra layer of support because our care is based on the needs of the patient, not the prognosis; as such, it's appropriate at any age/advancing stage of a serious illness and can be provided along with curative treatment. Palliative Medicine clinicians are also trained in advanced communication methodologies, to facilitate complex discussions about advanced illness planning, which are needed to help assure that the treatment choices match the patient's goals, aka delivering Goal Concordant care. Finally, we discussed that hospice is a visiting nurse service that focuses on care delivered at the very end of life for patients with terminal illness, with life expectancy less than 6 month. (2) Discussion about advance care planning held with family member: Elke and Shauna tried to have an ACP discussion. She understands she has "some sort of medical problems" but cannot identify the, we spoke about her dementia and how it is a chronic/progressive disease has a declining trajectory over time where facets of patient self-identity and independence are lost. Every acute event leads to a further decline, resulting- many times, in a new baseline. Advised that the greatest priority is to determine what matters most to pt, then family and to develop a plan of care that is aligned with those priorities. Elke and Shauna reviewed advance illness planning conversations are conducted to review goals and expectations, support shared decision-making, and engage in disease specific advance care planning. This type of advance care planning is sometimes referred to as 'preparedness planning. It is used to review the risks and benefits of offered therapy, elicit and deepen understanding of the underlying illness and therapeutic options, ensure adequate psychosocial support, address existential concerns and coping, and engage in end-of-life planning. She tells me she does not want to suffer, or linger. She wants her son Mart updated. She would like to have him visit but tells me she doesn't know where he lives. She is [facility] return [facility] but was worried they would not take her back. Reassured they are awaiting her return. Elke is not decisionally intact. D/w Mart/son and NOK is needed. (3) Dyspnea and respiratory abnormalities: (4) Weakness generalized: (5) Sepsis: (6) Acute metabolic encephalopathy: (7) Dementia: Dementia behavioral or psychological symptom: unspecified whether behavioral, psychotic, or mood disturbance or anxiety Dementia severity: unspecified severity Dementia type: unspecified type Qualified Code(s): F03.90 - Unspecified dementia, unspecified severity, without behavioral disturbance, psychotic disturbance, mood disturbance, and anxiety (8) MGUS (monoclonal gammopathy of unknown significance): Plan * Pt not decisionally intact * Son is NOK, will attempt to call him later today, after rounds Thank you for allowing us to participate in the ongoing care of this patient. Please don't hesitate to call or page with any additional concerns. Dr. Xochilt Troncoso DNP Director, Palliative Care History of Present Illness Reason for Consultation: "Goals of Care" Attending Physician: Jose Orozco MD History of Present Illness 82yo female from SNF with resp distress/?sepsis. Known adv dementia, she cannot provide any HPI She was seen 03/11/23 in a ?outpatient visit by MARIAM camargo who started her on "cefdinir and antifungal medication" Per admitting note: "An 82-year-old female with past medical history significant for hypertension, slow transit constipation, history of chronic cholecystitis, nephrolithiasis, compression fracture of L1 vertebra, osteoporosis, senile dementia, monoclonal gammopathy of unknown significance, history of chronic diastolic CHF, valvular heart disease, mild TR, [place], [place], [place] echo 2015, history of CAD, recent PE/DVT in February of 2023, on Eliquis, hypothyroidism, chronic anemia, baseline hemoglobin of 9, anxiety, mood disorder, presents with shortness of breath, fever, tachycardia. The patient lives at [facility]. It looks like she also was recently seen by home visit on 03/10/2023, looks like treated with Rocephin and transitioned to cefdinir as she was having fevers, tachycardia, significant leukocytosis, and procalcitonin elevation, but lactate was normal. Tonight,as per [facility] staff s like after giving her pills, the patient suddenly became short of breath and spiked temperature, tachycardic, and oxygen saturations were going down, requ iring oxygen, that is the reason she was sent in here, for possible aspiration pneumonitis. The patient when she came in was tachycardic and improved with the fluids. She had a temperature spike of 38.2. As per nursing staff in [facility], the patient is oriented to person only, nonambulatory. She can transition to wheelchair with 1 person or sometimes 2 persons. Last few months she is declining. She is not able to swallow. She is currently on pureed diet and when they suctioned today they found some thick whitish phlegm with some blood streaks and also some food material. The patient currently is mumbling, not able to answer any questions. Could not get any history from the patient. As per nursing,no recent nausea, vomiting or diarrhea. As per the [facility], she is a DNR." Pt seen bedside, no family present. Elke is confused at baseline She knows her name but not where she is, what happened or what is going on She asks if anyone can tell her what's going on She tells me she has a son named Mart but doesn't know his number She tells me she knows she has gaps in her memory/knowledge and it scares her: "I know I'm supposed to know these things but I don't and I can't figure out why. I don't know what to do about it. Where do I live, how did i get here, what's going on, I just don't understand anything anymore." Allergies Allergy/AdvReac Type Severity Reaction Status Date / Time ciprofloxacin Allergy Intermediate HIVES Verified 02/27/23 22:08 latex Allergy Intermediate Rash Verified 02/27/23 22:08 morphine Allergy Intermediate Rash Verified 02/27/23 22:08 Sulfa (Sulfonamide Allergy Intermediate RASH Verified 02/27/23 22:08 Antibiotics) acetaminophen AdvReac Intermediate GI SYMPTOMS Verified 02/27/23 22:08 Iodinated Contrast Media AdvReac Intermediate NAUSEA/WARM Verified 02/27/23 22:08 FEELING PER MEDROL QUESTIONAIRE oxycodone AdvReac Intermediate GI SYMPTOMS Verified 02/27/23 22:08 codeine AdvReac Mild Nausea Verified 02/27/23 22:08 propoxyphene AdvReac Unknown SENSITIVITY Verified 02/27/23 22:08 Home Medications Medication Instructions Recorded Confirmed Type alendronate 70 mg tablet 70 mg PO WK #30 tabs 10/22/22 02/27/23 Rx polyethylene glycol 3350 17 gram 17 g PO DAILY PRN constipation #14 10/23/22 02/27/23 Rx oral powder packet (Miralax) ea acetaminophen 325 mg tablet 650 mg PO Q4H PRN PAIN/FEVER 11/15/22 02/27/23 History (Tylenol) famotidine 20 mg tablet 20 mg PO HS 11/15/22 02/27/23 History ondansetron HCl 4 mg tablet 4 mg PO Q6H PRN NAUSEA/VOMITING 11/15/22 02/27/23 History sennosides 8.6 mg tablet (Senokot) 17.2 mg PO BID 11/15/22 02/27/23 History sertraline 25 mg tablet 75 mg PO HS 11/15/22 02/27/23 History amlodipine 5 mg tablet 5 mg PO QAM 02/03/23 02/27/23 History omeprazole 20 mg capsule,delayed 20 mg PO QAM 02/03/23 02/27/23 History release apixaban 5 mg (74 tabs) tablets in 5 mg PO BID 02/27/23 02/27/23 History a dose pack risperidone 0.5 mg tablet 0.5 mg PO BID 02/27/23 02/27/23 History potassium chloride 20 mEq 20 meq PO DAILY #3 tabs 03/02/23 Rx tablet,extended release Patient History Medical History (Updated 03/15/23 @ 08:58 by Xochilt Troncoso DNP) Chronic cholecystitis Compression fracture of L1 lumbar vertebra Concussion Dementia Discussion about advance care planning held with family member Dyspnea and respiratory abnormalities Hypertension Kidney stones Laryngeal spasm MGUS (monoclonal gammopathy of unknown significance) Palliative care by specialist Weakness generalized Surgical History H/O: hysterectomy (~1978) History of arthroplasty (~2011) L thumb History of cataract surgery History of colonoscopy (~2009) Hx of appendectomy S/P UPPP (uvulopalatopharyngoplasty) Family History Father Myocardial infarction Other History of appendectomy History of hysterectomy Denies family history of Ovarian cancer Prostate cancer Breast cancer Colorectal cancer Social History Smoking Status: Unknown if ever smoked Second Hand Exposure: No; Do You Dip or Chew Tobacco: No; Hx Alcohol Use: No Hx Substance Use: No Preferred Language: Occitan Communication Ability: Impaired Communication Ability Comment: CONFUSION Visual Impairment: No Limitations Hearing Ability: Normal 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 Beliefs That Will Affect Care: None marital status: Current Living Situation: Senior Living current occupational status: retired Other Information That Helps Us Care for You: No Feels Safe at Home: Yes Dental Care, Regularly: No Physical Activity Frequency: 3-4 Times per Week Seatbelt Use: always Sunscreen Use: Yes Assistive Devices: Wheelchair Review of Systems Review of Systems: Unobtainable due to cognitive status (advanced dementia) Physical Exam Constitutional: WD/WN, vitals as above Eyes: PERRL, conjunctivae normal, anicteric sclerae ENMT: external ear and nose normal, oropharynx normal (slightly dry MM, dentition fair) Neck: trachea midline, no thyromegaly no stridor Respiratory: normal respiratory effort and able to speak in complete sentences Auscultation: + diminished lung sounds and + crackles (few soft crackles left > right) Cardiovascular: RRR, no murmur, no edema Extremities: normal capillary refill Gastrointestinal (Abdomen): normal bowel sounds, soft, nontender, no hepatosplenomegaly Musculoskeletal: +generalized weakness Skin: no rashes, warm and dry (pale. sl dry skin) Neurologic: Alert to self. Confused at baseline, slightly anxious Results & Data Vital Signs (Past 12 Hours) Vital Signs Temp Pulse Pulse Resp BP Pulse Ox O2 Del Method 03/15/23 08:25 36.4 C L 69 17 146/67 H 97 Room Air 03/15/23 03:04 36.5 C 65 18 135/68 98 Room Air 03/14/23 23:17 36.5 C 66 18 128/60 96 Room Air 03/14/23 23:11 66 Laboratory Results data reviewed Diagnostic Findings data reviewed PG Care Time/CCT Total # of Minutes Spent Total Time Spent: 78 Total Time Spent with Patient: Total time spent is greater than 50% in coordination of care (as documented) at patient's floor/unit and/or counseling patient: [place] [address] IN/OBS CONSULT LVL 5,80M Patient Type New History Comprehensive Exam Comprehensive Medical Decision Making Moderate Complexity Diagnoses Palliative care by specialist Z51.5 Discussion about advance care planning held with family member Z71.0 Dyspnea and respiratory abnormalities R06.00; R06.89 Weakness generalized R53.1 Sepsis A41.9 Acute metabolic encephalopathy G93.41 Dementia F03.90 Dementia behavioral or psychological symptom: unspecified whether behavioral, psychotic, or mood disturbance or anxiety Dementia severity: unspecified severity Dementia type: unspecified type MGUS (monoclonal gammopathy of unknown significance) D47.2
[2023-03-15] MEDS ORDERED: MAGNESIUM SULFATE / D5W 1 GM/100 ML BAG IV ONE (09:36)
[2023-03-15] MEDS: POTASSIUM CHLORIDE / WTR 10 MEQ/100 ML PLCT IV SCH ×3 (10:41→12:41)
--- NOTE | 2023-03-15 13:32 | Palliative Care Progress Note ---
Date of Service March 15, 2023 Assessment & Plan (1) Palliative care by specialist: Plan: Met with son/Dk. Provided overview of Palliative Medicine, a subspecialty that provides specialized medical care for people living with a serious illness by offering a focus on quality of life. Palliative Medicine is often conflated with hospice: I advised patient/family that Palliative and hospice can be partners but we are not the same. It is important to understand the difference so that we may be informed, and not afraid. Palliative Medicine works to improve QOL through reduction of symptom burden/more control over their illness, for both the patient and family. Palliative medicine clinicians are board certified, specially-trained and another member of the patient's medical care team. We often provide an extra layer of support because our care is based on the needs of the patient, not the prognosis; as such, it's appropriate at any age/advancing stage of a serious illness and can be provided along with curative treatment. Palliative Medicine clinicians are also trained in advanced communication methodologies, to facilitate complex discussions about advanced illness planning, which are needed to help assure that the treatment choices match the patient's goals, aka delivering Goal Concordant care. Finally, we discussed that hospice is a visiting nurse service that focuses on care delivered at the very end of life for patients with terminal illness, with life expectancy less than 6 month. (2) Discussion about advance care planning held with family member: Plan: Spoke with jayesh Perez x30 min Advance illness planning conversations are conducted to review goals and expectations, support shared decision-making, and engage in disease specific advance care planning. This type of advance care planning is sometimes referred to as 'preparedness planning. It is used to review the risks and benefits of offered therapy, elicit and deepen understanding of the underlying illness and therapeutic options, ensure adequate psychosocial support, address existential concerns and coping, and engage in end-of-life planning. Preparedness planning is not meant to replace informed consent discussions. Palliative medicine plays a role in the process of deepening a patients understanding of this specific medical intervention and ensuring this treatment aligns with their goals of care remains a central tenet of the planning conversation. We reviewed the following facts about dementia: * Dementia is a terminal illness. Aggressive medical treatment for residents with advanced dementia is often inappropriate for medical reasons, has a low rate of success, and can have negative outcomes that hasten functional decline and . ([employer] Ethics Committee and Clinical Practice and Models of Care Committee. J Am Geriatr Soc. 2014 May;62(8):1590-3 and Omero SL, Nicolaso JM, Pederson SC, Garry V. A national study of the location of for older persons with dementia. J Am Geriatr Soc 2005; 53(2):299-305 .) * Tube feeding in residents with advanced dementia does not increase survival. It does not prevent aspiration pneumonia, malnutrition or pressure ulcers. It does not reduce the risk of infections or improve functional status or comfort of the patient. (from: Rl MICHELLE, Anitra T Percutaneous endoscopic gastrostomy does not prolong survival in patients with dementia. Arch Barometers Calibrator Med 2003; 163(11):8129-0022 AND Edith DE, Velma CRISTÓBAL, Dallas J, Kyleigh S, Jose RS. High short-term mortality in hospitalized patients with advanced dementia - Lack of benefit of tube feeding. Arch Barometers Calibrator Med 2001; 161(4):594- 599.) * Simple strategies involving hands-on care by well-trained staff such as massage, oral hygiene, changes in diet, and hand-feeding -- can prevent infection and manage feeding problems without resort to tube-feeding. * Tube feeding does not prevent aspiration pneumonia and might actually increase its incidence, and does not prevent the consequences of malnutrition * Hand feeding can be provided until the beginning of the dying process when all physiological processes shut down, note that cognitively intact cancer patients indicate that dying residents do not feel hunger and thirst. * Voluntary refusal of food and liquids is often initiated by hospice patients and does not result in discomfort * The majority of older Americans whose underlying cause of is attributable to dementia on their certificate in nursing homes. State-level factors, including the availability of hospital and intermediate beds and the age of decedents in the population, explain, in part, the wide [id number] variability in the proportion of dementia-related deaths occurring in the hospital. * Older adults with dementia frequently receive acute care in their last year of life although Hospice care was more common for home/FRANCK residents. Overall time in hospice remains short due to the underutilization of the hospice benefit for terminal dementia (Arti MM, Mitra JM, Duckworth KM, German DE, Berry PY. Dementia Care in the Last Year of Life: Experiences in a Community Practice and in [facility] Facilities. J Palliat Care. 2022;38(2):135-142. doi:10.1177/[id number]) * Home Hospice is a valuable option for terminal dementia who desire to have peaceful EOL at home. Home hospice care for advanced dementia can improve symptom management and caregiver satisfaction, while decreasing caregiver burden, preventing hospitalizations and discontinuing unnecessary medications (Raven MANUEL, Apolonia R, Esdras G, et al. Home hospice for older people with advanced dementia: a airplane pilot commercial project [published correction appears in Isr J Health Policy Res. 2019 Apr 03;8(1):56]. Isr J Health Policy Res. 2019;8(1):42. Published 2018February 06. doi:10.1186/w53176-598-2494-x) * We discussed the goals of hospice as a patient service and the goals of care; we discussed EOL trajectories and transitions annie the emotional impact of realizing mortality as a concrete reality from prior abstract considerations. Pt was reassured that no matter where they are along this trajectory, they are not alone - their medical team will remain by their side through their journey. Discussed the pros/cons of accepting help when especially weakened and distressed by pain-which would also help provide relief/decrease caregiver burden/strain. Dk shares pt has been on a steady decline for over 6 mos. half-way teams suggested hospice and he has been in discussions with family about it - they all feel it is time for hospice. They do not want Elke to have aggressive care at this stage. He notes tearfully they see and hear her suffering. She is trapped in a mind that is no longer her own and she is no longer able to do anything that brings her real aminta They want to assure whatever time she has is comfortable and peaceful. See below for specific reccs. (3) Dyspnea and respiratory abnormalities: (4) Weakness generalized: (5) Acute metabolic encephalopathy: (6) Pneumonia: Plan * Dk would like plan for return to SNF with hospice at SNF: we reviewed that hospice is a valuable service for persons with advanced dementia, particularly in management of pain, continuous involvement of the primary physician, and avoidance of hospitalization. Social support provided to caregivers is also i mportant given their high levels of depressive symptoms and anxiety. The goal of care for residents with advanced dementia is primarily maintenance of function and patient should not be transferred to an acute care setting because hospitalization results in decline of functional abilities that do not recover after discharge back into intermediate. * Care Mgt to assist/follow up with Dk re hospice at SNF * Primary team will determine timing for dc once medically stable * No escalation of care. Treat what's treatable this admission ie PNA, and assure comfort. Move to comfort care status but complete current Abtx regimen. allow po as tolerated for comfort - PERMISSIVE ASPIRATION ALLOWED. * No further labs, testing, imaging * No return to hospital * Comfort Care Discharge Summary & Plan of Care Comfort plan of care agreed upon by: Jayesh / GENEVIEVE Dk Discussed with Patient/Family on: 03/15/23 Copy of this plan will be given to: son and SNF by CM prior to dc Comfort plan of care parameters: 1. Patient and family would like hospice added to their care. dk has NO agency preference. 2. NO rehab/PT/OT 3. Strictly End of Life care only 4. No escalation of care: do not increase oxygen, escalate therapies, etc. The focus is on comfort through end of life, assure this is accomplished with aggressive symptom management (i.e. relief of dyspnea, pain, etc.) 5. NO return to hospital 6. No labs 7. No imaging 8. No surgery 9. PO as tolerated for comfort and pleasure/no dietary restriction. PER MISSIVE ASPIRATION ALLOWED. 10. Continue Barrios catheter for comfort/hygiene/skin protection 11. If difficulty urinating/commode/bedpan, ok to place Barrios catheter for comfort/hygiene/skin protection 12. No calorie counts 13. No artificial nutrition or hydration 14. No feeding tubes 15. No IVs Medications to continue: SEE DC SUMMARY Provider to contact if any questions about comfort plan of care: [facility] Thank you for allowing us to participate in the ongoing care of this patient. Please don't hesitate to call or page with any additional concerns. Dr. Xochilt Troncoso DNP Director, Palliative Care Admission and Anticipated Discharge Date Admission Date: March 13, 2023 Subjective family meeting-teleconf with jayesh Perez Results & Data Vital Signs (Past 12 Hours) Vital Signs Temp Pulse Pulse Resp BP Pulse Ox O2 Del Method 03/15/23 12:28 36.5 C 57 L 19 147/67 H 97 Room Air 03/15/23 12:23 61 03/15/23 08:25 36.4 C L 69 17 146/67 H 97 Room Air 03/15/23 03:04 36.5 C 65 18 135/68 98 Room Air PG Care Time/CCT Total # of Minutes Spent Total Time Spent: 75 Total Time Spent with Patient: Total time spent is greater than 50% in coordination of care (as documented) at patient's floor/unit and/or counseling patient: I spent 75 minutes overall addressing this case: 10 in medical data review/discussion with referring provider(s) and/or preparation for the visit 20 in direct interaction with the patient 30 Advance Care Planning/Goals of Care discussions as detailed above in note (must be >16min) 5 in subsequent review and synthesis of assessment and plan 10 in communicating with other providers regarding the patient's case: [] Advanced Care Planning 72124 Advanced Care Planning 30 [place] [address] SUB INP/OBS CARE 3/50MIN Patient Type Established Medical Decision Making Moderate Complexity Diagnoses Palliative care by specialist Z51.5 Discussion about advance care planning held with family member Z71.0 Dyspnea and respiratory abnormalities R06.00; R06.89 Weakness generalized R53.1 Acute metabolic encephalopathy G93.41 Pneumonia J18.9 Additional Codes Advanced Care Planning - 05405 Advanced Care Planning 30 Min: 11179 Advanced Care Planning 30 Min ([id number])
--- NOTE | 2023-03-15 16:28 | Hospitalist Progress Note ---
Date of Service March 15, 2023 Assessment & Plan (1) Pneumonia: Plan: Presented with respiratory distress and likely has bilateral aspiration pneumonia as per CT scan Aspiration pneumonia Dysphagia --CT Chest:Bilateral lower lobe patchy densities which could be from aspiration changes.Small right pleural effusion -- Blood culture negative to date Continue Zosyn, doxycycline>> transition to daptomycin, meropenem Failed swallow eval Speech therapy consulted Poor candidate for PEG tube given advanced dementia Appreciate Palliative care Input May need to allow permissive aspiration if patient's family agrees Continue IV fluids as needed No escalation of care per family Goal is comfort Afebrile today Leukocytosis resolved Plan to transition to hospice upon discharge (2) Sepsis: Plan: Presented with possible early sepsis Lactate level was not elevated but procalcitonin was mildly elevated at 0.81 Secondary to aspiration pneumonia, UTI (3) UTI (urinary tract infection): Plan: Urine culture: Enterococcus (>100K), Pseudomonas (20K) Transition Zosyn, Doxy to transition to daptomycin, meropenem Sacral Wound Continue Wound Care On Antibiotics as above (4) Dementia: Plan: severe dementia (5) Hypertension: Plan: Stable Monitor Resume amlodipine if able (6) MGUS (monoclonal gammopathy of unknown significance): (7) Hypothyroidism: Plan: Currently not on any levothyroxine H/O PE and DVT Hold Eliquis while NPO Continue IV Heparin for now History of FOSTER Not on any CPAP Continue supplemental oxygen as needed Chronic diastolic congestive heart failure with history of CAD Seems to be stable DVT Px: IV Heparin CODE STATUS DNR/DNI Disposition SNF with Hospice as able Admission and Anticipated Discharge Date Admission Date: March 13, 2023 Subjective Patient is seen and examined at bedside Less Lethargic this morning during my encounter Later more confused and agitated noted by RN Follows simple commands Discussed with palliative care today Patient denies any chest pain, shortness of breath, dizziness Review of Systems Review of Systems: Other Physical Exam Physical Exam: Physical Exam: Vitals signs as noted above General Appearance:Chronic ill appearing, Thin, frail, elderly, no distress Head: normocephalic, Atraumatic Eyes: normal inspection, EOMI Neck: supple, Trachea midline Respiratory/Chest: Normal breath sounds, CTA, No accessory muscle use Cardiovascular: S1, S2, No murmur Abdomen/GI:Soft, Non tender, Bowel sounds present Extremities/Musculoskeletal:normal inspection, no edema Neurologic/Psych: grossly no focal neurological deficits, +Dementia Skin: normal color, warm Results & Data Results & Data Vital Signs (Past 12 Hours) Vital Signs Temp Pulse Pulse Resp BP Pulse Ox O2 Del Method 03/15/23 16:14 36.5 C 73 20 143/55 H 95 Room Air 03/15/23 12:28 36.5 C 57 L 19 147/67 H 97 Room Air 03/15/23 12:23 61 03/15/23 08:25 36.4 C L 69 17 146/67 H 97 Room Air Laboratory Results Short CBC 03/15/23 Range/Units 05:52 WBC 6.51 (4.8-10.8) K/ul Hgb 8.4 L (12.0-16.0) g/dl Hct 25.9 L (37.0-47.0) % Plt Count 255 (130-400) K/uL BMP 03/15/23 05:52 Sodium 143 Potassium 3.2 L Chloride 111 H Carbon Dioxide 26 BUN 6 Creatinine 0.58 L Glucose 86 Calcium 8.4 L (4) Dementia Dementia behavioral or psychological symptom: unspecified whether behavioral, psychotic, or mood disturbance or anxiety Dementia severity: unspecified severity Dementia type: unspecified type Qualified Code(s): F03.90 - Unspecified dementia, unspecified severity, without behavioral disturbance, psychotic disturbance, mood disturbance, and anxiety
[2023-03-15] MEDS: DAPTOmycin 350 MG in SYRINGE 0 ML IV SCH (18:17)
[2023-03-15] MEDS: MEROPENEM 500 MG in SYRINGE 0 ML IV SCH (18:17)
[2023-03-15] MEDS: ACETAMINOPHEN 1,000 MG/100 ML VIAL IV PRN (19:35)
[2023-03-16] MEDS: MEROPENEM 500 MG in SYRINGE 0 ML IV SCH ×4 (01:30→20:04)
[2023-03-16 06:10] LABS: Hematocrit (blood only) 28.3 % (37.0-47.0); Hemoglobin 9.3 g/dl (12.0-16.0); Mean Corpuscular Hemoglobin 27.7 pg (25.0-34.0); Mean Corpuscular Hgb Conc 32.9 g/dL (32.0-36.0); Mean Corpuscular Volume 84.2 fL (80.0-100.0); Platelet Count 254 K/uL (130-400); RDW Coefficient of Variation 16.4 % (11.5-14.5); RDW Standard Deviation 51.4 fL (36.4-46.3); Red Blood Count 3.36 M/uL (4.20-5.40); White Blood Count 5.65 K/ul (4.8-10.8)
[2023-03-16 06:30] LABS: BUN Creatinine Ratio 12.5 (10-20); Calcium 8.7 mg/dl (8.6-10.3); Creatinine Clr Calc Pharmacy 62.7 ml/min; Est GFR (African American) 104.4 ml/min; Est GFR (Non-African American) 90.1 ml/min; Magnesium 1.9 mg/dl (1.7-2.4); Potassium 3.4 mmol/L (3.5-5.1)
[2023-03-16 06:56] LABS: Partial Thromboplastin Ratio 1.6
[2023-03-16 07:03] LABS: Partial Thromboplastin Time 46.5 Seconds (21.0-31.0)
[2023-03-16] MEDS: SODIUM CHLORIDE 0.9% 1000ML 1,000 ML IV SCH (07:45)
[2023-03-16] MEDS ORDERED: D5W AND 1/2NSS + 20MEQ KCL 20 MEQ/1,000 ML BAG IV SCH (09:00)
[2023-03-16] MEDS: FAMOTIDINE 20 MG in SYRINGE 3 ML IV SCH ×2 (09:24→20:04)
[2023-03-16] MEDS: POTASSIUM CHLORIDE / WTR 10 MEQ/100 ML PLCT IV SCH ×2 (09:25→10:29)
[2023-03-16] MEDS: ACETAMINOPHEN 1,000 MG/100 ML VIAL IV PRN ×2 (09:25→21:13)
[2023-03-16] MEDS: HEPARIN SODIUM/DEXTROSE 25,000 UNITS/500 ML BAG IV SCH (10:31)
[2023-03-16] MEDS: D5W AND 1/2NSS + 20MEQ KCL 20 MEQ/1,000 ML BAG IV SCH (11:40)
--- NOTE | 2023-03-16 14:34 | Hospitalist Progress Note ---
Date of Service March 16, 2023 Assessment & Plan (1) Pneumonia: Plan: Presented with respiratory distress and likely has bilateral aspiration pneumonia as per CT scan Aspiration pneumonia Dysphagia --CT Chest:Bilateral lower lobe patchy densities which could be from aspiration changes.Small right pleural effusion -- Blood culture negative to date Continue Zosyn, doxycycline>> transition to daptomycin, meropenem Failed swallow eval Speech therapy consulted Poor candidate for PEG tube given advanced dementia Appreciate Palliative care Input May need to allow permissive aspiration if patient's family agrees Continue IV fluids as needed No escalation of care per family Goal is comfort Afebrile today Leukocytosis resolved Plan to transition to hospice upon discharge Appreciate ID input Needs to complete 7-day course of IV antibiotics Advance diet as tolerated (2) Sepsis: Plan: Presented with possible early sepsis Lactate level was not elevated but procalcitonin was mildly elevated at 0.81 Secondary to aspiration pneumonia, UTI (3) UTI (urinary tract infection): Plan: Urine culture: Enterococcus (>100K), Pseudomonas (20K) Transition Zosyn, Doxy to transition to daptomycin, meropenem Sacral Wound Continue Wound Care On Antibiotics as above (4) Dementia: Plan: severe dementia (5) Hypertension: Plan: Stable Monitor Resume amlodipine if able (6) MGUS (monoclonal gammopathy of unknown significance): (7) Hypothyroidism: Plan: Currently not on any levothyroxine H/O PE and DVT Hold Eliquis while NPO Continue IV Heparin for now History of FOSTER Not on any CPAP Continue supplemental oxygen as needed Chronic diastolic congestive heart failure with history of CAD Seems to be stable DVT Px: IV Heparin CODE STATUS DNR/DNI Disposition SNF with Hospice as able Admission and Anticipated Discharge Date Admission Date: March 13, 2023 Subjective Patient is seen and examined at bedside States having minimal pain at sacral region Mental status seems to be slowly improving Denies any chest pain, shortness of breath, dizziness Afebrile today Review of Systems Review of Systems: All systems reviewed & are unremarkable except as noted in Subjective Physical Exam Physical Exam: Physical Exam: Vitals signs as noted above General Appearance:Chronic ill appearing, Thin, frail, elderly, no distress Head: normocephalic, Atraumatic Eyes: normal inspection, EOMI Neck: supple, Trachea midline Respiratory/Chest: Normal breath sounds, CTA, No accessory muscle use Cardiovascular: S1, S2, No murmur Abdomen/GI:Soft, Non tender, Bowel sounds present Extremities/Musculoskeletal:normal inspection, no edema Neurologic/Psych: grossly no focal neurological deficits, +Dementia Skin: normal color, warm Results & Data Results & Data Vital Signs (Past 12 Hours) Vital Signs Temp Pulse Pulse Resp BP Pulse Ox O2 Del Method 03/16/23 07:20 64 03/16/23 11:30 36.8 C 81 21 145/72 H 99 Room Air 03/16/23 07:57 36.5 C 66 17 145/56 H 97 Room Air 03/16/23 03:00 36.3 C L 53 L 20 155/72 H 95 Room Air Laboratory Results Short CBC 03/16/23 Range/Units 05:52 WBC 5.65 (4.8-10.8) K/ul Hgb 9.3 L (12.0-16.0) g/dl Hct 28.3 L (37.0-47.0) % Plt Count 254 (130-400) K/uL BMP 03/16/23 05:52 Sodium 143 Potassium 3.4 L Chloride 109 H Carbon Dioxide 26 BUN 6 Creatinine 0.48 L Glucose 63 L Calcium 8.7 (4) Dementia Dementia behavioral or psychological symptom: unspecified whether behavioral, psychotic, or mood disturbance or anxiety Dementia severity: unspecified severity Dementia type: unspecified type Qualified Code(s): F03.90 - Unspecified dementia, unspecified severity, without behavioral disturbance, psychotic disturbance, mood disturbance, and anxiety
[2023-03-16] MEDS: DAPTOmycin 350 MG in SYRINGE 0 ML IV SCH (17:27)
[2023-03-17] MEDS: D5W AND 1/2NSS + 20MEQ KCL 20 MEQ/1,000 ML BAG IV SCH (00:04)
[2023-03-17] MEDS: MEROPENEM 500 MG in SYRINGE 0 ML IV SCH ×4 (02:12→20:39)
[2023-03-17 06:30] LABS: BUN Creatinine Ratio 20.7 (10-20); Creatinine Clr Calc Pharmacy 51.9 ml/min; Est GFR (African American) 98.1 ml/min; Est GFR (Non-African American) 84.6 ml/min; Magnesium 1.8 mg/dl (1.7-2.4)
[2023-03-17 07:02] LABS: Partial Thromboplastin Ratio 1.5; Partial Thromboplastin Time 42.4 Seconds (21.0-31.0)
[2023-03-17] MEDS: FAMOTIDINE 20 MG in SYRINGE 3 ML IV SCH (08:27)
[2023-03-17] MEDS: HEPARIN SODIUM/DEXTROSE 25,000 UNITS/500 ML BAG IV SCH (10:47)
[2023-03-17] MEDS: APIXABAN 5 MG TABLET PO SCH ×2 (11:49→21:02)
[2023-03-17] MEDS: ACETAMINOPHEN 1,000 MG/100 ML VIAL IV PRN (11:50)
--- NOTE | 2023-03-17 14:53 | Hospitalist Progress Note ---
Date of Service March 17, 2023 Assessment & Plan (1) Pneumonia: Plan: Presented with respiratory distress and likely has bilateral aspiration pneumonia as per CT scan Aspiration pneumonia Dysphagia --CT Chest:Bilateral lower lobe patchy densities which could be from aspiration changes.Small right pleural effusion -- Blood culture negative to date Continue Zosyn, doxycycline>> transition to daptomycin, meropenem Failed swallow eval Speech therapy consulted Poor candidate for PEG tube given advanced dementia Appreciate Palliative care Input IV fluids as needed No escalation of care per family Goal is comfort Afebrile today Leukocytosis resolved Plan to transition to hospice upon discharge Appreciate ID input Needs to complete 7-day course of IV antibiotics Tolerating current diet Transfer out of PCU (2) Sepsis: Plan: Presented with possible early sepsis Lactate level was not elevated but procalcitonin was mildly elevated at 0.81 Secondary to aspiration pneumonia, UTI (3) UTI (urinary tract infection): Plan: Urine culture: Enterococcus (>100K), Pseudomonas (20K) Transition Zosyn, Doxy to transition to daptomycin, meropenem Sacral Wound Continue Wound Care On Antibiotics as above (4) Dementia: Plan: severe dementia (5) Hypertension: Plan: Stable Monitor Resume amlodipine (6) MGUS (monoclonal gammopathy of unknown significance): (7) Hypothyroidism: Plan: Currently not on any levothyroxine H/O PE and DVT Continue Eliquis History of FOSTER Not on any CPAP Continue supplemental oxygen as needed Chronic diastolic congestive heart failure with history of CAD stable DVT Px: Eliquis CODE STATUS DNR/DNI Disposition SNF with Hospice as able Admission and Anticipated Discharge Date Admission Date: March 13, 2023 Subjective Patient is seen and examined at bedside History unreliable due to dementia Doing well today No new complaints Mental status seems seemed to be back to baseline Tolerated diet Denies any chest pain, shortness of breath, dizziness Review of Systems Review of Systems: All systems reviewed & are unremarkable except as noted in Subjective Physical Exam Physical Exam: Physical Exam: Vitals signs as noted above General Appearance:Chronic ill appearing, Thin, frail, elderly, no distress Head: normocephalic, Atraumatic Eyes: normal inspection, EOMI Neck: supple, Trachea midline Respiratory/Chest: Normal breath sounds, CTA, No accessory muscle use Cardiovascular: S1, S2, No murmur Abdomen/GI:Soft, Non tender, Bowel sounds present Extremities/Musculoskeletal:normal inspection, no edema Neurologic/Psych: grossly no focal neurological deficits, +Dementia Skin: normal color, warm Results & Data Results & Data Vital Signs (Past 12 Hours) Vital Signs Temp Pulse Pulse Resp BP Pulse Ox O2 Del Method 03/17/23 12:01 36.5 C 75 18 130/62 96 Room Air 03/17/23 08:24 36.5 C 72 19 163/68 H Room Air 03/17/23 07:22 58 L 03/17/23 03:00 36.5 C 69 18 120/67 97 Room Air Laboratory Results [facility] 03/17/23 05:48 Sodium 141 Potassium 4.0 Chloride 107 Carbon Dioxide 28 BUN 12 Creatinine 0.58 L Glucose 101 H Calcium 9.0 (4) Dementia Dementia behavioral or psychological symptom: unspecified whether behavioral, psychotic, or mood disturbance or anxiety Dementia severity: unspecified severity Dementia type: unspecified type Qualified Code(s): F03.90 - Unspecified dementia, unspecified severity, without behavioral disturbance, psychotic disturbance, mood disturbance, and anxiety
[2023-03-17] MEDS: DAPTOmycin 350 MG in SYRINGE 0 ML IV SCH (16:40)
[2023-03-17] MEDS: FAMOTIDINE 20 MG TAB PO SCH (21:02)
[2023-03-17] MEDS: SERTRALINE HCL 50 MG TABLET PO SCH (21:02)
[2023-03-18] MEDS: MEROPENEM 500 MG in SYRINGE 0 ML IV SCH ×4 (02:58→20:00)
[2023-03-18 07:46] LABS: Partial Thromboplastin Ratio 1.1; Partial Thromboplastin Time 30.2 Seconds (21.0-31.0)
[2023-03-18] MEDS: APIXABAN 5 MG TABLET PO SCH ×2 (08:41→20:01)
[2023-03-18] MEDS: amLODIPine BESYLATE 5 MG TAB PO SCH (08:41)
[2023-03-18] MEDS: PANTOprazole 40 MG TAB PO SCH (08:41)
[2023-03-18] MEDS: ACETAMINOPHEN 325 MG TAB PO PRN (09:51)
--- NOTE | 2023-03-18 13:06 | Hospitalist Progress Note ---
Date of Service March 18, 2023 Assessment & Plan (1) Pneumonia: Plan: Presented with respiratory distress and likely has bilateral aspiration pneumonia as per CT scan Aspiration pneumonia Dysphagia --CT Chest:Bilateral lower lobe patchy densities which could be from aspiration changes.Small right pleural effusion -- Blood culture negative to date Continue Zosyn, doxycycline>> transition to daptomycin, meropenem Failed swallow eval Speech therapy consulted Poor candidate for PEG tube given advanced dementia Appreciate Palliative care Input IV fluids as needed No escalation of care per family Goal is comfort Afebrile today Leukocytosis resolved Plan to transition to hospice upon discharge to SNF Appreciate ID input Needs to complete 7-day course of IV antibiotics Tolerating current diet Continue current management Continue aspiration precautions (2) Sepsis: Plan: Presented with possible early sepsis Lactate level was not elevated but procalcitonin was mildly elevated at 0.81 Secondary to aspiration pneumonia, UTI (3) UTI (urinary tract infection): Plan: Urine culture: Enterococcus (>100K), Pseudomonas (20K) Transition Zosyn, Doxy to transition to daptomycin, meropenem Sacral Wound Continue Wound Care On Antibiotics as above (4) Dementia: Plan: severe dementia (5) Hypertension: Plan: Stable Monitor Resume amlodipine (6) MGUS (monoclonal gammopathy of unknown significance): (7) Hypothyroidism: Plan: Currently not on any levothyroxine H/O PE and DVT Continue Eliquis History of FOSTER Not on any CPAP Continue supplemental oxygen as needed Chronic diastolic congestive heart failure with history of CAD stable DVT Px: Eliquis CODE STATUS DNR/DNI Disposition SNF with Hospice after completion of IV antibiotic course. Admission and Anticipated Discharge Date Admission Date: March 13, 2023 Subjective Patient is seen and examined at bedside History unreliable due to dementia Pleasant during my encounter Offers no new complaints Reported sacral/buttock pain to RN this morning Denies any chest pain, shortness of breath, dizziness Review of Systems Review of Systems: All systems reviewed & are unremarkable except as noted in Subjective Physical Exam Physical Exam: Physical Exam: Vitals signs as noted above General Appearance:Chronic ill appearing, Thin, frail, elderly, no distress Head: normocephalic, Atraumatic Eyes: normal inspection, EOMI Neck: supple, Trachea midline Respiratory/Chest: Normal breath sounds, CTA, No accessory muscle use Cardiovascular: S1, S2, No murmur Abdomen/GI:Soft, Non tender, Bowel sounds present Extremities/Musculoskeletal:normal inspection, no edema Neurologic/Psych: grossly no focal neurological deficits, +Dementia Skin: normal color, warm Results & Data Results & Data Vital Signs (Past 12 Hours) Vital Signs Temp Pulse Resp BP Pulse Ox O2 Del Method 03/18/23 07:35 36.7 C 77 18 118/67 98 Room Air (4) Dementia Dementia behavioral or psychological symptom: unspecified whether behavioral, psychotic, or mood disturbance or anxiety Dementia severity: unspecified severity Dementia type: unspecified type Qualified Code(s): F03.90 - Unspecified dementia, unspecified severity, without behavioral disturbance, psychotic disturbance, mood disturbance, and anxiety
[2023-03-18] MEDS: DAPTOmycin 350 MG in SYRINGE 0 ML IV SCH (17:13)
[2023-03-18] MEDS: SERTRALINE HCL 50 MG TABLET PO SCH (20:01)
[2023-03-18] MEDS: FAMOTIDINE 20 MG TAB PO SCH (20:23)
[2023-03-19] MEDS: MEROPENEM 500 MG in SYRINGE 0 ML IV SCH ×4 (01:59→23:16)
[2023-03-19] MEDS: ACETAMINOPHEN 325 MG TAB PO PRN ×2 (06:05→20:08)
[2023-03-19 06:15] LABS: Hematocrit (blood only) 33.3 % (37.0-47.0); Hemoglobin 10.9 g/dl (12.0-16.0); Mean Corpuscular Hemoglobin 28.1 pg (25.0-34.0); Mean Corpuscular Hgb Conc 32.7 g/dL (32.0-36.0); Mean Corpuscular Volume 85.8 fL (80.0-100.0); Mean Platelet Volume 10.1 fL (9.4-12.4); Platelet Count 311 K/uL (130-400); RDW Coefficient of Variation 16.9 % (11.5-14.5); RDW Standard Deviation 52.3 fL (36.4-46.3); Red Blood Count 3.88 M/uL (4.20-5.40)
[2023-03-19 06:30] LABS: BUN Creatinine Ratio 20.7 (10-20); Calcium 9.8 mg/dl (8.6-10.3); Est GFR (African American) 76.2 ml/min; Est GFR (Non-African American) 65.7 ml/min; Potassium 4.5 mmol/L (3.5-5.1)
[2023-03-19] MEDS: APIXABAN 5 MG TABLET PO SCH ×2 (08:39→20:03)
[2023-03-19] MEDS: amLODIPine BESYLATE 5 MG TAB PO SCH (08:39)
[2023-03-19] MEDS: PANTOprazole 40 MG TAB PO SCH (08:39)
--- NOTE | 2023-03-19 16:28 | Hospitalist Progress Note ---
Date of Service March 19, 2023 Assessment & Plan (1) Pneumonia: Plan: Pt was admitted with respiratory distress secondary to aspiration pneumonia and is currently being treated for multi drug resistant UTI. Aspiration pneumonia Dysphagia --CT Chest:Bilateral lower lobe patchy densities which could be from aspiration changes.Small right pleural effusion -- Blood culture negative to date Was previously on Zosyn, doxycycline>> transitioned to daptomycin, meropenem Failed swallow eval, Speech therapy consulted Poor candidate for PEG tube given advanced dementia Appreciate Palliative care Input IV fluids as needed Family declines escalation of care, Goal is comfort Plan to transition to hospice upon discharge to SNF Appreciate ID input- recommend that she completes 7-day course of IV antibiotics, currently at day 5 Tolerating current diet (2) Sepsis: Plan: Presented with possible early sepsis Lactate level was not elevated but procalcitonin was mildly elevated at 0.81 Secondary to aspiration pneumonia, UTI (3) UTI (urinary tract infection): Plan: Urine culture: Enterococcus (>100K), Pseudomonas (20K) Transition Zosyn, Doxyto daptomycin, meropenem Sacral Wound Continue Wound Care On Antibiotics as noted above (4) Dementia: Plan: severe dementia (5) Hypertension: Plan: Continue amlodipine (6) MGUS (monoclonal gammopathy of unknown significance): Plan: stable (7) Hypothyroidism: Plan: Currently not on any levothyroxine H/O PE and DVT Continue Eliquis History of FOSTER Not on CPAP Continue supplemental oxygen as needed Chronic diastolic congestive heart failure with history of CAD stable DVT Px: Eliquis CODE STATUS: DNR/DNI Disposition: SNF with Hospice after completion of 7 day IV antibiotic course. Admission and Anticipated Discharge Date Admission Date: March 13, 2023 Subjective Pt seen this AM, was resting comfortably. Pleasantly demented. Oriented only to self. Review of Systems Review of Systems: Unobtainable due to cognitive status Physical Exam Physical Exam: General: No acute distress Skin: No noted rashes or bruises Neuro: AAOx1. HEENT: NC/AT CV: RR Resp: Breath sounds clear bilaterally, no increased effort of breathing. Abdomen: Soft, generalized tenderness, nondistended. Results & Data Results & Data Vital Signs (Past 12 Hours) Vital Signs Temp Pulse Resp BP Pulse Ox O2 Del Method 03/19/23 16:15 36.7 C 82 16 134/56 L 97 Room Air 03/19/23 07:54 36.9 C 71 16 111/61 97 Room Air (4) Dementia Dementia behavioral or psychological symptom: unspecified whether behavioral, psychotic, or mood disturbance or anxiety Dementia severity: unspecified severity Dementia type: unspecified type Qualified Code(s): F03.90 - Unspecified dementia, unspecified severity, without behavioral disturbance, psychotic disturbance, mood disturbance, and anxiety
[2023-03-19] MEDS: DAPTOmycin 350 MG in SYRINGE 0 ML IV SCH (17:49)
[2023-03-19] MEDS: SERTRALINE HCL 50 MG TABLET PO SCH (20:02)
[2023-03-19] MEDS: FAMOTIDINE 20 MG TAB PO SCH (20:15)
[2023-03-20 06:44] LABS: Basophils # (auto) 0.12 K/uL (0-0.2); Basophils % (auto) 1.6 %; Eosinophils # (auto) 0.25 K/uL (0-0.50); Eosinophils % (auto) 3.4 %; Hematocrit (blood only) 32.6 % (37.0-47.0); Hemoglobin 10.7 g/dl (12.0-16.0); Immature Granulocytes # (auto) 0.05 K/uL (0.01-0.20); Immature Granulocytes % (auto) 0.7 %; Lymphocytes # (auto) 2.28 K/uL (1.2-3.4); Lymphocytes % (auto) 30.9 %; Mean Corpuscular Hemoglobin 27.7 pg (25.0-34.0); Mean Corpuscular Hgb Conc 32.8 g/dL (32.0-36.0); Mean Corpuscular Volume 84.5 fL (80.0-100.0); Monocytes # (auto) 0.74 K/uL (0.11-0.59); Neutrophils # (auto) 3.93 K/uL (1.40-6.50); Neutrophils % (auto) 53.4 %; Platelet Count 311 K/uL (130-400); RDW Coefficient of Variation 16.9 % (11.5-14.5); RDW Standard Deviation 51.8 fL (36.4-46.3); Red Blood Count 3.86 M/uL (4.20-5.40); White Blood Count 7.37 K/ul (4.8-10.8)
[2023-03-20 07:00] LABS: BUN Creatinine Ratio 36.1 (10-20); Calcium 9.6 mg/dl (8.6-10.3); Creatinine Clr Calc Pharmacy 33.6 ml/min; Est GFR (African American) 75.1 ml/min; Est GFR (Non-African American) 64.8 ml/min; Potassium 4.3 mmol/L (3.5-5.1)
[2023-03-20] MEDS: PANTOprazole 40 MG TAB PO SCH (08:09)
[2023-03-20] MEDS: amLODIPine BESYLATE 5 MG TAB PO SCH (08:09)
[2023-03-20] MEDS: APIXABAN 5 MG TABLET PO SCH ×2 (08:10→20:04)
[2023-03-20] MEDS: ACETAMINOPHEN 325 MG TAB PO PRN (08:12)
[2023-03-20] MEDS: MEROPENEM 500 MG in SYRINGE 0 ML IV SCH ×3 (08:13→23:40)
--- NOTE | 2023-03-20 16:36 | Hospitalist Progress Note ---
Date of Service March 20, 2023 Assessment & Plan (1) Pneumonia: Plan: Pt was admitted with respiratory distress secondary to aspiration pneumonia and is currently being treated for multi drug resistant UTI. Awaiting placement after she completes her 7 days of IV meropenem. Aspiration pneumonia Dysphagia --CT Chest: Showed bilateral lower lobe patchy densities which could be from aspiration changes.Small right pleural effusion -- Blood culture negative to date Was previously on Zosyn with doxycycline and was transitioned to daptomycin with meropenem Failed swallow eval, Speech therapy consulted Poor candidate for PEG tube given advanced dementia Appreciate Palliative care Input IV fluids as needed Family declines escalation of care, Goal is comfort Plan to transition to hospice upon discharge to SNF Appreciate ID input- recommend that she completes 7-day course of IV antibiotics, currently at day 6 of meropenem. Daptomycin course completed. Tolerating current diet (2) Sepsis: Plan: Presented with possible early sepsis Lactate level was not elevated but procalcitonin was mildly elevated at 0.81 Secondary to aspiration pneumonia, UTI (3) UTI (urinary tract infection): Plan: Urine culture: Enterococcus (>100K), Pseudomonas (20K) Transition Zosyn/Doxy to daptomycin/meropenem. Pt has cmpleted course of daptomycin. Sacral Wound Continue Wound Care On Antibiotics as noted above (4) Dementia: Plan: severe dementia (5) Hypertension: Plan: Continue amlodipine (6) MGUS (monoclonal gammopathy of unknown significance): Plan: stable (7) Hypothyroidism: Plan: Currently not on any levothyroxine H/O PE and DVT Continue Eliquis History of FOSTER Not on CPAP Continue supplemental oxygen as needed Chronic diastolic congestive heart failure with history of CAD stable DVT Px: Eliquis CODE STATUS: DNR/DNI Disposition: SNF with Hospice after completion of 7 day IV antibiotic course. Admission and Anticipated Discharge Date Admission Date: March 13, 2023 Subjective Pt seen this AM, was resting comfortably. Pleasantly demented. Denies any acute concerns. Review of Systems Review of Systems: Unobtainable due to cognitive status Physical Exam Physical Exam: General: No acute distress Skin: No noted concerning rashes or bruises Neuro: AAOx1. HEENT: NC/AT CV: RRR Resp: Breath sounds clear bilaterally, no increased effort of breathing. Abdomen: Soft, generalized tenderness, nondistended. Results & Data Results & Data Vital Signs (Past 12 Hours) Vital Signs Temp Pulse Resp BP Pulse Ox O2 Del Method 03/20/23 15:16 36.6 C 73 16 113/54 L 98 Room Air 03/20/23 07:55 36.6 C 77 18 125/63 98 Room Air (4) Dementia Dementia behavioral or psychological symptom: unspecified whether behavioral, psychotic, or mood disturbance or anxiety Dementia severity: unspecified severity Dementia type: unspecified type Qualified Code(s): F03.90 - Unspecified dementia, unspecified severity, without behavioral disturbance, psychotic disturbance, mood disturbance, and anxiety
[2023-03-20] MEDS: SERTRALINE HCL 50 MG TABLET PO SCH (20:04)
[2023-03-20] MEDS: FAMOTIDINE 20 MG TAB PO SCH (20:04)
[2023-03-21 06:58] LABS: Basophils # (auto) 0.11 K/uL (0-0.2); Basophils % (auto) 1.6 %; Eosinophils # (auto) 0.22 K/uL (0-0.50); Eosinophils % (auto) 3.2 %; Hematocrit (blood only) 31.7 % (37.0-47.0); Hemoglobin 10.2 g/dl (12.0-16.0); Immature Granulocytes # (auto) 0.05 K/uL (0.01-0.20); Immature Granulocytes % (auto) 0.7 %; Lymphocytes # (auto) 2.09 K/uL (1.2-3.4); Lymphocytes % (auto) 30.7 %; Mean Corpuscular Hemoglobin 27.7 pg (25.0-34.0); Mean Corpuscular Hgb Conc 32.2 g/dL (32.0-36.0); Mean Corpuscular Volume 86.1 fL (80.0-100.0); Monocytes # (auto) 0.72 K/uL (0.11-0.59); Monocytes % (auto) 10.6 %; Neutrophils # (auto) 3.61 K/uL (1.40-6.50); Neutrophils % (auto) 53.2 %; Platelet Count 309 K/uL (130-400); RDW Coefficient of Variation 16.8 % (11.5-14.5); RDW Standard Deviation 52.4 fL (36.4-46.3); Red Blood Count 3.68 M/uL (4.20-5.40)
[2023-03-21 07:28] LABS: BUN Creatinine Ratio 43.8 (10-20); Calcium 9.5 mg/dl (8.6-10.3); Creatinine Clr Calc Pharmacy 38.2 ml/min; Est GFR (African American) 87.7 ml/min; Est GFR (Non-African American) 75.6 ml/min; Potassium 3.9 mmol/L (3.5-5.1)
[2023-03-21] MEDS: MEROPENEM 500 MG in SYRINGE 0 ML IV SCH ×3 (08:14→22:57)
[2023-03-21] MEDS: amLODIPine BESYLATE 5 MG TAB PO SCH (08:19)
[2023-03-21] MEDS: PANTOprazole 40 MG TAB PO SCH (08:20)
[2023-03-21] MEDS: APIXABAN 5 MG TABLET PO SCH ×2 (08:20→19:59)
[2023-03-21] MEDS: ACETAMINOPHEN 325 MG TAB PO PRN (08:21)
[2023-03-21] MEDS: SERTRALINE HCL 50 MG TABLET PO SCH (19:59)
[2023-03-21] MEDS: FAMOTIDINE 20 MG TAB PO SCH (19:59)
--- NOTE | 2023-03-21 21:40 | Hospitalist Progress Note ---
Date of Service March 21, 2023 Assessment & Plan (1) Pneumonia: Plan: Pt was admitted with respiratory distress secondary to aspiration pneumonia and is currently being treated for multi drug resistant UTI. Awaiting placement after she completes her 7 days of IV meropenem. Aspiration pneumonia Dysphagia --CT Chest: Showed bilateral lower lobe patchy densities which could be from aspiration changes.Small right pleural effusion -- Blood culture negative to date Was previously on Zosyn with doxycycline and was transitioned to daptomycin with meropenem Failed swallow eval, Speech therapy consulted Poor candidate for PEG tube given advanced dementia Appreciate Palliative care Input IV fluids as needed Family declines escalation of care, Goal is comfort Plan to transition to hospice upon discharge to SNF Appreciate ID input- recommend that she completes 7-day course of IV antibiotics, currently at day 7 of meropenem. Daptomycin course completed. Consider discharge in the AM to SNF/Hospice. Tolerating current diet (2) Sepsis: Plan: Presented with possible early sepsis Lactate level was not elevated but procalcitonin was mildly elevated at 0.81 Secondary to aspiration pneumonia, UTI (3) UTI (urinary tract infection): Plan: Urine culture: Enterococcus (>100K), Pseudomonas (20K) Transition Zosyn/Doxy to daptomycin/meropenem. Pt has completed course of daptomycin. Sacral Wound Continue Wound Care On Antibiotics as noted above (4) Dementia: Plan: severe dementia (5) Hypertension: Plan: Continue amlodipine (6) MGUS (monoclonal gammopathy of unknown significance): Plan: stable (7) Hypothyroidism: Plan: Currently not on any levothyroxine H/O PE and DVT Continue Eliquis History of FOSTER Not on CPAP Continue supplemental oxygen as needed Chronic diastolic congestive heart failure with history of CAD stable DVT Px: Eliquis CODE STATUS: DNR/DNI Disposition: SNF with Hospice after completion of 7 day IV antibiotic course. Admission and Anticipated Discharge Date Admission Date: March 13, 2023 Subjective Pt seen this AM, was resting comfortably. Denies any acute concerns. Review of Systems Review of Systems: All systems reviewed & are unremarkable except as noted in Subjective Physical Exam Physical Exam: General: No acute distress Skin: No noted concerning rashes or bruises Neuro: AAOx1. HEENT: NC/AT CV: RRR Resp: Breath sounds clear bilaterally, no increased effort of breathing. Abdomen: Soft, generalized tenderness, nondistended. Results & Data Results & Data Vital Signs (Past 12 Hours) Vital Signs Temp Pulse Resp BP Pulse Ox O2 Del Method 03/21/23 19:50 36.5 C 75 18 130/63 96 Room Air 03/21/23 15:20 36.6 C 70 18 135/57 L 96 Room Air (4) Dementia Dementia behavioral or psychological symptom: unspecified whether behavioral, psychotic, or mood disturbance or anxiety Dementia severity: unspecified severity Dementia type: unspecified type Qualified Code(s): F03.90 - Unspecified dementia, unspecified severity, without behavioral disturbance, psychotic disturbance, mood disturbance, and anxiety
[2023-03-22] MEDS: MEROPENEM 500 MG in SYRINGE 0 ML IV SCH (07:34)
[2023-03-22 07:49] LABS: Basophils % (auto) 1.5 %; Eosinophils # (auto) 0.25 K/uL (0-0.50); Eosinophils % (auto) 3.7 %; Hematocrit (blood only) 29.1 % (37.0-47.0); Hemoglobin 9.5 g/dl (12.0-16.0); Immature Granulocytes # (auto) 0.05 K/uL (0.01-0.20); Immature Granulocytes % (auto) 0.7 %; Lymphocytes # (auto) 2.03 K/uL (1.2-3.4); Lymphocytes % (auto) 29.9 %; Mean Corpuscular Hemoglobin 27.6 pg (25.0-34.0); Mean Corpuscular Hgb Conc 32.6 g/dL (32.0-36.0); Mean Corpuscular Volume 84.6 fL (80.0-100.0); Mean Platelet Volume 10.1 fL (9.4-12.4); Monocytes % (auto) 11.8 %; Neutrophils # (auto) 3.56 K/uL (1.40-6.50); Neutrophils % (auto) 52.4 %; Platelet Count 306 K/uL (130-400); RDW Standard Deviation 52.4 fL (36.4-46.3); Red Blood Count 3.44 M/uL (4.20-5.40); White Blood Count 6.79 K/ul (4.8-10.8)
[2023-03-22 08:12] LABS: BUN Creatinine Ratio 43.1 (10-20); Calcium 9.1 mg/dl (8.6-10.3); Creatinine Clr Calc Pharmacy 38.7 ml/min; Est GFR (African American) 89.1 ml/min; Est GFR (Non-African American) 76.9 ml/min; Potassium 3.9 mmol/L (3.5-5.1)
[2023-03-22] MEDS: PANTOprazole 40 MG TAB PO SCH (08:31)
[2023-03-22] MEDS: APIXABAN 5 MG TABLET PO SCH (08:31)
[2023-03-22] MEDS: amLODIPine BESYLATE 5 MG TAB PO SCH (08:31)
[2023-03-22] MEDS: ACETAMINOPHEN 325 MG TAB PO PRN (08:32)
--- NOTE | 2023-03-22 10:00 | Hospitalist Progress Note ---
Date of Service March 22, 2023 Assessment & Plan (1) Pneumonia: Plan: Pt was admitted with respiratory distress secondary to aspiration pneumonia and is currently being treated for multi drug resistant UTI. Awaiting placement after she completes her 7 days of IV meropenem. Aspiration pneumonia Dysphagia --CT Chest: Showed bilateral lower lobe patchy densities which could be from aspiration changes.Small right pleural effusion -- Blood culture negative to date Was previously on Zosyn with doxycycline and was transitioned to daptomycin with meropenem Failed swallow eval, Speech therapy consulted Poor candidate for PEG tube given advanced dementia Appreciate Palliative care Input IV fluids as needed Family declines escalation of care, Goal is comfort Plan to transition to hospice upon discharge to SNF Appreciate ID input- recommend that she completes 7-day course of IV antibiotics, currently at day 7 of meropenem. Completed IV meropenem, daptomycin course Plan to be discharged to SNF to be eventually transition to hospice as o utpatient (2) Sepsis: Plan: Presented with possible early sepsis Lactate level was not elevated but procalcitonin was mildly elevated at 0.81 Secondary to aspiration pneumonia, UTI (3) UTI (urinary tract infection): Plan: Urine culture: Enterococcus (>100K), Pseudomonas (20K) Transitioned Zosyn/Doxy to daptomycin/meropenem as above Patient completed IV Meropenem course Sacral Wound Continue Wound Care On Antibiotics as noted above (4) Dementia: Plan: severe dementia (5) Hypertension: Plan: Continue amlodipine (6) MGUS (monoclonal gammopathy of unknown significance): Plan: stable (7) Hypothyroidism: Plan: Currently not on any levothyroxine H/O PE and DVT Continue Eliquis History of FOSTER Not on CPAP Continue supplemental oxygen as needed Chronic diastolic congestive heart failure with history of CAD stable DVT Px: Eliquis CODE STATUS: DNR/DNI Disposition: SNF with possible transition to Hospice as outpatient Admission and Anticipated Discharge Date Admission Date: March 13, 2023 Subjective Patient is seen and examined at bedside Sitting in chair during my encounter No distress on exam Poor historian secondary to dementia Denies any chest pain, dyspnea Plan to be discharged to SNF today Review of Systems Review of Systems: Unobtainable due to cognitive status Physical Exam Physical Exam: Physical Exam: Vitals signs as noted above General Appearance:Chronic ill appearing, Thin, frail, elderly, no distress Head: normocephalic, Atraumatic Eyes: normal inspection, EOMI Neck: supple, Trachea midline Respiratory/Chest: Normal breath sounds, CTA, No accessory muscle use Cardiovascular: S1, S2, No murmur Abdomen/GI:Soft, Non tender, Bowel sounds present Extremities/Musculoskeletal:normal inspection, no edema Neurologic/Psych: grossly no focal neurological deficits, +Dementia Skin: normal color, warm Results & Data Results & Data Vital Signs (Past 12 Hours) Vital Signs Temp Pulse Resp BP Pulse Ox O2 Del Method 03/22/23 07:37 Room Air 03/22/23 07:07 37.3 C 78 16 127/56 L 96 Room Air Laboratory Results Short CBC 03/22/23 Range/Units 07:22 WBC 6.79 (4.8-10.8) K/ul Hgb 9.5 L (12.0-16.0) g/dl Hct 29.1 L (37.0-47.0) % Plt Count 306 (130-400) K/uL BMP 03/22/23 07:22 Sodium 142 Potassium 3.9 Chloride 106 Carbon Dioxide 31 BUN 31 H Creatinine 0.72 Glucose 88 Calcium 9.1 (4) Dementia Dementia behavioral or psychological symptom: unspecified whether behavioral, psychotic, or mood disturbance or anxiety Dementia severity: unspecified severity Dementia type: unspecified type Qualified Code(s): F03.90 - Unspecified dementia, unspecified severity, without behavioral disturbance, psychotic disturbance, mood disturbance, and anxiety
--- NOTE | 2023-03-22 12:57 | Discharge Summary ---
Date of Service March 22, 2023 Admission HPI Per Admitting Provider CHIEF COMPLAINT: Respiratory distress, possible early sepsis. HISTORY OF PRESENT ILLNESS: An 82-year-old female with past medical history significant for hypertension, slow transit constipation, history of chronic chol ecystitis, nephrolithiasis, compression fracture of L1 vertebra, osteoporosis, senile dementia, monoclonal gammopathy of unknown significance, history of chronic diastolic CHF, valvular heart disease, mild TR, [place], MR, [place] echo 2015, history of CAD, recent PE/DVT in February of 2023, on Eliquis, hypothyroidism, chronic anemia, baseline hemoglobin of 9, anxiety, mood disorder, presents with shortness of breath, fever, tachycardia. The patient lives at [facility]. It looks like she also was recently seen by home visit on 03/10/2023, looks like treated with Rocephin and transitioned to cefdinir as she was having fevers, tachycardia, significant leukocytosis, and procalcitonin elevation, but lactate was normal. Tonight,as per [facility] staff s like after giving her pills, the patient suddenly became short of breath and spiked temperature, tachycardic, and oxygen saturations were going down, requiring oxygen, that is the reason she was sent in here, for possible aspiration pneumonitis. The patient when she came in was tachycardic and improved with the fluids. She had a temperature spike of 38.2. As per nursing staff in [facility], the patient is oriented to person only, nonambulatory. She can transition to wheelchair with 1 person or sometimes 2 persons. Last few months she is declining. She is not able to swallow. She is currently on pureed diet and when they suctioned today they found some thick whitish phlegm with some blood streaks and also some food material. The patient currently is mumbling, not able to answer any questions. Could not get any history from the patient. As per nursing,no recent nausea, vomiting or diarrhea. As per the [facility], she is a DNR. Admission Exam Per Admitting Provider PHYSICAL EXAMINATION: GENERAL: The patient is currently mumbling, not able to answer questions. Does not seem to be in acute distress. VITAL SIGNS: Temperature T-max 38.2, pulse 106, respiratory rate 16, blood pressure 127/67, oxygen 96% on 2 liters. HEENT: Pupils equal, round, and reactive to light. No facial droop seen. NECK: No neck masses, no JVD seen. CARDIOVASCULAR: S1 and S2 heard. Tachycardia. No murmurs. RESPIRATORY SYSTEM: Normal AP diameter. No accessory muscle use. No wheezing, no crackles. ABDOMEN: Soft, bowel sounds present, nontender, no distention. CENTRAL NERVOUS SYSTEM: The patient is somewhat lethargic. Moves extremities on touch stimuli. EXTREMITIES: No edema, no erythema seen. Principal Diagnosis Aspiration pneumonia Dysphagia Urinary tract infection Sacral wound Dementia Discharge Data Allergies Allergy/AdvReac Type Severity Reaction Status Date / Time ciprofloxacin Allergy Intermediate HIVES Verified 02/27/23 22:08 latex Allergy Intermediate Rash Verified 02/27/23 22:08 morphine Allergy Intermediate Rash Verified 02/27/23 22:08 Sulfa (Sulfonamide Allergy Intermediate RASH Verified 02/27/23 22:08 Antibiotics) acetaminophen AdvReac Intermediate GI SYMPTOMS Verified 02/27/23 22:08 Iodinated Contrast Media AdvReac Intermediate NAUSEA/WARM Verified 02/27/23 22:08 FEELING PER MEDROL QUESTIONAIRE oxycodone AdvReac Intermediate GI SYMPTOMS Verified 02/27/23 22:08 codeine AdvReac Mild Nausea Verified 02/27/23 22:08 propoxyphene AdvReac Unknown SENSITIVITY Verified 02/27/23 22:08 Consultations 03/12/23 23:53 ED Decision to Admit Stat 03/14/23 11:57 Consult Palliative Care Routine 03/16/23 09:00 Consult Infectious Diseases Routine Procedures Performed Laboratory Results WBC 6.79 K/ul (4.8-10.8) 03/22/23 07:22 RBC 3.44 M/uL (4.20-5.40) L 03/22/23 07:22 Hgb 9.5 g/dl (12.0-16.0) L 03/22/23 07:22 Hct 29.1 % (37.0-47.0) L 03/22/23 07:22 MCV 84.6 fL (80.0-100.0) 03/22/23 07:22 MCH 27.6 pg (25.0-34.0) 03/22/23 07:22 MCHC 32.6 g/dL (32.0-36.0) 03/22/23 07:22 RDW Std Deviation 52.4 fL (36.4-46.3) H 03/22/23 07:22 RDW Coeff of Jan 17.0 % (11.5-14.5) H 03/22/23 07:22 Plt Count 306 K/uL (130-400) 03/22/23 07:22 MPV 10.1 fL (9.4-12.4) 03/22/23 07:22 Immature Gran % (Auto) 0.7 % 03/22/23 07:22 Neut % (Auto) 52.4 % 03/22/23 07:22 Lymph % (Auto) 29.9 % 03/22/23 07:22 [place] % (Auto) 11.8 % 03/22/23 07:22 Eos % (Auto) 3.7 % 03/22/23 07:22 Baso % (Auto) 1.5 % 03/22/23 07:22 Neut # (Auto) 3.56 K/uL (1.40-6.50) 03/22/23 07:22 Lymph # (Auto) 2.03 K/uL (1.2-3.4) 03/22/23 07:22 [place] # (Auto) 0.80 K/uL (0.11-0.59) H 03/22/23 07:22 Eos # (Auto) 0.25 K/uL (0-0.50) 03/22/23 07:22 Baso # (Auto) 0.10 K/uL (0-0.2) 03/22/23 07:22 Immature Gran # (Auto) 0.05 K/uL (0.01-0.20) 03/22/23 07:22 PT 11.7 Seconds (9.0-12.0) 03/12/23 22:27 INR 1.1 (0.9-1.1) 03/12/23 22:27 APTT 30.2 Seconds (21.0-31.0) 03/18/23 07:04 PTT Ratio 1.1 03/18/23 07:04 Sodium 142 mmol/L (136-145) 03/22/23 07:22 Potassium 3.9 mmol/L (3.5-5.1) 03/22/23 07:22 Chloride 106 mmol/L (98-107) 03/22/23 07:22 Carbon Dioxide 31 mmol/L (21-32) 03/22/23 07:22 Anion Gap 5 (3-11) 03/22/23 07:22 BUN 31 mg/dl (6-23) H 03/22/23 07:22 Creatinine 0.72 mg/dl (0.6-1.2) 03/22/23 07:22 Est Cr Clr Drug Dosing 38.7 ml/min 03/22/23 07:22 Est GFR ( Amer) 89.1 ml/min 03/22/23 07:22 Est GFR (Non-Af Amer) 76.9 ml/min 03/22/23 07:22 BUN/Creatinine Ratio 43.1 (10-20) H 03/22/23 07:22 Glucose 88 mg/dl (70-99(Fasting)) 03/22/23 07:22 Lactate 0.9 mmol/L (0.4-2.0) 03/12/23 22:57 Calcium 9.1 mg/dl (8.6-10.3) 03/22/23 07:22 Magnesium 1.8 mg/dl (1.7-2.4) 03/17/23 05:48 Total Bilirubin 0.5 mg/dl (0.2-1.0) 03/12/23 22:27 Direct Bilirubin 0.1 mg/dl (0-0.2) 03/12/23 22:27 AST 17 U/L (13-39) 03/12/23 22:27 ALT 15 U/L (7-52) 03/12/23 22:27 Alkaline Phosphatase 93 U/L (34-104) 03/12/23 22:27 Troponin I High Sens 7.2 pg/ml (0-14) 03/12/23 22:27 Total Protein 6.3 gm/dl (6.0-8.3) 03/12/23 22:27 Albumin 3.3 gm/dl (3.4-5.0) L 03/12/23 22:27 Procalcitonin 0.81 ng/ml (0-0.5) H 03/12/23 22:27 Urine Color Yellow 03/13/23 00:09 Urine Appearance Clear (Clear) 03/13/23 00:09 Urine pH 7.0 (4.5-7.5) 03/13/23 00:09 Ur Specific [place] 1.012 (1.000-1.030) 03/13/23 00:09 Urine Protein Trace (Negative) H 03/13/23 00:09 Urine Glucose (UA) Negative (Negative) 03/13/23 00:09 Urine Ketones Negative (Negative) 03/13/23 00:09 Urine Blood 2+ (Negative) H 03/13/23 00:09 Urine Nitrite Negative (Negative) 03/13/23 00:09 Urine Bilirubin Negative (Negative) 03/13/23 00:09 Urine Urobilinogen Negative (Negative) 03/13/23 00:09 Ur Leukocyte Esterase Trace (Negative) H 03/13/23 00:09 Urine WBC (Auto) 5-10 /hpf (0-5) H 03/13/23 00:09 Urine RBC (Auto) 10-30 /hpf (0-4) H 03/13/23 00:09 U Hyaline Cast (Auto) 0 /lpf (0-5) 03/13/23 00:09 U Epithel Cells (Auto) 20-30 /lpf (0-5) H 03/13/23 00:09 Urine Bacteria (Auto) 1+ (Negative) H 03/13/23 00:09 Nasal Screen MRSA (PCR) Negative (Negative) 03/13/23 04:40 SARS-CoV-2, RNA, NAAT NEGATIVE (NEGATIVE) 03/12/23 22:57 Impressions Chest X-Ray 03/12/23 22:46 XR chest 1V portable CLINICAL HISTORY: Sepsis. COMPARISON STUDY: Chest CT February 03, 2023. Chest radiograph February 28, 2023. FINDINGS: Lung volumes are diminished. There is no pneumothorax or pleural effusion. There are mild bibasilar opacities. No evidence for pulmonary edema. Cardiomediastinal silhouette is stable. IMPRESSION: Low lung volumes. Mild bibasilar opacities which favor atelectasis. ACT 112: Negative or not required by law. Electronically signed by: Isai Gu M.D. 03/13/2023 7:[address] 03/13/23 00:41 Exam(s): CT CHEST Without Contrast EXAM: CT Chest Without Intravenous Contrast CLINICAL HISTORY: Reason for exam: aspiration pneumonia?. TECHNIQUE: Axial computed tomography images of the chest without intravenous contrast. Automated exposure control was utilized for the study. A dose lowering technique was utilized adhering to the principles of ALARA. COMPARISON: No relevant prior studies available. FINDINGS: Lungs: Bilateral basilar lower lobe patchy densities are seen. Pleural space: Small right pleural effusion. No pneumothorax. Heart: Mild cardiomegaly. Moderate coronary vascular calcifications are seen. No significant pericardial effusion. Bones/joints: There is T12 vertebral body chronic compression fracture deformity seen with 60% loss of vertebral body height Lymph nodes: Unremarkable. No enlarged lymph nodes. IMPRESSION: 1. Bilateral lower lobe patchy densities which could be from aspiration changes 2. Small right pleural effusion Electronically signed by: Jabari Martinez MD 03/13/23 06:22 AM KUB X-Ray 03/14/23 09:02 XR KUB/Abdomen 1 view CLINICAL HISTORY: doctors good TECHNIQUE: 1 view of the abdomen was obtained. Comparison: Comparison is made to abdomen radiograph 10/22/2022 FINDINGS: Lung bases are unremarkable. Degenerative changes are seen in the visualized skeleton. The bowel gas pattern is nonobstructive. A moderate amount of stool is noted within the large bowel. IMPRESSION: Nonobstructive bowel gas pattern. ACT 112: Negative or not required by law. Electronically signed by: Branden Valencia M.D. 03/14/2023 3:08 PM Ordered Studies 03/13/23 00:41 CT chest diagnostic wo con Urgent Hospital Course (1) Pneumonia: Pt was admitted with respiratory distress secondary to aspiration pneumonia and is currently being treated for multi drug resistant UTI. Awaiting placement after she completes her 7 days of IV meropenem. Aspiration pneumonia Dysphagia --CT Chest: Showed bilateral lower lobe patchy densities which could be from aspiration changes.Small right pleural effusion -- Blood culture negative to date Was previously on Zosyn with doxycycline and was transitioned to daptomycin with meropenem Failed swallow eval, Speech therapy consulted Poor candidate for PEG tube given advanced dementia Appreciate Palliative care Input IV fluids as needed Family declines escalation of care, Goal is comfort Plan to transition to hospice upon discharge to SNF Appreciate ID input- recommend that she completes 7-day course of IV antibiotics, currently at day 7 of meropenem. Completed IV meropenem, daptomycin course Plan to be discharged to SNF to be eventually transition to hospice as outpatient (2) Sepsis: Presented with possible early sepsis Lactate level was not elevated but procalcitonin was mildly elevated at 0.81 Secondary to aspiration pneumonia, UTI (3) UTI (urinary tract infection): Urine culture: Enterococcus (>100K), Pseudomonas (20K) Transitioned Zosyn/Doxy to daptomycin/meropenem as above Patient completed IV Meropenem course Sacral Wound Continue Wound Care On Antibiotics as noted above (4) Dementia: severe dementia (5) Hypertension: Continue amlodipine (6) MGUS (monoclonal gammopathy of unknown significance): stable (7) Hypothyroidism: Currently not on any levothyroxine H/O PE and DVT Continue Eliquis History of FOSTER Not on CPAP Continue supplemental oxygen as needed Chronic diastolic congestive heart failure with history of CAD stable DVT Px: Eliquis CODE STATUS: DNR/DNI Disposition: SNF with possible transition to Hospice as outpatient Total Time Total Time Spent Total Time Spent (In Minutes): 54 minutes Discharge Plan Discharge Items Patient Disposition: Transfer [facility] Fac Reason For Visit: RESP DISTRESS Discharge Diagnosis: Aspiration pneumonia Dysphagia Urinary tract infection Sacral wound Dementia Activity: Per Instructions section Exercise/Sports: Wait until after follow-up appointment Non-emergency contact: Primary Care Provider Call non-emergency contact if: you have any medication questions, your symptoms worsen, your pain is concerning for you and you have a fever Follow-up/Referrals: Ani Swift at [place] [Primary Care Provider] - Diet: Regular Diet Texture: Pureed (blended smooth) Addtl Attending Provider Instructions: Follow-up with your primary care physician in 1 week. Seek immediate medical attention if your symptoms reoccur or worsen Please take all medications as instructed on discharge list below. Please call if you have any questions or problems. You can reach a [facility] hospitalist on duty at [facility] [address] 24 hours a day by calling [phone] Pending Studies at Discharge: No Stand-Alone Forms: [facility] Skilled Items Patient informed of condition?: Yes DNR: Yes Discharge Level of Care: Skilled Communicable Disease: No Discharge Prognosis: Stable Lines: None Urinary Catheter: No Medications and DC Order Prescriptions: Continued alendronate 70 mg Tablet 70 mg PO WK Qty: 30 0RF Rx Instructions: TAKE THIS MED EVERY WEDNESDAY MORNING polyethylene glycol 3350 [Miralax] 17 gram Powder In Packet 17 g PO DAILY PRN (Reason: constipation) Qty: 14 0RF acetaminophen [Tylenol] 325 mg Tablet 650 mg PO Q4H PRN (Reason: PAIN/FEVER) ondansetron HCl 4 mg Tablet 4 mg PO Q6H PRN (Reason: NAUSEA/VOMITING) famotidine 20 mg Tablet 20 mg PO HS sertraline 25 mg Tablet 75 mg PO HS Rx Instructions: THREE TABLET DOSE sennosides [Senokot] 8.6 mg tablet 17.2 mg PO BID amlodipine 5 mg tablet 5 mg PO QAM omeprazole 20 mg capsule,delayed release(DR/EC) 20 mg PO QAM risperidone 0.5 mg tablet 0.5 mg PO BID apixaban 5 mg (74 tabs) tablets,dose pack 5 mg PO BID potassium chloride 20 mEq tablet extended release 20 meq PO DAILY Qty: 3 0RF Discharge Orders: Discharge Order (Routine); Ordered 03/22/23 Ordered By: Jose Orozco Admission Data Admit Date/Time: 03/13/23 00:39 Attending Provider: Jose Orozco Admit Provider: Frank Teague Primary Care Provider: Ani Swift [facility] Other Providers: Frank Teague ; Ling Ramos ; Brad Pardo ; Odilia Varela ; Bob Fragoso I. ; Leo Blackmon II ; Roma Morales ; Derek Valle ; Chris Sarmiento ; Slim Armstrong ; Ani Swift [facility] ; Jose Orozco Other Interventions: Discharge Summary Assessment (RN) Last Done: 03/22/23 11:17
== END 2023-03-22 12:41 | DRG 871 ==
LOC: ED 22:20 → 4W 03-13 00:39 → SUATTDRO 03-13 00:39 → 4W 03-13 02:46 → 3N 03-17 13:35